=== PATIENT | female | born 1955 | race Caucasian/White ===

== ENCOUNTER 2022-04-25 16:54 | Inpatient (IN) ==
[2022-04-25 17:29] LABS: Basophils # (auto) 0.03 K/uL (0-0.2); Basophils % (auto) 0.6 %; Eosinophils # (auto) 0.24 K/uL (0-0.50); Eosinophils % (auto) 4.7 %; Hematocrit (blood only) 36.8 % (34.1-44.9); Hemoglobin 11.7 g/dl (12.0-16.0); Immature Granulocytes # (auto) 0.01 K/uL (0.00-0.02); Immature Granulocytes % (auto) 0.2 %; Lymphocytes # (auto) 1.03 K/uL (1.2-3.4); Lymphocytes % (auto) 20.3 %; Mean Corpuscular Hemoglobin 31.8 pg (25.0-34.0); Mean Corpuscular Hgb Conc 31.8 g/dL (32.0-36.0); Mean Platelet Volume 9.6 fL (9.4-12.3); Monocytes # (auto) 0.49 K/uL (0.24-0.82); Monocytes % (auto) 9.7 %; Neutrophils # (auto) 3.27 K/uL (1.4-6.5); Neutrophils % (auto) 64.5 %; Platelet Count 186 K/uL (130-400); RDW Coefficient of Variation 13.1 % (11.5-14.5); RDW Standard Deviation 48.4 fL (36.4-46.3); Red Blood Count 3.68 M/uL (3.93-5.22); White Blood Count 5.07 K/ul (4.8-10.8)
[2022-04-25 17:42] LABS: Partial Thromboplastin Ratio 0.9; Prothrombin Time 10.4 Seconds (9.0-12.0)
[2022-04-25 17:58] LABS: Albumin Globulin Ratio 1.3 (0.9-2); Albumin Level 3.9 gm/dl (3.4-5.0); BUN Creatinine Ratio 18.5 (10-20); Bilirubin,Total 0.4 mg/dl (0.2-1.0); Calcium 8.9 mg/dl (8.5-10.1); Creatinine Clr Calc Pharmacy 82.8 ml/min; Est GFR (African American) 105.7 ml/min; Est GFR (Non-African American) 91.2 ml/min; Globulin 3.1 gm/dl (2.5-4.0); Potassium 4.1 mmol/L (3.5-5.1)
[2022-04-25 18:00] LABS: Troponin I High Sensitivity 7.2 pg/ml (0-14)
--- NOTE | 2022-04-25 18:02 | Ultrasound Report ---
LEFT LOWER EXTREMITY VENOUS DOPPLER CLINICAL HISTORY: Left lower extremity swelling. COMPARISON STUDY: No previous studies for comparison. TECHNIQUE: Sonography of the deep venous system of the left lower extremity was performed. Compressi on and augmentation were evaluated. FINDINGS: The left common femoral, superficial femoral and popliteal veins were compressible. Augmen tation was normal. Flow was shown within the deep calf vessels. IMPRESSION: No evidence of deep venous thrombus within the left lower extremity. ACT 112: Negative or not required by law. Electronically signed by: Jose Yu M.D. 04/25/2022 6:01 PM
[2022-04-25] MEDS ORDERED: FUROSEMIDE 40 MG/4 ML VIAL IV ONE (18:33)
--- NOTE | 2022-04-25 18:34 | XRay Report ---
XR chest 1V portable CLINICAL HISTORY: Atypical chest pain. COMPARISON STUDY: No previous studies for comparison. FINDINGS: Lung volumes are normal. There is no pneumothorax or pleural effusion. Cardiac size is with in normal limits. Mediastinal contours are unremarkable. Subtle interstitial prominence is noted. IMPRESSION: Subtle interstitial prominence. This is probably within normal limits although a mild in fectious process would be difficult to exclude. ACT 112: Negative or not required by law. Electronically signed by: Jose Yu M.D. 04/25/2022 6:33 PM
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
[2022-04-25] MEDS ORDERED: NITROGLYCERIN SL 0.4 MG/TAB TAB SL PRN (21:10)
[2022-04-25] MEDS ORDERED: hydrALAZINE HCL 20 MG/ML VIAL IV PRN (21:10)
[2022-04-25] MEDS ORDERED: POLYETHYLENE (MIRALAX) 17 GM PACK PO PRN (21:10)
[2022-04-25] MEDS ORDERED: POLYETHYLENE (MIRALAX) 17 GM PACK PO STA (21:10)
[2022-04-25] MEDS ORDERED: GLUCOSE 40% GEL 15 GM TUBE PO PRN (21:30)
[2022-04-25] MEDS ORDERED: GLUCOSE 10 TAB/TUBE PO PRN (21:30)
[2022-04-25] MEDS ORDERED: GLUCAGON FOR INJ 1 MG VIAL IM PRN (21:30)
[2022-04-25] MEDS ORDERED: DEXTROSE 50% 50 ML SYRINGE IV PRN (21:30)
[2022-04-25] MEDS ORDERED: CARBOHYDRATES FOR HYPOGLYCEMIA PO PRN (21:30)
--- NOTE | 2022-04-25 22:02 | History and Physical Report ---
DATE OF ADMISSION: 04/25/2022. CHIEF COMPLAINT: Lower extremity edema, hip pain and some ambulatory dysfunction. HISTORY OF PRESENT ILLNESS: This is a 67-year-old female with past medical history significant for obesity, diabetes, history of peptic ulcer disease, endometriosis, history of tobacco abuse in the past, presents with lower extremity edema, going on for a few weeks, and also having hip pain and ambulatory dysfunction. The patient states that last time she saw a doctor was 6 years ago. Since last 6 years, because of the lack of insurance, she was not taking any medications. She has insurance now and she wants to follow with family doctor. She sometimes gets migraine headaches. Her vision is ok. No earache, no runny nose, no sore throat. No cough. Appetite is okay. No chest pain. She states she is short of breath all the time . She cannot lie flat, lying flat makes her short of breath. No nausea, no vomiting. Has some abdominal discomfort. She is always constipated. She says she has some blood in the stools and thinks from the hemorrhoids. She says she has incontinence of the urine. Currently, resting comfortably and hemodynamically stable. ALLERGIES: TO IBUPROFEN. PAST MEDICAL HISTORY: As mentioned above. PAST SURGICAL HISTORY: Hysterectomy and oophorectomy, bladder repair. MEDICATIONS: MiraLax p.r.n. FAMILY HISTORY: Mother had dementia and lung cancer. Father is alcoholic. SOCIAL HISTORY: She says she has had quit smoking 5 years ago. She smoked half pack a day for many years. She has been heavy, but not drinking for the last 20 years. Currently living with her daughter. REVIEW OF SYSTEMS: As per HPI. Rest of review of systems is negative. PHYSICAL EXAMINATION: GENERAL: The patient is obese, not in acute distress. VITAL SIGNS: Temperature 36.7, pulse 72, respiratory rate 19, blood pressure 189/70, oxygen 95% on room air. HEENT: Pupils equal, round and reactive to light. Oral mucosa moist. NECK: No JVD. No neck masses. CARDIOVASCULAR: S1 and S2 heard. Regular rate and rhythm. No murmur, no gallop. RESPIRATORY SYSTEM: Normal AP diameter. No accessory muscle use. No wheezing, no crackles. ABDOMEN: Soft, bowel sounds present. Mild discomfort. No guarding. No rigidity. CENTRAL NERVOUS SYSTEM: Cranial nerves II-XII grossly intact, nonfocal. EXTREMITIES: Bilateral lower extremity pedal edema present, no erythema seen. LABORATORY DATA: WBC is 5, hemoglobin 11.7, hematocrit 36.8, platelets 186. PT of 10.4, INR 1, APTT 26. Sodium 141, potassium 4.1, chloride 105, bicarb 29, BUN 12, creatinine 0.6, serum glucose 123, calcium 8.9, total bilirubin 0.4, AST 19, ALT 15, alkaline phosphatase 102. Troponin I high sensitivity 7.2. BNP 324. SARS-CoV-2 rapid test negative. IMAGING DATA: Venous Doppler, no evidence of DVT. Chest x-ray, subtle interstitial prominence, probably within normal limits, although mild infectious process could be difficult to exclude. EKG: Sinus rhythm with PACs at a rate of 81, no acute ST changes seen. ASSESSMENT AND PLAN: This is a 67-year-old female who presents with increased lower extremity edema, shortness of breath and ambulatory dysfunction. 1. Shortness of breath, increased lower extremity edema, possible congestive heart failure. ER gave her a dose of IV Lasix 40. We will follow the response. Follow daily weights, I's and O's. We will follow echocardiogram. Monitor in the tele floor. Consult cardiology. Further diuretics as per Cardiology. 2. Hip pain, ambulatory dysfunction, back pain. As per daughter, she is to follow up with the pain clinic . We will get an x-rays of the hip and lumbar back. PT, OT when stable. 3. History of diabetes. Since last 6 years not following with any doctors. We will check HbA1c levels. Place her on insulin sliding scale. Follow the blood sugars. 4. Hypertension, could be situational, not been to doctor for a long time. We will follow the blood pressure in the hospital. Follow echocardiogram for any LVH. Currently placed on IV hydralazine p.r.n. 5. Obesity: Needs counseling. We will also follow lipid profile. 6. Anemia. hb 11.7. Will follow stool for hemeoccult. 7. Deep venous thrombosis prophylaxis: Lovenox. DISPOSITION: Closely monitor in the tele floor. Level 1 full code. PT, OT prior to discharge. Social service to help with discharge planning. Job ID: [id number] [facility]
[2022-04-25] MEDS: ENOXAPARIN INJ 40 MG/0.4 ML SYR SQ SCH (22:33)
[2022-04-25] MEDS: INSULIN ASPART PER UNIT SC SCH (22:34)
[2022-04-26] MEDS: traMADol HCL 50 MG TABLET PO PRN ×3 (04:38→19:47)
[2022-04-26 05:44] LABS: Basophils # (auto) 0.03 K/uL (0-0.2); Basophils % (auto) 0.6 %; Eosinophils # (auto) 0.25 K/uL (0-0.50); Eosinophils % (auto) 4.7 %; Hematocrit (blood only) 35.9 % (34.1-44.9); Hemoglobin 11.6 g/dl (12.0-16.0); Immature Granulocytes # (auto) 0.02 K/uL (0.00-0.02); Immature Granulocytes % (auto) 0.4 %; Lymphocytes # (auto) 1.09 K/uL (1.2-3.4); Lymphocytes % (auto) 20.3 %; Mean Corpuscular Hemoglobin 31.6 pg (25.0-34.0); Mean Corpuscular Hgb Conc 32.3 g/dL (32.0-36.0); Mean Corpuscular Volume 97.8 fL (80.0-100.0); Mean Platelet Volume 9.6 fL (9.4-12.3); Monocytes # (auto) 0.61 K/uL (0.24-0.82); Monocytes % (auto) 11.4 %; Neutrophils # (auto) 3.36 K/uL (1.4-6.5); Neutrophils % (auto) 62.6 %; Platelet Count 185 K/uL (130-400); RDW Coefficient of Variation 12.8 % (11.5-14.5); Red Blood Count 3.67 M/uL (3.93-5.22); White Blood Count 5.36 K/ul (4.8-10.8)
[2022-04-26 06:09] LABS: BUN Creatinine Ratio 19.1 (10-20); Calcium 8.8 mg/dl (8.5-10.1); Chol HDL Ratio 3.4 (0-5); Creatinine Clr Calc Pharmacy 85.2 ml/min; Est GFR (African American) 104.2 ml/min; Est GFR (Non-African American) 89.9 ml/min; Magnesium 1.5 mg/dl (1.7-2.4); Potassium 4.1 mmol/L (3.5-5.1)
[2022-04-26 06:52] LABS: Estimated Average Glucose 105 mg/dl; Hemoglobin A1C 5.3 % (4.5-5.6)
[2022-04-26] MEDS ORDERED: PNEUMOCOCCAL POLYSACCHARIDES 25 MCG/0.5 ML VIAL/SYR IM ONE (09:00)
[2022-04-26] MEDS ORDERED: INFLUENZA VACCINE HIGH DOSE PF 65+ 0.7 ML SYR IM ONE (09:00)
[2022-04-26] MEDS ORDERED: MAGNESIUM SULFATE / D5W 1 GM/100 ML BAG IV ONE (09:13)
[2022-04-26] MEDS: INSULIN ASPART PER UNIT SC SCH ×4 (09:30→21:10)
--- NOTE | 2022-04-26 09:32 | XRay Report ---
XR lumbar spine 2-3V HISTORY: 67 years-old Female BACK PAIN acute low back pain COMPARISON: CT abdomen and pelvis 03/12/2022 TECHNIQUE: 3 views of the lumbar spine FINDINGS: Moderate fecal retention. Surgical clips of the pelvis. Prior ventral abdominal wall hernia repair. 5 lumbar type vertebral segments are present. Severe L4-L5 vertebral disc space narrowing with spondy litic spurring and vacuum disc phenomenon redemonstrated. Moderate multilevel spondylitic spurring. N o spondylolysis or spondylolisthesis. Straightening of the normal lumbar lordosis. No acute fracture or subluxation. IMPRESSION: 1. No acute fracture or subluxation. 2. Severe intervertebral disc space narrowing at L4-L5 redemonstrated. ACT 112: Negative or not required by law. The above report was generated using voice recognition software. It may contain grammatical, syntax o r spelling errors. Electronically signed by: Lonnie Leija M.D. 04/26/2022 9:31 AM
--- NOTE | 2022-04-26 09:35 | XRay Report ---
XR hip KYRA 2v w pelvis CLINICAL HISTORY: b/l hip pain COMPARISON STUDY: Abdomen and pelvis CT 03/12/2022. FINDINGS: Midline abdominal suture material and surgical clips within the left lower quadrant are not ed. No fracture or dislocation within the pelvis or hips. The sacrum is intact. 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 Degenerative changes within the lumbar spine are partially visualized. IMPRESSION: No fracture or dislocation within the pelvis or hips. ACT 112: Negative or not required by law. Electronically signed by: Kendrick Rene M.D. 04/26/2022 9:33 AM
[2022-04-26] MEDS: ENOXAPARIN INJ 40 MG/0.4 ML SYR SQ SCH ×2 (09:54→20:03)
[2022-04-26] MEDS: MAGNESIUM OXIDE 400 MG TAB PO SCH ×2 (09:55→20:04)
--- NOTE | 2022-04-26 14:24 | Electrocardiogram Report ---
Test Reason : Blood Pressure : / mmHG Vent. Rate : 081 BPM Atrial Rate : 081 BPM P-R Int : 150 ms QRS Dur : 062 ms QT Int : 364 ms P-R-T Axes : 051 000 029 degrees QTc Int : 422 ms Poor data quality, interpretation may be adversely affected Sinus rhythm with Premature atrial complexes Otherwise normal ECG When compared with ECG of 12-MAR-2022 13:43, Premature atrial complexes are now Present Confirmed by Solomon Corrales ([id number]) on 04/26/2022 2:24:30 PM Referred By: REFERRED SELF Confirmed By:Solomon Corrales
--- NOTE | 2022-04-26 14:41 | Electrocardiogram Report ---
Test Reason : Blood Pressure : / mmHG Vent. Rate : 066 BPM Atrial Rate : 066 BPM P-R Int : 154 ms QRS Dur : 066 ms QT Int : 432 ms P-R-T Axes : 075 -19 054 degrees QTc Int : 452 ms Sinus rhythm with Premature atrial complexes Otherwise normal ECG When compared with ECG of 25-APR-2022 17:02, (unconfirmed) No significant change was found Confirmed by Solomon Corrales ([id number]) on 04/26/2022 2:41:08 PM Referred By: REFERRED SELF Confirmed By:Solomon Corrales
[2022-04-26] MEDS ORDERED: FUROSEMIDE 40 MG/4 ML VIAL IV ONE (14:52)
[2022-04-26] MEDS ORDERED: LORazepam 0.5 MG in SYRINGE 0.25 ML IV PRN (15:05)
--- NOTE | 2022-04-26 17:20 | Hospitalist Progress Note ---
Date of Service April 26, 2022 Assessment & Plan (1) Acute diastolic CHF (congestive heart failure): (2) Chronic back pain: (3) Bipolar disorder: Plan 67 year old female who presented to the ED 04/25 with worsening leg swelling, back pain, weakness and ambulatory dysfunction Acute diastolic CHF - Echo with normal EF, grade 1 diastolic dysfunction. Had elevated BNP, leg swelling, orthopnea, PND prior to arrival - Responded well to iv lasix. Will give 1 more dose of iv lasix today and likely switch to po tomorrow - monitor daily weight,I and Os, labs Acute on chronic low back pain - states had MRI 6 years back at [place]. Xray lumbar spine shows no fracture but severe intervertebral disc space narrowing at L4-L5. Has LE weakness on exam and reports worsening ambulatory function - Will get MRI L spine for evaluation - Pain management- continue home neurontin 800 hs, methocarbamol 500 hs, tylenol, PT eval - She doesn't have a PCP so uses her daughter's medication. She would like to establish PCP care. Bipolar disorder- on seroquel 200 hs Urinary retention- was on flomax. requesting to be started Hypomagnesemia- repleted, recheck in am DVT ppx- sc lovenox Dispo- Pending MRI, PT/OT eval. Updated daughter Sandy over the phone Admission and Anticipated Discharge Date Admission Date: April 25, 2022 Subjective Feels better from admission. Swelling and dyspnea improved. Complains of ongoing leg weakness and pain in the back which has been going on for many years but worsening. She would like to be set up with a PCP. Reviewed home meds with her daughter Sandy. Physical Exam Physical Exam: General: Lying comfortably in bed, not in distress, on room air HEENT: EOMI, JONAH, MMM Chest: Clear breath sounds bilaterally, no wheezes or crackles CVS: Regular rate and rhythm, normal heart sounds, no murmur Abdomen: Soft, non tender, not distended, normal bowel sounds Neuro: Awake, alert, oriented, conversing well, non focal Extremities: Trace edema LE Results & Data Results & Data ([facility]) Vital Signs (Past 12 Hours) Vital Signs Temp Pulse Pulse Resp BP Pulse Ox O2 Del Method 04/26/22 16:20 68 04/26/22 15:25 36.6 C 56 L 14 153/72 H 92 Room Air 04/26/22 11:21 36.7 C 66 15 152/80 H 91 Room Air 04/26/22 10:49 Room Air 04/26/22 08:10 36.7 C 64 18 184/81 H 91 Room Air 04/26/22 07:11 64 Laboratory Results Short CBC 04/25/22 04/26/22 Range/Units 17:16 05:17 WBC 5.07 5.36 (4.8-10.8) K/ul Hgb 11.7 L 11.6 L (12.0-16.0) g/dl Hct 36.8 35.9 (34.1-44.9) % Plt Count 186 185 (130-400) K/uL BMP 04/25/22 04/26/22 17:16 05:17 Sodium 141 141 Potassium 4.1 4.1 Chloride 105 100 Carbon Dioxide 29 34 H BUN 12 13 Creatinine 0.65 0.68 Glucose 123 H 107 H Calcium 8.9 8.8 Liver Function 04/25/22 Range/Units 17:16 Total Bilirubin 0.4 (0.2-1.0) mg/dl AST 19 (13-39) U/L ALT 15 (7-52) U/L Alkaline Phosphatase 102 (34-104) U/L Albumin 3.9 (3.4-5.0) gm/dl Diagnostic Findings Hip/Pelvis X-Ray 04/26/22 11:00 XR hip KYRA 2v w pelvis CLINICAL HISTORY: b/l hip pain COMPARISON STUDY: Abdomen and pelvis CT 03/12/2022. FINDINGS: Midline abdominal suture material and surgical clips within the left lower quadrant are noted. No fracture or dislocation within the pelvis or hips. The sacrum is intact. 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 Degenerative changes within the lumbar spine are partially visualized. IMPRESSION: No fracture or dislocation within the pelvis or hips. ACT 112: Negative or not required by law. Electronically signed by: Kendrick Rene M.D. 04/26/2022 9:33 AM Lumbar Spine X-Ray 04/26/22 11:00 XR lumbar spine 2-3V HISTORY: 67 years-old Female BACK PAIN acute low back pain COMPARISON: CT abdomen and pelvis 03/12/2022 TECHNIQUE: 3 views of the lumbar spine FINDINGS: Moderate fecal retention. Surgical clips of the pelvis. Prior ventral abdominal wall hernia repair. 5 lumbar type vertebral segments are present. Severe L4-L5 vertebral disc space narrowing with spondylitic spurring and vacuum disc phenomenon redemonstrated. Moderate multilevel spondylitic spurring. No spondylolysis or spondylolisthesis. Straightening of the normal lumbar lordosis. No acute fracture or subluxation. IMPRESSION: 1. No acute fracture or subluxation. 2. Severe intervertebral disc space narrowing at L4-L5 redemonstrated. ACT 112: Negative or not required by law. The above report was generated using voice recognition software. It may contain grammatical, syntax or spelling errors. Electronically signed by: Lonnie Leija M.D. 04/26/2022 9:31 AM Medications Administered Current Inpatient Medications Dextrose (Dextrose 50% 50 Ml Syringe) 25 - 50 ml IV UD PRN; Protocol PRN Reason: Hypoglycemia Protocol Stop: 05/25/22 21:29 Enoxaparin Sodium (Enoxaparin Inj 40 Mg/0.4 Ml Syr) 40 mg SQ Q12H [facility] Stop: 05/25/22 20:59 Last Admin: 04/26/22 09:54 Dose: 40 mg Glucagon (Glucagon For Inj 1 Mg Vial) 1 mg IM UD PRN; Protocol PRN Reason: Hypoglycemia Protocol Stop: 05/25/22 21:29 Glucose (Glucose 40% Gel 15 Gm Tube) 15 - 30 gm PO UD PRN; Protocol PRN Reason: Hypoglycemia Protocol Stop: 05/25/22 21:29 Glucose (Glucose 10 Tab/Tube) 4 - 8 tab PO UD PRN; Protocol PRN Reason: Hypoglycemia Protocol Stop: 05/25/22 21:29 Hydralazine HCl (Hydralazine Hcl 20 Mg/Ml Vial) 7.5 mg IV Q6H PRN PRN Reason: Hypertension Stop: 05/25/22 21:09 Lorazepam 0.5 mg/ Syringe 0.5 mls @ 2 mls/min IV ONCE PRN PRN Reason: Anxiety Stop: 05/26/22 15:04 Insulin Aspart (Insulin Aspart Per Unit) 0 units SC ACHS NANCY Stop: 05/25/22 21:09 Last Admin: 04/26/22 16:29 Dose: Not Given Magnesium Oxide (Magnesium Oxide 400 Mg Tab) 400 mg PO BID [facility] Stop: 05/26/22 09:14 Last Admin: 04/26/22 09:55 Dose: 400 mg Miscellaneous (Carbohydrates For Hypoglycemia ) 15 - 30 gm PO UD PRN PRN Reason: Hypoglycemia Treatment Stop: 05/25/22 21:29 Nitroglycerin (Nitroglycerin Sl 0.4 Mg/Tab Tab) 0.4 mg SL UD PRN PRN Reason: Chest Pain Stop: 05/25/22 21:09 Polyethylene Glycol (Polyethylene (Miralax) 17 Gm Pack) 17 gm PO DAILY PRN PRN Reason: Constipation Stop: 05/25/22 21:09 Tamsulosin HCl (Tamsulosin Hcl 0.4 Mg Cap) 0.4 mg PO QAM NANCY Stop: 05/27/22 08:59 Tramadol HCl (Tramadol Hcl 50 Mg Tablet) 50 mg PO Q6H PRN PRN Reason: Pain Stop: 05/25/22 21:09 Last Admin: 04/26/22 09:59 Dose: 50 mg
[2022-04-26] MEDS ORDERED: GADOBUTROL 65ML VIAL IV ONE (18:38)
[2022-04-26] MEDS: lisinopril 10 MG TAB PO SCH (19:02)
--- NOTE | 2022-04-26 19:02 | Magnetic Resonance Report ---
MR lumbar spine wo/w con CLINICAL HISTORY: Low back pain with bilateral hip pain for years. Increasing leg weakness. TECHNIQUE: Multiplanar multisequence images of the Lumbar Spine were performed with and without IV c ontrast. Contrast Volume: 10.5 ml of Gadavist COMPARISON: None. FINDINGS: There is no evidence for vertebral body fracture. The heights of the vertebral bodies are maintained. The vertebral bodies are in anatomic alignment. Discogenic changes are present involving the T1 body endplates at L4 and L5. Homogeneous marrow signal is seen throughout the remainder of the lumbar spine without evidence for marrow edema or marrow replacement. There is no abnormal enhanceme nt following contrast administration. T11-T12: There is moderate disc space narrowing with a small left paracentral disc protrusion/herniat ion present measuring approximately 5 mm. This encroaches upon the thecal sac anterolaterally to the left without compression upon or deformity of the spinal cord or conus. T12-L1: The disc space height is maintained. There are no focal disc protrusions or extrusions ident ified. The thecal sac and epidural fat are maintained. The neural foramen are patent bilaterally. Th ere is no evidence for nerve root encroachment. The facet joints are within normal limits. L1-2: The disc space height is maintained. There are no focal disc protrusions or extrusions identif ied. The thecal sac and epidural fat are maintained. The neural foramen are patent bilaterally. Ther e is no evidence for nerve root encroachment. The facet joints are within normal limits. L2-3: There is mild disc space narrowing with diffuse bulging of the annulus present. There are no f ocal disc protrusions or extrusions identified. There is minimal flattening of thecal sac anteriorly and mild encroachment upon the origins of the neural foramen bilaterally. There is no evidence for n erve root encroachment. Mild hypertrophic facet joint disease is present bilaterally. L3-4: The disc space height is maintained. There are no focal disc protrusions or extrusions identif ied. There is mild diffuse bulging annulus with flattening of thecal sac anteriorly and mild encroac hment upon the origins of the neural foramen bilaterally. There is no evidence for nerve root encroac hment. Mild hypertrophic facet joint disease is seen bilaterally. L4-5: There is moderate to marked disc space narrowing with discogenic changes seen involving vertebr al body endplates. There are no focal disc protrusions or extrusions identified. There is diffuse b ulging of the annulus with flattening of thecal sac anteriorly and encroachment upon the origins of t he neural foramen bilaterally. Mild to moderate hypertrophic facet joint disease with thickening of l igamentum flavum is also present bilaterally. The combination of these findings produce mild central canal stenosis and moderate bilateral foraminal stenosis. L5-S1: The disc space height is maintained. There are no focal disc protrusions or extrusions identi fied. The thecal sac and epidural fat are maintained. The neural foramen are patent bilaterally. The re is no evidence for nerve root encroachment. Mild hypertrophic facet joint disease is seen bilatera lly. IMPRESSION: 1. Small left paracentral disc protrusion/herniation at T11-12. 2. Degenerative disc and degenerative facet joint disease with bulging annuli is seen at L2-3, L3-4 a nd L4-5 as delineated at each disc space level above. No other focal disc protrusion/herniation is se en. ACT 112: Negative or not required by law. Electronically signed by: Alfredito Hoffman M.D. 04/26/2022 7:00 PM
[2022-04-26] MEDS: ACETAMINOPHEN 500 MG TAB PO SCH (20:03)
[2022-04-26] MEDS: GABAPENTIN 800 MG TAB PO SCH (20:04)
[2022-04-26] MEDS: METHOCARBAMOL 500 MG TABLET PO SCH (20:04)
[2022-04-26] MEDS: QUEtiapine FUMARATE 200 MG TABCR PO SCH (20:05)
[2022-04-27 07:33] LABS: Hematocrit (blood only) 36.7 % (34.1-44.9); Mean Corpuscular Hemoglobin 32.2 pg (25.0-34.0); Mean Corpuscular Hgb Conc 32.7 g/dL (32.0-36.0); Mean Corpuscular Volume 98.4 fL (80.0-100.0); Mean Platelet Volume 9.2 fL (9.4-12.3); Platelet Count 172 K/uL (130-400); RDW Coefficient of Variation 12.9 % (11.5-14.5); RDW Standard Deviation 46.4 fL (36.4-46.3); Red Blood Count 3.73 M/uL (3.93-5.22); White Blood Count 3.75 K/ul (4.8-10.8)
[2022-04-27 08:01] LABS: BUN Creatinine Ratio 20.2 (10-20); Calcium 8.5 mg/dl (8.5-10.1); Creatinine Clr Calc Pharmacy 69.2 ml/min; Est GFR (African American) 82.8 ml/min; Est GFR (Non-African American) 71.4 ml/min; Potassium 3.5 mmol/L (3.5-5.1)
[2022-04-27] MEDS: INSULIN ASPART PER UNIT SC SCH ×4 (08:03→20:48)
[2022-04-27] MEDS: lisinopril 10 MG TAB PO SCH (09:02)
[2022-04-27] MEDS: TAMSULOSIN HCL 0.4 MG CAP PO SCH (09:02)
[2022-04-27] MEDS: MAGNESIUM OXIDE 400 MG TAB PO SCH ×2 (09:02→20:24)
[2022-04-27] MEDS: ENOXAPARIN INJ 40 MG/0.4 ML SYR SQ SCH ×2 (09:02→20:23)
--- NOTE | 2022-04-27 12:50 | Orthopedic Consultation ---
Date of Consultation April 27, 2022 Assessment & Plan (1) Chronic back pain: MRI lumbar spine available for review does demonstrate evidence of degenerative change most impressive at L4-L5 with subarticular and foraminal stenosis. Is not severe in nature. In light of her presentation of progressive nonspecific leg weakness I cannot account this to the MRI of her lumbar spine. She may require a neurology consultation. But did not see anything at this time that requiring surgical intervention. History of Present Illness Reason for Consultation: Back pain and leg weakness Attending Physician: Wilmar Chi MD History of Present Illness This is a very pleasant 59-year-old female who presents with worsening back pain and leg weakness. She does have multiple medical issues. She states she is noted decline in function for many years. She states she did not longer ascend stairs. She cannot ambulate for any sort of distance. Again this has been progressive over the years. Allergies Allergy/AdvReac Type Severity Reaction Status Date / Time ibuprofen AdvReac Nausea Unverified 04/25/22 19:03 Home Medications Medication Instructions Recorded Confirmed Type polyethylene glycol 3350 17 17 g PO DAILY PRN constipation 03/12/22 04/25/22 Rx gram/dose oral powder (Miralax) #850 grams Patient History Medical History Constipation PUD (peptic ulcer disease) Surgical History H/O: hysterectomy Social History Smoking Status: Former smoker Hx Alcohol Use: No Hx Substance Use: No Preferred Language: Georgian Communication Ability: Effective Visual Effects Editor Required: No Beliefs That Will Affect Care: None Current Living Situation: Family Other Information That Helps Us Care for You: No Feels Safe at Home: Yes Safety Concerns: Afraid for Child/Children Assistive Devices: Cane Physical Exam Physical Exam: On exam she is alert and oriented and cooperative. She exhibits reasonable strength to plantar flexion dorsiflexion bilaterally. She is limitations with hip flexors bilaterally. Sensory is symmetric and intact. Results & Data ([facility]) Vital Signs (Past 12 Hours) Vital Signs Temp Pulse Pulse Resp BP Pulse Ox O2 Del Method 04/27/22 12:15 36.7 C 67 16 126/66 91 Room Air 07/26/22 09:56 Room Air 04/27/22 07:13 36.8 C 71 16 109/55 L 91 Room Air 04/27/22 07:02 65 04/27/22 03:56 95/59 L 04/27/22 03:21 36.5 C 67 16 90/60 L 91 Room Air 04/27/22 02:13 66
[2022-04-27] MEDS: traMADol HCL 50 MG TABLET PO PRN ×2 (14:55→22:25)
--- NOTE | 2022-04-27 16:43 | Hospitalist Progress Note ---
Date of Service April 27, 2022 Assessment & Plan (1) Acute diastolic CHF (congestive heart failure): (2) Chronic back pain: (3) Bipolar disorder: Plan 67 year old female who presented to the ED 04/25 with worsening leg swelling, back pain, weakness and ambulatory dysfunction Acute diastolic CHF - Echo with normal EF, grade 1 diastolic dysfunction. Had elevated BNP, leg swelling, orthopnea, PND prior to arrival - Responded well to iv lasix x2. Change to oral lasix from today. Monitor response - monitor daily weight,I and Os, labs Acute on chronic low back pain - states had MRI 6 years back at [place]. Xray lumbar spine shows no fracture but severe intervertebral disc space narrowing at L4-L5. Has LE weakness on exam and reports worsening ambulatory function - MRI L spine reviewed and seen by Dr Chanel. recommended neuro eval- consulted. - PT eval pending - Continue home neurontin 800 hs, methocarbamol 500 hs, tylenol for pain control HTN- BP labile. Started on lisinopril 10 mg daily- monitor response and adjust accordingly. Bipolar disorder- on seroquel 200 hs Urinary retention- was on flomax. requesting to be started and resumed. Hypomagnesemia- resolved DVT ppx- sc lovenox Dispo- Pending neuro and PT eval She doesn't have a PCP so uses her daughter's medication. She would like to establish PCP care. Our nurse coordinator notified to establish PCP care. Admission and Anticipated Discharge Date Admission Date: April 25, 2022 Subjective Improving. Her leg and abdominal swelling has significantly improved. Her SOB is improved. Still has weakness in legs. No fever, chills, N/V. Physical Exam Physical Exam: General: Obese female, sitting in chair, not in distress, on room air HEENT: EOMI, JONAH, MMM Chest: Clear breath sounds bilaterally, no wheezes or crackles CVS: Regular rate and rhythm, normal heart sounds, no murmur Abdomen: Soft, non tender, not distended, normal bowel sounds Neuro: Awake, alert, oriented, conversing well, non focal. Generalized weakness of bilateral LE 4/5 Extremities: No cyanosis, clubbing or edema Results & Data Results & Data ([facility]) Vital Signs (Past 12 Hours) Vital Signs Temp Pulse Pulse Resp BP Pulse Ox O2 Del Method 04/27/22 15:44 64 04/27/22 15:40 36.6 C 67 18 162/87 H 94 Room Air 04/27/22 12:15 36.7 C 67 16 126/66 91 Room Air 04/27/22 09:56 Room Air 04/27/22 07:13 36.8 C 71 16 109/55 L 91 Room Air 04/27/22 07:02 65 Laboratory Results Short CBC 04/27/22 Range/Units 07:09 WBC 3.75 L (4.8-10.8) K/ul Hgb 12.0 (12.0-16.0) g/dl Hct 36.7 (34.1-44.9) % Plt Count 172 (130-400) K/uL BMP 04/27/22 07:09 Sodium 139 Potassium 3.5 Chloride 96 L Carbon Dioxide 38 H BUN 17 Creatinine 0.84 Glucose 99 Calcium 8.5 Medications Administered Current Inpatient Medications Acetaminophen (Acetaminophen 500 Mg Tab) 1,000 mg PO HS NANCY Stop: 05/26/22 20:59 Last Admin: 04/26/22 20:03 Dose: 1,000 mg Dextrose (Dextrose 50% 50 Ml Syringe) 25 - 50 ml IV UD PRN; Protocol PRN Reason: Hypoglycemia Protocol Stop: 05/25/22 21:29 Enoxaparin Sodium (Enoxaparin Inj 40 Mg/0.4 Ml Syr) 40 mg SQ Q12H [facility] Stop: 05/25/22 20:59 Last Admin: 04/27/22 09:02 Dose: 40 mg Furosemide (Furosemide 40 Mg Tab) 40 mg PO DAILY NANCY Stop: 05/27/22 15:59 Gabapentin (Gabapentin 800 Mg Tab) 800 mg PO HS NANCY Stop: 05/26/22 20:59 Last Admin: 04/26/22 20:04 Dose: 800 mg Glucagon (Glucagon For Inj 1 Mg Vial) 1 mg IM UD PRN; Protocol PRN Reason: Hypoglycemia Protocol Stop: 05/25/22 21:29 Glucose (Glucose 40% Gel 15 Gm Tube) 15 - 30 gm PO UD PRN; Protocol PRN Reason: Hypoglycemia Protocol Stop: 05/25/22 21:29 Glucose (Glucose 10 Tab/Tube) 4 - 8 tab PO UD PRN; Protocol PRN Reason: Hypoglycemia Protocol Stop: 05/25/22 21:29 Hydralazine HCl (Hydralazine Hcl 20 Mg/Ml Vial) 7.5 mg IV Q6H PRN PRN Reason: Hypertension Stop: 05/25/22 21:09 Lorazepam 0.5 mg/ Syringe 0.5 mls @ 2 mls/min IV ONCE PRN PRN Reason: Anxiety Stop: 05/26/22 15:04 Last Admin: 04/26/22 17:24 Dose: 2 mls/min Insulin Aspart (Insulin Aspart Per Unit) 0 units SC ACHS NANCY Stop: 05/25/22 21:09 Last Admin: 04/27/22 11:34 Dose: Not Given Lisinopril (Lisinopril 10 Mg Tab) 10 mg PO DAILY NANCY Stop: 05/26/22 17:29 Last Admin: 04/27/22 09:02 Dose: 10 mg Magnesium Oxide (Magnesium Oxide 400 Mg Tab) 400 mg PO BID NANCY Stop: 05/26/22 09:14 Last Admin: 04/27/22 09:02 Dose: 400 mg Methocarbamol (Methocarbamol 500 Mg Tablet) 500 mg PO HS NANCY Stop: 05/26/22 20:59 Last Admin: 04/26/22 20:04 Dose: 500 mg Miscellaneous (Carbohydrates For Hypoglycemia ) 15 - 30 gm PO UD PRN PRN Reason: Hypoglycemia Treatment Stop: 05/25/22 21:29 Nitroglycerin (Nitroglycerin Sl 0.4 Mg/Tab Tab) 0.4 mg SL UD PRN PRN Reason: Chest Pain Stop: 05/25/22 21:09 Polyethylene Glycol (Polyethylene (Miralax) 17 Gm Pack) 17 gm PO DAILY PRN PRN Reason: Constipation Stop: 05/25/22 21:09 Potassium Chloride (Potassium Chloride Crtab 20 Meq Tabcr) 20 meq PO DAILY NANCY Stop: 05/27/22 15:59 Quetiapine Fumarate (Quetiapine Fumarate 200 Mg Tabcr) 200 mg PO HS NANCY Stop: 05/26/22 20:59 Last Admin: 04/26/22 20:05 Dose: 200 mg Tamsulosin HCl (Tamsulosin Hcl 0.4 Mg Cap) 0.4 mg PO QAM NANCY Stop: 05/27/22 08:59 Last Admin: 04/27/22 09:02 Dose: 0.4 mg Tramadol HCl (Tramadol Hcl 50 Mg Tablet) 50 mg PO Q6H PRN PRN Reason: Pain Stop: 05/25/22 21:09 Last Admin: 04/27/22 14:55 Dose: 50 mg
[2022-04-27] MEDS: FUROSEMIDE 40 MG TAB PO SCH (17:55)
[2022-04-27] MEDS: POTASSIUM CHLORIDE CRTAB 20 MEQ TABCR PO SCH (17:55)
[2022-04-27] MEDS: GABAPENTIN 800 MG TAB PO SCH (20:22)
[2022-04-27] MEDS: ACETAMINOPHEN 500 MG TAB PO SCH (20:23)
[2022-04-27] MEDS: QUEtiapine FUMARATE 200 MG TABCR PO SCH (20:24)
[2022-04-27] MEDS: METHOCARBAMOL 500 MG TABLET PO SCH (20:24)
[2022-04-28] MEDS: INSULIN ASPART PER UNIT SC SCH ×4 (07:48→20:58)
[2022-04-28 08:38] LABS: Creatinine Clr Calc Pharmacy 95.3 ml/min; Est GFR (Non-African American) 93.1 ml/min
[2022-04-28] MEDS: ENOXAPARIN INJ 40 MG/0.4 ML SYR SQ SCH ×2 (09:44→20:56)
[2022-04-28] MEDS: MAGNESIUM OXIDE 400 MG TAB PO SCH ×2 (09:45→20:57)
[2022-04-28] MEDS: TAMSULOSIN HCL 0.4 MG CAP PO SCH (09:45)
[2022-04-28] MEDS: POTASSIUM CHLORIDE CRTAB 20 MEQ TABCR PO SCH (09:45)
[2022-04-28] MEDS: lisinopril 10 MG TAB PO SCH (09:55)
[2022-04-28] MEDS: FUROSEMIDE 40 MG TAB PO SCH (09:55)
--- NOTE | 2022-04-28 13:44 | Neurology Consultation ---
Date of Consultation April 28, 2022 Assessment & Plan (1) Chronic back pain: 1. MRI L spine - no intervention offered from orthopedic stand point 2. PT/OT for rehab needs 3. EMG bilateral LE as outpatient 4. pain mgt for possible trigger point injections 5. would start gabapentin 100 mg hs x 5 days then increase to twice daily x 5 days then three times daily- increase as needed and tolerated 6. need family medicine MD for out patient follow up 7. order sed rate, CK, b12, folate, thiamine, RPR. (2) Leg swellin. LLE doppler - negative for clot Supervising Physician Co-Signing Physician Notes I have seen and discussed above patient with Dr Lacy Riley, neurology. Patient seen and examined history reviewed. I have reviewed her lab work as well as MRI of the L-spine. Patient reports a many year history of bilateral lower extremity weakness and pain she did not come into our facility for that reason she came in because of left lower extremity swelling. She has lived in this area for several months having gotten her care I believe closer to [place] than our facility. She is taking some medications at home but does not know their names. They may include Seroquel. There may be a muscle relaxer The patient reports that she has had difficulty getting out of bed and off of the sofa. She relocated to [place] as her child in the [place] area had a two-story home that was difficult for her to go to negotiate. She reports chronic back pain which radiates to the bilateral buttocks. He has neck pain but no Lhermitte's phenomenon. She reports weakness in all 4 ex tremities numbness in the hands no numbness in the lower extremities. She denies incontinence of bowel or bladder except if she has to cantu to the bathroom. She ambulates slowly and is sometimes unable to make it to the bathroom She was formally thought to be diabetic. Her hemoglobin A1c has been normal. She has no known history of cancer but indicates she had some mass found possibly by endoscopy or colonoscopy over a year ago and she was referred to see a cancer specialist but never made that appointment Her weight has been stable. On exam she is awake and alert speech and language are normal and affect is appropriate there is normal extraocular motility and facial symmetry there is no nasality of speech tongue is midline. Gross inspection the musculature reveals no obvious atrophy or fasciculations. Her feet are high arched. There is minimal lower thoracic upper lumbar spinal tenderness no deformity is noted. Upper extremity strength seems somewhat limited by effort but is at least 4 out of 5 without drift and with normal rapid alternating movements. Lower extremities effort is inconsistent. On manual motor testing I would suspect a 3 out of 5 in both proximally and at the 3 out of 5 at the quads 3+ out of 5 in the hamstrings and a 4 in the feet tone is normal reflexes are symmetric mildly brisk at the knees absent ankle jerks no clonus and toes are downgoing. There is a mid calf to upper calf level to temperature. There may be decreased light touch in the entire left leg. Vibration sense is present in the toes. There is decreased light touch in her right anterior lower abdominal wall which she attributes to prior abdominal surgery otherwise there is no posterior trunk level. [id number] is normal [id number] is performed well and is not dystaxic. Is performed better than 1 would expect from her manual motor testing of strength. Patient dontae from a bed without our assistance that she used a walker her gait appeared unremarkable and certainly suggested a level of strength greater than manual motor testing. This patient has had chronic gait disturbance. Her MRI of the lumbar spine does not show a reason to explain her current neurologic symptoms. Interpretation is difficult due to an inconsistent exam. I suspect she has a neuropathy. Could have a myopathic process as well. Plan labs for treatable etiologies of neuropathy. Also check a CK and sed rate and nerve conduction EMG as an outpatient. Given her paraparesis and difficulty interpreting her exam recommend MRI of the cervical and thoracic spine to rule out a cord lesion we will follow with you Patient will need inpatient rehabilitation. History of Present Illness Reason for Consultation: worsening LE weakness, recommended by ortho Requesting Physician: Lisa Wright MD Attending Physician: Lisa Wright MD History of Present Illness Sintia is a 67 year old female with PMH obesity, DM, PUD, endometriosis, tobacco abuse in the past, presents to [facility] 04/25/22 with lower extremity edema, going on for a few weeks, and also having hip pain and ambulatory dysfunction.The last time she saw a doctor was 6 years ago. Since last 6 years, because of the lack of insurance, she was not taking any medications. She has insurance now and she wants to follow with family doctor. She sometimes gets migraine headaches. Her vision is ok. denies earache, runny nose, sore throat. cough.She is short of breath all the time and cannot lie flat, lying flat increases her shortness of breath. She has some blood in the stools and thinks from the hemorrhoids and has incontinence of the urine. She is upset because she can't have any more tea. she is from [place] and loves her tea. She says she is weak because when she tried to move she has so much pain. Orthopedic saw her and no intervention was offered at this time.She quit smoking about 6 years ago. denies CP, current SOB, abdominal pain. Allergies Allergy/AdvReac Type Severity Reaction Status Date / Time ibuprofen AdvReac Nausea Unverified 04/25/22 19:03 Home Medications Medication Instructions Recorded Confirmed Type polyethylene glycol 3350 17 17 g PO DAILY PRN constipation 03/12/22 04/25/22 Rx gram/dose oral powder (Miralax) #850 grams Patient History Medical History Constipation PUD (peptic ulcer disease) Surgical History H/O: hysterectomy Social History Smoking Status: Former smoker Hx Alcohol Use: No Hx Substance Use: No Preferred Language: Icelandic Communication Ability: Effective Independent Marketing Consultant Required: No Beliefs That Will Affect Care: None Current Living Situation: Family Other Information That Helps Us Care for You: No Feels Safe at Home: Yes Safety Concerns: Afraid for Child/Children Assistive Devices: Cane Review of Systems Review of Systems: All systems reviewed & are unremarkable except as noted in HPI & below Physical Exam Physical Exam: Physical Exam: Constitutional: appearance over nourished, healthy Ears, Nose, Mouth and Throat: mucous membranes moist, no injection and skin normal, eyes normal Cardiovascular: normal S-1 and S-2 and regular rate and rhythm Respiratory: course breath sounds with wheezing Musculoskeletal: LLE non pitting peripheral edema and good distal pulses, tender with touch of varicose veins. Skin: no stigmata of neurocutaneous disease noted and normal and intact Eyes: extraocular muscles intact (EOMI) and pupils equal, round and reactive to light (PERRL) NEUROLOGIC EXAMINATION: Mental status: Alert and interactive Oriented to person Speech fluent with no evidence of aphasia speech with a heavy mauritanian accent Cranial Nerves smile eye brow raise normal Reflexes: Deep tendon reflexes were symmetrical decreased, down going toes Sensory: intact to cool and light touch and vibration, GT proprioception intact on left not on right Coordination: finger to nose Gait/Stance: Posture lying in bed Motor: Negative for pronator drift of out stretched arms with eyes closed. 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 LE hip flex 4+/5 bilaterally, plantar flex ext 5/5 Results & Data ([facility]) Vital Signs (Past 12 Hours) Vital Signs Temp Pulse Pulse Resp BP BP Pulse Ox 04/28/22 11:30 36.7 C 69 14 129/55 L 97 04/28/22 07:51 04/28/22 08:30 95 04/28/22 07:25 36.6 C 64 16 96/60 L 86 L 04/28/22 07:41 62 04/28/22 03:56 36.8 C 75 16 98/63 L 90 O2 Del Method O2 Flow Rate 04/28/22 11:30 Room Air 04/28/22 07:51 Nasal Cannula 2 04/28/22 08:30 Nasal Cannula 2 04/28/22 07:25 Room Air 04/28/22 07:41 04/28/22 03:56 Room Air Laboratory Results Abnormal lab results 04/27/22 04/27/22 04/28/22 Range/Units 16:17 20:46 11:15 POC Glucose 111 H 102 H 101 H (70-99) mg/dl Diagnostic Findings CXR-Subtle interstitial prominence. This is probably within normal limits although a mild infectious process would be difficult to exclude. LE doppler=No evidence of deep venous thrombus within the left lower extremity. hip xray-No fracture or dislocation within the pelvis or hips. lumbar xray-No acute fracture or subluxation. Severe intervertebral disc space narrowing at L4-L5 redemonstrated. MRI L spine-Small left paracentral disc protrusion/herniation at T11-12. Degenerative disc and degenerative facet joint disease with bulging annuli is se en at L2-3, L3-4 and L4-5 as delineated at each disc space level above. No other focal disc protrusion/herniation is seen. TTE- 60-65% EF no ASD- diastolic CHF elevated BNP
[2022-04-28] MEDS: traMADol HCL 50 MG TABLET PO PRN (14:26)
--- NOTE | 2022-04-28 16:02 | Hospitalist Progress Note ---
Date of Service April 28, 2022 Assessment & Plan (1) Acute diastolic CHF (congestive heart failure): Plan: 67 year old female who presented to the ED 04/25 with worsening leg swelling, back pain, weakness and ambulatory dysfunction Acute diastolic CHF - Echo with normal EF, grade 1 diastolic dysfunction. Had elevated BNP, leg swelling, orthopnea, PND prior to arrival - Responded well to iv lasix x2. Change to oral lasix from today. Monitor response -Has been feeling much better and is on 2 L oxygen to maintain saturation -He was not on any oxygen at home -We will monitor intake output (2) Chronic back pain: Plan: Acute on chronic low back pain - states had MRI 6 years back at [place]. Xray lumbar spine shows no fracture but severe intervertebral disc space narrowing at L4-L5. Has LE weakness on exam and reports worsening ambulatory function - MRI L spine reviewed and seen by Dr Chanel. recommended neuro eval- consulted. - PT/OT eval pending - Continue home neurontin 800 hs, methocarbamol 500 hs, tylenol for pain control -Neurology was consulted for bilateral leg weakness -Appreciate input and recommendation -We will continue with PT and OT and current pain medications (3) Bipolar disorder: Plan: No acute delirium Bipolar disorder- on seroquel 200 hs Plan HTN- BP labile. Started on lisinopril 10 mg daily- monitor response and adjust accordingly. Urinary retention- was on flomax. requesting to be started and resumed. DVT ppx- sc lovenox CODE STATUS Full Admission and Anticipated Discharge Date Admission Date: April 25, 2022 Subjective 04/28/2022 The patient was seen and examined in telemetry unit She has been complaining of shortness of breath and not feeling well Has been having back pain without any radiation of pain Review of Systems Review of Systems: All systems reviewed and are unremarkable except as noted below Physical Exam Physical Exam: Lying in bed without any significant distress Constitutional: well developed, well nourished, + ill appearing and + morbidly obese Eyes: PERRL, conjunctivae normal, anicteric sclerae ENMT: external ear and nose normal, oropharynx normal Neck: trachea midline, no thyromegaly Respiratory: + respiratory distress (Mild distress at rest) Auscultation: + diminished lung sounds and + crackles (Occasional crackles at the bases); no wheezes Cardiovascular: Rate/Rhythm: regular rate and regular rhythm; not tachycardic Heart Sounds: normal S1 and normal S2; no murmur Extremities: + edema (1-2+ edema bilaterally) Gastrointestinal (Abdomen): Inspection/Auscultation: normal bowel sounds; abdomen not distended Percussion/Palpation: abdomen soft; abdomen nontender Musculoskeletal: Has chronic back pain without radiation. No acute arthritis involving any joint Neurologic: Alert, awake and oriented x3 Lymphatic: no cervical or axillary lymphadenopathy Results & Data Results & Data ([facility]) Vital Signs (Past 12 Hours) Vital Signs Temp Pulse Pulse Resp BP BP Pulse Ox 04/28/22 15:23 36.5 C 64 18 105/57 L 97 04/28/22 14:53 75 04/28/22 11:30 36.7 C 69 14 129/55 L 97 04/28/22 07:51 04/28/22 08:30 95 04/28/22 07:25 36.6 C 64 16 96/60 L 86 L 04/28/22 07:41 62 04/28/22 03:56 36.8 C 75 16 98/63 L 90 O2 Del Method O2 Flow Rate 04/28/22 15:23 Nasal Cannula 2 04/28/22 14:53 04/28/22 11:30 Room Air 04/28/22 07:51 Nasal Cannula 2 04/28/22 08:30 Nasal Cannula 2 04/28/22 07:25 Room Air 04/28/22 07:41 04/28/22 03:56 Room Air Laboratory Results [facility] 04/28/22 07:29 Creatinine 0.61 Diagnostic Findings [facility] 04/28/22 07:29 Creatinine 0.61 Medications Administered Current Inpatient Medications Acetaminophen (Acetaminophen 500 Mg Tab) 1,000 mg PO HS NANCY Stop: 05/26/22 20:59 Last Admin: 04/27/22 20:23 Dose: 1,000 mg Dextrose (Dextrose 50% 50 Ml Syringe) 25 - 50 ml IV UD PRN; Protocol PRN Reason: Hypoglycemia Protocol Stop: 05/25/22 21:29 Enoxaparin Sodium (Enoxaparin Inj 40 Mg/0.4 Ml Syr) 40 mg SQ Q12H NANCY Stop: 05/25/22 20:59 Last Admin: 04/28/22 09:44 Dose: 40 mg Furosemide (Furosemide 40 Mg Tab) 40 mg PO DAILY NANCY Stop: 05/27/22 15:59 Last Admin: 04/28/22 09:55 Dose: 40 mg Gabapentin (Gabapentin 800 Mg Tab) 800 mg PO HS NANCY Stop: 05/26/22 20:59 Last Admin: 04/27/22 20:22 Dose: 800 mg Glucagon (Glucagon For Inj 1 Mg Vial) 1 mg IM UD PRN; Protocol PRN Reason: Hypoglycemia Protocol Stop: 05/25/22 21:29 Glucose (Glucose 40% Gel 15 Gm Tube) 15 - 30 gm PO UD PRN; Protocol PRN Reason: Hypoglycemia Protocol Stop: 05/25/22 21:29 Glucose (Glucose 10 Tab/Tube) 4 - 8 tab PO UD PRN; Protocol PRN Reason: Hypoglycemia Protocol Stop: 05/25/22 21:29 Hydralazine HCl (Hydralazine Hcl 20 Mg/Ml Vial) 7.5 mg IV Q6H PRN PRN Reason: Hypertension Stop: 05/25/22 21:09 Lorazepam 0.5 mg/ Syringe 0.5 mls @ 2 mls/min IV ONCE PRN PRN Reason: Anxiety Stop: 05/26/22 15:04 Last Admin: 04/26/22 17:24 Dose: 2 mls/min Insulin Aspart (Insulin Aspart Per Unit) 0 units SC ACHS NANCY Stop: 05/25/22 21:09 Last Admin: 04/28/22 11:35 Dose: Not Given Lisinopril (Lisinopril 10 Mg Tab) 10 mg PO DAILY NANCY Stop: 05/26/22 17:29 Last Admin: 04/28/22 09:55 Dose: Not Given Magnesium Oxide (Magnesium Oxide 400 Mg Tab) 400 mg PO BID NANCY Stop: 05/26/22 09:14 Last Admin: 04/28/22 09:45 Dose: 400 mg Methocarbamol (Methocarbamol 500 Mg Tablet) 500 mg PO HS NANCY Stop: 05/26/22 20:59 Last Admin: 04/27/22 20:24 Dose: 500 mg Miscellaneous (Carbohydrates For Hypoglycemia ) 15 - 30 gm PO UD PRN PRN Reason: Hypoglycemia Treatment Stop: 05/25/22 21:29 Nitroglycerin (Nitroglycerin Sl 0.4 Mg/Tab Tab) 0.4 mg SL UD PRN PRN Reason: Chest Pain Stop: 05/25/22 21:09 Polyethylene Glycol (Polyethylene (Miralax) 17 Gm Pack) 17 gm PO DAILY PRN PRN Reason: Constipation Stop: 05/25/22 21:09 Last Admin: 04/27/22 22:25 Dose: 17 gm Potassium Chloride (Potassium Chloride Crtab 20 Meq Tabcr) 20 meq PO DAILY NANCY Stop: 05/27/22 15:59 Last Admin: 04/28/22 09:45 Dose: 20 meq Quetiapine Fumarate (Quetiapine Fumarate 200 Mg Tabcr) 200 mg PO HS NANCY Stop: 05/26/22 20:59 Last Admin: 04/27/22 20:24 Dose: 200 mg Tamsulosin HCl (Tamsulosin Hcl 0.4 Mg Cap) 0.4 mg PO QAM NANCY Stop: 05/27/22 08:59 Last Admin: 04/28/22 09:45 Dose: 0.4 mg Tramadol HCl (Tramadol Hcl 50 Mg Tablet) 50 mg PO Q6H PRN PRN Reason: Pain Stop: 05/25/22 21:09 Last Admin: 04/28/22 14:26 Dose: 50 mg
[2022-04-28] MEDS ORDERED: LORazepam 0.5 MG in SYRINGE 0.25 ML IV STA (17:18)
--- NOTE | 2022-04-28 19:57 | Magnetic Resonance Report ---
MR thoracic spine wo con HISTORY: 67 years-old Female paraparesis not explained by mri l spine acute mid to lower back pain w ith left-sided radicular symptoms COMPARISON: MRI lumbar spine study 04/26/2022 TECHNIQUE: Multiple planar multisequence MRI of the thoracic spine was obtained without the use of IV contrast. FINDINGS: Motion degraded exam. The imaged extraspinal thoracic structures appear unremarkable. MRI of the cerv ical spine will be dictated separately. Moderate to severe L4-L5 intervertebral disc space narrowing with posterior disc osteophyte complex formation. No acute fracture, subluxation or suspicious bone l esion. No endplate erosions. No epidural fluid collections. Signal within the thoracic spinal cord is within normal limits. There is mostly mild multilevel intervertebral disc space narrowing with assoc iated spondylitic spurring of the thoracic spine. Mild to moderate disc space narrowing at T7-T8. The re is a small posterior annular disc bulge at T11-T12. Additional small posterior annular disc bulge is noted at T2-T3. No significant associated central canal or neural foraminal narrowing. IMPRESSION: 1. Motion degraded exam. 2. Mild to moderate degenerative changes of the thoracic spine without acute fracture, subluxation or bone marrow edema. 3. No high-grade central canal or neural foraminal narrowing. 4. Normal signal of the thoracic spinal cord. ACT 112: Negative or not required by law. The above report was generated using voice recognition software. It may contain grammatical, syntax o r spelling errors. Dictated: 04/28/2022 7:27 PM Transcribed: 04/28/2022 7:52 PM [facility]ell [id number] [email or web address] Electronically signed by: Lonnie Leija M.D. 04/28/2022 7:55 PM
--- NOTE | 2022-04-28 20:20 | Magnetic Resonance Report ---
MR cervical spine wo con HISTORY: 67 years-old Female paraparesis not explained by mri l spine chronic neck pain with left-si ded radicular symptoms COMPARISON: MRI thoracic spine of same day TECHNIQUE: Multiplanar multisequence MRI of the cervical spine was obtained without the use of IV con trast. FINDINGS: Motion degraded exam. This notably limits evaluation of the central canal and neural foramina. No acu te fracture, subluxation, significant bone marrow edema, endplate erosions or suspicious bone lesion. Unremarkable soft tissues. Normal signal of the brainstem, cervical and upper thoracic spinal cord. Partially empty sella. C2-C3: Moderate facet arthrosis. Central canal and right neural foramen are patent. Mild left foramin al narrowing. C3-C4: Mild intervertebral disc space narrowing with 3 mm likely degenerative anterolisthesis. Uncove rtebral hypertrophy with posterior disc osteophyte complex and moderate facet arthrosis. AP dimension of the thecal sac measures 4 mm. There is slight deformity involving both the ventral and dorsal spi nal cord. Severe left with moderate to severe right neural foraminal narrowing. C4-C5: Mild intervertebral disc space narrowing with uncovertebral hypertrophy and small posterior di sc osteophyte complex with moderate facet arthrosis. AP dimension of the thecal sac measures 8 mm. Th ere is mild central canal stenosis. Moderate bilateral foraminal stenosis. C5-C6: Moderate intervertebral disc space narrowing and spondylitic spurring. Uncovertebral hypertrop hy with small posterior disc osteophyte complex and moderate facet arthrosis. AP dimension of the the romulo sac measures 8 mm. Mild central canal stenosis. Severe left with moderate to severe right neural foraminal narrowing. C6-C7: Moderate intervertebral disc space narrowing and spondylitic spurring. Uncovertebral hypertrop hy with posterior disc osteophyte complex and moderate facet arthrosis. AP dimension of the thecal sa c measures 8 mm. Mild central canal stenosis. Mild to moderate left with mild right neural foraminal narrowing. C7-T1: Moderate facet arthrosis. The central canal and neural foramen are patent. IMPRESSION: 1. Motion degraded exam. 2. Multilevel discogenic degeneration and facet arthrosis. 3. Grade 1 anterolisthesis at C3-C4 is likely secondary to chronic facet arthrosis. There is moderate central canal stenosis at this interspace. 4. Multilevel neural foraminal narrowing. 5. Normal signal of the cervical spinal cord. ACT 112: Negative or not required by law. The above report was generated using voice recognition software. It may contain grammatical, syntax o r spelling errors. Dictated: 04/28/2022 7:33 PM Transcribed: 04/28/2022 7:55 PM Jewell [id number] [email or web address] Electronically signed by: Lonnie Leija M.D. 04/28/2022 8:17 PM
[2022-04-28] MEDS: QUEtiapine FUMARATE 200 MG TABCR PO SCH (20:55)
[2022-04-28] MEDS: GABAPENTIN 800 MG TAB PO SCH (20:55)
[2022-04-28] MEDS: ACETAMINOPHEN 500 MG TAB PO SCH (20:56)
[2022-04-28] MEDS: METHOCARBAMOL 500 MG TABLET PO SCH (20:56)
[2022-04-29 06:55] LABS: Basophils # (auto) 0.03 K/uL (0-0.2); Eosinophils # (auto) 0.18 K/uL (0-0.50); Eosinophils % (auto) 6.2 %; Hematocrit (blood only) 36.4 % (34.1-44.9); Hemoglobin 11.6 g/dl (12.0-16.0); Lymphocytes # (auto) 0.79 K/uL (1.2-3.4); Lymphocytes % (auto) 27.1 %; Mean Corpuscular Hemoglobin 31.7 pg (25.0-34.0); Mean Corpuscular Hgb Conc 31.9 g/dL (32.0-36.0); Mean Corpuscular Volume 99.5 fL (80.0-100.0); Mean Platelet Volume 9.4 fL (9.4-12.3); Monocytes # (auto) 0.46 K/uL (0.24-0.82); Monocytes % (auto) 15.8 %; Neutrophils # (auto) 1.45 K/uL (1.4-6.5); Neutrophils % (auto) 49.9 %; Platelet Count 158 K/uL (130-400); RDW Coefficient of Variation 12.7 % (11.5-14.5); RDW Standard Deviation 46.7 fL (36.4-46.3); Red Blood Count 3.66 M/uL (3.93-5.22); White Blood Count 2.91 K/ul (4.8-10.8)
[2022-04-29 07:20] LABS: BUN Creatinine Ratio 29.3 (10-20); Calcium 8.5 mg/dl (8.5-10.1); Est GFR (African American) 109.8 ml/min; Est GFR (Non-African American) 94.7 ml/min; Magnesium 2.2 mg/dl (1.7-2.4); Potassium 3.8 mmol/L (3.5-5.1)
[2022-04-29 07:41] LABS: Folate (Folic Acid) > 22.30 ng/ml (>5.38)
[2022-04-29 07:42] LABS: Vitamin B12 227 pg/ml (180-914)
[2022-04-29] MEDS: INSULIN ASPART PER UNIT SC SCH ×4 (08:57→21:26)
[2022-04-29] MEDS: TAMSULOSIN HCL 0.4 MG CAP PO SCH (08:58)
[2022-04-29] MEDS: MAGNESIUM OXIDE 400 MG TAB PO SCH ×2 (08:58→21:43)
[2022-04-29] MEDS: POTASSIUM CHLORIDE CRTAB 20 MEQ TABCR PO SCH (08:58)
[2022-04-29] MEDS: lisinopril 10 MG TAB PO SCH (08:58)
[2022-04-29] MEDS: ENOXAPARIN INJ 40 MG/0.4 ML SYR SQ SCH ×2 (08:58→21:40)
[2022-04-29] MEDS: FUROSEMIDE 40 MG TAB PO SCH (08:58)
[2022-04-29] MEDS: traMADol HCL 50 MG TABLET PO PRN ×2 (09:03→21:49)
--- NOTE | 2022-04-29 13:19 | Neurology Progress Note ---
Date of Service April 29, 2022 Assessment & Plan (1) Chronic back pain: Plan: 1. MRI L spine - no intervention offered from orthopedic stand point 2. PT/OT for rehab needs 3. EMG bilateral LE as outpatient 4. pain mgt for possible trigger point injections 5. would start gabapentin 100 mg hs x 5 days then increase to twice daily x 5 days then three times daily- increase as needed and tolerated 6. need family medicine MD for out patient follow up 7. sed rate-35 CK, b12 227, folate- >22.2 thiamine, RPR. - other labs pending 8. MRI C /T spine - reviewed with patient no significant stenosis or cord compression, multiple level neural foraminal narrowing- further evaluation as outpatient. follow up EEG and office visit with neurology has been requested ok to discharge from Neurology stand point to PT recommendations (2) Leg swelling: Plan: 1. LLE doppler - negative for clot Admission and Anticipated Discharge Date Admission Date: April 25, 2022 Supervising Physician Co-Signing Physician Notes I have seen and discussed above patient with Dr Lacy Riley, neurology patient seen and examined. MRI of the cervical thoracic spine reviewed there is some mid cervical stenosis no obvious abnormal signal in the cord although the images diagnostic if could be improved. Clinically the patient has no overt signs of myelopathy. My on exam her strength is about the same today as she is very irritable and wants to go home. Her impression mild lower extremity weakness suspect neuropathy recommend nerve conduction EMG as an outpatient. #2 patient has chronic back pain consider referral to pain management #3 the patient should see us in the office after she has had a nerve conduction EMG so we can see her and reevaluate as to whether or not she needs an MRI of the cervical spine to be repeated. Again she does not overtly look myelopathic. Lacy Riley MD Jamie Patricio is a 67 year old female with PMH obesity, DM, PUD, endometriosis, tobacco abuse in the past, presents to [facility] 04/25/22 with lower extremity edema, going on for a few weeks, and also having hip pain and ambulatory dysfunction.The last time she saw a doctor was 6 years ago. Since last 6 years, because of the lack of insurance, she was not taking any medications. She has insurance now and she wants to follow with family doctor. She sometimes gets migraine headaches. Her vision is ok. denies earache, runny nose, sore throat. cough.She is short of breath all the time and cannot lie flat, lying flat increases her shortness of breath. She has some blood in the stools and thinks from the hemorrhoids and has incontinence of the urine.She is weak because when she tried to move she has so much pain. Orthopedic saw her and no intervention was offered at this time.She quit smoking about 6 years ago. She is unhappy today because she wants to go home. she has been up to the bathroom with the walker and minimal assistance. She says everything is the same. denies CP, current SOB, abdominal pain. Review of Systems Review of Systems: All systems reviewed & are unremarkable except as noted in HPI & below Physical Exam Physical Exam: Physical Exam: Constitutional: appearance over nourished, healthy Ears, Nose, Mouth and Throat: mucous membranes moist, no injection and skin normal, eyes normal Cardiovascular: normal S-1 and S-2 and regular rate and rhythm Respiratory: course breath sounds with wheezing Musculoskeletal: LLE non pitting peripheral edema and good distal pulses, tender with touch of varicose veins. Skin: no stigmata of neurocutaneous disease noted and normal and intact Eyes: extraocular muscles intact (EOMI) NEUROLOGIC EXAMINATION: Mental status: Alert and interactive Oriented to person she does not want to cooperate with exam Speech fluent with no evidence of aphasia speech with a heavy v[place] accent Cranial Nerves smile eye brow raise normal Sensory: intact to cool and light touch is less on left than right Gait/Stance: Posture lying in bed Strength: hand comprehensive advisor biceps triceps 5/5 bilaterally LE hip flex 4+/5 bilaterally, plantar flex ext 5/5 Results & Data ([facility]) Vital Signs (Past 12 Hours) Vital Signs Temp Pulse Resp BP Pulse Ox O2 Del Method O2 Flow Rate 04/29/22 13:14 Nasal Cannula 2 04/29/22 11:26 36.9 C 64 18 107/68 99 Room Air 3 04/29/22 07:46 36.5 C 66 16 94/53 L 95 Nasal Cannula 3 04/29/22 03:29 36.8 C 67 19 124/77 92 Room Air Laboratory Results Abnormal lab results 04/28/22 04/29/22 04/29/22 Range/Units 20:35 06:39 06:39 WBC 2.91 L (4.8-10.8) K/ul RBC 3.66 L (3.93-5.22) M/uL Hgb 11.6 L (12.0-16.0) g/dl MCHC 31.9 L (32.0-36.0) g/dL RDW Std Deviation 46.7 H (36.4-46.3) fL Lymph # (Auto) 0.79 L (1.2-3.4) K/uL ESR (0-30) mm/hr Carbon Dioxide 35 H (21-32) mmol/L Creatinine 0.58 L (0.6-1.2) mg/dl BUN/Creatinine Ratio 29.3 H (10-20) POC Glucose 111 H (70-99) mg/dl 04/29/22 04/29/22 Range/Units 06:39 11:10 WBC (4.8-10.8) K/ul RBC (3.93-5.22) M/uL Hgb (12.0-16.0) g/dl MCHC (32.0-36.0) g/dL RDW Std Deviation (36.4-46.3) fL Lymph # (Auto) (1.2-3.4) K/uL ESR 35 H (0-30) mm/hr Carbon Dioxide (21-32) mmol/L Creatinine (0.6-1.2) mg/dl BUN/Creatinine Ratio (10-20) POC Glucose 103 H (70-99) mg/dl Diagnostic Findings MRI c spine-Motion degraded exam. Multilevel discogenic degeneration and facet arthrosis. Grade 1 anterolisthesis at C3-C4 is likely secondary to chronic facet arthrosis. There is moderate central canal stenosis at this interspace.Multilevel neural foraminal narrowing. Normal signal of the cervical spinal cord. MRI T spine-Motion degraded exam. Mild to moderate degenerative changes of the thoracic spine without acute fracture, subluxation or bone marrow edema. No high-grade central canal or neural foraminal narrowing. Normal signal of the thoracic spinal cord.
--- NOTE | 2022-04-29 14:09 | Hospitalist Progress Note ---
Date of Service April 29, 2022 Assessment & Plan (1) Acute diastolic CHF (congestive heart failure): Plan: 67 year old female who presented to the ED 04/25 with worsening leg swelling, back pain, weakness and ambulatory dysfunction Acute diastolic CHF - Echo with normal EF, grade 1 diastolic dysfunction. Had elevated BNP, leg swelling, orthopnea, PND prior to arrival - Responded well to iv lasix x2. Change to oral lasix from today. Monitor response -Has been feeling much better and is on 2 L oxygen to maintain saturation -He was not on any oxygen at home -We will monitor intake output -Still complains of some shortness of breath and requiring 2 L of oxygen to maintain saturation -Cumulative fluid losses 1600 mL -Has had PT evaluation and recommended home -Likely discharge tomorrow (2) Chronic back pain: Plan: Acute on chronic low back pain - states had MRI 6 years back at [place]. Xray lumbar spine shows no fracture but severe intervertebral disc space narrowing at L4-L5. Has LE weakness on exam and reports worsening ambulatory function - MRI L spine reviewed and seen by Dr Chanel. recommended neuro eval- consulted. - PT/OT eval pending - Continue home neurontin 800 hs, methocarbamol 500 hs, tylenol for pain control (3) Bipolar disorder: Plan: No acute delirium Bipolar disorder- on seroquel 200 hs (4) Bilateral leg weakness: Plan: -Neurology was consulted for bilateral leg weakness -Appreciate input and recommendation -We will continue with PT and OT and current pain medications -Has had MRI of the cervical, thoracic and lumbar spine without any significant cord compression and/or nerve compression -We will have outpatient EMG Plan HTN- BP labile. Started on lisinopril 10 mg daily- monitor response and adjust accordingly. Urinary retention- was on flomax. requesting to be started and resumed. DVT ppx- sc lovenox CODE STATUS Full Admission and Anticipated Discharge Date Admission Date: April 25, 2022 Subjective 04/28/2022 The patient was seen and examined in telemetry unit She has been complaining of shortness of breath and not feeling well Has been having back pain without any radiation of pain 04/29/2022 The patient was seen and examined in telemetry unit She has history of significant depression but does not want to see any psychiatrist Still complains to have shortness of breath and bilateral leg weakness Review of Systems Review of Systems: All systems reviewed and are unremarkable except as noted below Physical Exam Physical Exam: Lying in bed without any significant distress Constitutional: well developed, well nourished, + ill appearing and + morbidly obese Eyes: PERRL, conjunctivae normal, anicteric sclerae ENMT: external ear and nose normal, oropharynx normal Neck: trachea midline, no thyromegaly Respiratory: + respiratory distress (Mild distress at rest) Auscultation: + diminished lung sounds and + crackles (Occasional crackles at the bases); no wheezes Cardiovascular: Rate/Rhythm: regular rate and regular rhythm; not tachycardic Heart Sounds: normal S1 and normal S2; no murmur Extremities: + edema (1-2+ edema bilaterally) Gastrointestinal (Abdomen): Inspection/Auscultation: normal bowel sounds; abdomen not distended Percussion/Palpation: abdomen soft; abdomen nontender Musculoskeletal: No acute arthritis in any joint Neurologic: Alert, awake and oriented x3. Bilateral leg weakness with intact sensation Lymphatic: no cervical or axillary lymphadenopathy Results & Data Results & Data ([facility]) Vital Signs (Past 12 Hours) Vital Signs Temp Pulse Resp BP Pulse Ox O2 Del Method O2 Flow Rate 04/29/22 13:14 Nasal Cannula 2 04/29/22 11:26 36.9 C 64 18 107/68 99 Room Air 3 04/29/22 07:46 36.5 C 66 16 94/53 L 95 Nasal Cannula 3 04/29/22 03:29 36.8 C 67 19 124/77 92 Room Air Laboratory Results Short CBC 04/29/22 Range/Units 06:39 WBC 2.91 L (4.8-10.8) K/ul Hgb 11.6 L (12.0-16.0) g/dl Hct 36.4 (34.1-44.9) % Plt Count 158 (130-400) K/uL BMP 04/29/22 06:39 Sodium 140 Potassium 3.8 Chloride 100 Carbon Dioxide 35 H BUN 17 Creatinine 0.58 L Glucose 98 Calcium 8.5 Medications Administered Current Inpatient Medications Acetaminophen (Acetaminophen 500 Mg Tab) 1,000 mg PO HS NANCY Stop: 05/26/22 20:59 Last Admin: 04/28/22 20:56 Dose: 1,000 mg Dextrose (Dextrose 50% 50 Ml Syringe) 25 - 50 ml IV UD PRN; Protocol PRN Reason: Hypoglycemia Protocol Stop: 05/25/22 21:29 Enoxaparin Sodium (Enoxaparin Inj 40 Mg/0.4 Ml Syr) 40 mg SQ Q12H NANCY Stop: 05/25/22 20:59 Last Admin: 04/29/22 08:58 Dose: 40 mg Furosemide (Furosemide 40 Mg Tab) 40 mg PO DAILY NANCY Stop: 05/27/22 15:59 Last Admin: 04/29/22 08:58 Dose: 40 mg Gabapentin (Gabapentin 800 Mg Tab) 800 mg PO HS NANCY Stop: 05/26/22 20:59 Last Admin: 04/28/22 20:55 Dose: 800 mg Glucagon (Glucagon For Inj 1 Mg Vial) 1 mg IM UD PRN; Protocol PRN Reason: Hypoglycemia Protocol Stop: 05/25/22 21:29 Glucose (Glucose 40% Gel 15 Gm Tube) 15 - 30 gm PO UD PRN; Protocol PRN Reason: Hypoglycemia Protocol Stop: 05/25/22 21:29 Glucose (Glucose 10 Tab/Tube) 4 - 8 tab PO UD PRN; Protocol PRN Reason: Hypoglycemia Protocol Stop: 05/25/22 21:29 Hydralazine HCl (Hydralazine Hcl 20 Mg/Ml Vial) 7.5 mg IV Q6H PRN PRN Reason: Hypertension Stop: 05/25/22 21:09 Insulin Aspart (Insulin Aspart Per Unit) 0 units SC ACHS NANCY Stop: 05/25/22 21:09 Last Admin: 04/29/22 12:27 Dose: Not Given Lisinopril (Lisinopril 10 Mg Tab) 10 mg PO DAILY NANCY Stop: 05/26/22 17:29 Last Admin: 04/29/22 08:58 Dose: Not Given Magnesium Oxide (Magnesium Oxide 400 Mg Tab) 400 mg PO BID NANCY Stop: 05/26/22 09:14 Last Admin: 04/29/22 08:58 Dose: 400 mg Methocarbamol (Methocarbamol 500 Mg Tablet) 500 mg PO HS NANCY Stop: 05/26/22 20:59 Last Admin: 04/28/22 20:56 Dose: 500 mg Miscellaneous (Carbohydrates For Hypoglycemia ) 15 - 30 gm PO UD PRN PRN Reason: Hypoglycemia Treatment Stop: 05/25/22 21:29 Nitroglycerin (Nitroglycerin Sl 0.4 Mg/Tab Tab) 0.4 mg SL UD PRN PRN Reason: Chest Pain Stop: 05/25/22 21:09 Polyethylene Glycol (Polyethylene (Miralax) 17 Gm Pack) 17 gm PO DAILY PRN PRN Reason: Constipation Stop: 05/25/22 21:09 Last Admin: 04/27/22 22:25 Dose: 17 gm Potassium Chloride (Potassium Chloride Crtab 20 Meq Tabcr) 20 meq PO DAILY NANCY Stop: 05/27/22 15:59 Last Admin: 04/29/22 08:58 Dose: 20 meq Quetiapine Fumarate (Quetiapine Fumarate 200 Mg Tabcr) 200 mg PO HS NANCY Stop: 05/26/22 20:59 Last Admin: 04/28/22 20:55 Dose: 200 mg Tamsulosin HCl (Tamsulosin Hcl 0.4 Mg Cap) 0.4 mg PO QAM NANCY Stop: 05/27/22 08:59 Last Admin: 04/29/22 08:58 Dose: 0.4 mg Tramadol HCl (Tramadol Hcl 50 Mg Tablet) 50 mg PO Q6H PRN PRN Reason: Pain Stop: 05/25/22 21:09 Last Admin: 04/29/22 09:03 Dose: 50 mg
[2022-04-29] MEDS: ACETAMINOPHEN 500 MG TAB PO SCH (21:40)
[2022-04-29] MEDS: GABAPENTIN 800 MG TAB PO SCH (21:42)
[2022-04-29] MEDS: METHOCARBAMOL 500 MG TABLET PO SCH (21:43)
[2022-04-29] MEDS: QUEtiapine FUMARATE 200 MG TABCR PO SCH (21:44)
[2022-04-30] MEDS: TAMSULOSIN HCL 0.4 MG CAP PO SCH (08:53)
[2022-04-30] MEDS: MAGNESIUM OXIDE 400 MG TAB PO SCH (08:53)
[2022-04-30] MEDS: lisinopril 10 MG TAB PO SCH (08:53)
[2022-04-30] MEDS: FUROSEMIDE 40 MG TAB PO SCH (08:53)
[2022-04-30] MEDS: ENOXAPARIN INJ 40 MG/0.4 ML SYR SQ SCH (08:53)
[2022-04-30] MEDS: POTASSIUM CHLORIDE CRTAB 20 MEQ TABCR PO SCH (08:54)
[2022-04-30] MEDS: INSULIN ASPART PER UNIT SC SCH ×2 (08:55→12:07)
--- NOTE | 2022-04-30 12:51 | Hospitalist Progress Note ---
Date of Service April 30, 2022 Assessment & Plan (1) Acute diastolic CHF (congestive heart failure): Plan: 67 year old female who presented to the ED 04/25 with worsening leg swelling, back pain, weakness and ambulatory dysfunction Acute diastolic CHF - Echo with normal EF, grade 1 diastolic dysfunction. Had elevated BNP, leg swelling, orthopnea, PND prior to arrival - Responded well to iv lasix x2. Change to oral lasix from today. Monitor response -Has been feeling much better and is on 2 L oxygen to maintain saturation -He was not on any oxygen at home -We will monitor intake output -Still complains of some shortness of breath and requiring 2 L of oxygen to maintain saturation -Cumulative fluid losses 1600 mL -Has had PT evaluation on 04/27/2022 and recommended home -She has been refusing any more physical therapy and mentioned that she does not have any problem with walking -She remains stable without any significant symptoms at rest -She will have to a step O2 saturation test before discharge home this afternoon -This was discussed with her daughter Sandy (2) Chronic back pain: Plan: Acute on chronic low back pain - states had MRI 6 years back at [place]. Xray lumbar spine shows no fracture but severe intervertebral disc space narrowing at L4-L5. Has LE weakness on exam and reports worsening ambulatory function - MRI L spine reviewed and seen by Dr Chanel. recommended neuro eval- consulted. - PT/OT eval pending - Continue home neurontin 800 hs, methocarbamol 500 hs, tylenol for pain control -Still has some pain but otherwise not in distress (3) Bipolar disorder: Plan: No acute delirium Bipolar disorder- on seroquel 200 hs She was advised to keep appointment with the PCP (4) Bilateral leg weakness: Plan: -Neurology was consulted for bilateral leg weakness -Appreciate input and recommendation -We will continue with PT and OT and current pain medications -Has had MRI of the cervical, thoracic and lumbar spine without any significant cord compression and/or nerve compression -We will have outpatient EMG -She does not have any worsening of the weakness Plan HTN- BP labile. Started on lisinopril 10 mg daily- monitor response and adjust accordingly. Urinary retention- was on flomax. requesting to be started and resumed. DVT ppx- sc lovenox CODE STATUS Full Discussed with her daughter Sandy and she will be discharged home this aftern oon Admission and Anticipated Discharge Date Admission Date: April 25, 2022 Subjective 04/28/2022 The patient was seen and examined in telemetry unit She has been complaining of shortness of breath and not feeling well Has been having back pain without any radiation of pain 04/29/2022 The patient was seen and examined in telemetry unit She has history of significant depression but does not want to see any psychiatrist Still complains to have shortness of breath and bilateral leg weakness 04/30/2022 The patient was seen and examined in telemetry unit She has been stable and denies any significant symptoms She does not want to participate in any more physical therapy She tells that she has been ambulant and she can take care of herself Denies any shortness of breath, palpitation, any abdominal pain, nausea or vomiting Denies any significant weakness involving the legs Review of Systems Review of Systems: All systems reviewed and are unremarkable except as noted below Physical Exam Physical Exam: Lying in bed without any significant distress Constitutional: well developed, well nourished, + ill appearing and + morbidly obese Eyes: PERRL, conjunctivae normal, anicteric sclerae ENMT: external ear and nose normal, oropharynx normal Neck: trachea midline, no thyromegaly Respiratory: + respiratory distress (Mild distress at rest) Auscultation: + diminished lung sounds and + crackles (Occasional crackles at the bases); no wheezes Cardiovascular: Rate/Rhythm: regular rate and regular rhythm; not tachycardic Heart Sounds: normal S1 and normal S2; no murmur Extremities: + edema (1-2+ edema bilaterally) Gastrointestinal (Abdomen): Inspection/Auscultation: normal bowel sounds; abdomen not distended Percussion/Palpation: abdomen soft; abdomen nontender Musculoskeletal: No acute arthritis in any joint Neurologic: CN's II-XI intact bilaterally and moves all extremities Minimal weakness involving the lower extremities Lymphatic: no cervical or axillary lymphadenopathy Results & Data Results & Data ([facility]) Vital Signs (Past 12 Hours) Vital Signs Temp Pulse Resp BP Pulse Ox O2 Del Method O2 Flow Rate 04/30/22 11:05 36.6 C 63 20 121/62 96 Nasal Cannula 2 04/30/22 07:22 36.5 C 63 16 112/69 96 Nasal Cannula 04/30/22 03:52 36.5 C 64 12 98/66 L 97 Room Air Medications Administered Current Inpatient Medications Acetaminophen (Acetaminophen 500 Mg Tab) 1,000 mg PO HS NANCY Stop: 05/26/22 20:59 Last Admin: 04/29/22 21:40 Dose: 1,000 mg Dextrose (Dextrose 50% 50 Ml Syringe) 25 - 50 ml IV UD PRN; Protocol PRN Reason: Hypoglycemia Protocol Stop: 05/25/22 21:29 Enoxaparin Sodium (Enoxaparin Inj 40 Mg/0.4 Ml Syr) 40 mg SQ Q12H NANCY Stop: 05/25/22 20:59 Last Admin: 04/30/22 08:53 Dose: 40 mg Furosemide (Furosemide 40 Mg Tab) 40 mg PO DAILY NANCY Stop: 05/27/22 15:59 Last Admin: 04/30/22 08:53 Dose: 40 mg Gabapentin (Gabapentin 800 Mg Tab) 800 mg PO HS [facility] Stop: 05/26/22 20:59 Last Admin: 04/29/22 21:42 Dose: 800 mg Glucagon (Glucagon For Inj 1 Mg Vial) 1 mg IM UD PRN; Protocol PRN Reason: Hypoglycemia Protocol Stop: 05/25/22 21:29 Glucose (Glucose 40% Gel 15 Gm Tube) 15 - 30 gm PO UD PRN; Protocol PRN Reason: Hypoglycemia Protocol Stop: 05/25/22 21:29 Glucose (Glucose 10 Tab/Tube) 4 - 8 tab PO UD PRN; Protocol PRN Reason: Hypoglycemia Protocol Stop: 05/25/22 21:29 Hydralazine HCl (Hydralazine Hcl 20 Mg/Ml Vial) 7.5 mg IV Q6H PRN PRN Reason: Hypertension Stop: 05/25/22 21:09 Insulin Aspart (Insulin Aspart Per Unit) 0 units SC [facility] NANCY Stop: 05/25/22 21:09 Last Admin: 04/30/22 12:07 Dose: Not Given Lisinopril (Lisinopril 10 Mg Tab) 10 mg PO DAILY NANCY Stop: 05/26/22 17:29 Last Admin: 04/30/22 08:53 Dose: 10 mg Magnesium Oxide (Magnesium Oxide 400 Mg Tab) 400 mg PO BID NANCY Stop: 05/26/22 09:14 Last Admin: 04/30/22 08:53 Dose: 400 mg Methocarbamol (Methocarbamol 500 Mg Tablet) 500 mg PO HS [facility] Stop: 05/26/22 20:59 Last Admin: 04/29/22 21:43 Dose: 500 mg Miscellaneous (Carbohydrates For Hypoglycemia ) 15 - 30 gm PO UD PRN PRN Reason: Hypoglycemia Treatment Stop: 05/25/22 21:29 Nitroglycerin (Nitroglycerin Sl 0.4 Mg/Tab Tab) 0.4 mg SL UD PRN PRN Reason: Chest Pain Stop: 05/25/22 21:09 Polyethylene Glycol (Polyethylene (Miralax) 17 Gm Pack) 17 gm PO DAILY PRN PRN Reason: Constipation Stop: 05/25/22 21:09 Last Admin: 04/27/22 22:25 Dose: 17 gm Potassium Chloride (Potassium Chloride Crtab 20 Meq Tabcr) 20 meq PO DAILY NANCY Stop: 05/27/22 15:59 Last Admin: 04/30/22 08:54 Dose: 20 meq Quetiapine Fumarate (Quetiapine Fumarate 200 Mg Tabcr) 200 mg PO HS NANCY Stop: 05/26/22 20:59 Last Admin: 04/29/22 21:44 Dose: 200 mg Tamsulosin HCl (Tamsulosin Hcl 0.4 Mg Cap) 0.4 mg PO QAM NANCY Stop: 05/27/22 08:59 Last Admin: 04/30/22 08:53 Dose: 0.4 mg Tramadol HCl (Tramadol Hcl 50 Mg Tablet) 50 mg PO Q6H PRN PRN Reason: Pain Stop: 05/25/22 21:09 Last Admin: 04/29/22 21:49 Dose: 50 mg
--- NOTE | 2022-04-30 18:27 | Discharge Summary ---
Date of Service April 30, 2022 Admission HPI Per Admitting Provider DICTATED BY:Kirk Ortega MD DATE OF ADMISSION: 04/25/2022. CHIEF COMPLAINT: Lower extremity edema, hip pain and some ambulatory dysfunction. HISTORY OF PRESENT ILLNESS: This is a 67-year-old female with past medical history significant for obesity, diabetes, history of peptic ulcer disease, endometriosis, history of tobacco abuse in the past, presents with lower extremity edema, going on for a few weeks, and also having hip pain and ambulatory dysfunction. The patient states that last time she saw a doctor was 6 years ago. Since last 6 years, because of the lack of insurance, she was not taking any medications. She has insurance now and she wants to follow with family doctor. She sometimes gets migraine headaches. Her vision is ok. No earache, no runny nose, no sore throat. No cough. Appetite is okay. No chest pain. She states she is short of breath all the time . She cannot lie flat, lying flat makes her short of breath. No nausea, no vomiting. Has some ab dominal discomfort. She is always constipated. She says she has some blood in the stools and thinks from the hemorrhoids. She says she has incontinence of the urine. Currently, resting comfortably and hemodynamically stable. Admission Exam Per Admitting Provider GENERAL: The patient is obese, not in acute distress. VITAL SIGNS: Temperature 36.7, pulse 72, respiratory rate 19, blood pressure 189/70, oxygen 95% on room air. HEENT: Pupils equal, round and reactive to light. Oral mucosa moist. NECK: No JVD. No neck masses. CARDIOVASCULAR: S1 and S2 heard. Regular rate and rhythm. No murmur, no gallop. RESPIRATORY SYSTEM: Normal AP diameter. No accessory muscle use. No wheezing, no crackles. ABDOMEN: Soft, bowel sounds present. Mild discomfort. No guarding. No rigidity. CENTRAL NERVOUS SYSTEM: Cranial nerves II-XII grossly intact, nonfocal. EXTREMITIES: Bilateral lower extremity pedal edema present, no erythema seen. Principal Diagnosis Acute diastolic CHF, chronic back pain, bipolar disorder, mild bilateral leg weakness Discharge Exam Lying in bed without any significant distress Constitutional well developed, well nourished, + ill appearing and + morbidly obese Eyes PERRL, conjunctivae normal, anicteric sclerae ENMT external ear and nose normal, oropharynx normal Neck trachea midline, no thyromegaly Respiratory + respiratory distress (Mild distress at rest) Auscultation: + diminished lung sounds and + crackles (Occasional crackles at the bases); no wheezes Cardiovascular Rate/Rhythm: regular rate and regular rhythm; not tachycardic Heart Sounds: normal S1 and normal S2; no murmur Extremities: + edema (1-2+ edema bilaterally) Gastrointestinal (Abdomen) Inspection/Auscultation: normal bowel sounds; abdomen not distended Percussion/Palpation: abdomen soft; abdomen nontender Neurologic CN's II-XI intact bilaterally and moves all extremities Lymphatic no cervical or axillary lymphadenopathy Discharge Data Allergies Allergy/AdvReac Type Severity Reaction Status Date / Time ibuprofen AdvReac Nausea Unverified 04/25/22 19:03 Consultations 04/25/22 19:09 ED Decision to Admit Stat 04/27/22 07:34 Consult Orthopedic Surgery Routine 04/27/22 15:03 Consult Neurology Routine Ordered Studies 04/25/22 17:04 US venous doppler LE LT Stat 04/26/22 15:02 MRI Lumbar Spine [MR lumbar spine wo/w con] Routine 04/28/22 16:39 MRI Cervical [MR cervical spine wo con] Routine MRI Thoracic [MR thoracic spine wo con] Routine Hospital Course (1) Acute diastolic CHF (congestive heart failure): 67 year old female who presented to the ED 04/25 with worsening leg swelling, back pain, weakness and ambulatory dysfunction Acute diastolic CHF - Echo with normal EF, grade 1 diastolic dysfunction. Had elevated BNP, leg swelling, orthopnea, PND prior to arrival - Responded well to iv lasix x2. Change to oral lasix from today. Monitor response -Has been feeling much better and is on 2 L oxygen to maintain saturation -He was not on any oxygen at home -We will monitor intake output -Still complains of some shortness of breath and requiring 2 L of oxygen to maintain saturation -Cumulative fluid losses 1600 mL -Has had PT evaluation on 04/27/2022 and recommended home -She has been refusing any more physical therapy and mentioned that she does not have any problem with walking -She remains stable without any significant symptoms at rest -She will have to a step O2 saturation test before discharge home this afternoon -This was discussed with her daughter Sandy (2) Chronic back pain: Acute on chronic low back pain - states had MRI 6 years back at [place]. Xray lumbar spine shows no fracture but severe intervertebral disc space narrowing at L4-L5. Has LE weakness on exam and reports worsening ambulatory function - MRI L spine reviewed and seen by Dr Chanel. recommended neuro eval- consulted. - PT/OT eval pending - Continue home neurontin 800 hs, methocarbamol 500 hs, tylenol for pain control -Still has some pain but otherwise not in distress (3) Bipolar disorder: No acute delirium Bipolar disorder- on seroquel 200 hs She was advised to keep appointment with the PCP (4) Bilateral leg weakness: -Neurology was consulted for bilateral leg weakness -Appreciate input and recommendation -We will continue with PT and OT and current pain medications -Has had MRI of the cervical, thoracic and lumbar spine without any significant cord compression and/or nerve compression -We will have outpatient EMG -She does not have any worsening of the weakness Plan HTN- BP labile. Started on lisinopril 10 mg daily- monitor response and adjust accordingly. Urinary retention- was on flomax. requesting to be started and resumed. DVT ppx- sc lovenox CODE STATUS Full Discussed with her daughter Sandy and she will be discharged home this afternoon Total Time Total Time Spent Total Time Spent (In Minutes): 40 minutes Discharge Plan Discharge Items Patient Disposition: Home - Self-Care Reason For Visit: EDEMA Discharge Diagnosis: Acute diastolic CHF, chronic back pain, bipolar disorder, mild bilateral leg weakness Condition on Discharge: Fair Activity: Resume your previous activity Non-emergency contact: Primary Care Provider Call non-emergency contact if: you have any medication questions and your symptoms worsen Follow-up/Referrals: Alana Orr CRNP [Outside Practitioners] - (Date & Time 05/04/2022 11:00 AM Provider RICHARDSON [place] Department Family Practice [facility] [address], [place] [address] ) Diet: Heart Healthy and Low Sodium (2gm) Fluids: 1500ml (6 cups) Addtl Attending Provider Instructions: Please take precautions to avoid fall Take your medications as advised Please give appointment with your healthcare provider [facility] neurology will get an appointment for you for EMG Pending Studies at Discharge: No Stand-Alone Forms: [employer], Smoking Cessation Medications and DC Order Prescriptions: New furosemide 40 mg Tablet 40 mg PO DAILY 30 Days Qty: 30 0RF methocarbamol 500 mg Tablet 500 mg PO HS 30 Days Qty: 30 0RF tramadol 50 mg Tablet 50 mg PO Q6H PRN (Reason: pain) 5 Days Qty: 20 0RF potassium chloride 20 mEq Tablet,Er Particles/Crystals 20 meq PO DAILY 30 Days Qty: 30 0RF magnesium oxide 400 mg (241.3 mg magnesium) Tablet 400 mg PO BID 30 Days Qty: 60 0RF tamsulosin 0.4 mg Capsule 0.4 mg PO QAM 30 Days Qty: 30 0RF gabapentin 800 mg Tablet 800 mg PO HS 30 Days Qty: 30 0RF lisinopril 10 mg Tablet 10 mg PO DAILY 30 Days Qty: 30 0RF quetiapine [Seroquel XR] 200 mg Tablet Extended Release 24 Hr 200 mg PO HS 30 Days Qty: 30 0RF Continued polyethylene glycol 3350 [Miralax] 17 gram/dose powder 17 g PO DAILY PRN (Reason: constipation) Qty: 850 0RF Discharge Orders: Discharge Order (Routine); Ordered 04/30/22 Ordered By: Lisa Medellin/Other Patient Handouts: What Is Heart Failure, Coping with Heart Failure Admission Data Admit Date/Time: 04/25/22 19:47 Attending Provider: Lisa Wright Admit Provider: Kirk Ortega Primary Care Provider: PCP,NO Other Providers: Kirk Ortega ; Anatoliy Chanel Benjamin B. ; Wilmar Chi Other Interventions: Discharge Summary Assessment (RN) Last Done: 04/30/22 15:18
[2022-05-06 16:58] LABS: CK Total 56 U/L (29-143); CK-MB 0 % (<5); CK-MM 100 % (95-100); Vitamin B6 2.1 ng/mL (2.1-21.7)
== END 2022-04-30 16:05 | disposition home or self-care (01) | DRG 291 ==
LOC: ED 16:54 → SUATTDRO 19:47 → EDINP 19:47 → 2S 22:49
DX: I11.0 Hypertensive heart disease with heart failure; Z87.891 Personal history of nicotine dependence; I50.31 Acute diastolic (congestive) heart failure; M54.59 Other low back pain; K59.00 Constipation, unspecified; Z88.6 Allergy status to analgesic agent; F31.9 Bipolar disorder, unspecified; M25.552 Pain in left hip; D64.9 Anemia, unspecified; M25.551 Pain in right hip; Z68.41 Body mass index [BMI] 40.0-44.9, adult; G89.29 Other chronic pain; R29.898 Other symptoms and signs involving the musculoskeletal system; R26.2 Difficulty in walking, not elsewhere classified; E66.9 Obesity, unspecified; E11.9 Type 2 diabetes mellitus without complications; R33.9 Retention of urine, unspecified; E83.42 Hypomagnesemia; Z79.899 Other long term (current) drug therapy

== ENCOUNTER 2025-03-07 11:48 | Observation (INO) ==
--- NOTE | 2025-03-07 12:08 | Emergency Department Note ---
Impression & Plan Myelodysplastic syndrome, Pancytopenia, Symptomatic anemia ED Provider Note NAME: JENNIFER CARPENTER AGE: 70 SEX: F : 1955 ARRIVES VIA: Ambulance INFORMANT: Patient, Granddaughter ED PROVIDER(S): Milton Salmon MD CHIEF COMPLAINT: Swelling, falls, weakness MEDICAL DECISION MAKING: Patient presents with the above. IV was established and blood work was obtained along with a type and screen. EKG obtained along with a screening chest x-ray. Hip and pelvis x-ray ordered given the patient's falls x 2 days on the buttocks. Patient does have chronic pain. No head strike or LOC. Patient also did have a left upper extremity ultrasound completed due to concerns for swelling. No history of CHF. No significant swelling in the lower extremities. Blood work shows a white count of 2.9 with hemoglobin of 7.1 platelet count of 50. Patient was ordered the 1 unit PRBCs. Kidney function unremarkable. Bilirubin 1.8. Troponin slightly elevated 8.2 but is downtrending from last month. I did speak with the blood bank in order that the patient will get irradiated product after I spoke with Dr. Leija who recommended the radiated product. I did speak to the on-call hospitalist service and the patient was admitted to the medicine service. Critical Care: I have personally spent 37 minutes of critical care time in direct management of this patient. This includes bedside care, interpretation of diagnostic studies, and testing, discussion with consultants, patient, and family members, and other require inpatient management activities. This 37 minutes is in excess of all separately billable procedures. Discussion w/ other healthcare providers: Dr. Powell inpatient medicine service Dr. Leija oncology Prior /Outside records reviewed: I reviewed part of discharge summary from April 2022. Patient with a history of obesity diabetes PUD endometriosis and tobacco abuse. Did review part of a discharge summary from January 31 February 06 admission to [facility] for pancytopenia. The patient was having pending bone marrow biopsy. I did review the [employer] [facility] oncology chromosome analysis which showed that the karyotype of the patient's bone marrow biopsy shows likely consistency with either myelodysplastic syndrome or AML. Differential diagnosis: Infection, fracture, sprain, strain, anemia dehydration, metabolic abnormality, hypo/hyperglycemia, electrolyte imbalance, anemia, UTI, pneumonia, thyroid dysfunction among others were considered. Diagnostics, as interpreted by me: ECG: Normal sinus rhythm, rate of 78, normal intervals, left axis deviation, low voltage EKG T wave version V2.EKG looks grossly unchanged from comparison completed January 31, 2025 Cardiac monitoring: An order was placed for continuous cardiac monitoring. The monitor shows a rate of 75 with sinus rhythm. Patient was placed on pulse oximetry Medical decision rules: None Imaging studies: I informally interpreted the patient's chest x-ray does not show obvious pneumonia or pneumothorax with formal report to follow. HPI: Patient presents due to concern for weakness as well as outpatient referral. The patient reportedly has fallen once each of the last 2 days. Patient is following robotics. No reported head strike or LOC. Chronic hip pain. Patient reports that she has low blood counts but is yet to establish with a assembler rubber footwear. They are concerned that she may have a blood cancer per the granddaughter. Patient does follow with [facility]. She did have a transfusion in the past during her prior admission. Granddaughter does not think that she looks more pale than normal and actually looks better. Patient has noticed some increased welling in the left upper extremity. No chest pains or shortness of breath. The patient does have associated weakness and fatigue with associated leg weakness where her "legs give out" which called each of the falls last 2 days. PAST MEDICAL HISTORY: See Below PAST SURGICAL HISTORY: See Below SOCIAL HISTORY: See Below HOME MEDICATIONS: See Below ALLERGIES: See Below VITALS: See Below PHYSICAL EXAMINATION: GENERAL: NAD, non-toxic. Somewhat pale in appearance. EYE EXAM: Normal conjunctiva. PERRL, no anisocoria and EOM's grossly intact w/o pain. OROPHARYNX: Moist mucus membranes, grossly normal dentition. NECK: Trachea midline, no stridor. LUNGS: Clear to auscultation. Normal chest wall mechanics. HEART: NSR, no MRG. ABDOMEN: Abdomen soft, non-tender, no masses, no rebound or guarding. BACK: No CVA TTP. SKIN: No rashes and no bruising. UPPER EXTREMITIES: Slight left greater than right upper extremity edema without obvious pitting edema. Neurovascular intact and compartments are soft. LOWER EXTREMITIES: Grossly normal, no edema. NEURO EXAM: Awake and alert, follows commands, no obvious facial asymmetry, normal speech, moves all 4 extremities. Past Med/Surg History Problem List (Updated 03/07/25 @ 19:28 by Milton Salmon MD) Symptomatic anemia (Acute) Pancytopenia (Acute) Myelodysplastic syndrome (Acute) Chronic back pain Bipolar disorder Bilateral leg weakness Acute diastolic CHF (congestive heart failure) Acute dyspnea (Acute) Leg swelling (Acute) Elevated brain natriuretic peptide (BNP) level (Acute) Constipation Medical History CHF (congestive heart failure) Ambulatory dysfunction PUD (peptic ulcer disease) Surgical History H/O: hysterectomy Family History Other Family history non-contributory Social History Smoking Status: Never smoker Hx Alcohol Use: No Hx Substance Use: No Preferred Language: Vietnamese Communication Ability: Effective Youtuber Required: No Beliefs That Will Affect Care: None Current Living Situation: Family Other Information That Helps Us Care for You: No Feels Safe at Home: Yes Safety Concerns: Feels Safe At This Time Assistive Devices: Cane and Wheelchair Allergies Allergies Allergy/AdvReac Type Severity Reaction Status Date / Time ibuprofen AdvReac Nausea Unverified 04/25/22 19:03 Home Meds Home Medications Medication Instructions Recorded Confirmed atorvastatin 10 mg tablet 10 mg PO HS 01/31/25 03/07/25 furosemide 40 mg tablet 40 mg PO QAM 01/31/25 03/07/25 gabapentin 800 mg tablet 800 mg PO TID 01/31/25 03/07/25 hydroxyzine HCl 25 mg tablet 25 mg PO QID PRN Anxiety 01/31/25 03/07/25 meclizine 12.5 mg tablet 12.5 mg PO TID PRN Dizziness 01/31/25 03/07/25 metoprolol succinate 25 mg 25 mg PO HS 01/31/25 03/07/25 tablet,extended release 24 hr quetiapine 200 mg tablet 200 mg PO HS 01/31/25 03/07/25 albuterol sulfate 90 mcg/actuation 1 puff inhalation DIRECTED PRN 03/07/25 03/07/25 aerosol inhaler (Ventolin HFA) sob allopurinol 300 mg tablet 300 mg PO BID 03/07/25 03/07/25 Results & Data (ED) Vital Signs Vital Signs - 24 hr 03/07/25 12:05 03/07/25 12:15 03/07/25 12:25 Temperature 37.3 C 37.3 C Temperature Source Oral Oral Pulse Rate 76 81 Pulse Rate [Apical] 74 Pulse Rhythm Regular Pulse Rhythm [Apical] Regular Pulse Strength Normal Pulse Strength [Apical] Normal Respiratory Rate 18 19 Respiratory Effort / Characteristics Non-Labored Spontaneous Non-Labored Spontaneous Respiratory Depth Normal Normal Respiratory Pattern Regular Regular Blood Pressure 123/64 Blood Pressure [Right Arm] 123/64 Blood Pressure Mean 83 Blood Pressure Mean [Right Arm] 83 Blood Pressure Position Sitting Blood Pressure Position [Right Arm] Lying Pulse Oximetry 95 95 Oxygen Delivery Method Room Air Room Air Sepsis Recent Fever Within 48 Hours No Sepsis New/Unexplained Change in Mental Status No Sepsis Action Taken by Nursing No Action Required 03/07/25 12:25 03/07/25 14:00 Temperature Temperature Source Pulse Rate 73 Pulse Rate [Apical] 75 Pulse Rhythm Regular Pulse Rhythm [Apical] Regular Pulse Strength Pulse Strength [Apical] Normal Respiratory Rate 19 19 Respiratory Effort / Characteristics Non-Labored Spontaneous Respiratory Depth Normal Respiratory Pattern Regular Blood Pressure Blood Pressure [Right Arm] Blood Pressure Mean Blood Pressure Mean [Right Arm] Blood Pressure Position Blood Pressure Position [Right Arm] Lying Pulse Oximetry 95 95 Oxygen Delivery Method Room Air Room Air Sepsis Recent Fever Within 48 Hours Sepsis New/Unexplained Change in Mental Status Sepsis Action Taken by [facility] Medications Current Medication List: was personally reviewed by me Laboratory Data Attestation: I reviewed the patient's lab results. 03/07/25 12:00 03/07/25 12:00 Lab Results 03/07/25 03/07/25 Range/Units 12:00 12:30 WBC 2.99 L (4.8-10.8) K/ul RBC 2.47 L (4.20-5.40) M/uL Hgb 7.1 L (12.0-16.0) g/dl Hct 22.9 L (37.0-47.0) % MCV 92.7 (80.0-100.0) fL MCH 28.7 (25.0-34.0) pg MCHC 31.0 L (32.0-36.0) g/dL RDW Std Deviation 78.3 H (36.4-46.3) fL RDW Coeff of Aissatou 24.2 H (11.5-14.5) % Plt Count 50 L (130-400) K/uL Absolute Nucleated RBC 0.02 (0.00-0.12) K/uL Nucleated RBC % (auto) 0.7 % Neutrophils % (Manual) 46 % Lymphocytes % (Manual) 21 % Monocytes % (Manual) 15 % Eosinophils % (Manual) 1 % Basophils % (Manual) 2 % Metamyelocytes % (Man) 5 % Myelocytes % (Man) 9 % Blast Cells % (Manual) 1 % Neutrophils # (Manual) 1.38 L (1.40-6.50) K/uL Total Absolute Neuts 1.38 L (1.4-6.5) K/uL Lymphocytes # (Manual) 0.63 L (1.2-3.4) K/uL Total Abs Lymphocytes 0.63 L (1.2-3.4) K/uL Monocytes # (Manual) 0.45 (0.11-0.59) K/uL Eosinophils # (Manual) 0.03 (0-0.50) K/uL Basophils # (Manual) 0.06 (0-0.2) K/uL Metamyelocytes # (Man) 0.15 H (0-0) K/uL Myelocytes # (Manual) 0.27 H (0-0) K/uL Blast Cells # (Man) 0.03 H (0-0) K/uL Polychromasia 1+ Basophilic Stippling 1+ Anisocytosis Present Tear Drop Cells 1+ Ovalocytes 1+ PT 11.2 (9.0-12.0) Seconds INR 1.0 (0.9-1.1) Sodium 136 (136-145) mmol/L Potassium 4.4 (3.5-5.1) mmol/L Chloride 99 (98-107) mmol/L Carbon Dioxide 29 (21-32) mmol/L Anion Gap 8 (3-11) BUN 15 (6-23) mg/dl Creatinine 0.53 L (0.6-1.2) mg/dl Est Cr Clr Drug Dosing 86.3 ml/min eGFR 98.81 BUN/Creatinine Ratio 28.3 H (10-20) Glucose 109 H (70-99(Fasting)) mg/dl Calcium 9.4 (8.6-10.3) mg/dl Magnesium 1.8 (1.7-2.4) mg/dl Total Bilirubin 1.8 H (0.2-1.0) mg/dl AST 20 (13-39) U/L ALT 10 (7-52) U/L Alkaline Phosphatase 79 (34-104) U/L Troponin I High Sens 18.2 H (0-14) pg/ml Total Protein 6.4 (6.0-8.3) gm/dl Albumin 3.8 (3.4-5.0) gm/dl Globulin 2.6 (2.5-4.0) gm/dl Albumin/Globulin Ratio 1.5 (0.9-2) TSH 2.563 (0.300-4.500) uIu/ml Blood Type O Negative Antibody Screen POSITIVE A Crossmatch See Detail Administered Medications Polyethylene Glycol (Polyethylene (Miralax) 17 Gm Pack) 17 gm PO DAILY NANCY Stop: 04/06/25 14:44 Last Admin: 03/07/25 15:08 Dose: 17 gm Documented By: STACEY Senna/Docusate Sodium (Docusate Sodium/Senna 50/8.6mg Tab) 1 tab PO QAM NANCY Stop: 04/06/25 14:44 Last Admin: 03/07/25 15:08 Dose: 1 tab Documented By: STACEY Discontinued Medications Acetaminophen (Ofirmev) 1,000 mg in 100 mls @ 400 mls/hr IV NOW STA Stop: 03/07/25 12:36 Last Infusion: 03/07/25 13:16 Dose: Infused Documented By: Admin: 03/07/25 12:40 Dose: 400 mls/hr Documented By: STACEY Imaging Data Radiologist's Impression: Chest X-Ray 03/07/25 12:22 XR chest 1V portable CLINICAL HISTORY: weakness COMPARISON STUDY: 06/24/2022 FINDINGS: There is mild cardiomegaly without pulmonary vascular congestion. No effusion, consolidation, or pneumothorax. IMPRESSION: No acute findings. ACT 112: Negative or not required by law. Electronically signed by: Oseas Julien M.D. 03/07/2025 12:59 PM Extremity Venous Study 03/07/25 12:36 ULTRASOUND LEFT UPPER EXTREMITY VENOUS CLINICAL HISTORY: Swelling. COMPARISON STUDY: None. TECHNIQUE: Real-time, grayscale, and color Doppler sonography of the deep veins of the left upper extremity is performed. Compression and augmentation were utilized. FINDINGS: No evidence of DVT seen at the left upper extremity. IMPRESSION: No DVT seen. ACT 112: Act 112:Negative or not required by law. Electronically signed by: Oseas Julien M.D. 03/07/2025 1:42 PM Hip/Pelvis X-Ray 03/07/25 12:36 XR hips KYRA 1v w pelvis CLINICAL HISTORY: fall COMPARISON: 04/26/2022 and 06/24/2022 FINDINGS: Stable left pelvic surgical clips. No fracture or dislocation.. There is stable mild mixed sclerosis and lucency at the superior aspect of the femoral heads, right greater than left consistent with AVN. No significant degenerative change seen at the hips otherwise. SI joints are unremarkable. IMPRESSION: No acute fracture. Otherwise as described. ACT 112: Negative or not required by law. Electronically signed by: Oseas Julien M.D. 03/07/2025 2:22 PM Discharge Plan Visit Data Chief Complaint: Illness Stated Complaint: DR ZENG ED Provider: Milton Salomn Discharge Problem: Myelodysplastic syndrome, Pancytopenia, Symptomatic anemia Patient Disposition: Admitted As Inpatient Condition: Good Discharge Instructions Interventions: ED Discharge Assessment Last Done: 03/07/25 16:10
[2025-03-07] MEDS: ACETAMINOPHEN 1,000 MG/100 ML VIAL IV STA (12:40)
[2025-03-07 12:56] LABS: Hematocrit (blood only) 22.9 % (37.0-47.0); Hemoglobin 7.1 g/dl (12.0-16.0); Mean Corpuscular Hemoglobin 28.7 pg (25.0-34.0); Mean Corpuscular Volume 92.7 fL (80.0-100.0); Nucleated RBC # (auto) 0.02 K/uL (0.00-0.12); Nucleated RBC % (auto) 0.7 %; Platelet Count 50 K/uL (130-400); RDW Coefficient of Variation 24.2 % (11.5-14.5); RDW Standard Deviation 78.3 fL (36.4-46.3); Red Blood Count 2.47 M/uL (4.20-5.40); White Blood Count 2.99 K/ul (4.8-10.8)
--- NOTE | 2025-03-07 13:00 | XRay Report ---
XR chest 1V portable CLINICAL HISTORY: weakness COMPARISON STUDY: 06/24/2022 FINDINGS: There is mild cardiomegaly without pulmonary vascular congestion. No effusion, consolidatio n, or pneumothorax. IMPRESSION: No acute findings. ACT 112: Negative or not required by law. Electronically signed by: Oseas Julien M.D. 03/07/2025 12:59 PM
[2025-03-07 13:12] LABS: Albumin Globulin Ratio 1.5 (0.9-2); BUN Creatinine Ratio 28.3 (10-20); Bilirubin,Total 1.8 mg/dl (0.2-1.0); Calcium 9.4 mg/dl (8.6-10.3); Creatinine Clr Calc Pharmacy 86.3 ml/min; Globulin 2.6 gm/dl (2.5-4.0); Magnesium 1.8 mg/dl (1.7-2.4); Potassium 4.4 mmol/L (3.5-5.1); Total Protein 6.4 gm/dl (6.0-8.3)
[2025-03-07 13:18] LABS: Troponin I High Sensitivity 18.2 pg/ml (0-14)
[2025-03-07 13:22] LABS: Prothrombin Time 11.2 Seconds (9.0-12.0)
[2025-03-07 13:27] LABS: Thyroid Stimulating Hormone 2.563 uIu/ml (0.300-4.500)
--- NOTE | 2025-03-07 13:44 | Ultrasound Report ---
ULTRASOUND LEFT UPPER EXTREMITY VENOUS CLINICAL HISTORY: Swelling. COMPARISON STUDY: None. TECHNIQUE: Real-time, grayscale, and color Doppler sonography of the deep veins of the left upper ext remity is performed. Compression and augmentation were utilized. FINDINGS: No evidence of DVT seen at the left upper extremity. IMPRESSION: No DVT seen. ACT 112: Act 112:Negative or not required by law. Electronically signed by: Oseas Julien M.D. 03/07/2025 1:42 PM
[2025-03-07] MEDS ORDERED: SODIUM CHLORIDE 0.9% 100 ML IV PRN (13:51)
--- NOTE | 2025-03-07 14:06 | History & Physical Report ---
Date of Service March 07, 2025 Assessment & Plan (1) Myelodysplastic syndrome: (2) CHF (congestive heart failure): (3) Acute diastolic CHF (congestive heart failure): Plan Sintia is a 70-year-old female with a past medical history of CHF, bipolar disorder and pancytopenia who presents to the hospital at request of her PCP for weakness. She was seen in our ER on 01/31 also for weakness, was found to be pancytopenic at that time. She was transferred to [facility], whe re she reports she underwent a bone marrow biopsy and was "diagnosed with blood cancer". Initial workup showing pancytopenia with a hemoglobin of 7.1. 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 likely secondary to hematology process No injury seen on imaging, no head strike. TSH within normal limits Does report blood in urine and cloudy appearanceUA pending on admission PT/OT #constipation Patient reports last bowel movement 1 week ago, not taking any stool softeners at home Daily MiraLAX and senna #CAD | CHF Continue metoprolol, statin and furosemide No signs of volume overload on exam #mental health Continue Seroquel. As needed Vistaril Dispo: Admit to med/surge DVT prophylaxis: SCDs, chemical held with pancytopenia CODE STATUS: Full code, patient would like more time to think about this Granddaughter updated at bedside 03/07 History of Present Illness Chief Complaint: weakness Primary Care Provider: NO PCP Sintia is a 70-year-old female with a past medical history of CHF, bipolar disorder and pancytopenia who presents to the hospital at request of her PCP for weakness. She was seen in our ER on 01/31 also for weakness, was found to be pancytopenic at that time. She was transferred to [facility], where she reports she underwent a bone marrow biopsy and was "diagnosed with blood cancer". Granddaughter is at bedside and helps provide additional his tory, states they have not seen an outpatient oncologist yet. Granddaughter reports that she has been wheelchair-bound for the past few months and needs assistance with transferring, yesterday she tried to transfer on her own and from bed to chair and fell. No head strike or loss of consciousness. Reports unintentional weight loss of 150 pounds over the last year plus, does drink boost supplements twice a day. Reports pain in her neck hips and knees that has been going on for years. ER course: Tylenol 1 g IV x 1 1 unit PRBC ordered Allergies Allergy/AdvReac Type Severity Reaction Status Date / Time ibuprofen AdvReac Nausea Unverified 04/25/22 19:03 Home Medications Medication Instructions Recorded Confirmed Type atorvastatin 10 mg tablet 10 mg PO HS 01/31/25 03/07/25 History furosemide 40 mg tablet 40 mg PO QAM 01/31/25 03/07/25 History gabapentin 800 mg tablet 800 mg PO TID 01/31/25 03/07/25 History hydroxyzine HCl 25 mg tablet 25 mg PO QID PRN Anxiety 01/31/25 03/07/25 History meclizine 12.5 mg tablet 12.5 mg PO TID PRN Dizziness 01/31/25 03/07/25 History metoprolol succinate 25 mg 25 mg PO HS 01/31/25 03/07/25 History tablet,extended release 24 hr quetiapine 200 mg tablet 200 mg PO HS 01/31/25 03/07/25 History albuterol sulfate 90 mcg/actuation 1 puff inhalation DIRECTED PRN 03/07/25 03/07/25 History aerosol inhaler (Ventolin HFA) sob allopurinol 300 mg tablet 300 mg PO BID 03/07/25 03/07/25 History Past Med/Surg History Problem List (Updated 03/07/25 @ 15:50 by Joyce Rodríguez PA-C) Myelodysplastic syndrome Chronic back pain Bipolar disorder Bilateral leg weakness Acute diastolic CHF (congestive heart failure) Acute dyspnea (Acute) Leg swelling (Acute) Elevated brain natriuretic peptide (BNP) level (Acute) Constipation Medical History Ambulatory dysfunction Bilateral leg weakness Bipolar disorder CHF (congestive heart failure) Chronic back pain Constipation PUD (peptic ulcer disease) Surgical History H/O: hysterectomy Family History Other Family history non-contributory Social History Smoking Status: Never smoker Hx Alcohol Use: No Hx Substance Use: No Preferred Language: Bengali Communication Ability: Effective Umbrella Supervisor Required: No Beliefs That Will Affect Care: None Current Living Situation: Family Other Information That Helps Us Care for You: No Feels Safe at Home: Yes Safety Concerns: Feels Safe At This Time Assistive Devices: Cane and Wheelchair Review of Systems Review of Systems: All systems reviewed & are unremarkable except as noted in Subjective Physical Exam Physical Exam: General: NAD, VS as above HEENT: trachea midline, poor dentition Resp: normal respiratory effort, lungs clear to auscultation CV: RRR, no murmur, Abd: normal bowel sounds, non tender, no hepatosplenomegaly Extremities: Moves all extremities, no lower extremity edema Neuro: A&O x3, Skin: intact, pale feeling Results & Data Results & Data Vital Signs (Past 12 Hours) Vital Signs Temp Pulse Pulse Resp BP BP Pulse Ox 03/07/25 12:25 73 19 95 03/07/25 12:25 99.1 F 74 19 123/64 95 03/07/25 12:15 99.1 F 81 18 123/64 95 03/07/25 12:05 76 O2 Del Method 03/07/25 12:25 Room Air 03/07/25 12:25 Room Air 03/07/25 12:15 Room Air 03/07/25 12:05 Laboratory Results CBC, chemistry, coagulation studies reviewed Troponin reviewed TSH reviewed Diagnostic Findings chest x-ray reviewed Upper extremity venous Doppler reviewed Hip and pelvis x-ray reviewed Supervising Physician Co-Signing Physician Notes Patient seen and examined, chart reviewed, case discussed with Joyce Rodríguez PA-C and I agree with the assessment and plan as above except as otherwise noted Labs and images reviewed PG Care Time/CCT Total # of Minutes Spent Total Time Spent with Patient: Total time spent is greater than 50% in coordination of care (as documented) at patient's floor/unit and/or counseling patient: Coding Level of Care Code 67403 INT INP/OBS CARE MIN Diagnoses Myelodysplastic syndrome D46.9 CHF (congestive heart failure) I50.9 Acute diastolic CHF (congestive heart failure) I50.31
[2025-03-07 14:16] LABS: ALC (manual) 0.63 K/uL (1.2-3.4); ANC (manual) 1.38 K/uL (1.4-6.5); Anisocytosis Present; Basophilic Stippling 1+; Basophils # (manual) 0.06 K/uL (0-0.2); Basophils % (manual) 2 %; Blast # (manual) 0.03 K/uL (0-0); Blast Cells % (manual) 1 %; Eosinophils # (manual) 0.03 K/uL (0-0.50); Eosinophils % (manual) 1 %; Lymphocytes # (manual) 0.63 K/uL (1.2-3.4); Lymphocytes % (manual) 21 %; Metamyelocytes # (manual) 0.15 K/uL (0-0); Metamyelocytes % (manual) 5 %; Monocytes # (manual) 0.45 K/uL (0.11-0.59); Monocytes % (manual) 15 %; Myelocytes # (manual) 0.27 K/uL (0-0); Myelocytes % (manual) 9 %; Neutrophils # (manual) 1.38 K/uL (1.40-6.50); Neutrophils % (manual) 46 %; Ovalocytes 1+; Polychromasia 1+; Tear Drop Cells 1+
--- NOTE | 2025-03-07 14:24 | XRay Report ---
XR hips KYRA 1v w pelvis CLINICAL HISTORY: fall COMPARISON: 04/26/2022 and 06/24/2022 FINDINGS: Stable left pelvic surgical clips. No fracture or dislocation.. There is stable mild mixed sclerosis and lucency at the superior aspect of the femoral heads, right greater than left consisten t with AVN. No significant degenerative change seen at the hips otherwise. SI joints are unremarkable . IMPRESSION: No acute fracture. Otherwise as described. ACT 112: Negative or not required by law. Electronically signed by: Oseas Julien M.D. 03/07/2025 2:22 PM
[2025-03-07] MEDS: POLYETHYLENE (MIRALAX) 17 GM PACK PO SCH (15:08)
[2025-03-07] MEDS: DOCUSATE SODIUM/SENNA 50/8.6MG TAB PO SCH (15:08)
[2025-03-07] MEDS ORDERED: MELATONIN 3 MG TAB PO PRN (16:47)
[2025-03-07] MEDS ORDERED: POLYETHYLENE (MIRALAX) 17 GM PACK PO PRN (16:47)
[2025-03-07] MEDS ORDERED: hydrOXYzine HCl 25 MG TAB PO PRN (16:47)
--- NOTE | 2025-03-07 18:18 | Oncology Consultation ---
Date of Consultation March 07, 2025 Assessment & Plan (1) Myelodysplastic syndrome: Plan -Recommend transfusing with 1 unit irradiated PRBC for symptomatic anemia. -Outpatient follow-up with Dr. Rain of hematology at [facility] upon discharge. Thank you for this consult. Feel free to call if you have any further questions. History of Present Illness Reason for Consultation: MDS Attending Physician: Epifanio Powell MD History of Present Illness 70-year-old female who presented with fatigue. Per review of records, she was recently seen in the ED on 01/31/2025 for similar complaints with labs revealing pancytopenia for which she was transferred to [facility] where she underwent bone marrow biopsy. Notes indicate that she has been followed by Dr. Rain of hematology at [facility].Labs obtained when she arrived at ER revealed WBC of 2.9, hemoglobin 7.1, hematocrit 29.9, MCV 92.7 with platelet count of 50,000. Allergies Allergy/AdvReac Type Severity Reaction Status Date / Time ibuprofen AdvReac Nausea Unverified 04/25/22 19:03 Home Medications Medication Instructions Recorded Confirmed Type atorvastatin 10 mg tablet 10 mg PO HS 01/31/25 03/07/25 History furosemide 40 mg tablet 40 mg PO QAM 01/31/25 03/07/25 History gabapentin 800 mg tablet 800 mg PO TID 01/31/25 03/07/25 History hydroxyzine HCl 25 mg tablet 25 mg PO QID PRN Anxiety 01/31/25 03/07/25 History meclizine 12.5 mg tablet 12.5 mg PO TID PRN Dizziness 01/31/25 03/07/25 History metoprolol succinate 25 mg 25 mg PO HS 01/31/25 03/07/25 History tablet,extended release 24 hr quetiapine 200 mg tablet 200 mg PO HS 01/31/25 03/07/25 History albuterol sulfate 90 mcg/actuation 1 puff inhalation DIRECTED PRN 03/07/25 03/07/25 History aerosol inhaler (Ventolin HFA) sob allopurinol 300 mg tablet 300 mg PO BID 03/07/25 03/07/25 History Patient History Medical History Ambulatory dysfunction Bilateral leg weakness Bipolar disorder CHF (congestive heart failure) Chronic back pain Constipation PUD (peptic ulcer disease) Surgical History H/O: hysterectomy Family History Other Family history non-contributory Social History Smoking Status: Never smoker Hx Alcohol Use: No Hx Substance Use: No Preferred Language: Slovenian Communication Ability: Effective Physiatrist Required: No Beliefs That Will Affect Care: None Current Living Situation: Family Other Information That Helps Us Care for You: No Feels Safe at Home: Yes Safety Concerns: Feels Safe At This Time Assistive Devices: Cane and Wheelchair Results & Data Vital Signs (Past 12 Hours) Vital Signs Temp Pulse Pulse Pulse Resp BP BP 03/07/25 16:48 36.6 C 78 18 121/55 L 03/07/25 16:00 71 21 115/93 03/07/25 14:00 75 19 03/07/25 12:25 73 19 03/07/25 12:25 37.3 C 74 19 123/64 03/07/25 12:15 37.3 C 81 18 123/64 03/07/25 12:05 76 Pulse Ox O2 Del Method 03/07/25 16:48 94 Room Air 03/07/25 16:00 95 Room Air 03/07/25 14:00 95 Room Air 03/07/25 12:25 95 Room Air 03/07/25 12:25 95 Room Air 03/07/25 12:15 95 Room Air 03/07/25 12:05
[2025-03-07] MEDS: ACETAMINOPHEN 325 MG TAB PO PRN (19:38)
[2025-03-07] MEDS: QUEtiapine FUMARATE 200 MG TAB PO SCH (20:47)
[2025-03-07] MEDS: allopurinoL 300 MG TAB PO SCH (20:47)
[2025-03-07] MEDS: GABAPENTIN 800 MG TAB PO SCH (20:47)
[2025-03-07] MEDS: ACYCLOVIR 400 MG TAB PO SCH (20:47)
[2025-03-07] MEDS: METOPROLOL SUCC 25MG EXT REL TAB PO SCH (20:47)
[2025-03-07] MEDS: ATORVASTATIN 10 MG TAB PO SCH (20:47)
[2025-03-07] MEDS: oxyCODONE HCL IR 5 MG TAB (IMMEDIATE RELEASE) PO STA (22:52)
[2025-03-08 07:15] VITALS: RESP 16
[2025-03-08 07:40] LABS: Hematocrit (blood only) 26.3 % (37.0-47.0); Hemoglobin 8.3 g/dl (12.0-16.0); Mean Corpuscular Hemoglobin 27.8 pg (25.0-34.0); Mean Corpuscular Hgb Conc 31.6 g/dL (32.0-36.0); Nucleated RBC # (auto) 0.02 K/uL (0.00-0.12); Nucleated RBC % (auto) 0.5 %; Platelet Count 47 K/uL (130-400); RDW Coefficient of Variation 22.5 % (11.5-14.5); RDW Standard Deviation 68.1 fL (36.4-46.3); Red Blood Count 2.99 M/uL (4.20-5.40); White Blood Count 3.69 K/ul (4.8-10.8)
[2025-03-08 07:55] LABS: BUN Creatinine Ratio 35.1 (10-20); Calcium 8.6 mg/dl (8.6-10.3); Creatinine Clr Calc Pharmacy 123.6 ml/min; Potassium 4.1 mmol/L (3.5-5.1)
[2025-03-08] MEDS: FLUCONAZOLE 100 MG TAB PO SCH (08:10)
[2025-03-08] MEDS: FUROSEMIDE 40 MG TAB PO SCH (08:13)
[2025-03-08] MEDS: POLYETHYLENE (MIRALAX) 17 GM PACK PO SCH (08:14)
[2025-03-08 08:20] LABS: ALC (manual) 0.55 K/uL (1.2-3.4); ANC (manual) 2.21 K/uL (1.4-6.5); Basophilic Stippling 1+; Basophils # (manual) 0.04 K/uL (0-0.2); Basophils % (manual) 1 %; Blast # (manual) 0.04 K/uL (0-0); Blast Cells % (manual) 1 %; Eosinophils # (manual) 0.04 K/uL (0-0.50); Eosinophils % (manual) 1 %; Lymphocytes # (manual) 0.55 K/uL (1.2-3.4); Lymphocytes % (manual) 15 %; Metamyelocytes # (manual) 0.04 K/uL (0-0); Metamyelocytes % (manual) 1 %; Monocytes # (manual) 0.44 K/uL (0.11-0.59); Monocytes % (manual) 12 %; Myelocytes # (manual) 0.33 K/uL (0-0); Myelocytes % (manual) 9 %; Neutrophils # (manual) 2.21 K/uL (1.40-6.50); Neutrophils % (manual) 60 %; Ovalocytes 1+; Polychromasia 1+
[2025-03-08] MEDS: ONDANSETRON INJ 2 MG/ML 2 ML VIAL IV PRN (08:21)
[2025-03-08 13:29] LABS: Amorphous Sediment Urine Present (None Prsent); Appearance Urine Turbid (Clear); Bacteria Urine Automated 4+ (None Seen); Bilirubin Urine Negative (Negative); Blood Urine Negative (Negative); Cast Urine Automated 0-2 /lpf (0-2); Color Urine Red; Glucose Urine UA Negative (Negative); Ketones Urine Trace (Negative); Leukocyte Esterase Urine 1+ (Negative); Nitrite Urine Negative (Negative); Protein Urine Trace (Negative); RBC Urine Automated 0-2 /hpf (0-2); Specific Gravity Urine 1.019 (1.000-1.030); Triple Phosphate Crystal Urine Present (None Prsent); Urobilinogen Urine Negative (Negative); WBC Urine Automated 0-5 /hpf (0-5); pH Urine 8.5 (4.5-7.5)
[2025-03-08] MEDS: NITROFURANTOIN MONOHYDRATE 100 MG CAP PO STA (14:39)
--- NOTE | 2025-03-08 14:41 | Discharge Summary ---
Discharge Summary Date of Service March 08, 2025 Principal Dx & Hospital Course #1 = Principal Diagnosis (1) Myelodysplastic syndrome: (2) CHF (congestive heart failure): (3) Acute diastolic CHF (congestive heart failure): Plan #Pancytopenia | MDS Sintia is a 70-year-old female with a past medical history of CHF, bipolar disorder and pancytopenia who presents to the hospital at request of her PCP for weakness. She was seen in our ER on 01/31 also for weakness, was found to be pancytopenic at that time. She was transferred to [facility], where she reports she underwent a bone marrow biopsy and was "diagnosed with blood cancer". Initial workup showing pancytopenia with a hemoglobin of 7.1. 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 Peripheral smear consistent with MDS. Has not seen outpatient oncology yet - heme/onc was consulted and I spoke with Dr. Leija. Continue Fluconazole 400mg QAM, Allopurinol 300mg BID, and Acyclovir 400mg BID (confirmed with granddaughter was not taking fluconazole or acyclovir - these were refilled). Patient will also need Levaquin 500mg daily if ANC < 500. Received 1 unit PRBCs with improvement in blood counts. Outpatient follow up with onoclogy - per Dr. Leija needs labs Tuesday and and her office will contact the patient #Falls/weakness | UTI Largely wheelchair-bound with assistance to transfer but attempted to transfer twice on her own and fell. likely secondary to hematology process and UTI. No injury seen on imaging, no head strike. TSH within normal limits. Reporting her chronic pain for which she takes tylenol for. UA concerning for UTI - will start macrobid based on prior culture data and foll ow up on cultures PT/OT were consulted but patient states she would not go to rehab, i spoke to Granddaughteredgardo, who is the primary caregiver. [facility] would not want her to go to rehab, they have HH coming, and she is comfortable taking care of her at home. #constipation - Patient reports last bowel movement 1 week ago, not taking any stool softeners at home. Encouraged miralax BID and senna daily until bowel function returns to normal. #CAD| CHF -Trop mild elevation at 18, not repeated as asymptomatic, likely myocardial demand ischemia from severe anemia Continue metoprolol, statin and furosemide #mental health - Continue Seroquel. As needed Vistaril Dispo: discharge home with HH Granddaughter updated at bedside 03/07 adn via phone 03/08 Notes For Next Care Provider needs oncology follow up urine culture pending Medication Changes From Visit rx for fluconazole and acyclovir sent course of macrobid Admission HPI Per Admitting Provider Sintia is a 70-year-old female with a past medical history of CHF, bipolar disorder and pancytopenia who presents to the hospital at request of her PCP for weakness. She was seen in our ER on 01/31 also for weakness, was found to be pancytopenic at that time. She was transferred to [facility], where she reports she underwent a bone marrow biopsy and was "diagnosed with blood cancer". Granddaughter is at bedside and helps provide additional history, states they have not seen an outpatient oncologist yet. Granddaughter reports that she has been wheelchair-bound for the past few months and needs assistance with transferring, yesterday she tried to transfer on her own and from bed to chair and fell. No head strike or loss of consciousness. Reports unintentional weight loss of 150 pounds over the last year plus, does drink boost supplements twice a day. Reports pain in her neck hips and knees that has been going on for years. ER course: Tylenol 1 g IV x 1 1 unit PRBC ordered Discharge Exam General: NAD, VS as above Resp: normal respiratory effort, lungs clear to auscultation CV: RRR, no murmur, Abd: normal bowel sounds, non tender, no hepatosplenomegaly Extremities: Moves all extremities, no edema Neuro: A&O x3, Discharge Plan Discharge Items Patient Disposition: Home - Home Health Services Reason For Visit: PANCYTOPENIA Discharge Diagnosis: MDS Condition on Discharge: Fair Activity: As commented below Activity Comment: work with therapy to get stronger Weightbearing: Full weightbearing Non-emergency contact: Primary Care Provider Call non-emergency contact if: you have any medication questions, your symptoms worsen and your temperature is above 101 Follow-up/Referrals: Kimber Leija MD [Physician] - (oncology - follow up next week the office will call you with a hospital follow up visit) Bharat Patel DO [Primary Care Provider] - 03/12/25 12:45 pm (PCP - follow up within one week ) Diet: Heart Healthy Diet Texture: Easy to Chew Addtl Attending Provider Instructions: Ms. Bhatt, You were hospitalized after having weakness and falls at home. You were found to have low blood counts again from your MDS. You had improvement of your blood cou nts after a unit of blood. I discussed your case with the oncologist, Dr. Leija. She would like you to continue on acyclovir, allopurinol and fluconazole. The new medications have been sent to your pharmacy. Her office should contact you with appointments. She would like you get labs done on Tuesday and . If you do not hear from her office by Tuesday, the number is listed above. Your urine test was also concerning for a urinary tract infection. An antibiotic called macrobid was sent to the pharmacy. First dose of that is tonight, please take the whole course of medication. In regards to your falls and weakness you should continue to work with home health therapy. You were offered an evaluation by physical therapy for possible rehab placement but you declined this. Please do not try to transfer without help. Recommend Tylenol for your chronic back pain. If worsening can try Voltaren gel or lidocaine patches, both of which can be purchased over the counter. Please continue to take miralax twice a day and Sennakot until your bowels become more regular. I have sent in prescriptions of this, however they are over the counter medications and not always covered by insurance. If that is the case, please purchase them over the counter. After they are moving, you can take miralax everyday. Activity: You can do normal everyday activities as your body allows. Take rest breaks if you feel tired. Do not overexert. Stop activity if you have pain, shortness of breath or feel dizzy. Follow-up appointments: Make an appointment with your primary care physician within one week of discharge. A copy of this summary will be sent to them. Every time you see your primary care physician, or any other doctor, bring your medication list, and a list of questions. CONTACT YOUR PRIMARY CARE PROVIDER if you experience any of the following: Shortness of breath or difficulty breathing Fevers or chills Feeling tired with normal activity or experiencing dizziness or fainting Difficulty following your treatment plan, or difficulty taking medications CALL 911 OR GO TO THE EMERGENCY DEPARTMENT if you experience any of the following: Severe abdominal pain or nausea/vomiting Severe chest pain, or chest pain that radiates (moves) to your jaw or arm Sudden, severe shortness of breath or difficulty breathing Thank you for allowing us to participate in your care. Pending Studies at Discharge: Yes Studies:: urine culture Stand-Alone Forms: My [facility], Smoking Cessation Medications and DC Order Prescriptions: New fluconazole [Diflucan] 100 mg Tablet 400 mg PO QAM 30 Days Qty: 120 0RF acetaminophen 325 mg Tablet 650 mg PO Q4H PRN (Reason: fever) Qty: 10 0RF polyethylene glycol 3350 [Miralax] 17 gram Powder In Packet 17 g PO BID 10 Days Qty: 30 0RF sennosides-docusate sodium [Senokot-S] 8.6-50 mg Tablet 1 tab PO QAM Qty: 30 0RF acyclovir 400 mg Tablet 400 mg PO BID 30 Days Qty: 60 0RF Continued allopurinol 300 mg tablet 300 mg PO BID Rx Instructions: filled 03/01 30 day supply albuterol sulfate [Ventolin HFA] 90 mcg/actuation HFA aerosol inhaler 1 puff INHALATION DIRECTED PRN (Reason: sob) Rx Instructions: last filed 03/06 50 day supply furosemide 40 mg tablet 40 mg PO QAM atorvastatin 10 mg tablet 10 mg PO HS quetiapine 200 mg tablet 200 mg PO HS meclizine 12.5 mg tablet 12.5 mg PO TID PRN (Reason: Dizziness) gabapentin 800 mg tablet 800 mg PO TID hydroxyzine HCl 25 mg tablet 25 mg PO QID PRN (Reason: Anxiety) metoprolol succinate 25 mg tablet extended release 24 hr 25 mg PO HS Discharge Orders: Discharge Order (Routine); Ordered 03/08/25 Ordered By: Joyce Rodríguez Admission Data Admit Date/Time: 03/07/25 14:40 Attending Provider: Karime Ugarte Admit Provider: Epifanio Powell Primary Care Provider: Bharta Patel Other Providers: Epifanio Powell; Kimber Leija; [facility]; [facility] Other Interventions: Discharge Summary Assessment (RN) Last Done: 03/08/25 17:51 Hospital Stay Data Consultations 03/07/25 14:13 ED Decision to Admit Stat 03/07/25 16:47 Consult Oncology Routine Diagnostic Imagining Performed Chest X-Ray 03/07/25 12:22 XR chest 1V portable CLINICAL HISTORY: weakness COMPARISON STUDY: 06/24/2022 FINDINGS: There is mild cardiomegaly without pulmonary vascular congestion. No effusion, consolidation, or pneumothorax. IMPRESSION: No acute findings. ACT 112: Negative or not required by law. Electronically signed by: Oseas Julien M.D. 03/07/2025 12:59 PM Extremity Venous Study 03/07/25 12:36 ULTRASOUND LEFT UPPER EXTREMITY VENOUS CLINICAL HISTORY: Swelling. COMPARISON STUDY: None. TECHNIQUE: Real-time, grayscale, and color Doppler sonography of the deep veins of the left upper extremity is performed. Compression and augmentation were utilized. FINDINGS: No evidence of DVT seen at the left upper extremity. IMPRESSION: No DVT seen. ACT 112: Act 112:Negative or not required by law. Electronically signed by: Oseas Julien M.D. 03/07/2025 1:42 PM Hip/Pelvis X-Ray 03/07/25 12:36 XR hips KYRA 1v w pelvis CLINICAL HISTORY: fall COMPARISON: 04/26/2022 and 06/24/2022 FINDINGS: Stable left pelvic surgical clips. No fracture or dislocation.. There is stable mild mixed sclerosis and lucency at the superior aspect of the femoral heads, right greater than left consistent with AVN. No significant degenerative change seen at the hips otherwise. SI joints are unremarkable. IMPRESSION: No acute fracture. Otherwise as described. ACT 112: Negative or not required by law. Electronically signed by: Oseas Julien M.D. 03/07/2025 2:22 PM Pending Results Patient Have Any Pending Studies at Discharge: Yes Discharge Instructions Given to Patient (Per Discharging Provider) Ms. Bhatt, You were hospitalized after having weakness and falls at home. You were found to have low blood counts again from your MDS. You had improvement of your blood counts after a unit of blood. I discussed your case with the oncologist, Dr. Leija. She would like you to continue on acyclovir, allopurinol and fluconazole. The new medications have been sent to your pharmacy. Her office should contact you with appointments. She would like you get labs done on Tuesday and . If you do not hear from her office by Tuesday, the number is listed above. Your urine test was also concerning for a urinary tract infection. An antibiotic called mary kate was sent to the pharmacy. First dose of that is tonight, please take the whole course of medication. In regards to your falls and weakness you should continue to work with home health therapy. You were offered an evaluation by physical therapy for possible rehab placement but you declined this. Please do not try to transfer without help. Recommend Tylenol for your chronic back pain. If worsening can try Voltaren gel or lidocaine patches, both of which can be purchased over the counter. Please continue to take miralax twice a day and Sennakot until your bowels become more regular. I have sent in prescriptions of this, however they are over the counter medications and not always covered by insurance. If that is the case, please purchase them over the counter. After they are moving, you can take miralax everyday. Activity: You can do normal everyday activities as your body allows. Take rest breaks if you feel tired. Do not overexert. Stop activity if you have pain, shortness of breath or feel dizzy. Follow-up appointments: Make an appointment with your primary care physician within one week of discharge. A copy of this summary will be sent to them. Every time you see your primary care physician, or any other doctor, bring your medication list, and a list of questions. CONTACT YOUR PRIMARY CARE PROVIDER if you experience any of the following: Shortness of breath or difficulty breathing Fevers or chills Feeling tired with normal activity or experiencing dizziness or fainting Difficulty following your treatment plan, or difficulty taking medications CALL 911 OR GO TO THE EMERGENCY DEPARTMENT if you experience any of the following: Severe abdominal pain or nausea/vomiting Severe chest pain, or chest pain that radiates (moves) to your jaw or arm Sudden, severe shortness of breath or difficulty breathing Thank you for allowing us to participate in your care. Supervising Physician Co-Signing Physician Notes CELIO Supervision Note: I did not personally see or examine the patient today, but I verified all shields points of CELIO Rodríguez's assessment and plan with the following exceptions/additions: None Total Time Total Time Spent Total Time Spent (In Minutes): Time spent day of discharge 45 minutes including direct patient care, medication reconciliation, documentation, review of labs and images, and coordination of care. Coding Level of Care Code 30278 INP/OBS DISCH >30 MIN Diagnoses Myelodysplastic syndrome D46.9 CHF (congestive heart failure) I50.9 Acute diastolic CHF (congestive heart failure) I50.31
[2025-03-08 15:14] VITALS: BP 104/57; PULSE 76; TEMP 98.1; O2SAT 94
[2025-03-08] MEDS ORDERED: NITROFURANTOIN MONOHYDRATE 100 MG CAP PO SCH (21:00)
--- NOTE | 2025-03-09 06:09 | Electrocardiogram Report ---
Test Reason : Blood Pressure : */* mmHG Vent. Rate : 78 BPM Atrial Rate : 78 BPM P-R Int : 154 ms QRS Dur : 64 ms QT Int : 384 ms P-R-T Axes : 50 -14 34 degrees QTcB Int : 437 ms Normal sinus rhythm with sinus arrhythmia Low voltage QRS Nonspecific T wave abnormality Abnormal ECG When compared with ECG of 31-Jan-2025 15:12, Premature atrial complexes are no longer Present Confirmed by Gigi Smith ([id number]) on 03/09/2025 6:08:52 AM Referred By: REFERRED SELF Confirmed By: Gigi Smith
== END 2025-03-08 18:46 | disposition home health service (06) | DRG 812 ==
LOC: ED 11:48 → 3W 14:40 → INTOOBSV 14:40 → SUATTDRO 14:40 → 3W 16:10

== ENCOUNTER 2025-04-03 15:57 | Inpatient (IN) ==
[2025-04-03 16:54] LABS: Alanine Aminotransferase 9.0 U/L (7-52); Albumin Globulin Ratio 1.3 (0.9-2); Alkaline Phosphatase 114.0 U/L (34-104); Anion Gap 7.0 (3-11); Bilirubin,Total 1.2 mg/dl (0.2-1.0); Blood Urea Nitrogen 46.0 mg/dl (6-23); Calcium 8.7 mg/dl (8.6-10.3); Carbon Dioxide 29.0 mmol/L (21-32); Chloride 96.0 mmol/L (98-107); Creatinine Clr Calc Pharmacy 33.7 ml/min; Globulin 2.6 gm/dl (2.5-4.0); Glucose 122.0 mg/dl (70-99(Fasting)); Iron 226.0 mcg/dl (35-150); Magnesium 2.4 mg/dl (1.7-2.4); Potassium 4.6 mmol/L (3.5-5.1); Sodium 132.0 mmol/L (136-145); Total Protein 6.0 gm/dl (6.0-8.3); Transferrin 177.0 mg/dl (200-360)
[2025-04-03 17:09] LABS: Hematocrit (blood only) 18.3 % (37.0-47.0); Hemoglobin 5.5 g/dl (12.0-16.0); Mean Corpuscular Hemoglobin 25.7 pg (25.0-34.0); Mean Corpuscular Volume 85.5 fL (80.0-100.0); Platelet Count 35 K/uL (130-400); RDW Standard Deviation 72.5 fL (36.4-46.3); Red Blood Count 2.14 M/uL (4.20-5.40); Thyroid Stimulating Hormone 2.875 uIu/ml (0.300-4.500); White Blood Count 4.71 K/ul (4.8-10.8)
[2025-04-03 17:10] LABS: ALC (manual) 0.89 K/uL (1.2-3.4); ANC (manual) 3.11 K/uL (1.4-6.5); Anisocytosis Present; Basophilic Stippling 1+; Ovalocytes 1+; Reticulocytes # 0.070 10^6/uL (0.020-0.100)
[2025-04-03] MEDS ORDERED: SODIUM CHLORIDE 0.9% 100 ML IV PRN (17:10)
[2025-04-03 17:12] LABS: Ferritin 617.9 ng/ml (8-388)
[2025-04-03 17:18] LABS: INR 1.0 (0.9-1.1); Prothrombin Time 11.2 Seconds (9.0-12.0)
--- NOTE | 2025-04-03 17:25 | Emergency Department Note ---
Impression & Plan Symptomatic anemia, Pancytopenia, Lymphoproliferative disorder, RANDELL (acute kidney injury) ED Provider Note NAME: JENNIFER CARPENTER AGE: 70 SEX: F : 1955 ARRIVES VIA: Ambulance INFORMANT: Patient ED PROVIDER(S): Bryan Resendez MD CHIEF COMPLAINT: anemia, referred PLAN: Disposition: Admit MEDICAL DECISION MAKING: The patient is a pleasant 70-year-old woman with a past medical history of low- grade B-cell lymphoma proliferative disorder per [facility] bone marrow biopsy which demonstrated MDS with ringed sideroblasts who presents to the emergency department via EMS and accompanied by her granddaughter and contract attorney for evaluation of anemia where outpatient blood work demonstrated hemoglobin of 5. Patient has had generalized weakness in the setting of her hematologic disorder. She was admitted to this facility from 03/07-03/08 for weakness and pancytopenia and CHF. She denies any fevers, cough, congestion, chest pain or shortness of breath. She reports feeling generalized weakness. She reports generalized body pain. She denies blood in her urine or bloody or black stool. On evaluation the patient is acute on chronic ill-appearing but no acute distress, afebrile with stable vital signs. She exhibits moderate pallor. EKG without overt acute ischemia. CXR negative for acute cardiopulmonary process per my personal preliminary review/interpretation. WBC 4.7K without neutropenia. There is no left shift. H/H 5.5/18.3 similar to values earlier this afternoon and decreased from last month. Platelets at 35K, similar to recent range of values. Chemistry without metabolic acidosis. Creatinine 1.3, increased from recent admission and suggestive of component of RANDELL. LFTs unremarkable. Iron is above normal limits. TSH within normal limits. Patient and granddaughter did consent for blood transfusion. 3 units of PRBCs were ordered to cross with 2 units ordered to transfuse now. Due to need for irradiated products we were informed by blood bank that there may be some delay. Patient is hemodynamically stable in the interim. Patient and her granddaughter do agree with plan for admission for further management. Case was discussed with Dr. Stephens, [facility] hospitalist, who will evaluate the patient for admission. Further management per admitting team. Triage Nursing notes reviewed and agree them. Prior/external medical records reviewed Vital Signs: reviewed Differential diagnosis: Infection, dehydration, metabolic abnormality, hypo/hyperglycemia, electrolyte disturbance, anemia, hypoxia, cardiac sources, intracerebral event, toxicologic, neurologic, as well as other pathologies. ER treatment provided: See below. Diagnostics interpreted by me: ECG: Normal sinus rhythm, 71 bpm, no ectopy, no overt ST elevation or depression, QTc 554, QRS 70. Cardiac Monitoring: An order for continuous cardiac monitoring was placed and demonstrated Normal sinus rhythm, 71 bpm, no ectopy. Laboratory studies: See below Imaging studies: See below Consultation(s): Dr. Stephens, [facility] hospitalist HPI: Per MDM. ROS: See above HPI for pertinent positives & negatives. A total of 10 systems reviewed and were otherwise negative. VITALS:See Below PHYSICAL EXAMINATION: GENERAL: Awake, alert, acute on chronically ill-appearing, in no distress HENT: Normocephalic, atraumatic. Oropharynx with dry mucous membranes and otherwise unremarkable. EYES: Normal conjunctiva. Sclera non-icteric. NECK: Supple. No nuchal rigidity. FROM. No JVD. RESPIRATORY: Clear to auscultation. CARDIAC: Regular rate, normal rhythm. Extremities warm and well perfused. Pulses equal. ABDOMEN: Soft, non-distended. No tenderness to palpation. No rebound or guarding. No masses. MUSCULOSKELETAL: Chest examination reveals no tenderness. The back is symmetrical on inspection without obvious abnormality. There is no CVA tenderness to palpation. No joint edema. LOWER EXTREMITIES: Calves are equal size bilaterally and non-tender. No edema. No discoloration. NEURO: Normal sensorium. No sensory or motor deficits noted. SKIN: Moderate pallor, no rash or jaundice noted. ED COURSE: Critical Care: I have personally spent greater than 35 minutes of critical care time in the direct management of this patient. This includes bedside care, interpretation of diagnostic studies, and testing, discussion with consultants, patient, and family members, and other required patient management activities. This 35 minutes is in excess of all separately billable procedures. Bryan Resendez MD Past Med/Surg History Problem List (Updated 04/04/25 @ 04:44 by Bryan Resendez MD) RANDELL (acute kidney injury) (Acute) Lymphoproliferative disorder (Acute) Pancytopenia (Acute) Symptomatic anemia (Acute) Chronic back pain Bipolar disorder Bilateral leg weakness Acute dyspnea (Acute) Leg swelling (Acute) Elevated brain natriuretic peptide (BNP) level (Acute) Constipation Medical History Pancytopenia Myelodysplastic syndrome CHF (congestive heart failure) Ambulatory dysfunction PUD (peptic ulcer disease) Surgical History H/O: hysterectomy Family History Other Family history non-contributory Social History Smoking Status: Never smoker Hx Alcohol Use: No Hx Substance Use: No Preferred Language: [place] African Communication Ability: Effective Manager Media Relations Required: No Beliefs That Will Affect Care: None Current Living Situation: Family Feels Safe at Home: Yes Assistive Devices: Wheelchair Allergies Allergies Allergy/AdvReac Type Severity Reaction Status Date / Time ibuprofen AdvReac Nausea Unverified 04/25/22 19:03 Home Meds Home Medications Medication Instructions Recorded Confirmed atorvastatin 10 mg tablet 10 mg PO HS 01/31/25 04/03/25 furosemide 40 mg tablet 40 mg PO QAM 01/31/25 04/03/25 gabapentin 800 mg tablet 800 mg PO TID 01/31/25 04/03/25 hydroxyzine HCl 25 mg tablet 25 mg PO QID PRN Anxiety 01/31/25 04/03/25 meclizine 12.5 mg tablet 12.5 mg PO TID PRN Dizziness 01/31/25 04/03/25 metoprolol succinate 25 mg 25 mg PO HS 01/31/25 04/03/25 tablet,extended release 24 hr quetiapine 200 mg tablet 200 mg PO HS 01/31/25 04/03/25 albuterol sulfate 90 mcg/actuation 1 puff inhalation DIRECTED PRN 03/07/25 04/03/25 aerosol inhaler (Ventolin HFA) sob allopurinol 300 mg tablet 300 mg PO BID 03/07/25 04/03/25 tramadol 50 mg tablet 50 mg PO Q8 PRN Pain 04/03/25 04/03/25 Previous Rx's Medication Instructions Recorded acetaminophen 325 mg tablet 650 mg (2 x 325 mg) PO Q4H PRN 03/08/25 fever #10 tabs acyclovir 400 mg tablet 400 mg PO BID 30 days #60 tabs 03/08/25 fluconazole 100 mg tablet 400 mg (4 x 100 mg) PO QAM 30 days 03/08/25 (Diflucan) #120 tabs sennosides 8.6 mg-docusate sodium 1 tab PO QAM #30 tabs 03/08/25 50 mg tablet (Senokot-S) Results & Data (ED) Vital Signs Vital Signs - 24 hr 04/03/25 16:06 04/03/25 16:14 04/03/25 16:14 Temperature 36.8 C Temperature Source Oral Pulse Rate 71 70 69 Pulse Rhythm Regular Respiratory Rate 20 18 Respiratory Effort / Characteristics Non-Labored Respiratory Depth Normal Blood Pressure 111/66 Blood Pressure Mean 81 Pulse Oximetry 95 95 Oxygen Delivery Method Room Air Room Air Sepsis Recent Fever Within 48 Hours No Sepsis New/Unexplained Change in Mental Status N/A Sepsis Action Taken by Nursing No Action Required 04/03/25 16:44 04/03/25 17:00 04/03/25 17:31 Temperature Temperature Source Pulse Rate 71 67 71 Pulse Rhythm Respiratory Rate 24 14 18 Respiratory Effort / Characteristics Respiratory Depth Blood Pressure 107/72 117/43 L 95/58 L Blood Pressure Mean 77 67 66 Pulse Oximetry 94 93 93 Oxygen Delivery Method Sepsis Recent Fever Within 48 Hours Sepsis New/Unexplained Change in Mental Status Sepsis Action Taken by Nursing Laboratory Data Attestation: I reviewed the patient's lab results. 04/03/25 16:24 04/03/25 16:24 Lab Results 04/03/25 Range/Units 16:24 WBC 4.71 L (4.8-10.8) K/ul RBC 2.14 L (4.20-5.40) M/uL Hgb 5.5 L* (12.0-16.0) g/dl Hct 18.3 L* (37.0-47.0) % MCV 85.5 (80.0-100.0) fL MCH 25.7 (25.0-34.0) pg MCHC 30.1 L (32.0-36.0) g/dL RDW Std Deviation 72.5 H (36.4-46.3) fL RDW Coeff of Aissatou 24.2 H (11.5-14.5) % Plt Count 35 L (130-400) K/uL Reticulocyte % (Auto) 3.40 H (0.50-2.00) % Reticulocyte # 0.070 (0.020-0.100) 10^6/uL Absolute Nucleated RBC 0.07 (0.00-0.12) K/uL Nucleated RBC % (auto) 1.5 % Neutrophils % (Manual) 66 % Lymphocytes % (Manual) 19 % Monocytes % (Manual) 12 % Eosinophils % (Manual) 1 % Basophils % (Manual) 2 % Neutrophils # (Manual) 3.11 (1.40-6.50) K/uL Total Absolute Neuts 3.11 (1.4-6.5) K/uL Lymphocytes # (Manual) 0.89 L (1.2-3.4) K/uL Total Abs Lymphocytes 0.89 L (1.2-3.4) K/uL Monocytes # (Manual) 0.57 (0.11-0.59) K/uL Eosinophils # (Manual) 0.05 (0-0.50) K/uL Basophils # (Manual) 0.09 (0-0.2) K/uL Basophilic Stippling 1+ Anisocytosis Present Ovalocytes 1+ PT 11.2 (9.0-12.0) Seconds INR 1.0 (0.9-1.1) Sodium 132 L (136-145) mmol/L Potassium 4.6 (3.5-5.1) mmol/L Chloride 96 L (98-107) mmol/L Carbon Dioxide 29 (21-32) mmol/L Anion Gap 7 (3-11) BUN 46 H (6-23) mg/dl Creatinine 1.33 H (0.6-1.2) mg/dl Est Cr Clr Drug Dosing 33.7 ml/min eGFR 42.78 BUN/Creatinine Ratio 34.6 H (10-20) Glucose 122 H (70-99(Fasting)) mg/dl Calcium 8.7 (8.6-10.3) mg/dl Magnesium 2.4 (1.7-2.4) mg/dl Iron 226 H (35-150) mcg/dl Transferrin 177 L (200-360) mg/dl Ferritin 617.9 H (8-388) ng/ml Total Bilirubin 1.2 H (0.2-1.0) mg/dl AST 16 (13-39) U/L ALT 9 (7-52) U/L Alkaline Phosphatase 114 H (34-104) U/L Total Protein 6.0 (6.0-8.3) gm/dl Albumin 3.4 (3.4-5.0) gm/dl Globulin 2.6 (2.5-4.0) gm/dl Albumin/Globulin Ratio 1.3 (0.9-2) TSH 2.875 (0.300-4.500) uIu/ml Blood Type O Negative Antibody Screen POSITIVE A Antibody Identification Anti-D Crossmatch See Detail Administered Medications Acyclovir (Acyclovir 400 Mg Tab) 400 mg PO BID NANCY Stop: 05/03/25 21:11 Last Admin: 04/03/25 22:09 Dose: 400 mg Documented By: KEVIN Allopurinol (Allopurinol 300 Mg Tab) 300 mg PO BID NANCY Stop: 05/03/25 21:11 Last Admin: 04/03/25 22:07 Dose: 300 mg Documented By: KEVIN Atorvastatin Calcium (Atorvastatin 10 Mg Tab) 10 mg PO [facility] Stop: 05/03/25 21:11 Last Admin: 04/03/25 22:07 Dose: 10 mg Documented By: KEVIN Gabapentin (Gabapentin 800 Mg Tab) 800 mg PO TID NANCY Stop: 05/03/25 21:11 Last Admin: 04/03/25 22:07 Dose: 800 mg Documented By: KEVIN Metoprolol Succinate (Metoprolol Succ 25mg Ext Rel Tab) 25 mg PO [facility] Stop: 05/03/25 21:11 Last Admin: 04/03/25 21:33 Dose: Not Given Documented By: KEVIN Quetiapine Fumarate (Quetiapine Fumarate 200 Mg Tab) 200 mg PO [facility] Stop: 05/03/25 21:11 Last Admin: 04/03/25 22:07 Dose: 200 mg Documented By: KEVIN Tramadol HCl (Tramadol Hcl 50 Mg Tablet) 50 mg PO Q8 PRN PRN Reason: Pain Stop: 05/03/25 21:11 Last Admin: 04/03/25 22:07 Dose: 50 mg Documented By: KEVIN Discontinued Medications Furosemide (Furosemide Inj 20 Mg/2 Ml Vial) 20 mg IV ONE ONE Stop: 04/04/25 01:46 Last Admin: 04/04/25 01:55 Dose: 20 mg Documented By: KEVIN Acetaminophen (Ofirmev) 1,000 mg in 100 mls @ 400 mls/hr IV NOW STA Stop: 04/03/25 17:37 Last Infusion: 04/03/25 18:35 Dose: Infused Documented By: Admin: 04/03/25 17:36 Dose: 400 mls/hr Documented By: ANT Morphine Sulfate (Morphine Sulfate 2 Mg/Ml Carp) 2 mg IV NOW STA Stop: 04/03/25 17:24 Last Admin: 04/03/25 17:35 Dose: 2 mg Documented By: ANT Imaging Data Radiologist's Impression: Chest X-Ray 04/03/25 16:08 EXAM: XR chest 1V portable CLINICAL HISTORY: weakness TECHNIQUE: An X-ray image of the chest is obtained in PA projection. COMPARISON: with the prior CR study dated 04/25/2022. FINDINGS: Pulmonary Parenchyma: Lungs are clear bilaterally. No evidence of consolidation, collapse, or focal opacities. No pulmonary nodules are identified. No evidence of pleural effusion or pleural thickening. Heart and Mediastinum: Heart size and shape are normal. Mild hilar vascular congestion noted. No mediastinal widening or masses. No hilar or mediastinal lymphadenopathy. Bony Thorax: Bony thorax appears intact without fractures or deformities. Soft Tissues: Soft tissues overlying the chest wall are unremarkable. IMPRESSION: 1. Unremarkable chest X-ray. 2. No acute cardiopulmonary abnormalities are identified. 3. No interval change since the prior study. Electronically signed by Gavin Summers 04-03-2025 5:46 PM Discharge Plan Visit Data Chief Complaint: Abnormal Labs/Diagnostic Testing ED Provider: Bryan Resendez Discharge Problem: Symptomatic anemia, Pancytopenia, Lymphoproliferative disorder, RANDELL (acute kidney injury) Patient Disposition: Admitted As Inpatient Condition: Serious Discharge Instructions Interventions: ED Discharge Assessment Last Done: 04/03/25 20:42
[2025-04-03] MEDS: MoRPHine SULFATE 2 MG/ML CARP IV STA (17:35)
[2025-04-03] MEDS: ACETAMINOPHEN 1,000 MG/100 ML VIAL IV STA (17:36)
--- NOTE | 2025-04-03 17:44 | History & Physical Report ---
Date of Service April 03, 2025 Assessment & Plan (1) CHF (congestive heart failure): Plan 70-year-old female with recent diagnosis of myelodysplastic syndrome followed by [facility] oncology. Patient not yet started chemotherapy yet. Patient was sent in due to anemia. She is confirmed to be anemic in emergency department she is systemic symptoms of weakness fatigue and shortness of breath. #Pancytopenia secondary to myelodysplastic syndrome. Patient's iron levels were high and transferrin was low consistent with iron overload. Reportedly the patient states she typically does not take iron. Patient be supported with blood products having irradiated blood cells ordered initially 2 units from the emergency room physician with recheck. Patient continues on acyclovir allopurinol Diflucan #Mild hyponatremia. Will recheck her sodium in the morning we will place her on a mild fluid restriction if her sodium remains low we may check osmolalities and urine sodium. #RANDELL on CKD 2, the patient typically has felt relatively normal kidney function and has had elevation of her creatinine on presentation #Chronic constipation patient is maintained on senna with as needed MiraLAX #Insomnia, the patient takes large doses of Seroquel at bedtime #Heart failure preserved ejection fraction not in exacerbation. Patiently maintained on metoprolol and daily lasix Due to pancytopenia chemoprophylaxis will not be undertaken for DVT prevention History of Present Illness Primary Care Provider: NO PCP Sintia is a 70-year-old female with a past medical history of CHF, bipolar disorder and pancytopenia who presents to the hospital at request of her PCP for weakness. She was seen in our ER on 01/31 also for weakness, was found to be pancytopenic at that time. She was transferred to [facility], where she reports she underwent a bone marrow biopsy and was "diagnosed with blood cancer". Myelodysplastic syndrome. Bone marrow biopsy at [facility] showed myelodysplastic syndrome with ring sideroblasts about 5% blast percentage suggestive of low-grade B-cell lymphoproliferative disorder She was discharged from our facility March 08 after inpatient consultation with Dr. Leija and was recommended to continue Fluconazole 400mg QAM, Allopurinol 300mg BID, and Acyclovir 400mg BID She Re presents to our facility as a referral from outpatient provider showing blood work with hemoglobin 5.5hematocrit 18.3 and white blood cell count of 4.71 Patient is largely wheelchair-bound with help to transfer has a history of heart failure preserved ejection fraction and chronic constipation. Allergies Allergy/AdvReac Type Severity Reaction Status Date / Time ibuprofen AdvReac Nausea Unverified 04/25/22 19:03 Home Medications Medication Instructions Recorded Confirmed Type atorvastatin 10 mg tablet 10 mg PO HS 01/31/25 04/03/25 History furosemide 40 mg tablet 40 mg PO QAM 01/31/25 04/03/25 History gabapentin 800 mg tablet 800 mg PO TID 01/31/25 04/03/25 History hydroxyzine HCl 25 mg tablet 25 mg PO QID PRN Anxiety 01/31/25 04/03/25 History meclizine 12.5 mg tablet 12.5 mg PO TID PRN Dizziness 01/31/25 04/03/25 History metoprolol succinate 25 mg 25 mg PO HS 01/31/25 04/03/25 History tablet,extended release 24 hr quetiapine 200 mg tablet 200 mg PO HS 01/31/25 04/03/25 History albuterol sulfate 90 mcg/actuation 1 puff inhalation DIRECTED PRN 03/07/25 04/03/25 History aerosol inhaler (Ventolin HFA) sob allopurinol 300 mg tablet 300 mg PO BID 03/07/25 04/03/25 History acetaminophen 325 mg tablet 650 mg (2 x 325 mg) PO Q4H PRN 03/08/25 04/03/25 Rx fever #10 tabs acyclovir 400 mg tablet 400 mg PO BID 30 days #60 tabs 03/08/25 04/03/25 Rx fluconazole 100 mg tablet 400 mg (4 x 100 mg) PO QAM 30 days 03/08/25 04/03/25 Rx (Diflucan) #120 tabs sennosides 8.6 mg-docusate sodium 1 tab PO QAM #30 tabs 03/08/25 04/03/25 Rx 50 mg tablet (Senokot-S) tramadol 50 mg tablet 50 mg PO Q8 PRN Pain 04/03/25 04/03/25 History Past Med/Surg History Problem List (Updated 03/12/25 @ 00:07 by Background Henry) Chronic back pain Bipolar disorder Bilateral leg weakness Acute dyspnea (Acute) Leg swelling (Acute) Elevated brain natriuretic peptide (BNP) level (Acute) Constipation Medical History CHF (congestive heart failure) Ambulatory dysfunction PUD (peptic ulcer disease) Surgical History H/O: hysterectomy Family History Other Family history non-contributory Social History Smoking Status: Never smoker Hx Alcohol Use: No Hx Substance Use: No Preferred Language: Chinese Communication Ability: Effective Shipping Receiving Clerk Required: No Beliefs That Will Affect Care: None Current Living Situation: Family Feels Safe at Home: Yes Assistive Devices: Wheelchair Review of Systems Review of Systems: moderate distress and fatigue no headache, no visual changes no speech or swallowing issues no chest pain, pressure or palpitations dyspnea on exertion but no cough or wheezes no abdominal pain, nausea or vomiting, chronic constipation, no melena no dysuria, hematuria or frequency no focal joint pain or swelling no back pain, CVA tenderness or radicular pain bruising, but no bleeding or rashes no focal signs of weakness or numbness or altered sensation no complaints of anxiety or depression.. Physical Exam Physical Exam: The pt appears pale and weak, covered in bruises Vital signs as documented. Head exam is normocephalic atraumatic Neck is without JVD, thyromegaly, or carotid bruits. Lungs are clear to auscultation, no focal loss of breath sounds Cardiac exam, Rhythm is regular.. No murmurs, rubs or gallops. Abdominal exam reveals normal bowel sounds, dull and slightly distended Extremities are nonedematous and both pedal pulses are present Neurologic exam is alert and oriented, no focal loss of strength or sensation Skin is with bruises Psychologically is without concerns for anxiety or depression.. Results & Data Results & Data Vital Signs (Past 12 Hours) Vital Signs Temp Pulse Resp BP Pulse Ox O2 Del Method 04/03/25 16:44 71 24 107/72 94 04/03/25 16:14 69 18 95 Room Air 04/03/25 16:14 98.2 F 70 20 111/66 95 Room Air 04/03/25 16:06 71 Laboratory Results Reviewed CBC chemistry reviewed iron with levels high consistent with iron overload reviewed coagulation studies reviewed chest x-ray Discussed case personally with Dr. Resendez ER physician PG Care Time/CCT Total # of Minutes Spent Total Time Spent with Patient: Total time spent is greater than 50% in coordination of care (as documented) at patient's floor/unit and/or counseling patient: Coding Level of Care Code 61930 INT INP/OBS CARE 3/75MIN Diagnoses CHF (congestive heart failure) I50.9
--- NOTE | 2025-04-03 17:46 | XRay Report ---
EXAM: XR chest 1V portable CLINICAL HISTORY: weakness TECHNIQUE: An X-ray image of the chest is obtained in PA projection. COMPARISON: with the prior CR study dated 04/25/2022. FINDINGS: Pulmonary Parenchyma: Lungs are clear bilaterally. No evidence of consolidation, collapse, or focal opacities. No pulmonary nodules are identified. No evidence of pleural effusion or pleural thickening. Heart and Mediastinum: Heart size and shape are normal. Mild hilar vascular congestion noted. No mediastinal widening or masses. No hilar or mediastinal lymphadenopathy. Bony Thorax: Bony thorax appears intact without fractures or deformities. Soft Tissues: Soft tissues overlying the chest wall are unremarkable. IMPRESSION: 1. Unremarkable chest X-ray. 2. No acute cardiopulmonary abnormalities are identified. 3. No interval change since the prior study. Electronically signed by Gavin Summers 04-03-2025 5:46 PM
[2025-04-03] MEDS ORDERED: ACETAMINOPHEN 325 MG TAB PO PRN (21:12)
[2025-04-03] MEDS ORDERED: POLYETHYLENE (MIRALAX) 17 GM PACK PO PRN (21:12)
[2025-04-03] MEDS ORDERED: ALBUTEROL HFA 8 GM INHALER INH PRN (21:12)
[2025-04-03] MEDS ORDERED: FUROSEMIDE INJ 20 MG/2 ML VIAL IV ONE (21:12)
[2025-04-03] MEDS ORDERED: MECLIZINE 12.5 MG TAB PO PRN (21:12)
[2025-04-03] MEDS: METOPROLOL SUCC 25MG EXT REL TAB PO SCH (21:33)
[2025-04-03] MEDS: ATORVASTATIN 10 MG TAB PO SCH (22:07)
[2025-04-03] MEDS: GABAPENTIN 800 MG TAB PO SCH (22:07)
[2025-04-03] MEDS: ACYCLOVIR 400 MG TAB PO SCH (22:09)
[2025-04-04] MEDS: FUROSEMIDE INJ 20 MG/2 ML VIAL IV ONE (01:55)
[2025-04-04 09:19] LABS: Hematocrit (blood only) 27.0 % (37.0-47.0); Hemoglobin 8.9 g/dl (12.0-16.0); Mean Corpuscular Hemoglobin 28.0 pg (25.0-34.0); Mean Corpuscular Volume 84.9 fL (80.0-100.0); Platelet Count 34 K/uL (130-400); RDW Standard Deviation 58.4 fL (36.4-46.3); Red Blood Count 3.18 M/uL (4.20-5.40); White Blood Count 4.75 K/ul (4.8-10.8)
[2025-04-04 09:26] LABS: Anion Gap 6.0 (3-11); Blood Urea Nitrogen 43.0 mg/dl (6-23); Calcium 8.6 mg/dl (8.6-10.3); Carbon Dioxide 31.0 mmol/L (21-32); Chloride 96.0 mmol/L (98-107); Creatinine Clr Calc Pharmacy 45.2 ml/min; Glucose 140.0 mg/dl (70-99(Fasting)); Potassium 4.5 mmol/L (3.5-5.1); Sodium 133.0 mmol/L (136-145)
[2025-04-04 09:28] LABS: ALC (manual) 0.62 K/uL (1.2-3.4); ANC (manual) 3.23 K/uL (1.4-6.5); Anisocytosis Present; Basophilic Stippling 1+; Blast # (manual) 0.05 K/uL (0-0); Ovalocytes 1+; Poikilocytosis Present; Polychromasia 2+; Tear Drop Cells 1+
[2025-04-04] MEDS: DOCUSATE SODIUM/SENNA 50/8.6MG TAB PO SCH (09:28)
[2025-04-04] MEDS: FUROSEMIDE 40 MG TAB PO SCH (09:30)
[2025-04-04] MEDS: FLUCONAZOLE 100 MG TAB PO SCH (09:30)
[2025-04-04 09:49] LABS: Folate (Folic Acid),Ser orPlas 8.19 ng/ml (>5.38)
[2025-04-04 09:50] LABS: Vitamin B12 813.0 pg/ml (180-914)
--- NOTE | 2025-04-04 11:57 | Hospitalist Progress Note ---
Date of Service April 04, 2025 Assessment & Plan (1) Myelodysplastic syndrome: (2) Pancytopenia: (3) CHF (congestive heart failure): (4) Bipolar disorder: (5) Bilateral leg weakness: (6) Constipation: (7) Chronic back pain: (8) Symptomatic anemia: (9) COPD (chronic obstructive pulmonary disease): Plan 70-year-old female with recent diagnosis of myelodysplastic syndrome followed by [facility] oncology. No definitive Rx started to date since the dx was so recent. Patient was referred for admission due to symptomatic anemia with Hb <6. Patient reports having received 1 unit of PRBCs over the last few weeks prior to this admission. #Pancytopenia secondary to myelodysplastic syndrome - -s/p 2 units PRBCs overnight with improved H/H -recent TSH, B12, and folate all wnl -remains on acyclovir & fluconazole prophylaxis -cont allopurinol -cbc with diff in am tomorrow #c/o dyspnea at rest, suspected decompensated CHF - -suspect volume overload in the setting of transfusions -JVD on exam today, o2 requirement, etc -s/p lasix IV early this am, followed by PO lasix as well -repeat labs in am -likely to need IV lasix again tomorrow -last echo was several years ago; will update her echo #Mild hyponatremia - -likely 2nd to volume overload -diurese -BMP am #RANDELL - -peak Cr 1.3 -improved to <1 with diuresis -BMP am #Chronic constipation - -obtain KUB x-ray to ensure no ileus or obstruction -if negative for such then PO and/or DC meds for the severe constipation #h/o bipolar disorder - -cont HS seroquel #b/l LE weakness - -[facility]patient [facility] notes from 09/2023 referenced worsening weakness and ambulatory function even then -was having to use assistive devices and considerable family help in 2022 -last 6 months essentially non-ambulatory -will check lumbar spine CT to ensure no critical lumbar stenosis contributing to her weakness; she does endorse chronic back pain -again recent B12 level was wnl -could consider MRI brain to be complete #COPD - -start umeclidinium/vilanterol 1 puff daily -O2 as needed #DVT proph - -due to severe thrombocytopenia chemical means contraindicated -SCDs only for now will need PT/OT to assess her ability to perform transfers at home Admission and Anticipated Discharge Date Admission Date: April 03, 2025 Subjective patient lying in bed comfortably at times it was difficult to understand her due to a heavy Arabic accent however, she reports about 6+ months of progressive weakness to the point she can no longer walk essentially using a wheelchair only at home has the help of her daughter & grand-daughter to perform transfers she has had dyspnea on exertion and dyspnea at rest of late including today c/o weakness, fatigue, and being tired she also has had severe constipation - no BM in about a week she does report a known history of COPD but is noncompliant with inhalers due to financial difficulties tele overnight wnl Review of Systems Review of Systems: gen - no fevers cv - no chest pain pulm - mild cough at times; dyspnea/wheezing GI - no vomiting neuro - no paresthesias of legs Physical Exam Physical Exam: gen - looks extremely weak, looks chronically unwell, no distress neck - mild JVD mouth - poor dentition heart - RRR, s1 s2, no murmur lungs - b/l end-exp wheezes, b/l basilar rales, no respiratory distress abd - mildly distended, BS+, NT, no HSM ext - pulses b/l feet 2+, no edema neuro - strength b/l hip flexion near 5/5; b/l ankle dorsiflexion/plantarflexion 5/5 Results & Data Results & Data Vital Signs (Past 12 Hours) Vital Signs Temp Pulse Pulse Resp BP BP Pulse Ox 04/04/25 11:21 36.6 C 67 20 107/70 100 04/04/25 09:41 66 04/04/25 08:01 36.2 C L 72 18 105/67 100 04/04/25 07:30 04/04/25 06:04 36.4 C L 68 18 108/67 100 04/04/25 05:14 36.6 C 65 18 101/67 100 04/04/25 04:14 36.4 C L 66 18 101/69 100 04/04/25 03:14 36.2 C L 65 16 108/67 99 04/04/25 02:44 36.3 C L 66 16 98/63 L 100 04/04/25 02:29 36.2 C L 65 18 104/66 99 04/04/25 02:13 36.5 C 65 16 106/68 98 04/04/25 01:52 36.5 C 65 16 103/58 L 98 04/04/25 00:56 36.4 C L 63 16 93/53 L 100 O2 Del Method O2 Flow Rate 04/04/25 11:21 Nasal Cannula 2 04/04/25 09:41 04/04/25 08:01 Nasal Cannula 2 04/04/25 07:30 Nasal Cannula 2 04/04/25 06:04 2 04/04/25 05:14 2 04/04/25 04:14 2 04/04/25 03:14 2 04/04/25 02:44 2 04/04/25 02:29 2 04/04/25 02:13 2 04/04/25 01:52 2 04/04/25 00:56 2 Laboratory Results Laboratory Results - last 48 hr 04/03/25 04/04/25 04/04/25 16:24 08:54 12:45 WBC 4.71 L 4.75 L RBC 2.14 L 3.18 L Hgb 5.5 L* 8.9 L D Hct 18.3 L* 27.0 L MCV 85.5 84.9 MCH 25.7 28.0 MCHC 30.1 L 33.0 RDW Std Deviation 72.5 H 58.4 H RDW Coeff of Aissatou 24.2 H 19.3 H Plt Count 35 L 34 L Reticulocyte % (Auto) 3.40 H Reticulocyte # 0.070 Absolute Nucleated RBC 0.07 0.07 Nucleated RBC % (auto) 1.5 1.5 Neutrophils % (Manual) 66 68 Lymphocytes % (Manual) 19 13 Monocytes % (Manual) 12 9 Eosinophils % (Manual) 1 Basophils % (Manual) 2 3 Metamyelocytes % (Man) 3 Myelocytes % (Man) 3 Blast Cells % (Manual) 1 Neutrophils # (Manual) 3.11 3.23 Total Absolute Neuts 3.11 3.23 Lymphocytes # (Manual) 0.89 L 0.62 L Total Abs Lymphocytes 0.89 L 0.62 L Monocytes # (Manual) 0.57 0.43 Eosinophils # (Manual) 0.05 Basophils # (Manual) 0.09 0.14 Metamyelocytes # (Man) 0.14 H Myelocytes # (Manual) 0.14 H Blast Cells # (Man) 0.05 H Polychromasia 2+ Poikilocytosis Present Basophilic Stippling 1+ 1+ Anisocytosis Present Present Tear Drop Cells 1+ Ovalocytes 1+ 1+ PT 11.2 INR 1.0 Sodium 132 L 133 L Potassium 4.6 4.5 Chloride 96 L 96 L Carbon Dioxide 29 31 Anion Gap 7 6 BUN 46 H 43 H Creatinine 1.33 H 0.98 D Est Cr Clr Drug Dosing 33.7 45.2 eGFR 42.78 61.71 BUN/Creatinine Ratio 34.6 H 43.9 H Glucose 122 H 140 H Calcium 8.7 8.6 Magnesium 2.4 Iron 226 H Transferrin 177 L Ferritin 617.9 H Total Bilirubin 1.2 H AST 16 ALT 9 Alkaline Phosphatase 114 H Total Protein 6.0 Albumin 3.4 Globulin 2.6 Albumin/Globulin Ratio 1.3 Vitamin B12 813 Folate 8.19 TSH 2.875 Urine Color Yellow Urine Appearance Clear Urine pH 5.5 Ur Specific [place] 1.019 Urine Protein Negative Urine Glucose (UA) Negative Urine Ketones Negative Urine Blood Negative Urine Nitrite Negative Urine Bilirubin Negative Urine Urobilinogen Negative Ur Leukocyte Esterase 2+ H Urine WBC (Auto) 6-10 H Urine RBC (Auto) 0-2 U Hyaline Cast (Auto) 3-5 H U Epithel Cells (Auto) 0-2 Urine Bacteria (Auto) 4+ H Urine Comment Blood Type O Negative Antibody Screen POSITIVE A Antibody Identification Anti-D Antibody ID Comment Crossmatch See Detail PG Care Time/CCT Total # of Minutes Spent Total Time Spent with Patient: Total time spent is greater than 50% in coordination of care (as documented) at patient's floor/unit and/or counseling patient: Coding Level of Care Code 36218 SUB INP/OBS CARE 3/50MIN Diagnoses Myelodysplastic syndrome D46.9 Pancytopenia D61.818 CHF (congestive heart failure) I50.9 Bipolar disorder F31.9 Bilateral leg weakness R29.898 Constipation K59.00 Chronic back pain M54.9; G89.29 Symptomatic anemia D64.9 COPD (chronic obstructive pulmonary disease) J44.9
--- NOTE | 2025-04-04 12:32 | XRay Report ---
XR chest 1V portable CLINICAL HISTORY: dyspnea, ?CHF COMPARISON STUDY: 04/03/2025 FINDINGS: There is stable mild cardiomegaly without pulmonary vascular congestion. Stable mildly hype rexpanded lungs. No consolidation or pleural effusion. No pneumothorax. IMPRESSION: No acute findings. ACT 112: Negative or not required by law. Electronically signed by: Oseas Julien M.D. 04/04/2025 12:31 PM
--- NOTE | 2025-04-04 12:35 | XRay Report ---
KUB HISTORY: bloating, no BM in 7+ days; ileus? COMPARISON STUDY: 06/24/2022 FINDINGS: There is a large amount of retained stool. No bowel obstruction seen. No gross free air. IMPRESSION: Large amount of retained stool. ACT 112: Negative or not required by law. The above report was generated using voice recognition software. It may contain grammatical, syntax o r spelling errors. Electronically signed by: Oseas Julien M.D. 04/04/2025 12:34 PM
[2025-04-04 13:07] LABS: Appearance Urine Clear (Clear); Bacteria Urine Automated 4+ (None Seen); Epithelial Cell Urine Auto 0-2 /hpf (0-2); Glucose Urine UA Negative (Negative); RBC Urine Automated 0-2 /hpf (0-2)
--- NOTE | 2025-04-04 13:28 | CT Scan Report ---
CT SCAN OF THE LUMBAR SPINE WITHOUT IV CONTRAST CLINICAL HISTORY: Fall. Lower extremity weakness. COMPARISON STUDY: CT of lumbar spine dated 06/16/2022. MRI of lumbar spine dated 04/26/2022 TECHNIQUE: CT scan of the lumbar spine is performed from the lower thoracic spine to the sacrum. Astrid ges are reviewed in the axial, sagittal, and coronal planes. IV contrast was not administered for thi s examination. A dose lowering technique was utilized adhering to the principles of ALARA. CT DOSE: 897.24 mGy.cm FINDINGS: The skeletal structures are osteopenic. There is no evidence of fracture or malalignment. V ertebral body height and alignment are maintained. The transverse and spinous processes appear intact . There is no spondylolysis. Anterior and lateral marginal osteophytes are seen throughout. No lytic or blastic lesion is seen. There is severe disc space narrowing at L4-L5 with associated endplate scl erosis. Only minimal disc space narrowing is seen at the remaining lumbar levels. Small posterior dis c osteophyte complexes are noted at L4-L5 and L5-S1. There is no CT evidence of high-grade central ca nal stenosis. Lateral disc bulge is seen bilaterally at L4-L5. This contributes to bilateral subartic ular stenosis and at least mild to moderate bilateral neural foraminal narrowing. The visualized sacr um and bony pelvis appear intact. Mild sclerotic change is noted in the sacroiliac joints. There is f atty atrophy of the paraspinous musculature. The abdominal aorta is normal in caliber noting moderate atherosclerotic calcification. No retroperitoneal lymphadenopathy is seen. IMPRESSION: 1. No acute bony abnormality is seen involving the lumbar spine. 2. Osteopenia and mild spondylotic change as above. ACT 112: Negative or not required by law. Electronically signed by: Bharat Perez M.D. 04/04/2025 1:26 PM
--- NOTE | 2025-04-04 14:11 | Electrocardiogram Report ---
Test Reason : Blood Pressure : */* mmHG Vent. Rate : 71 BPM Atrial Rate : 71 BPM P-R Int : 168 ms QRS Dur : 70 ms QT Int : 510 ms P-R-T Axes : 39 18 68 degrees QTcB Int : 554 ms Normal sinus rhythm Low voltage QRS Prolonged QT Abnormal ECG When compared with ECG of 07-Mar-2025 11:58, QT has lengthened Confirmed by Beau Aviles ([id number]) on 04/04/2025 2:10:51 PM Referred By: REFERRED SELF Confirmed By: Beau Aviles
[2025-04-04] MEDS: UMECLIDINIUM/VILANTEROL 62.5/25MCG 7 PUFFS/INHALER INH SCH (15:02)
[2025-04-04] MEDS: POLYETHYLENE (MIRALAX) 17 GM PACK PO SCH (20:03)
[2025-04-05 06:44] LABS: Hematocrit (blood only) 25.8 % (37.0-47.0); Hemoglobin 8.8 g/dl (12.0-16.0); Mean Corpuscular Hemoglobin 29.5 pg (25.0-34.0); Mean Corpuscular Volume 86.6 fL (80.0-100.0); Platelet Count 29 K/uL (130-400); RDW Standard Deviation 58.4 fL (36.4-46.3); Red Blood Count 2.98 M/uL (4.20-5.40); White Blood Count 5.16 K/ul (4.8-10.8)
[2025-04-05 06:52] LABS: Anion Gap 7.0 (3-11); Blood Urea Nitrogen 39.0 mg/dl (6-23); Calcium 8.5 mg/dl (8.6-10.3); Carbon Dioxide 31.0 mmol/L (21-32); Chloride 95.0 mmol/L (98-107); Creatinine Clr Calc Pharmacy 59.2 ml/min; Glucose 110.0 mg/dl (70-99(Fasting)); Potassium 4.5 mmol/L (3.5-5.1); Sodium 133.0 mmol/L (136-145)
[2025-04-05] MEDS: ONDANSETRON INJ 2 MG/ML 2 ML VIAL IV PRN (08:52)
[2025-04-05] MEDS: FUROSEMIDE INJ 20 MG/2 ML VIAL IV ONE (08:52)
[2025-04-05] MEDS: ACETAMINOPHEN 325 MG TAB PO PRN (13:17)
--- NOTE | 2025-04-05 16:48 | CT Scan Report ---
Technique: Axial computed tomography images were obtained of the brain from the vertex to the skull base without intravenous contrast. Findings: There is no sign of intracranial hemorrhage. There is normal sher-white matter differentiation with no sign of acute or old infarction. No midline shift or other form of herniation is identified. There is no hydrocephalus. No obvious mass lesion is seen on this noncontrast examination. The visualized portions of the orbits and paranasal sinuses appear unremarkable. The mastoid air cells appear clear Impression: Unremarkable noncontrast CT of the brain Electronically signed by Jose Young 04-05-2025 4:48 PM
--- NOTE | 2025-04-05 16:55 | CT Scan Report ---
Clinical history: Neck pain. Recent falls Technique: Axial computed tomography images were obtained of the cervical spine without intravenous contrast. Sagittal and coronal reconstructions were obtained Comparison is made to the prior CT dated 06/24/2022 Findings: No fracture is identified. There is unchanged 4 mm of anterolisthesis of C3 on C4. No focal osseous lesion is evident. 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 The neural foramen are patent At C3-4, there is mild spinal stenosis due to a disc bulge and a central disc protrusion. There is mild bilateral neural foramen narrowing At C4-5, there is spinal stenosis due to a disc bulge and a left paracentral disc protrusion. There is mild bilateral neural foramen narrowing At C5-6, there is mild spinal stenosis due to a disc bulge and a small central disc protrusion. There is left neural foramen narrowing that may affect the left C6 nerve root At C6-7, there is spinal stenosis due to a disc bulge and left paracentral disc herniation. There is mild left neural foramen narrowing At C7-T1, there is a disc bulge without spinal stenosis. The neural foramen are patent The lung apices appear clear. The visualized soft tissues of the neck appear unremarkable. No foreign body is seen Impression: 1. No definite cervical spine fracture 2. Unchanged anterolisthesis at C3-4, which may be degenerative 3. Spinal stenosis from C3-4 through C6-7 4. Left C5-6 neural foramen narrowing that may affect the left C6 nerve root. Less severe neural foramen narrowing is seen at other levels ACT 112: Positive. There are findings on this exam that require communication between the performing entity and the patient following Patient Test Result Information Act ([place] ACT 112) guidelines. Electronically signed by Jose Young 04-05-2025 4:55 PM
--- NOTE | 2025-04-05 17:12 | Hospitalist Progress Note ---
Date of Service April 05, 2025 Assessment & Plan (1) Myelodysplastic syndrome: (2) Pancytopenia: (3) CHF (congestive heart failure): (4) Bipolar disorder: (5) Bilateral leg weakness: (6) Constipation: (7) Chronic back pain: (8) Symptomatic anemia: (9) COPD (chronic obstructive pulmonary disease): (10) Encephalopathy: Plan 70-year-old female with recent diagnosis of myelodysplastic syndrome followed by [facility] oncology. No definitive Rx started to date since the dx was so recent. Patient was referred for admission due to symptomatic anemia with Hb <6. Patient reports having received 1 unit of PRBCs over the last few weeks prior to this admission. #Pancytopenia secondary to myelodysplastic syndrome - -s/p 2 units PRBCs with improved H/H -recent TSH, B12, and folate all wnl -remains on acyclovir & fluconazole prophylaxis -cont allopurinol -cbc with diff in am tomorrow once again; platelets trending down - bears close watching #suspected decompensated CHF - -improved volume status -echo pending -hold off on lasix today - BPs low-normal, and O2 now weaned off with much better lung exam #Mild hyponatremia - -likely 2nd to volume overload -improving/trending up -BMP am #RANDELL - -peak Cr 1.3 -improved to <1 with diuresis -BMP am #Chronic constipation - -improved -cont miralax -cont senna/colace #h/o bipolar disorder - -cont HS seroquel #b/l LE weakness - -outpatient [facility] med notes from 09/2023 referenced worsening weakness and ambulatory function even then -was having to use assistive devices and considerable family help in 2022 -last 6 months essentially non-ambulatory -checked lumbar spine CT - no critical lumbar stenosis seen -again recent B12 level was wnl -could consider MRI brain to be complete -patient stated she fell recently at home? thus obtained CT head and CT c-spine -- no critical stenosis of the neck; no fractures; no ICH or skull fractures #COPD - -cont umeclidinium/vilanterol 1 puff daily -O2 as needed #DVT proph - -due to severe thrombocytopenia chemical means contraindicated -SCDs only for now PT/OT evals appreciated rehab advised pt not wanting such I updated the pt's daughter & grand-daughter at bedside late in the day reviewed all test results discussed MDS gave patient handout on MDS explained her severe weakness/fatigue is due to MDS cannot rule out infectious process but urine cx thus far negative reasonable to check COVID/flu - apparently was at a family function recently?? questions answered told pt's daughter about PT advising rehab; will try to coordinate a session where family can watch PT eval to determine if they feel comfortable with S[facility] going home at d/c Admission and Anticipated Discharge Date Admission Date: April 03, 2025 Subjective patient continues to c/o fatigue/weakness eating is fair moved bowels overnight - "It was a mess!" no dyspnea today did sit in chair for a period of time today she continues to ask "what do I have?" (diagnosis of MDS - she cannot remember the MDS diagnosis) wants to talk with oncology about things we discussed her PT eval - they advised rehab - she is not very interested in such c/o low back pain - tramadol not helpful Review of Systems Review of Systems: gen - fatigue/weak; no fevers or chills cv - no chest pain pulm - no cough GI - no N/V Physical Exam Physical Exam: gen - sleeping, did wake up to her name being called neck - no JVD today mouth - poor dentition heart - RRR, s1 s2, no murmur lungs - b/l end-exp wheezes resolved, b/l basilar rales much improved; no respiratory distress abd - soft; distension resolved; BS+, NT, no HSM ext - pulses b/l feet 2+, no edema psych - mild confusion Results & Data Results & Data Vital Signs (Past 12 Hours) Vital Signs Temp Pulse Pulse Resp BP Pulse Ox O2 Del Method 04/05/25 15:04 36.6 C 69 18 97/64 L 92 Room Air 04/05/25 11:12 36.5 C 69 18 101/61 91 Room Air 04/05/25 07:55 Room Air 04/05/25 07:39 37.2 C 76 16 92/62 L 91 Room Air 04/05/25 05:50 73 Laboratory Results Laboratory Results - last 48 hr 04/04/25 04/04/25 04/05/25 08:54 12:45 05:45 WBC 5.16 RBC 2.98 L Hgb 8.8 L Hct 25.8 L MCV 86.6 MCH 29.5 MCHC 34.1 RDW Std Deviation 58.4 H RDW Coeff of Aissatou 19.1 H Plt Count 29 L* Absolute Nucleated RBC 0.03 Nucleated RBC % (auto) 0.6 Neutrophils % (Manual) 68 Lymphocytes % (Manual) 13 Monocytes % (Manual) 9 Basophils % (Manual) 3 Metamyelocytes % (Man) 3 Myelocytes % (Man) 3 Blast Cells % (Manual) 1 Neutrophils # (Manual) 3.23 Total Absolute Neuts 3.23 Lymphocytes # (Manual) 0.62 L Total Abs Lymphocytes 0.62 L Monocytes # (Manual) 0.43 Basophils # (Manual) 0.14 Metamyelocytes # (Man) 0.14 H Myelocytes # (Manual) 0.14 H Blast Cells # (Man) 0.05 H Polychromasia 2+ Poikilocytosis Present Basophilic Stippling 1+ Anisocytosis Present Tear Drop Cells 1+ Ovalocytes 1+ VBG pH VBG pCO2 VBG pO2 VBG HCO3 VBG O2 Saturation VBG Base Excess Sodium 133 L 133 L Potassium 4.5 4.5 Chloride 96 L 95 L Carbon Dioxide 31 31 Anion Gap 6 7 BUN 43 H 39 H Creatinine 0.98 D 0.75 Est Cr Clr Drug Dosing 45.2 59.2 eGFR 61.71 85.06 BUN/Creatinine Ratio 43.9 H 52.0 H Glucose 140 H 110 H Calcium 8.6 8.5 L Ammonia Vitamin B12 813 Folate 8.19 Urine Color Yellow Urine Appearance Clear Urine pH 5.5 Ur Specific [place] 1.019 Urine Protein Negative Urine Glucose (UA) Negative Urine Ketones Negative Urine Blood Negative Urine Nitrite Negative Urine Bilirubin Negative Urine Urobilinogen Negative Ur Leukocyte Esterase 2+ H Urine WBC (Auto) 6-10 H Urine RBC (Auto) 0-2 U Hyaline Cast (Auto) 3-5 H U Epithel Cells (Auto) 0-2 Urine Bacteria (Auto) 4+ H Urine Comment 04/05/25 18:18 WBC RBC Hgb Hct MCV MCH MCHC RDW Std Deviation RDW Coeff of Aissatou Plt Count Absolute Nucleated RBC Nucleated RBC % (auto) Neutrophils % (Manual) Lymphocytes % (Manual) Monocytes % (Manual) Basophils % (Manual) Metamyelocytes % (Man) Myelocytes % (Man) Blast Cells % (Manual) Neutrophils # (Manual) Total Absolute Neuts Lymphocytes # (Manual) Total Abs Lymphocytes Monocytes # (Manual) Basophils # (Manual) Metamyelocytes # (Man) Myelocytes # (Manual) Blast Cells # (Man) Polychromasia Poikilocytosis Basophilic Stippling Anisocytosis Tear Drop Cells Ovalocytes VBG pH 7.39 VBG pCO2 58 H VBG pO2 22 VBG HCO3 35 VBG O2 Saturation < 60.0 VBG Base Excess 8.1 Sodium Potassium Chloride Carbon Dioxide Anion Gap BUN Creatinine Est Cr Clr Drug Dosing eGFR BUN/Creatinine Ratio Glucose Calcium Ammonia 18.0 Vitamin B12 Folate Urine Color Urine Appearance Urine pH Ur Specific [place] Urine Protein Urine Glucose (UA) Urine Ketones Urine Blood Urine Nitrite Urine Bilirubin Urine Urobilinogen Ur Leukocyte Esterase Urine WBC (Auto) Urine RBC (Auto) U Hyaline Cast (Auto) U Epithel Cells (Auto) Urine Bacteria (Auto) Urine Comment Diagnostic Findings Cervical Spine CT 04/05/25 16:12 Clinical history: Neck pain. Recent falls Technique: Axial computed tomography images were obtained of the cervical spine without intravenous contrast. Sagittal and coronal reconstructions were obtained Comparison is made to the prior CT dated 06/24/2022 Findings: No fracture is identified. There is unchanged 4 mm of anterolisthesis of C3 on C4. No focal osseous lesion is evident. 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 The neural foramen are patent At C3-4, there is mild spinal stenosis due to a disc bulge and a central disc protrusion. There is mild bilateral neural foramen narrowing At C4-5, there is spinal stenosis due to a disc bulge and a left paracentral disc protrusion. There is mild bilateral neural foramen narrowing At C5-6, there is mild spinal stenosis due to a disc bulge and a small central disc protrusion. There is left neural foramen narrowing that may affect the left C6 nerve root At C6-7, there is spinal stenosis due to a disc bulge and left paracentral disc herniation. There is mild left neural foramen narrowing At C7-T1, there is a disc bulge without spinal stenosis. The neural foramen are patent The lung apices appear clear. The visualized soft tissues of the neck appear unremarkable. No foreign body is seen Impression: 1. No definite cervical spine fracture 2. Unchanged anterolisthesis at C3-4, which may be degenerative 3. Spinal stenosis from C3-4 through C6-7 4. Left C5-6 neural foramen narrowing that may affect the left C6 nerve root. Less severe neural foramen narrowing is seen at other levels ACT 112: Positive. There are findings on this exam that require communication between the performing entity and the patient following Patient Test Result Information Act ([place] ACT 112) guidelines. Electronically signed by Jose Young 04-05-2025 4:[address] 04/05/25 16:12 Technique: Axial computed tomography images were obtained of the brain from the vertex to the skull base without intravenous contrast. Findings: There is no sign of intracranial hemorrhage. There is normal sher-white matter differentiation with no sign of acute or old infarction. No midline shift or other form of herniation is identified. There is no hydrocephalus. No obvious mass lesion is seen on this noncontrast examination. The visualized portions of the orbits and paranasal sinuses appear unremarkable. The mastoid air cells appear clear Impression: Unremarkable noncontrast CT of the brain Electronically signed by Jose Young 04-05-2025 4:48 PM PG Care Time/CCT Total # of Minutes Spent Total Time Spent with Patient: Total time spent is greater than 50% in coordination of care (as documented) at patient's floor/unit and/or counseling patient: Coding Level of Care Code 57592 SUB INP/OBS CARE 350MIN Diagnoses Myelodysplastic syndrome D46.9 Pancytopenia D61.818 CHF (congestive heart failure) I50.9 Bipolar disorder F31.9 Bilateral leg weakness R29.898 Constipation K59.00 Chronic back pain M54.9; G89.29 Symptomatic anemia D64.9 COPD (chronic obstructive pulmonary disease) J44.9 Encephalopathy G93.40
[2025-04-05 18:33] LABS: Base Excess VBG 8.1 mEq/L; HCO3 VBG 35 mmol/L; Oxygen Saturation VBG < 60.0 %; PCO2 VBG 58 mmHg (38-50); PO2 VBG 22 mmHg; pH VBG 7.39 (7.36-7.41)
[2025-04-06 08:15] LABS: Anion Gap 5.0 (3-11); Blood Urea Nitrogen 34.0 mg/dl (6-23); Calcium 8.4 mg/dl (8.6-10.3); Carbon Dioxide 33.0 mmol/L (21-32); Chloride 97.0 mmol/L (98-107); Creatinine Clr Calc Pharmacy 59.3 ml/min; Glucose 102.0 mg/dl (70-99(Fasting)); Potassium 4.5 mmol/L (3.5-5.1); Sodium 135.0 mmol/L (136-145)
[2025-04-06 08:22] LABS: Hematocrit (blood only) 25.3 % (37.0-47.0); Hemoglobin 8.1 g/dl (12.0-16.0); Mean Corpuscular Hemoglobin 28.2 pg (25.0-34.0); Mean Corpuscular Volume 88.2 fL (80.0-100.0); Platelet Count 21 K/uL (130-400); RDW Standard Deviation 61.7 fL (36.4-46.3); Red Blood Count 2.87 M/uL (4.20-5.40); White Blood Count 3.90 K/ul (4.8-10.8)
[2025-04-06] MEDS ORDERED: SODIUM CHLORIDE 0.9% 100 ML IV PRN (08:53)
[2025-04-06 11:04] LABS: Influenza A virus by PCR Negative (Neg); Influenza B virus by PCR Negative (Neg); SARS CoV2 RNA(COVID-19) Ceph NEGATIVE (Negative)
--- NOTE | 2025-04-06 13:32 | XCELERA ---
[id number]
--- NOTE | 2025-04-06 13:34 | Hospitalist Progress Note ---
Date of Service April 06, 2025 Assessment & Plan (1) Myelodysplastic syndrome: (2) Pancytopenia: (3) CHF (congestive heart failure): (4) Bipolar disorder: (5) Bilateral leg weakness: (6) Constipation: (7) Chronic back pain: (8) Symptomatic anemia: (9) COPD (chronic obstructive pulmonary disease): (10) Encephalopathy: Plan 70-year-old female with recent diagnosis of myelodysplastic syndrome followed by [facility] oncology. No definitive Rx started to date since the dx was so recent. Patient was referred for admission due to symptomatic anemia with Hb <6. Patient reports having received 1 unit of PRBCs over the last few weeks prior to this admission. #Pancytopenia secondary to myelodysplastic syndrome - -s/p 2 units PRBCs this admit with improved H/H -recent TSH, B12, and folate all wnl -remains on acyclovir & fluconazole prophylaxis -cont allopurinol -platelets today - I corresponded with on-call oncology - they advise platelet infusion -transfuse 1 unit of irradiated platelets -cbc in am #suspected decompensated diastolic CHF - -improved volume status; probably on dry side now given her low BPs -echo with preserved LV/RV function -due to low BPs today will give 500cc of isotonic fluid back to her -stop meto succ given the low BPs and normal echo #Mild hyponatremia - -resolved -BMP am #RANDELL - -peak Cr 1.3 -improved to <1 with diuresis -BMP am #Chronic constipation - -improved -cont miralax -cont senna/colace #h/o bipolar disorder - -cont HS seroquel; on large dose of 200mg/day; contributing to fatigue/weakness? #b/l LE weakness - -outpatient [facility] med notes from 09/2023 referenced worsening weakness and ambulatory function even then -was having to use assistive devices and considerable family help in 2022 -last 6 months essentially non-ambulatory; deconditioning, at minimum, playing a role -checked lumbar spine CT - no critical lumbar stenosis seen -recent B12 level was wnl -could consider MRI brain to be complete but defer for now -patient stated she fell recently at home? thus obtained CT head and CT c-spine -- no critical stenosis of the neck; no fractures; no ICH or skull fractures #COPD - -cont umeclidinium/vilanterol 1 puff daily -O2 as needed -VBG with chronic compensated CO2 retention #DVT proph - -due to severe thrombocytopenia chemical means contraindicated -SCDs only for now #chronic low back pain - -stop tramadol - not effective -change to norco 5's - there is interaction with diflucan - thus change dosing interval to q8h prn -CT lumbar spine recently without fractures; considerable DJD present PT/OT evals appreciated SNF rehab advised pt not wanting such at minimum will need mechanical lift for the house if she returns home; hospital bed would be helpful; etc. will d/w pt's daughter Admission and Anticipated Discharge Date Admission Date: April 05, 2025 Subjective patient w/o any new complaints does c/o back pain - this is chronic; I did remind her I changed tramadol to norco prn in the context of talking about her pain meds she said - "I used to be an alcoholic"; but has not drank in 30 years mild dyspnea - but intermittent no cough main complaint is weakness Review of Systems Review of Systems: gen - no fevers or chills cv - no chest pain GI - no N/V/pain; large BM on 04/05 Physical Exam Physical Exam: gen - resting in bed, NAD, looks same as yesterday neck - no JVD mouth - poor dentition, MM modestly dry heart - RRR, s1 s2, no murmur lungs - CTA b/l, no rales or wheeze today abd - soft; ND; BS+, NT, no HSM ext - pulses b/l feet 2+, no edema psych - poor recall of information Results & Data Results & Data Vital Signs (Past 12 Hours) Vital Signs Temp Pulse Pulse Resp BP BP BP 04/06/25 11:54 71 16 96/51 L 04/06/25 11:24 71 16 97/65 L 04/06/25 11:09 64 16 91/61 L 04/06/25 10:42 36.2 C L 66 18 101/66 04/06/25 08:04 36.7 C 63 18 88/52 L 04/06/25 07:14 67 04/06/25 05:31 74 103/69 04/06/25 03:40 94/53 L Pulse Ox O2 Del Method O2 Flow Rate 04/06/25 11:54 89 L 04/06/25 11:24 91 04/06/25 11:09 89 L 04/06/25 10:42 92 0 04/06/25 08:04 92 Room Air 04/06/25 07:14 04/06/25 05:31 04/06/25 03:40 Room Air Laboratory Results Laboratory Results - last 24 hr 04/03/25 04/06/25 04/06/25 16:24 07:33 10:07 WBC 3.90 L RBC 2.87 L Hgb 8.1 L Hct 25.3 L MCV 88.2 MCH 28.2 MCHC 32.0 RDW Std Deviation 61.7 H RDW Coeff of Aissatou 19.5 H Plt Count 21 L* Absolute Nucleated RBC 0.03 Nucleated RBC % (auto) 0.8 Sodium 135 L Potassium 4.5 Chloride 97 L Carbon Dioxide 33 H Anion Gap 5 BUN 34 H Creatinine 0.75 Est Cr Clr Drug Dosing 59.3 eGFR 85.06 BUN/Creatinine Ratio 45.3 H Glucose 102 H Calcium 8.4 L SARS-CoV-2 (PCR) NEGATIVE Influenza Type A (PCR) Negative Influenza Type B (PCR) Negative RSV (RT-PCR) Negative Blood Type O Negative Antibody Screen POSITIVE A Antibody Identification Anti-D Antibody ID Comment Crossmatch See Detail Microbiology 04/04/25 19:51 Urine,Clean Catch Urine Culture - Final More than three types of organisms present, all high counts mixed probable skin karma - No further identifications or sensitivities to follow. PG Care Time/CCT Total # of Minutes Spent Total Time Spent with Patient: Total time spent is greater than 50% in coordination of care (as documented) at patient's floor/unit and/or counseling patient: Coding Level of Care Code 42838 SUB INP/OBS CARE 2/35MIN Diagnoses Myelodysplastic syndrome D46.9 Pancytopenia D61.818 CHF (congestive heart failure) I50.9 Bipolar disorder F31.9 Bilateral leg weakness R29.898 Constipation K59.00 Chronic back pain M54.9; G89.29 Symptomatic anemia D64.9 COPD (chronic obstructive pulmonary disease) J44.9 Encephalopathy G93.40
[2025-04-06] MEDS: TRIAMCINOLONE ACET 0.1% CR 15 GM TUBE EXT SCH (15:27)
[2025-04-06] MEDS: HYDROCODONE/ACETAMOPHEN 5/325MG TAB PO PRN (15:32)
[2025-04-06] MEDS: SODIUM CHLORIDE 0.9% 500 ML IV ONE (20:23)
[2025-04-07 06:08] LABS: Hematocrit (blood only) 24.3 % (37.0-47.0); Hemoglobin 7.9 g/dl (12.0-16.0); Mean Corpuscular Hemoglobin 28.9 pg (25.0-34.0); Mean Corpuscular Volume 89.0 fL (80.0-100.0); Platelet Count 20 K/uL (130-400); RDW Standard Deviation 62.4 fL (36.4-46.3); Red Blood Count 2.73 M/uL (4.20-5.40); White Blood Count 3.06 K/ul (4.8-10.8)
[2025-04-07 06:19] LABS: Anion Gap 4.0 (3-11); Blood Urea Nitrogen 33.0 mg/dl (6-23); Calcium 8.4 mg/dl (8.6-10.3); Carbon Dioxide 33.0 mmol/L (21-32); Chloride 98.0 mmol/L (98-107); Creatinine Clr Calc Pharmacy 59.8 ml/min; Glucose 105.0 mg/dl (70-99(Fasting)); Potassium 4.5 mmol/L (3.5-5.1); Sodium 135.0 mmol/L (136-145)
--- NOTE | 2025-04-07 20:16 | Hospitalist Progress Note ---
Date of Service April 07, 2025 Assessment & Plan (1) Myelodysplastic syndrome: (2) Pancytopenia: (3) CHF (congestive heart failure): (4) Bipolar disorder: (5) Bilateral leg weakness: (6) Constipation: (7) Chronic back pain: (8) Symptomatic anemia: (9) COPD (chronic obstructive pulmonary disease): (10) Encephalopathy: Plan 70-year-old female with recent diagnosis of myelodysplastic syndrome followed by [facility] [place]. No definitive Rx started to date since the dx was so recent. Patient was referred for admission due to symptomatic anemia with Hb <6. Patient reports having received 1 unit of PRBCs over the last few weeks prior to this admission. #Pancytopenia secondary to myelodysplastic syndrome - -s/p 2 units PRBCs this admit with improved H/H -s/p 1 unit platelets without any improvement in overall platelet count -recent TSH, B12, and folate all wnl -remains on acyclovir & fluconazole prophylaxis -cont allopurinol -platelets today 20 - I corresponded with on-call oncology - will not transfuse today -cbc in am #suspected decompensated diastolic CHF - -improved volume status -echo with preserved LV/RV function -stop meto succ given the low BPs and normal echo #Mild hyponatremia - -resolved #RANDELL - -resolved -peak Cr 1.3 -improved to <1 #Chronic constipation - -improved -cont miralax -cont senna/colace #h/o bipolar disorder - -cont HS seroquel; on large dose of 200mg/day; contributing to fatigue/weakness? #b/l LE weakness - -outpatient [facility] med notes from 09/2023 referenced worsening weakness and ambulatory function even then -was having to use assistive devices and considerable family help in 2022 -last 6 months essentially non-ambulatory; deconditioning, at minimum, playing a role -checked lumbar spine CT - no critical lumbar stenosis seen -recent B12 level was wnl -could consider MRI brain to be complete but defer for now -patient stated she fell recently at home? thus obtained CT head and CT c-spine -- no critical stenosis of the neck; no fractures; no ICH or skull fractures #COPD - -cont umeclidinium/vilanterol 1 puff daily -O2 as needed -VBG with chronic compensated CO2 retention #DVT proph - -due to severe thrombocytopenia chemical means contraindicated -SCDs only for now #chronic low back pain - -stopped tramadol - not effective -changed to norco 5's - there is interaction with diflucan - thus change dosing interval to q8h prn -CT lumbar spine recently without fractures; considerable DJD present #prolonged QTc - -on multiple QTc prolonging agents -most recent EKG - I computed the QTc personally and QTc is about 510msec (T waves are very hard to see thus computer QTc is much higher) -on tele; monitor carefully PT/OT reina appreciated SNF rehab advised pt not wanting such family not wanting such if she returns home will need mechanical lift for the house, hospital bed would be helpful; etc. d/w pt's granddaughter today will reach out to social work in the am tomorrow Admission and Anticipated Discharge Date Admission Date: April 05, 2025 Subjective no events overnight tele wnl overnight c/o headache c/o fatigue c/o itching especially on arms grand-daughter at bedside we discussed getting hospital bed for home and mechanical lift since she cannot weight-bear no dyspnea today eating fair at best Review of Systems Review of Systems: cv - no chest pain pulm - minimal cough Gi - no abd pain; last stool - 04/05 Physical Exam Physical Exam: gen - resting in bed, NAD, looks same as yesterday; sleepy initially, woke up and answered questions neck - no JVD mouth - poor dentition heart - RRR, s1 s2, no murmur lungs - CTA b/l abd - soft; ND; BS+, NT, no HSM ext - pulses b/l feet 2+, no edema skin - excoriation wilkerson and papular erythematous rash on arms b/l - slightly improved today Results & Data Results & Data Vital Signs (Past 12 Hours) Vital Signs Temp Pulse Pulse Resp BP Pulse Ox O2 Del Method 04/07/25 20:07 36.5 C 77 18 96/57 L 91 Room Air 04/07/25 15:35 36.6 C 66 20 95/56 L 96 Room Air 04/07/25 13:00 71 04/07/25 12:27 36.4 C L 66 16 99/55 L 93 Room Air 04/07/25 09:40 Room Air Laboratory Results Laboratory Results - last 48 hr 04/03/25 04/06/25 04/06/25 16:24 07:33 10:07 WBC 3.90 L RBC 2.87 L Hgb 8.1 L Hct 25.3 L MCV 88.2 MCH 28.2 MCHC 32.0 RDW Std Deviation 61.7 H RDW Coeff of Aissatou 19.5 H Plt Count 21 L* Immature Gran % (Auto) Neut % (Auto) Lymph % (Auto) [place] % (Auto) Eos % (Auto) Baso % (Auto) Neut # (Auto) Lymph # (Auto) [place] # (Auto) Eos # (Auto) Baso # (Auto) Immature Gran # (Auto) Absolute Nucleated RBC 0.03 Nucleated RBC % (auto) 0.8 Platelet Estimate Polychromasia Tear Drop Cells Ovalocytes Sodium 135 L Potassium 4.5 Chloride 97 L Carbon Dioxide 33 H Anion Gap 5 BUN 34 H Creatinine 0.75 Est Cr Clr Drug Dosing 59.3 eGFR 85.06 BUN/Creatinine Ratio 45.3 H Glucose 102 H Calcium 8.4 L SARS-CoV-2 (PCR) NEGATIVE Influenza Type A (PCR) Negative Influenza Type B (PCR) Negative RSV (RT-PCR) Negative Blood Type O Negative Antibody Screen POSITIVE A Antibody Identification Anti-D Antibody ID Comment Crossmatch See Detail 04/07/25 05:44 WBC 3.06 L RBC 2.73 L Hgb 7.9 L Hct 24.3 L MCV 89.0 MCH 28.9 MCHC 32.5 RDW Std Deviation 62.4 H RDW Coeff of Aissatou 19.5 H Plt Count 20 L* Immature Gran % (Auto) Neut % (Auto) Lymph % (Auto) [place] % (Auto) Eos % (Auto) Baso % (Auto) Neut # (Auto) Lymph # (Auto) [place] # (Auto) Eos # (Auto) Baso # (Auto) Immature Gran # (Auto) Absolute Nucleated RBC Nucleated RBC % (auto) Platelet Estimate Signific. Decreased L Polychromasia Tear Drop Cells Ovalocytes Sodium 135 L Potassium 4.5 Chloride 98 Carbon Dioxide 33 H Anion Gap 4 BUN 33 H Creatinine 0.75 Est Cr Clr Drug Dosing 59.8 eGFR 85.06 BUN/Creatinine Ratio 44.0 H Glucose 105 H Calcium 8.4 L SARS-CoV-2 (PCR) Influenza Type A (PCR) Influenza Type B (PCR) RSV (RT-PCR) Blood Type Antibody Screen Antibody Identification Antibody ID Comment Crossmatch Care Time/CCT Total # of Minutes Spent Total Time Spent with Patient: Total time spent is greater than 50% in coordination of care (as documented) at patient's floor/unit and/or counseling patient: Coding Level of Care Code 61601 SUB INP/OBS CARE 2/35MIN Diagnoses Myelodysplastic syndrome D46.9 Pancytopenia D61.818 CHF (congestive heart failure) I50.9 Bipolar disorder F31.9 Bilateral leg weakness R29.898 Constipation K59.00 Chronic back pain M54.9; G89.29 Symptomatic anemia D64.9 COPD (chronic obstructive pulmonary disease) J44.9 Encephalopathy G93.40
[2025-04-08 06:59] LABS: Hematocrit (blood only) 25.5 % (37.0-47.0); Hemoglobin 8.0 g/dl (12.0-16.0); Mean Corpuscular Hemoglobin 28.6 pg (25.0-34.0); Mean Corpuscular Volume 91.1 fL (80.0-100.0); Platelet Count 24 K/uL (130-400); RDW Standard Deviation 64.9 fL (36.4-46.3); Red Blood Count 2.80 M/uL (4.20-5.40); White Blood Count 3.72 K/ul (4.8-10.8)
[2025-04-08 07:45] LABS: Immature Granulocytes # (auto) 0.21 K/uL (0.01-0.20); Immature Granulocytes % (auto) 5.6 %; Ovalocytes 1+; Polychromasia 1+; Tear Drop Cells 1+
--- NOTE | 2025-04-08 14:16 | Hospitalist Progress Note ---
Date of Service April 08, 2025 Assessment & Plan (1) Myelodysplastic syndrome: (2) Pancytopenia: (3) CHF (congestive heart failure): (4) Bipolar disorder: (5) Bilateral leg weakness: (6) Constipation: (7) Chronic back pain: (8) Symptomatic anemia: (9) COPD (chronic obstructive pulmonary disease): (10) Encephalopathy: Plan 70-year-old female with recent diagnosis of myelodysplastic syndrome [place] [facility] [place]. No definitive Rx started to date since the dx was so recent. Patient was referred for admission due to symptomatic anemia with Hb <6. Patient reports having received 1 unit of PRBCs over the last few weeks prior to this admission. #Pancytopenia secondary to myelodysplastic syndrome - -s/p 2 units PRBCs this admit with improved H/H -s/p 1 unit platelets without any improvement in overall platelet count -recent TSH, B12, and folate all wnl -remains on acyclovir & fluconazole prophylaxis -cont allopurinol -platelets today 24 - I corresponded with oncology - will not transfuse, cont to monitor -cbc in am #suspected decompensated diastolic CHF - -improved volume status s/p diuresis late last week -echo with preserved LV/RV function -stopped meto succ given her persistent low BPs and normal echo -appears compensated on exam today -cxr without pulm edema #Mild hyponatremia - -resolved -BMP am tomorrow for stability #RANDELL - -resolved -peak Cr 1.3 -improved to <1 -BMP in am #Chronic constipation - -last BM on 04/05 -cont miralax -cont senna/colace #h/o bipolar disorder - -cont HS seroquel; on large dose of 200mg/day but this is chronic #b/l LE weakness - -[facility] referenced worsening weakness and ambulatory dysfunction even then -was having to use assistive devices and considerable family help in 2022 -last 6 months essentially non-ambulatory; deconditioning, at minimum, playing a role -checked lumbar spine CT - no critical lumbar stenosis seen -recent B12 level was wnl -could consider MRI brain to be complete but defer for now -patient stated she fell recently at home? thus obtained CT head and CT c-spine -- no critical stenosis of the neck; no fractures; no ICH or skull fractures -patient would need intensive rehab to regain some of her walking ability; uncertain if she could tolerate such, and patient desires to return home with her family; she will have home PT/OT #COPD with exacerbation - -cxr today without pneumonia or pulm edema -add duonebs qid -add mucinex BID -add flutter valve & incentive werner -add prednisone 40mg daily -cont umeclidinium/vilanterol 1 puff daily -O2 as needed -recent VBG with chronic compensated CO2 retention #DVT proph - -due to severe thrombocytopenia chemical means contraindicated -SCDs only #chronic low back pain - -stopped tramadol - not effective -changed to norco 5's - there is interaction with diflucan - thus change dosing interval to q8h prn -CT lumbar spine recently without fractures; considerable DJD present #prolonged QTc - -on multiple QTc prolonging agents -most recent EKG - I computed the QTc personally and QTc is about 510msec (T waves are very hard to see thus computer reading on EKG shows a much higher QTc) -on tele; monitor carefully -will recheck EKG in am tomorrow for stability PT/OT reina appreciated SNF rehab advised but pt not wanting such and family not wanting such discussed with social work today need for mech lift, shower chair, hospital bed, etc at home updated pt's grand-daughter & daughter today Admission and Anticipated Discharge Date Admission Date: April 05, 2025 Subjective patient laying in bed comfortably during the visit grand-daughter at bedside daughter on speaker phone patient reports increased cough x 24 hours mild dyspnea and wheezing even at rest no sputum requiring some NC O2 lengthy discussion today about dispo plan discussed that social work will assist with getting hospital bed, mech lift, shower chair, etc. patient & family state she has appt with Dr Leija on 04/[address] if perhaps Dr Leija can meet with them while she is hospitalized tele overnight wnl Review of Systems Review of Systems: gen - no fevers or chills; ongoing fatigue cv - no chest pain, no orthopnea pulm - cough/congestion GI - no abd pain or vomiting Physical Exam Physical Exam: gen - resting in bed, NAD, coughing, most awake/alert she has been over the last 5 days neck - no JVD mouth - poor dentition, MMM heart - RRR, s1 s2, no murmur lungs - b/l wheezes, no rales, no increased work of breathing abd - soft; ND; BS+, NT, no HSM ext - pulses b/l feet 2+, no edema skin - excoriation wilkerson and papular erythematous rash on arms b/l - again improved today Results & Data Results & Data Vital Signs (Past 12 Hours) Vital Signs Temp Pulse Pulse Resp BP Pulse Ox O2 Del Method 04/08/25 08:14 36.4 C L 70 16 103/68 98 Nasal Cannula 04/08/25 08:00 Room Air 04/08/25 07:31 74 04/08/25 04:32 36.4 C L 76 18 90 Room Air O2 Flow Rate 04/08/25 08:14 2 04/08/25 08:00 04/08/25 07:31 04/08/25 04:32 Laboratory Results Laboratory Results - last 24 hr 04/08/25 06:12 WBC 3.72 L RBC 2.80 L Hgb 8.0 L Hct 25.5 L MCV 91.1 MCH 28.6 MCHC 31.4 L RDW Std Deviation 64.9 H RDW Coeff of Aissatou 19.8 H Plt Count 24 L* Immature Gran % (Auto) 5.6 Neut % (Auto) 50.0 Lymph % (Auto) 19.9 [place] % (Auto) 21.0 Eos % (Auto) 2.7 Baso % (Auto) 0.8 Neut # (Auto) 1.86 Lymph # (Auto) 0.74 L [place] # (Auto) 0.78 H Eos # (Auto) 0.10 Baso # (Auto) 0.03 Immature Gran # (Auto) 0.21 H Polychromasia 1+ Tear Drop Cells 1+ Ovalocytes 1+ Diagnostic Findings Chest X-Ray 04/08/25 14:13 XR chest 1V portable CLINICAL HISTORY: b/l wheezing, dyspnea COMPARISON STUDY: Chest radiograph April 04, 2025 FINDINGS: Lung volumes are normal. Lungs are clear. There is no pneumothorax or pleural effusion. Cardiac size is stable. Mediastinal contours are normal. There is no evidence for pulmonary edema. IMPRESSION: No acute cardiopulmonary findings. No change in appearance of the chest. ACT 112: Negative or not required by law. Electronically signed by: Jose Yu M.D. 04/08/2025 3:06 PM PG Care Time/CCT Total # of Minutes Spent Total Time Spent with Patient: Total time spent is greater than 50% in coordination of care (as documented) at patient's floor/unit and/or counseling patient: Coding Level of Care Code 19747 SUB INP/OBS CARE 3/50MIN Diagnoses Myelodysplastic syndrome D46.9 Pancytopenia D61.818 CHF (congestive heart failure) I50.9 Bipolar disorder F31.9 Bilateral leg weakness R29.898 Constipation K59.00 Chronic back pain M54.9; G89.29 Symptomatic anemia D64.9 COPD (chronic obstructive pulmonary disease) J44.9 Encephalopathy G93.40
--- NOTE | 2025-04-08 15:07 | XRay Report ---
XR chest 1V portable CLINICAL HISTORY: b/l wheezing, dyspnea COMPARISON STUDY: Chest radiograph April 04, 2025 FINDINGS: Lung volumes are normal. Lungs are clear. There is no pneumothorax or pleural effusion. Car diac size is stable. Mediastinal contours are normal. There is no evidence for pulmonary edema. IMPRESSION: No acute cardiopulmonary findings. No change in appearance of the chest. ACT 112: Negative or not required by law. Electronically signed by: Jose Yu M.D. 04/08/2025 3:06 PM
[2025-04-08] MEDS: guaiFENesin 600 MG TABCR PO SCH (15:14)
[2025-04-08] MEDS: ALBUT/IPRATROP 3MG/0.5MG NEB 3 ML VIAL NEB SCH (15:23)
[2025-04-08] MEDS: predniSONE 20 MG TAB PO STA (18:04)
[2025-04-09 07:14] LABS: Hematocrit (blood only) 23.3 % (37.0-47.0); Hemoglobin 7.3 g/dl (12.0-16.0); Mean Corpuscular Hemoglobin 28.3 pg (25.0-34.0); Mean Corpuscular Volume 90.3 fL (80.0-100.0); Platelet Count 29 K/uL (130-400); RDW Standard Deviation 63.4 fL (36.4-46.3); Red Blood Count 2.58 M/uL (4.20-5.40); White Blood Count 4.56 K/ul (4.8-10.8)
[2025-04-09 07:27] LABS: Acanthocytes 1+; Anion Gap 3.0 (3-11); Blood Urea Nitrogen 32.0 mg/dl (6-23); Calcium 8.6 mg/dl (8.6-10.3); Carbon Dioxide 32.0 mmol/L (21-32); Chloride 97.0 mmol/L (98-107); Creatinine Clr Calc Pharmacy 61.1 ml/min; Glucose 172.0 mg/dl (70-99(Fasting)); Immature Granulocytes # (auto) 0.21 K/uL (0.01-0.20); Immature Granulocytes % (auto) 4.6 %; Magnesium 2.1 mg/dl (1.7-2.4); Ovalocytes 1+; Polychromasia 1+; Potassium 6.4 mmol/L (3.5-5.1); Schistocytes 1+; Sodium 132.0 mmol/L (136-145); Tear Drop Cells 1+
[2025-04-09 09:08] LABS: Potassium 6.1 mmol/L (3.5-5.1)
[2025-04-09] MEDS ORDERED: NovoLIN-R INSULIN PER UNIT CHARGE IV STA (09:14)
[2025-04-09 09:48] LABS: Uric Acid 2.5 mg/dl (2.6-7.2)
[2025-04-09] MEDS: DEXTROSE 50% 50 ML SYRINGE IV ONE (10:17)
[2025-04-09] MEDS: INSULIN REGULAR 10 UNITS in SYRINGE 9.9 ML IV ONE (10:17)
[2025-04-09] MEDS: SODIUM ZIRCONIUM CYCLOSILICATE 10 GM PACKET PO SCH (10:19)
[2025-04-09] MEDS: CALCIUM GLUCONATE 1,000 MG/60 ML BAG IV STA (10:26)
[2025-04-09] MEDS: predniSONE 20 MG TAB PO SCH (10:27)
[2025-04-09] MEDS ORDERED: SODIUM CHLORIDE 0.9% 100 ML IV PRN (14:40)
--- NOTE | 2025-04-09 18:03 | Electrocardiogram Report ---
Test Reason : Blood Pressure : */* mmHG Vent. Rate : 76 BPM Atrial Rate : 76 BPM P-R Int : 180 ms QRS Dur : 72 ms QT Int : 332 ms P-R-T Axes : 59 27 51 degrees QTcB Int : 373 ms Normal sinus rhythm with sinus arrhythmia Low voltage QRS Borderline ECG When compared with ECG of 03-Apr-2025 16:09, Nonspecific T wave abnormality, improved in Inferior leads Nonspecific T wave abnormality no longer evident in Lateral leads QT has shortened Confirmed by Igor Rizvi ([id number] on 04/09/2025 6:03:26 PM Referred By: REFERRED SELF Confirmed By: Igor Rizvi
--- NOTE | 2025-04-09 21:19 | Hospitalist Progress Note ---
Date of Service April 09, 2025 Assessment & Plan (1) Myelodysplastic syndrome: (2) Pancytopenia: (3) Hyperkalemia: (4) CHF (congestive heart failure): (5) Bipolar disorder: (6) Bilateral leg weakness: (7) Constipation: (8) Chronic back pain: (9) Symptomatic anemia: (10) COPD (chronic obstructive pulmonary disease): (11) Encephalopathy: Plan 70-year-old female with recent diagnosis of myelodysplastic syndrome [place] [facility] [place]. No definitive Rx started to date since the dx was so recent. Patient was referred for admission due to symptomatic anemia with Hb <6. Patient reports having received 1 unit of PRBCs over the last few weeks prior to this admission. #Pancytopenia secondary to myelodysplastic syndrome - -s/p 2 units PRBCs this admit with improved H/H -s/p 1 unit platelets without any improvement in overall platelet count but fortunately her platelets have remained in the 20's -Hb 7.3 today --- will Tx 1 unit of irradiated blood -recent TSH, B12, and folate all wnl -remains on acyclovir & fluconazole prophylaxis -cont allopurinol -hyperkalemia - see below -due to presence of schistocytes on differential today and in light of high K obtained peripheral smear - no blasts, no hemolytic process (no MAHA) -uric acid wnl -thus far no evidence of transformation to AML #suspected decompensated diastolic CHF - -improved volume status s/p diuresis late last week -echo with preserved LV/RV function -stopped meto succ given her persistent low BPs and normal echo -appears compensated on exam once again today -cxr without pulm edema #Mild hyponatremia - -had resolved -mildly low Na today likely pseudohyponatremia as glucose was elevated -BMP am tomorrow for stability #RANDELL - -resolved -peak Cr 1.3 -improved to 0.7 -BMP in am #Chronic constipation - -last BM on 04/05 -cont miralax - may need BID dosing -cont senna/colace - may need BID dosing #h/o bipolar disorder - -cont HS seroquel; on large dose of 200mg/day but this is chronic #b/l LE weakness - -outpatient [facility] med notes from 09/2023 referenced worsening weakness and ambulat ory dysfunction even then -was having to use assistive devices and considerable family help in 2022 -last 6 months essentially non-ambulatory; deconditioning, at minimum, playing a role -checked lumbar spine CT - no critical lumbar stenosis seen -recent B12 level was wnl -could consider MRI brain to be complete but defer for now -patient stated she fell recently at home? thus obtained CT head and CT c-spine -- no critical stenosis of the neck; no fractures; no ICH or skull fractures -patient would need intensive rehab to regain some of her walking ability; uncertain if she could tolerate such, and patient desires to return home with her family; she will have home PT/OT #COPD with exacerbation - -cxr 04/08 without pneumonia or pulm edema -cont duonebs qid -cont mucinex BID -cont flutter valve & incentive werner -cont prednisone 40mg daily today, then wean to 30mg tomorrow -cont umeclidinium/vilanterol 1 puff daily -O2 as needed -recent VBG with chronic compensated CO2 retention #DVT proph - -due to severe thrombocytopenia chemical means contraindicated -SCDs only #chronic low back pain - -stopped tramadol - not effective -changed to norco 5's - there is interaction with diflucan - thus changed dosing interval to q8h prn -CT lumbar spine recently without fractures; considerable DJD present #prolonged QTc - -on multiple QTc prolonging agents -most recent EKG - I computed the QTc personally and QTc is about 510msec (T waves are very hard to see thus computer reading on EKG shows a much higher QTc) -on tele; monitor carefully -EKG today - QTc wnl #hyperkalemia - -repeat K still high this am at 6.1 (initial was 6.4) -gave calcium IV, D50/insulin, and lokelma acutely -repeat K in the afternoon - 5.6 -cont lokelma TID -BMP in am to ensure K coming down -hemolysis leading to high K? -other cause ? -not on K supplementation -not on WINTER or ARB -change diet to low K diet -BMP am -peripheral smear without features of MAHA -follow this very carefully PT/OT evals appreciated SNF rehab advised but pt not wanting such and family not wanting such either [facility] bed, etc [facility] updated pt's grand-daughter & daughter 04/08 thus far no interest in hospice to date Dr Leija from oncology to see patient in consult tomorrow, 04/10 home next 48 hours?? Admission and Anticipated Discharge Date Admission Date: April 05, 2025 Subjective tele overnight wnl received call this am from staff that pt's K level was high at 6.4 repeat was 6.1 EKG with normal QRS and no peaked T's [id number] calcium IV, insulin/D50, and lokelma were given repeat K later in the day - 5.6 despite the above pt was actually very awake/alert today she was asking questions no lethargy like on other days eating is some better breathing is better we discussed that she needs another unit of blood counseled her that she may need blood products on a weekly basis as outpatient she recognizes that this is going to be challenging given her bed-bound status Review of Systems Review of Systems: pulm - cough/congestion/wheezing/dyspnea all better today cv - no chest pain GI - no abd pain Physical Exam Physical Exam: gen - best she has actually looked over the last 6 days, NAD neck - no JVD mouth - poor dentition, MMM heart - RRR, s1 s2, no murmur lungs - CTA b/l today; no wheezes, no rales, no increased work of breathing abd - soft; ND; BS+, NT, no HSM ext - pulses b/l feet 2+, no edema skin - excoriation wilkerson and papular erythematous rash on arms b/l - continues to improve Results & Data Results & Data Vital Signs (Past 12 Hours) Vital Signs Temp Pulse Pulse Resp BP BP Pulse Ox 04/09/25 21:00 36.6 C 87 16 114/52 L 95 04/09/25 20:59 36.6 C 87 16 114/52 L 95 04/09/25 20:45 36.7 C 89 16 119/62 96 04/09/25 20:29 36.7 C 85 16 117/70 95 04/09/25 19:45 76 18 97 04/09/25 19:27 36.6 C 84 18 123/54 L 96 04/09/25 16:28 81 04/09/25 15:53 36.6 C 90 24 122/70 96 04/09/25 15:18 86 18 88 L 07/08/25 11:33 04/09/25 11:30 36.4 C L 98 H 20 121/55 L 91 04/09/25 10:47 94 H 18 96 O2 Del Method O2 Flow Rate 04/09/25 21:00 04/09/25 20:59 04/09/25 20:45 04/09/25 20:29 04/09/25 19:45 Nasal Cannula 2 04/09/25 19:27 Nasal Cannula 04/09/25 16:28 04/09/25 15:53 Nasal Cannula 04/09/25 15:18 Room Air 04/09/25 11:33 Room Air 04/09/25 11:30 Room Air 04/09/25 10:47 Nasal Cannula 2 Laboratory Results Laboratory Results - last 24 hr 04/09/25 04/09/25 04/09/25 06:37 08:00 14:48 WBC 4.56 L RBC 2.58 L Hgb 7.3 L Hct 23.3 L MCV 90.3 MCH 28.3 MCHC 31.3 L RDW Std Deviation 63.4 H RDW Coeff of Aissatou 19.7 H Plt Count 29 L* Immature Gran % (Auto) 4.6 Neut % (Auto) 78.2 Lymph % (Auto) 7.7 Chester % (Auto) 8.8 Eos % (Auto) 0.0 Baso % (Auto) 0.7 Neut # (Auto) 3.57 Lymph # (Auto) 0.35 L Chester # (Auto) 0.40 Eos # (Auto) 0.00 Baso # (Auto) 0.03 Immature Gran # (Auto) 0.21 H Polychromasia 1+ Tear Drop Cells 1+ Ovalocytes 1+ Acanthocytes (Spur) 1+ Schistocytes 1+ Peripher Smr Path Cons Sodium 132 L Potassium 6.4 H* 6.1 H* 5.6 H Chloride 97 L Carbon Dioxide 32 Anion Gap 3 BUN 32 H Creatinine 0.73 Est Cr Clr Drug Dosing 61.1 eGFR 87.87 BUN/Creatinine Ratio 43.8 H Glucose 172 H Uric Acid 2.5 L Calcium 8.6 Phosphorus 4.7 Magnesium 2.1 Blood Type O Negative Antibody Screen POSITIVE A Antibody Identification Anti-D Antibody ID Comment Pending Crossmatch See Detail PG Care Time/CCT Total # of Minutes Spent Total Time Spent with Patient: Total time spent is greater than 50% in coordination of care (as documented) at patient's floor/unit and/or counseling patient: Coding Level of Care Code 95310 SUB INP/OBS CARE 350MIN Diagnoses Myelodysplastic syndrome D46.9 Pancytopenia D61.818 Hyperkalemia E87.5 CHF (congestive heart failure) I50.9 Bipolar disorder F31.9 Bilateral leg weakness R29.898 Constipation K59.00 Chronic back pain M54.9; G89.29 Symptomatic anemia D64.9 COPD (chronic obstructive pulmonary disease) J44.9 Encephalopathy G93.40
[2025-04-10 07:23] LABS: Hematocrit (blood only) 27.8 % (37.0-47.0); Hemoglobin 9.0 g/dl (12.0-16.0); Mean Corpuscular Hemoglobin 28.0 pg (25.0-34.0); Mean Corpuscular Volume 86.6 fL (80.0-100.0); Platelet Count 37 K/uL (130-400); RDW Standard Deviation 54.4 fL (36.4-46.3); Red Blood Count 3.21 M/uL (4.20-5.40); White Blood Count 5.99 K/ul (4.8-10.8)
[2025-04-10 07:35] LABS: Anion Gap 4.0 (3-11); Blood Urea Nitrogen 33.0 mg/dl (6-23); Calcium 8.7 mg/dl (8.6-10.3); Carbon Dioxide 34.0 mmol/L (21-32); Chloride 96.0 mmol/L (98-107); Creatinine Clr Calc Pharmacy 72.4 ml/min; Glucose 118.0 mg/dl (70-99(Fasting)); Potassium 5.7 mmol/L (3.5-5.1); Sodium 134.0 mmol/L (136-145)
[2025-04-10] MEDS ORDERED: SODIUM CHLORIDE 0.9% 100 ML IV PRN (07:51)
[2025-04-10 08:44] LABS: Hematocrit (blood only) 28.7 % (37.0-47.0); Hemoglobin 9.5 g/dl (12.0-16.0)
[2025-04-10] MEDS: PANTOprazole 40 MG in DEXTROSE 5% MINI-B 100 ML IV SCH (09:09)
[2025-04-10 09:13] LABS: INR 1.0 (0.9-1.1); Partial Thromboplastin Time 25 Seconds (21-31); Prothrombin Time 10.6 Seconds (9.0-12.0)
[2025-04-10] MEDS ORDERED: ALBUT/IPRATROP 3MG/0.5MG NEB 3 ML VIAL NEB PRN (09:39)
--- NOTE | 2025-04-10 11:55 | Gastrointestinal Consultation ---
Date of Consultation April 10, 2025 Assessment & Plan (1) Dark emesis: -Continue to monitor H/H -Continue to monitor for further episodes of GI bleeding -Continue IV Protonix gtt -Treat supportively for now until CHF and COPD exacerbations improved and can consider EGD at that time (or sooner if clinical situation deteriorates) Supervising Physician Co-Signing Physician Notes I saw and examined this patient with our nurse practitioner and agree with her assessment and plan. Unclear whether or not she truly had an episode of hematemesis based on history. No further episodes of bleeding. Congestive heart failure and other comorbidities will observe for now for any other symptoms. Check stool for occult blood this admission and monitor her hemoglobin and hematocrit. History of Present Illness Reason for Consultation: Hematemesis Attending Physician: Shelby Alarcon MD History of Present Illness Patient is a 70 yo female with recent diagnosis of Myelodysplastic syndrome. She is currently admitted and being treated for an acute CHF exacerbation as welll as an exacerbation of her COPD. She is saturating at 97% on room air, but notes her breathing feels much worse than usual. She notes that she feels tight and her wheezing is worse than her baseline. GI has been consulted for an episode of dark emesis that occurred once during this admission. She denies abdominal pain, but notes a history of gastric ulcers. I do not have records of previous GI work-ups in the past, but she notes she last had an ulcer 4 years ago. It does not appear she takes a PPI at home. She notes some NSAID use for joint pain. Her hemoglobin when admitted was 5.1, keeping in mind of new MDS diagnosis. Her current H/H is 9.5/28.7. She denies melena or hematochezia. She denies any other acute GI symptoms at this time. She is currently on an IV Protonix gtt. Allergies Allergy/AdvReac Type Severity Reaction Status Date / Time ibuprofen AdvReac Nausea Unverified 04/25/22 19:03 Home Medications Medication Instructions Recorded Confirmed Type atorvastatin 10 mg tablet 10 mg PO HS 01/31/25 04/03/25 History furosemide 40 mg tablet 40 mg PO QAM 01/31/25 04/03/25 History gabapentin 800 mg tablet 800 mg PO TID 01/31/25 04/03/25 History hydroxyzine HCl 25 mg tablet 25 mg PO QID PRN Anxiety 01/31/25 04/03/25 History meclizine 12.5 mg tablet 12.5 mg PO TID PRN Dizziness 01/31/25 04/03/25 History metoprolol succinate 25 mg 25 mg PO HS 01/31/25 04/03/25 History tablet,extended release 24 hr quetiapine 200 mg tablet 200 mg PO HS 01/31/25 04/03/25 History albuterol sulfate 90 mcg/actuation 1 puff inhalation DIRECTED PRN 03/07/25 04/03/25 History aerosol inhaler (Ventolin HFA) sob allopurinol 300 mg tablet 300 mg PO BID 03/07/25 04/03/25 History acetaminophen 325 mg tablet 650 mg (2 x 325 mg) PO Q4H PRN 03/08/25 04/03/25 Rx fever #10 tabs acyclovir 400 mg tablet 400 mg PO BID 30 days #60 tabs 03/08/25 04/03/25 Rx fluconazole 100 mg tablet 400 mg (4 x 100 mg) PO QAM 30 days 03/08/25 04/03/25 Rx (Diflucan) #120 tabs sennosides 8.6 mg-docusate sodium 1 tab PO QAM #30 tabs 03/08/25 04/03/25 Rx 50 mg tablet (Senokot-S) tramadol 50 mg tablet 50 mg PO Q8 PRN Pain 04/03/25 04/03/25 History Patient History Medical History Pancytopenia Myelodysplastic syndrome CHF (congestive heart failure) Ambulatory dysfunction PUD (peptic ulcer disease) Surgical History H/O: hysterectomy Family History Other Family history non-contributory Social History Smoking Status: Never smoker Hx Alcohol Use: No Hx Substance Use: No Preferred Language: Luxembourgish Communication Ability: Effective Spine Supervisor Required: No Beliefs That Will Affect Care: None Current Living Situation: Family Other Information That Helps Us Care for You: No Feels Safe at Home: Yes Safety Concerns: Feels Safe At This Time Assistive Devices: Cane, Walker and Wheelchair Review of Systems Constitutional: no fever and no chills Respiratory: + dyspnea and + dyspnea on exertion Cardiovascular: no chest pain Gastrointestinal: + nausea, + coffee ground emesis and + b lood in stools; no abdominal pain Physical Exam Constitutional: WD/WN, vitals as above Respiratory: normal respiratory effort Psychiatric: Orientation: alert and oriented x 3 Results & Data Vital Signs (Past 12 Hours) Vital Signs Temp Pulse Pulse Resp BP BP BP 04/10/25 11:37 36.5 C 82 113/73 04/10/25 10:37 36.5 C 77 16 115/73 04/10/25 09:37 36.4 C L 83 16 113/75 04/10/25 09:07 36.4 C L 83 16 121/77 04/10/25 08:52 36.7 C 85 12 121/75 04/10/25 08:36 36.9 C 80 19 131/57 L 04/10/25 08:06 36.3 C L 82 20 114/59 L 04/10/25 05:37 79 04/10/25 03:40 36.5 C 77 16 124/62 Pulse Ox O2 Del Method O2 Flow Rate 04/10/25 11:37 97 2 04/10/25 10:37 98 04/10/25 09:37 98 04/10/25 09:07 98 04/10/25 08:52 97 2 04/10/25 08:36 94 2 04/10/25 08:06 92 Room Air 04/10/25 05:37 04/10/25 03:40 96 Nasal Cannula 2 PG Care Time/CCT Total # of Minutes Spent Total Time Spent with Patient: Total time spent is greater than 50% in coordination of care (as documented) at patient's floor/unit and/or counseling patient: Coding Level of Care Code 90755 INT INP/OBS CARE 3/75MIN Diagnoses Dark emesis K92.0
[2025-04-10 13:23] LABS: Hematocrit (blood only) 27.7 % (37.0-47.0); Hemoglobin 9.3 g/dl (12.0-16.0)
[2025-04-10 16:22] LABS: Hematocrit (blood only) 26.7 % (37.0-47.0); Hemoglobin 8.6 g/dl (12.0-16.0)
[2025-04-10] MEDS: FUROSEMIDE 40 MG/4 ML VIAL IV ONE (16:25)
--- NOTE | 2025-04-10 16:25 | Hospitalist Progress Note ---
Date of Service April 10, 2025 Assessment & Plan (1) Myelodysplastic syndrome: (2) Pancytopenia: (3) Hyperkalemia: (4) CHF (congestive heart failure): (5) Bipolar disorder: (6) Bilateral leg weakness: (7) Constipation: (8) Chronic back pain: (9) Symptomatic anemia: (10) COPD (chronic obstructive pulmonary disease): (11) Encephalopathy: Plan 70-year-old female with recent diagnosis of myelodysplastic syndrome followed by [facility] oncology. No definitive Rx started to date since the dx was so recent. Patient was referred for admission due to symptomatic anemia with Hb <6. Patient reports having received 1 unit of PRBCs over the last few weeks prior to this admission. #Pancytopenia secondary to myelodysplastic syndrome - -s/p 3 units PRBCs this admit with improved H/H -s/p 2 unit platelets -recent TSH, B12, and folate all wnl -remains on acyclovir & fluconazole prophylaxis -cont allopurinol -hyperkalemia - peripheral smear - no blasts, no hemolytic process (no MAHA) -uric acid wnl -thus far no evidence of transformation to AML -consulted Dr. Leija #Dark emesis, possible upper GI bleeding -made NPO in AM, however, Hg stable so allow diet now -IV PPI drip -IV antiemetics -transfused unit of platelets -checked coags which are normal -consulted GI - appreciate -monitor sx and Hg at this time -consider EGD #Acute on chronic HFpEF -echo with preserved LV/RV function -stopped meto succ given her persistent low BPs and normal echo -diuresed earlier in admission -appears volume overloaded today - lasix 40 mg IV, resume 40 mg po daily in AM -monitor weight, I/O, AM BMP #COPD with exacerbation - -cxr 04/08 without pneumonia or pulm edema -recent VBG with chronic compensated CO2 retention -cont duonebs - changed to PRN, discussed with RT -cont mucinex BID -cont flutter valve & incentive werner -cont prednisone 30 mg -cont umeclidinium/vilanterol 1 puff daily -O2 as needed #hyperkalemia - calcium IV, D50/insulin, and lokelma yesterday. New this admission and I wonder about hemolysis with blood draw -still 5.7 -resume/continue lasix, not on ARB/WINTER and metoprolol was discontinued -peripheral smear without features of MAHA -consider adrenal insufficiency - AM cortisol only 4 but has been on prednisone which has not resolved it -AM BMP #Mild hyponatremia - -134 today #RANDELL - resolved -peak Cr 1.3 -stable at 0.7 -BMP in am #Chronic constipation - -last BM on 04/05 -cont miralax - may need BID dosing -cont senna/colace - may need BID dosing #h/o bipolar disorder - -cont HS seroquel; on large dose of 200mg/day but this is chronic #b/l LE weakness - -outpatient [facility] med notes from 09/2023 referenced worsening weakness and ambulatory dysfunction even then -was having to use assistive devices and considerable family help in 2022 -last 6 months essentially non-ambulatory; deconditioning, at minimum, playing a role -checked lumbar spine CT - no critical lumbar stenosis seen -recent B12 level was wnl -could consider MRI brain to be complete but defer for now -CT head and CT c-spine -- no critical stenosis of the neck; no fractures; no ICH or skull fractures -patient would need intensive rehab to regain some of her walking ability; uncertain if she could tolerate such, and patient desires to return home with her family; she will have home PT/OT #chronic low back pain - -stopped tramadol - not effective -changed to norco 5's - there is interaction with diflucan - thus changed dosing interval to q8h prn -CT lumbar spine recently without fractures; considerable DJD present #prolonged QTc - resolved -on multiple QTc prolonging agents -most recent EKG - 373 SNF recommended by PT/OT but Sintia and family plan to take her home Admission and Anticipated Discharge Date Admission Date: April 05, 2025 Subjective feels poorly this am vomited after breakfast - undigested food and dark brown liquid emesis. No red blood Hx peptic ulcer several years ago has been on prednisone and has low platelet breathing worse today, feels more congested Physical Exam 2 Physical Exam: Last 24h vitals reviewed GEN: no acute distress, lying in bed HEENT: pupils equal, sclerae anicteric, moist MM RESP: mildly increased WOB, some scattered expiratory squeaks and some basilar crackles bilaterally CV: reg no mrg ABD: soft/nt/nd +BT : no bryson SKIN: warm and dry, no generalized rashes NEURO: AOx person, place, and situation. Face symmetric, speech normal, moves 4 ext spontaneously and equally Results & Data Results & Data Vital Signs (Past 12 Hours) Vital Signs Temp Pulse Pulse Resp BP BP Pulse Ox 04/10/25 15:30 36.7 C 73 20 120/81 95 04/10/25 14:08 78 04/10/25 12:28 36.6 C 88 16 112/72 98 04/10/25 11:37 36.5 C 82 113/73 97 04/10/25 10:37 36.5 C 77 16 115/73 98 04/10/25 09:37 36.4 C L 83 16 113/75 98 04/10/25 09:07 36.4 C L 83 16 121/77 98 04/10/25 08:52 36.7 C 85 12 121/75 97 04/10/25 08:36 36.9 C 80 19 131/57 L 94 04/10/25 08:06 36.3 C L 82 20 114/59 L 92 04/10/25 05:37 79 O2 Del Method O2 Flow Rate 04/10/25 15:30 Nasal Cannula 2 04/10/25 14:08 04/10/25 12:28 2 04/10/25 11:37 2 04/10/25 10:37 04/10/25 09:37 04/10/25 09:07 04/10/25 08:52 2 04/10/25 08:36 2 04/10/25 08:06 Room Air 04/10/25 05:37 Laboratory Results 04/10/25 06:57 Serial Hg has been stable today 9-->9.5-->9.3 Remains hyperkalemic AM cortisol was 4 (has been on prednisone however) Coags normal Platelets 37 which is a little improved PG Care Time/CCT Total # of Minutes Spent Total Time Spent with Patient: Total time spent is greater than 50% in coordination of care (as documented) at patient's floor/unit and/or counseling patient: Coding Level of Care Code 62337 SUB INP/OBS CARE 3/50MIN Diagnoses Myelodysplastic syndrome D46.9 Pancytopenia D61.818 Hyperkalemia E87.5 CHF (congestive heart failure) I50.9 Bipolar disorder F31.9 Bilateral leg weakness R29.898 Constipation K59.00 Chronic back pain M54.9; G89.29 Symptomatic anemia D64.9 COPD (chronic obstructive pulmonary disease) J44.9 Encephalopathy G93.40
[2025-04-10 20:21] LABS: Hematocrit (blood only) 28.5 % (37.0-47.0); Hemoglobin 9.4 g/dl (12.0-16.0)
[2025-04-11 09:49] LABS: Hematocrit (blood only) 27.0 % (37.0-47.0); Hemoglobin 9.2 g/dl (12.0-16.0); Mean Corpuscular Hemoglobin 30.0 pg (25.0-34.0); Mean Corpuscular Volume 87.9 fL (80.0-100.0); Platelet Count 40 K/uL (130-400); RDW Standard Deviation 52.5 fL (36.4-46.3); Red Blood Count 3.07 M/uL (4.20-5.40); White Blood Count 4.00 K/ul (4.8-10.8)
[2025-04-11 09:57] LABS: Anion Gap 5.0 (3-11); Blood Urea Nitrogen 31.0 mg/dl (6-23); Calcium 8.8 mg/dl (8.6-10.3); Carbon Dioxide 36.0 mmol/L (21-32); Chloride 94.0 mmol/L (98-107); Creatinine Clr Calc Pharmacy 73.7 ml/min; Glucose 97.0 mg/dl (70-99(Fasting)); Potassium 4.7 mmol/L (3.5-5.1); Sodium 135.0 mmol/L (136-145)
--- NOTE | 2025-04-11 11:00 | Hospitalist Progress Note ---
Date of Service April 11, 2025 Assessment & Plan (1) Myelodysplastic syndrome: (2) Pancytopenia: (3) Hyperkalemia: (4) CHF (congestive heart failure): (5) Symptomatic anemia: Plan 70-year-old female with recent diagnosis of myelodysplastic syndrome [place] [facility] [place] No definitive Rx started to date since the dx was so recent. Patient was referred for admission due to symptomatic anemia with Hb <6. Patient reports having received 1 unit of PRBCs over the last few weeks prior to this admission. #Pancytopenia secondary to myelodysplastic syndrome - -s/p 3 units PRBCs this admit with improved H/H -s/p 2 unit platelets -recent TSH, B12, and folate all wnl -remains on acyclovir & fluconazole prophylaxis -cont allopurinol -uric acid wnl -counts stable today W4, Hg9.2, Plt40. AM CBC -consulted Dr. Leija - reviewed recs in note, appreciate consult. Treatment indicated for her MDS at this time, however, her performance status is very poor #Dark emesis, possible upper GI bleeding -transfused unit of platelets -checked coags which are normal -consulted GI - appreciate -Hg has been stable overnight and VSS -changed to protonix 40 mg po bid #Acute on chronic HFpEF -echo with preserved LV/RV function -stopped meto succ given her persistent low BPs and normal echo -diuresed earlier in admission and 04/10 -resumed lasix 40 mg po daily in AM -monitor weight, I/O, AM BMP #COPD with exacerbation - -cxr 04/08 without pneumonia or pulm edema -recent VBG with chronic compensated CO2 retention -cont duonebs PRN -cont umeclidinium/vilanterol 1 puff daily -exacerbation seems to have resolved and recent dyspnea was related to pulmonary edema -stopped steroids #hyperkalemia - treated with calcium, D50/insulin, and lokelma x 6 doses. New this admission and I wonder about hemolysis with blood draw -resume/continue lasix, not on ARB/WINTER and metoprolol was discontinued last dose 04/05, I do not see heparin on her med list, does not have metabolic acidosis to suggest type 4 RTA -peripheral smear without features of MAHA -consider adrenal insufficiency - AM cortisol only 4 but has been on prednisone which has not resolved it -improved to 4.7 after IV lasix yesterday -continune lasix 40 mg po daily, AM BMP #Mild hyponatremia - -135 today #RANDELL - resolved -peak Cr 1.3 -stable at 0.6 #Chronic constipation - -last BM on 04/05 -cont miralax - increase to bid -cont senna/colace - increase to bid #h/o bipolar disorder - -cont HS seroquel; on large dose of 200mg/day but this is chronic #b/l LE weakness - -outpatient [facility] med notes from 09/2023 referenced worsening weakness and ambulatory dysfunction even then -was having to use assistive devices and considerable family help in 2022 -last 6 months essentially non-ambulatory; deconditioning, at minimum, playing a role -checked lumbar spine CT - no critical lumbar stenosis seen -recent B12 level was wnl -CT head and CT c-spine -- no critical stenosis of the neck; no fractures; no ICH or skull fractures -patient would need intensive rehab to regain some of her walking ability; uncertain if she could tolerate such, and patient desires to return home with her family; she will have home PT/OT #chronic low back pain - -stopped tramadol - not effective -changed to norco 5's - there is interaction with diflucan - thus changed dosing interval to q8h prn -CT lumbar spine recently without fractures; considerable DJD present #prolonged QTc - resolved -on multiple QTc prolonging agents -most recent EKG - 373 [facility]F recommended by PT/OT but Sintia and family plan to take her home. currently working on obtaining equipment. discussed with acute care nursing assistant, medically ready for discharge in AM if labs remain stable Admission and Anticipated Discharge Date Admission Date: April 05, 2025 Subjective no more vomiting, no abdominal pain shortness of breath improved compared to yesterday Physical Exam 2 Physical Exam: Last 24h vitals reviewed GEN: in bed HEENT: pupils equal, sclerae anicteric, moist MM RESP: comfortable WOB, no wheezing, bibasilar crackles CV: reg no mrg, no JVD ABD: soft/nt/nd +BT : no bryson SKIN: warm and dry, no generalized rashes NEURO: AOx person, place, and situation. Face symmetric, speech normal, moves 4 ext spontaneously and equally Results & Data Results & Data Vital Signs (Past 12 Hours) Vital Signs Temp Pulse Pulse Resp BP BP Pulse Ox 04/11/25 10:56 36.5 C 84 18 133/55 L 98 04/11/25 07:10 36.5 C 67 16 115/72 96 04/11/25 05:59 67 04/11/25 03:45 36.6 C 70 16 122/80 95 04/10/25 23:15 36.9 C 79 16 117/74 96 O2 Del Method O2 Flow Rate 04/11/25 10:56 Nasal Cannula 2 04/11/25 07:10 Nasal Cannula 2 04/11/25 05:59 04/11/25 03:45 Nasal Cannula 2 04/10/25 23:15 Nasal Cannula 2 Laboratory Results 04/11/25 08:28 04/11/25 08:28 PG Care Time/CCT Total # of Minutes Spent Total Time Spent with Patient: Total time spent is greater than 50% in coordination of care (as documented) at patient's floor/unit and/or counseling patient: Coding Level of Care Code 63911 SUB INP/OBS CARE 235MIN Diagnoses Myelodysplastic syndrome D46.9 Pancytopenia D61.818 Hyperkalemia E87.5 CHF (congestive heart failure) I50.9 Symptomatic anemia D64.9
--- NOTE | 2025-04-11 12:55 | Oncology Consultation ---
Date of Consultation April 11, 2025 Assessment & Plan (1) Pancytopenia: (2) Myelodysplastic syndrome: Plan Pancytopenia secondary to MDS. Ideally, patient should start treatment as soon as possible with hypomethylating agent such as decitabine/azacitidine. However,, she appears to have very poor performance status for which she may not be a good candidate for treatment. Patient indicated that she would like to receive treatment if clinical condition improves. She would like me to discuss with her family who were not present at the time of today's visit. I will reach out to her family members to discuss this in more detail. In the meantime, would recommend transfusing for hemoglobin less than 7.5 or hematocrit less than 15,000. History of Present Illness Reason for Consultation: Pancytopenia secondary to MDS Attending Physician: Shelby Alarcon MD History of Present Illness 70-year-old female recently diagnosed with myelodysplastic syndrome with ring sideroblasts and increased blasts on 02/04/2025. She is yet to start treatment for MDS. Admitted to [facility] due to pancytopenia and generalized weakness. Allergies Allergy/AdvReac Type Severity Reaction Status Date / Time ibuprofen AdvReac Nausea Unverified 04/25/22 19:03 Home Medications Medication Instructions Recorded Confirmed Type atorvastatin 10 mg tablet 10 mg PO HS 01/31/25 04/03/25 History furosemide 40 mg tablet 40 mg PO QAM 01/31/25 04/03/25 History gabapentin 800 mg tablet 800 mg PO TID 01/31/25 04/03/25 History hydroxyzine HCl 25 mg tablet 25 mg PO QID PRN Anxiety 01/31/25 04/03/25 History meclizine 12.5 mg tablet 12.5 mg PO TID PRN Dizziness 01/31/25 04/03/25 History metoprolol succinate 25 mg 25 mg PO HS 01/31/25 04/03/25 History tablet,extended release 24 hr quetiapine 200 mg tablet 200 mg PO HS 01/31/25 04/03/25 History albuterol sulfate 90 mcg/actuation 1 puff inhalation DIRECTED PRN 03/07/25 04/03/25 History aerosol inhaler (Ventolin HFA) sob allopurinol 300 mg tablet 300 mg PO BID 03/07/25 04/03/25 History acetaminophen 325 mg tablet 650 mg (2 x 325 mg) PO Q4H PRN 03/08/25 04/03/25 Rx fever #10 tabs acyclovir 400 mg tablet 400 mg PO BID 30 days #60 tabs 03/08/25 04/03/25 Rx fluconazole 100 mg tablet 400 mg (4 x 100 mg) PO QAM 30 days 03/08/25 04/03/25 Rx (Diflucan) #120 tabs sennosides 8.6 mg-docusate sodium 1 tab PO QAM #30 tabs 03/08/25 04/03/25 Rx 50 mg tablet (Senokot-S) tramadol 50 mg tablet 50 mg PO Q8 PRN Pain 04/03/25 04/03/25 History Patient History Medical History Pancytopenia Myelodysplastic syndrome CHF (congestive heart failure) Ambulatory dysfunction PUD (peptic ulcer disease) Surgical History H/O: hysterectomy Family History Other Family history non-contributory Social History Smoking Status: Never smoker Hx Alcohol Use: No Hx Substance Use: No Preferred Language: Thai Communication Ability: Effective Vineyard Tender Required: No Beliefs That Will Affect Care: None Current Living Situation: Family Other Information That Helps Us Care for You: No Feels Safe at Home: Yes Safety Concerns: Feels Safe At This Time Assistive Devices: Cane, Walker and Wheelchair Results & Data Vital Signs (Past 12 Hours) Vital Signs Temp Pulse Pulse Resp BP BP Pulse Ox 04/11/25 10:56 36.5 C 84 18 133/55 L 98 04/11/25 07:10 36.5 C 67 16 115/72 96 04/11/25 05:59 67 04/11/25 03:45 36.6 C 70 16 122/80 95 O2 Del Method O2 Flow Rate 04/11/25 10:56 Nasal Cannula 2 04/11/25 07:10 Nasal Cannula 2 04/11/25 05:59 04/11/25 03:45 Nasal Cannula 2
--- NOTE | 2025-04-11 13:06 | Gastroenterology Progress Note ---
Date of Service April 11, 2025 Assessment & Plan (1) Dark emesis: Plan: -Continue PPI. Given this event with her history of PUD, would continue PPI on discharge. -Continue to monitor CBC -Monitor for overt GI bleeding -Hematology following for MDS Admission and Anticipated Discharge Date Admission Date: April 05, 2025 Supervising Physician Co-Signing Physician Notes I saw and examined this patient with our nurse practitioner and agree with her assessment and plan. More comfortable today no signs of any GI bleeding no hematemesis no melena no bright red blood per rectum. Doubt significant GI pathology based on hospital course. Call if any further issues develop. Subjective Patient is a 70 yo female GI is following for possible hematemesis. She notes no further episodes of vomiting. H/H 9.2/27.0. Hematology following for MDS. No melena or abdominal pain. No worsening heartburn or reflux. She continues on a PPI. Review of Systems Gastrointestinal: no abdominal pain, no coffee ground emesis, no hematemesis, no blood in stools and no melena Physical Exam Gastrointestinal (Abdomen): normal bowel sounds, soft, nontender, no hepatosplenomegaly Results & Data Results & Data Vital Signs (Past 12 Hours) Vital Signs Temp Pulse Pulse Resp BP BP Pulse Ox 04/11/25 10:56 36.5 C 84 18 133/55 L 98 04/11/25 07:10 36.5 C 67 16 115/72 96 04/11/25 05:59 67 04/11/25 03:45 36.6 C 70 16 122/80 95 O2 Del Method O2 Flow Rate 04/11/25 10:56 Nasal Cannula 2 04/11/25 07:10 Nasal Cannula 2 04/11/25 05:59 04/11/25 03:45 Nasal Cannula 2 Laboratory Results Laboratory Results - last 48 hr 04/09/25 04/10/25 04/10/25 14:48 06:57 08:16 WBC 5.99 RBC 3.21 L Hgb 9.0 L 9.5 L Hct 27.8 L 28.7 L MCV 86.6 MCH 28.0 MCHC 32.4 RDW Std Deviation 54.4 H RDW Coeff of Aissatou 17.8 H Plt Count 37 L PT 10.6 INR 1.0 APTT 25 PTT Ratio 0.9 Sodium 134 L Potassium 5.7 H Chloride 96 L Carbon Dioxide 34 H Anion Gap 4 BUN 33 H Creatinine 0.63 Est Cr Clr Drug Dosing 72.4 eGFR 94.78 BUN/Creatinine Ratio 52.4 H Glucose 118 H Calcium 8.7 Random Cortisol 4.82 Blood Type O Negative Antibody Screen POSITIVE A Antibody Identification Anti-D Antibody ID Comment Crossmatch See Detail 04/10/25 04/10/25 04/10/25 12:48 16:05 19:57 WBC RBC Hgb 9.3 L 8.6 L 9.4 L Hct 27.7 L 26.7 L 28.5 L MCV MCH MCHC RDW Std Deviation RDW Coeff of Aissatou Plt Count PT INR APTT PTT Ratio Sodium Potassium Chloride Carbon Dioxide Anion Gap BUN Creatinine Est Cr Clr Drug Dosing eGFR BUN/Creatinine Ratio Glucose Calcium Random Cortisol Blood Type Antibody Screen Antibody Identification Antibody ID Comment Crossmatch 04/11/25 08:28 WBC 4.00 L RBC 3.07 L Hgb 9.2 L Hct 27.0 L MCV 87.9 MCH 30.0 MCHC 34.1 RDW Std Deviation 52.5 H RDW Coeff of Aissatou 17.2 H Plt Count 40 L PT INR APTT PTT Ratio Sodium 135 L Potassium 4.7 Chloride 94 L Carbon Dioxide 36 H Anion Gap 5 BUN 31 H Creatinine 0.61 Est Cr Clr Drug Dosing 73.7 eGFR 95.52 BUN/Creatinine Ratio 50.8 H Glucose 97 Calcium 8.8 Random Cortisol Blood Type Antibody Screen Antibody Identification Antibody ID Comment Crossmatch PG Care Time/CCT Total # of Minutes Spent Total Time Spent with Patient: Total time spent is greater than 50% in coordination of care (as documented) at patient's floor/unit and/or counseling patient: Coding Level of Care Code 66158 SUB INP/OBS CARE 3/50MIN Diagnoses Dark emesis K92.0
[2025-04-11] MEDS: PANTOPRAZOLE BOLUS/DRIP IV STA (19:06)
[2025-04-11] MEDS: DOCUSATE SODIUM/SENNA 50/8.6MG TAB PO SCH (21:55)
[2025-04-12 07:02] LABS: Anion Gap 3.0 (3-11); Blood Urea Nitrogen 26.0 mg/dl (6-23); Calcium 8.5 mg/dl (8.6-10.3); Carbon Dioxide 39.0 mmol/L (21-32); Chloride 96.0 mmol/L (98-107); Creatinine Clr Calc Pharmacy 79.2 ml/min; Glucose 94.0 mg/dl (70-99(Fasting)); Potassium 3.5 mmol/L (3.5-5.1); Sodium 138.0 mmol/L (136-145)
[2025-04-12 07:12] LABS: Hematocrit (blood only) 24.5 % (37.0-47.0); Hemoglobin 7.9 g/dl (12.0-16.0); Mean Corpuscular Hemoglobin 28.1 pg (25.0-34.0); Mean Corpuscular Volume 87.2 fL (80.0-100.0); Platelet Count 31 K/uL (130-400); RDW Standard Deviation 53.5 fL (36.4-46.3); Red Blood Count 2.81 M/uL (4.20-5.40); White Blood Count 2.96 K/ul (4.8-10.8)
[2025-04-12] MEDS: MAGNESIUM CITRATE 296 ML/BTL PO ONE (13:12)
[2025-04-12 14:23] LABS: Hematocrit (blood only) 30.5 % (37.0-47.0); Hemoglobin 10.3 g/dl (12.0-16.0)
--- NOTE | 2025-04-12 16:39 | Hospitalist Progress Note ---
Date of Service April 12, 2025 Assessment & Plan (1) Myelodysplastic syndrome: (2) Pancytopenia: (3) Hyperkalemia: (4) CHF (congestive heart failure): (5) Symptomatic anemia: Plan 70-year-old female with recent diagnosis of myelodysplastic syndrome [place] [facility] [place] No definitive Rx started to date since the dx was so recent. Patient was referred for admission due to symptomatic anemia with Hb <6. Patient reports having received 1 unit of PRBCs over the last few weeks prior to this admission. #Pancytopenia secondary to myelodysplastic syndrome - -s/p 3 units PRBCs this admit with improved H/H. Transfuse for Hg<7.5 -s/p 2 unit platelet. Transfuse for Plt <15K -recent TSH, B12, and folate all wnl -remains on acyclovir & fluconazole prophylaxis -cont allopurinol -uric acid wnl -consulted Dr. Leija - reviewed recs in note, appreciate consult. ideally treatment indicated for her MDS at this time, however, her performance status is very poor Hg dropped on AM labs, no evidence of significant bleeding. Repeat Hg at 2pm was 10.3, higher than 48h ago. Some component of volume shifts and lab error #Dark emesis, possible upper GI bleeding -transfused unit of platelets -consulted GI - appreciate -Hg stable 48h, see above -protonix 40 mg po bid, stay on PPI #Acute on chronic HFpEF -echo with preserved LV/RV function -stopped meto succ given her persistent low BPs and normal echo -diuresed earlier in admission and 04/10. wt 71.8-->67.8 -cont lasix 40 mg po daily in AM -monitor weight, I/O, AM BMP -probably needs extra lasix with transfusions #COPD with exacerbation -treated with bronchodilators and course of steroids stopped 04/11 -cont duonebs PRN -cont umeclidinium/vilanterol 1 puff daily -exacerbation seems to have resolved and recent dyspnea was related to pulmonary edema #hyperkalemia - treated with calcium, D50/insulin, and lokelma x 6 doses. New this admission and may have been hemolysis with blood draws or transfusion related hyperkalemia -resolved, K now trending down with lasix #Mild hyponatremia - -135 today #RANDELL - resolved -peak Cr 1.3 -stable at 0.6 #Chronic constipation - -last BM on 04/05 -cont miralax -cont senna/colace -bottle of mag citrate today #h/o bipolar disorder - -cont HS seroquel; on large dose of 200mg/day but this is chronic #b/l LE weakness - -outpatient [facility] med notes from 09/2023 referenced worsening weakness and ambulatory dysfunction even then -was having to use assistive devices and considerable family help in 2022 -last 6 months essentially non-ambulatory; deconditioning, at minimum, playing a role -checked lumbar spine CT - no critical lumbar stenosis seen -recent B12 level was wnl -CT head and CT c-spine -- no critical stenosis of the neck; no fractures; no ICH or skull fractures -patient would need intensive rehab to regain some of her walking ability; uncertain if she could tolerate such, and patient desires to return home with her family; she will have home PT/OT #chronic low back pain - -stopped tramadol - not effective -changed to norco 5's - there is interaction with diflucan - thus changed dosing interval to q8h prn -CT lumbar spine recently without fractures; considerable DJD present #prolonged QTc - resolved -on multiple QTc prolonging agents -most recent EKG - 373 Met with Charito, her daughter in room and sister on speakerphone. Reviewed clinical course, recommendations from oncologist, plan of care for discharge. Constipation bothering her. After extensive discussion, plan for home in AM with , follow up with Dr. Leija at cancer center Admission and Anticipated Discharge Date Admission Date: April 05, 2025 Subjective Pretty irritable today, daughter is in the room and her sister is on the speakerphone Says she feels terrible because no one tells her what is going on Not short of breath and eating ok No BM yet Has hx BRBPR on stool from her hemorrhoids, not this week Physical Exam 2 Physical Exam: Last 24h vitals reviewed GEN: sitting in chair HEENT: pupils equal, sclerae anicteric, moist MM RESP: comfortable WOB, no wheezing or crackles CV: reg no mrg, no JVD ABD: soft/nt/nd +BT : no bryson SKIN: warm and dry, no generalized rashes NEURO: AOx person, place, and situation. Face symmetric, speech normal, moves 4 ext spontaneously and equally Results & Data Results & Data Vital Signs (Past 12 Hours) Vital Signs Temp Pulse Pulse Resp BP BP Pulse Ox 04/12/25 16:00 98 H 04/12/25 15:25 36.3 C L 84 18 95/67 L 100 04/12/25 11:24 79 18 97/65 L 98 04/12/25 08:30 04/12/25 07:35 36.4 C L 68 18 123/71 99 04/12/25 07:30 67 O2 Del Method O2 Flow Rate 04/12/25 16:00 04/12/25 15:25 Nasal Cannula 2 04/12/25 11:24 Nasal Cannula 2 04/12/25 08:30 Nasal Cannula 2 04/12/25 07:35 Nasal Cannula 2 04/12/25 07:30 Laboratory Results 04/12/25 14:04 04/12/25 06:26 PG Care Time/CCT Total # of Minutes Spent Total Time Spent with Patient: I personally spent: 55 minutes today on clinical care activities including: reviewing chart notes and vital signs reviewing labs discussion with pet caretaker examining and counseling the patient counseling the patient's family writing orders documentation Coding Level of Care Code 31831 SUB INP/OBS CARE 3/50MIN Diagnoses Myelodysplastic syndrome D46.9 Pancytopenia D61.818 Hyperkalemia E87.5 CHF (congestive heart failure) I50.9 Symptomatic anemia D64.9
[2025-04-13] MEDS: SOD PHOSPHATE/SOD BIPHOSPHATE ENEMA 132 ML BTL PR ONE (17:02)
--- NOTE | 2025-04-13 17:48 | Hospitalist Progress Note ---
Date of Service April 13, 2025 Assessment & Plan (1) Myelodysplastic syndrome: (2) Pancytopenia: (3) Hyperkalemia: (4) CHF (congestive heart failure): (5) Symptomatic anemia: Plan 70-year-old female with recent diagnosis of myelodysplastic syndrome followed by [facility] [place]ology. No definitive Rx started to date since the dx was so recent. Patient was referred for admission due to symptomatic anemia with Hb <6. Patient reports having received 1 unit of PRBCs over the last few weeks prior to this admission. The reason she is still here at this point is severe obstipation #severe chronic constipation -last BM on 04/05, 04/04 KUB very large amount of retained stool -cont miralax and senna both bid -mag citrate and fleet enema not effective -dulcolax supp -ordered golytely -discussed several times with MAGO Monteiro #Pancytopenia secondary to myelodysplastic syndrome - -s/p 3 units PRBCs this admit with improved H/H. Transfuse for Hg<7.5 -s/p 2 unit platelet. Transfuse for Plt <15K -recent TSH, B12, and folate all wnl -remains on acyclovir & fluconazole prophylaxis -cont allopurinol -uric acid wnl -consulted Dr. Leija - reviewed recs in note, appreciate consult. ideally treatment indicated for her MDS at this time, however, her performance status is very poor -CBC AM #Dark emesis, possible upper GI bleeding -transfused unit of platelets -consulted GI - appreciate -Hg stable 48h, see above -protonix 40 mg po bid, stay on PPI #Acute on chronic HFpEF -echo with preserved LV/RV function -stopped meto succ given her persistent low BPs and normal echo -diuresed earlier in admission and 04/10. wt 71.8-->67.8 -cont lasix 40 mg po daily in AM -monitor weight, I/O, AM BMP -probably needs extra lasix with transfusions #COPD with exacerbation -treated with bronchodilators and course of steroids stopped 04/11 -cont duonebs PRN -cont umeclidinium/vilanterol 1 puff daily -exacerbation seems to have resolved and recent dyspnea was related to pulmonary edema #hyperkalemia - treated with calcium, D50/insulin, and lokelma x 6 doses. New this admission and may have been hemolysis with blood draws or transfusion related hyperkalemia -resolved, K now trending down with lasix -AM BMP #Mild hyponatremia - -135 #RANDELL - resolved -peak Cr 1.3 -stable at 0.6 #h/o bipolar disorder - -cont HS seroquel; on large dose of 200mg/day but this is chronic #b/l LE weakness - -outpatient [facility] med notes from 09/2023 referenced worsening weakness and ambulatory dysfunction even then -was having to use assistive devices and considerable family help in 2022 -last 6 months essentially non-ambulatory; deconditioning, at minimum, playing a role -checked lumbar spine CT - no critical lumbar stenosis seen -recent B12 level was wnl -CT head and CT c-spine -- no critical stenosis of the neck; no fractures; no ICH or skull fractures -patient would need intensive rehab to regain some of her walking ability; uncertain if she could tolerate such, and patient desires to return home with her family; she will have home PT/OT #chronic low back pain - -stopped tramadol - not effective -changed to norco 5's - there is interaction with diflucan - thus changed dosing interval to q8h prn -CT lumbar spine recently without fractures; considerable DJD present #prolonged QTc - resolved -on multiple QTc prolonging agents -most recent EKG - 373 home with HH soon, follow up with Dr. Leija at cancer center Admission and Anticipated Discharge Date Admission Date: April 05, 2025 Subjective still no BM despite entire bottle of mag citrate yesterday, bid miralax and senna, fleet enema today with no significant results having abdominal cramping Physical Exam Physical Exam: Last 24h vitals reviewed GEN: lying in bed HEENT: pupils equal, sclerae anicteric, moist MM RESP: comfortable WOB, no wheezing or crackles CV: reg no mrg, no JVD ABD: active bowel sounds, maybe mildly distended, nontender : bryson SKIN: warm and dry, no generalized rashes NEURO: AOx person, place, and situation. Face symmetric, speech normal, moves 4 ext spontaneously and equally Results & Data Results & Data Vital Signs (Past 12 Hours) Vital Signs Temp Pulse Pulse Resp BP Pulse Ox O2 Del Method 04/13/25 16:21 36.4 C L 74 16 101/69 97 Nasal Cannula 04/13/25 14:20 72 04/13/25 11:29 36.4 C L 76 16 100/60 95 Nasal Cannula 04/13/25 08:00 Room Air 04/13/25 07:52 82 04/13/25 07:33 36.5 C 86 16 94/52 L 96 Nasal Cannula O2 Flow Rate 04/13/25 16:21 1 04/13/25 14:20 04/13/25 11:29 1 04/13/25 08:00 04/13/25 07:52 04/13/25 07:33 1 PG Care Time/CCT Total # of Minutes Spent Total Time Spent with Patient: Total time spent is greater than 50% in coordination of care (as documented) at patient's floor/unit and/or counseling patient: Coding Level of Care Code 80412 SUB INP/OBS CARE 235MIN Diagnoses Myelodysplastic syndrome D46.9 Pancytopenia D61.818 Hyperkalemia E87.5 CHF (congestive heart failure) I50.9 Symptomatic anemia D64.9
[2025-04-13] MEDS: LAVAGE SOLUTION 4000ML PO SCH (20:20)
--- NOTE | 2025-04-14 14:43 | Hospitalist Progress Note ---
Date of Service April 14, 2025 Assessment & Plan (1) Myelodysplastic syndrome: (2) Pancytopenia: (3) Hyperkalemia: (4) CHF (congestive heart failure): (5) Symptomatic anemia: Plan 70-year-old female with recent diagnosis of myelodysplastic syndrome followed by [facility] oncology. No definitive Rx started to date since the dx was so recent. Patient was referred for admission due to symptomatic anemia with Hb <6. Patient reports having received 1 unit of PRBCs over the last few weeks prior to this admission. The reason she is still here at this point is severe obstipation - now resolving but having tons of stool. Voiding trial in progress. Plan home in AM AM CBC BMP and mag #severe chronic constipation -finally resolving after multiple laxatives and finally partial golytely prep -maintenance regimen once stools slow down #Pancytopenia secondary to myelodysplastic syndrome - -s/p 3 units PRBCs this admit with improved H/H. Transfuse for Hg<7.5 -s/p 2 unit platelet. Transfuse for Plt <15K -recent TSH, B12, and folate all wnl -remains on acyclovir & fluconazole prophylaxis -cont allopurinol -uric acid wnl -consulted Dr. Leija - reviewed recs in note, appreciate consult. ideally treatment indicated for her MDS at this time, however, her performance status is very poor -CBC AM #Dark emesis, possible upper GI bleeding -transfused unit of platelets -consulted GI - appreciate -Hg stable 48h, see above -protonix 40 mg po bid, stay on PPI #Acute on chronic HFpEF -echo with preserved LV/RV function -stopped meto succ given her persistent low BPs and normal echo -diuresed earlier in admission and 04/10. wt 71.8-->67.8 -cont lasix 40 mg po daily in AM -monitor weight, I/O, AM BMP -euvolemic -probably needs extra lasix with transfusions #COPD with exacerbation -treated with bronchodilators and course of steroids stopped 04/11 -cont duonebs PRN -cont umeclidinium/vilanterol 1 puff daily -exacerbation resolved and recent dyspnea was related to pulmonary edema #hyperkalemia - treated with calcium, D50/insulin, and lokelma x 6 doses. New this admission and may have been hemolysis with blood draws or transfusion related hyperkalemia -resolved, K now trending down with lasix -AM BMP #Mild hyponatremia - -135 #RANDELL - resolved -peak Cr 1.3 -stable at 0.6 #h/o bipolar disorder - -cont HS seroquel; on large dose of 200mg/day but this is chronic #b/l LE weakness - -outpatient [facility] med notes from 09/2023 referenced worsening weakness and ambulatory dysfunction even then -was having to use assistive devices and considerable family help in 2022 -last 6 months essentially non-ambulatory; deconditioning, at minimum, playing a role -checked lumbar spine CT - no critical lumbar stenosis seen -recent B12 level was wnl -CT head and CT c-spine -- no critical stenosis of the neck; no fractures; no ICH or skull fractures -patient would need intensive rehab to regain some of her walking ability; uncertain if she could tolerate such, and patient desires to return home with her family; she will have home PT/OT #chronic low back pain - -stopped tramadol - not effective -changed to norco 5's - there is interaction with diflucan - thus changed dosing interval to q8h prn -CT lumbar spine recently without fractures; considerable DJD present #prolonged QTc - resolved -on multiple QTc prolonging agents -most recent EKG - 373 home with HH in AM, follow up with Dr. Leija at cancer center Admission and Anticipated Discharge Date Admission Date: April 05, 2025 Subjective Now having lots of stool. MAs report its soft to loose but not watery Bryson out and no void so far, had retention before. Bladder scan pending Abdominal cramping/discomfort improved Physical Exam Physical Exam: Last 24h vitals reviewed GEN: lying in bed awake HEENT: pupils equal, sclerae anicteric, moist MM RESP: comfortable WOB, no wheezing or crackles CV: reg no mrg, no JVD ABD: active bowel sounds, nontender and nondistended : bryson is out SKIN: warm and dry, no generalized rashes NEURO: AOx person, place, and situation. Face symmetric, speech normal, moves 4 ext spontaneously and equally Results & Data Results & Data Vital Signs (Past 12 Hours) Vital Signs Temp Pulse Pulse Resp BP BP Pulse Ox 04/14/25 14:29 89 04/14/25 11:34 36.4 C L 85 16 99/63 L 96 07/13/25 08:00 04/14/25 07:56 87 04/14/25 07:37 36.3 C L 92 H 16 118/59 L 96 O2 Del Method O2 Flow Rate 04/14/25 14:29 04/14/25 11:34 Nasal Cannula 1 04/14/25 08:00 Room Air 04/14/25 07:56 04/14/25 07:37 Nasal Cannula 1 PG Care Time/CCT Total # of Minutes Spent Total Time Spent with Patient: Total time spent is greater than 50% in coordination of care (as documented) at patient's floor/unit and/or counseling patient: Coding Level of Care Code 63499 SUB INP/OBS CARE 235MIN Diagnoses Myelodysplastic syndrome D46.9 Pancytopenia D61.818 Hyperkalemia E87.5 CHF (congestive heart failure) I50.9 Symptomatic anemia D64.9
[2025-04-15 08:17] LABS: Hematocrit (blood only) 22.5 % (37.0-47.0); Hemoglobin 7.1 g/dl (12.0-16.0); Mean Corpuscular Hemoglobin 28.0 pg (25.0-34.0); Mean Corpuscular Volume 88.6 fL (80.0-100.0); Platelet Count 28 K/uL (130-400); RDW Standard Deviation 55.0 fL (36.4-46.3); Red Blood Count 2.54 M/uL (4.20-5.40); White Blood Count 2.12 K/ul (4.8-10.8)
[2025-04-15 08:23] LABS: Anion Gap 3.0 (3-11); Blood Urea Nitrogen 12.0 mg/dl (6-23); Calcium 8.3 mg/dl (8.6-10.3); Carbon Dioxide 40.0 mmol/L (21-32); Chloride 95.0 mmol/L (98-107); Creatinine Clr Calc Pharmacy 91.7 ml/min; Glucose 100.0 mg/dl (70-99(Fasting)); Magnesium 2.0 mg/dl (1.7-2.4); Potassium 3.6 mmol/L (3.5-5.1); Sodium 138.0 mmol/L (136-145)
[2025-04-15] MEDS ORDERED: SODIUM CHLORIDE 0.9% 100 ML IV PRN (08:25)
[2025-04-15 09:09] LABS: Acanthocytes 1+; Immature Granulocytes # (auto) 0.10 K/uL (0.01-0.20); Immature Granulocytes % (auto) 4.7 %; Ovalocytes 1+; Polychromasia 1+; Tear Drop Cells 1+
[2025-04-15] MEDS: GABAPENTIN 600 MG TAB PO SCH (09:29)
--- NOTE | 2025-04-15 15:00 | Hospitalist Progress Note ---
Date of Service April 15, 2025 Assessment & Plan (1) Myelodysplastic syndrome: (2) Pancytopenia: (3) Hyperkalemia: (4) CHF (congestive heart failure): (5) Symptomatic anemia: Plan 70-year-old female with recent diagnosis of myelodysplastic syndrome with blasts on recent BMBx followed by [facility] oncology. No definitive Rx started to date since the dx was so recent. Patient was referred for admission due to symptomatic anemia with Hb <6. Patient reports having received 1 unit of PRBCs over the last few weeks prior to this admission. Severe obstipation now resolved. Labs today with Hg 7.1 which is below her trigger of 7.5. Ordered unit of RBCs but not available locally because of an antibody and irradiated blood. Transfusion will be tonight Should go home in AM with family #severe chronic constipation -finally resolving after multiple laxatives and finally partial golytely prep -maintenance regimen - start on discharge. Daily to bid miralax and senna #Pancytopenia secondary to myelodysplastic syndrome - -s/p 3 units PRBCs this admit with improved H/H. Transfuse for Hg<7.5 - t ransfusing tonight for Hg 7.1 -s/p 2 unit platelet. Transfuse for Plt <15K. Adequate today at 28. -recent TSH, B12, and folate all wnl -remains on acyclovir & fluconazole prophylaxis -cont allopurinol -uric acid wnl -consulted Dr. Leija - reviewed recs in note, appreciate consult. ideally treatment indicated for her MDS at this time, however, her performance status is very poor -H/H in AM #Dark emesis, possible upper GI bleeding -transfused unit of platelets -consulted GI - appreciate -no evidence of significant ongoing bleeding -protonix 40 mg po bid, stay on PPI at discharge because of hx PUD and high risk for GIB, thrombocytopenia #Acute on chronic HFpEF -echo with preserved LV/RV function -stopped meto succ given her persistent low BPs and normal echo -diuresed earlier in admission and 04/10. wt 71.8-->67.8 -cont lasix 40 mg po daily in AM -monitor weight, I/O, reviewed BMP today which is unchanged -euvolemic -probably needs extra lasix with transfusions - looks dry today so no extra lasix ordered for transfusion tonight #COPD with exacerbation -treated with bronchodilators and course of steroids stopped 04/11 -cont duonebs PRN -cont umeclidinium/vilanterol 1 puff daily -exacerbation resolved and recent dyspnea was related to pulmonary edema #hyperkalemia - treated with calcium, D50/insulin, and lokelma x 6 doses. New this admission and may have been hemolysis with blood draws or transfusion related hyperkalemia -resolved, K now trending down with lasix -stable at 3.6 #Mild hyponatremia - -135 #RANDELL - resolved -peak Cr 1.3 -stable at 0.6 #h/o bipolar disorder - -cont HS seroquel; on large dose of 200mg/day but this is chronic #b/l LE weakness - -outpatient [facility] med notes from 09/2023 referenced worsening weakness and ambulatory dysfunction even then -was having to use assistive devices and considerable family help in 2022 -last 6 months essentially non-ambulatory; deconditioning, at minimum, playing a role -checked lumbar spine CT - no critical lumbar stenosis seen -recent B12 level was wnl -CT head and CT c-spine -- no critical stenosis of the neck; no fractures; no ICH or skull fractures -patient would need intensive rehab to regain some of her walking ability; uncertain if she could tolerate such, and patient desires to return home with her family; she will have home PT/OT #chronic low back pain - -stopped tramadol - not effective -changed to norco 5's - there is interaction with diflucan - thus changed dosing interval to q8h prn -CT lumbar spine recently without fractures; considerable DJD present #prolonged QTc - resolved -on multiple QTc prolonging agents -most recent EKG - 373 home with in AM - PT/OT and weekly CBC, follow up with Dr. Leija at cancer center Admission and Anticipated Discharge Date Admission Date: April 05, 2025 Subjective Excessive stool from obstipation and laxatives has slowed down. Abdominal pain/cramping has improved. Eating a little Physical Exam 2 Physical Exam: Last 24h vitals reviewed GEN: lying in bed awake no change to exam 04/15 HEENT: pupils equal, sclerae anicteric, moist MM RESP: comfortable WOB, no wheezing or crackles CV: reg no mrg, no JVD ABD: active bowel sounds, nontender and nondistended : bryson is out SKIN: warm and dry, no generalized rashes NEURO: AOx person, place, and situation. Face symmetric, speech normal, moves 4 ext spontaneously and equally Results & Data Results & Data Vital Signs (Past 12 Hours) Vital Signs Temp Pulse Pulse Resp BP Pulse Ox O2 Del Method 04/15/25 11:28 36.4 C L 76 18 95/64 L 98 Nasal Cannula 04/15/25 11:09 Nasal Cannula 04/15/25 07:49 65 18 89/58 L 97 Nasal Cannula 04/15/25 05:42 72 O2 Flow Rate 04/15/25 11:28 2 04/15/25 11:09 2 04/15/25 07:49 2 04/15/25 05:42 Laboratory Results 04/15/25 07:39 04/15/25 07:39 PG Care Time/CCT Total # of Minutes Spent Total Time Spent with Patient: Total time spent is greater than 50% in coordination of care (as documented) at patient's floor/unit and/or counseling patient: Coding Level of Care Code 40674 SUB INP/OBS CARE 2/35MIN Diagnoses Myelodysplastic syndrome D46.9 Pancytopenia D61.818 Hyperkalemia E87.5 CHF (congestive heart failure) I50.9 Symptomatic anemia D64.9
[2025-04-15] MEDS: SODIUM CHLORIDE 0.9% 250 ML IV ONE (16:10)
[2025-04-16 07:57] LABS: Hematocrit (blood only) 27.1 % (37.0-47.0); Hemoglobin 9.0 g/dl (12.0-16.0); Mean Corpuscular Hemoglobin 29.4 pg (25.0-34.0); Mean Corpuscular Volume 88.6 fL (80.0-100.0); Platelet Count 32 K/uL (130-400); RDW Standard Deviation 52.1 fL (36.4-46.3); Red Blood Count 3.06 M/uL (4.20-5.40); White Blood Count 3.16 K/ul (4.8-10.8)
[2025-04-16 08:13] LABS: Anion Gap 3.0 (3-11); Blood Urea Nitrogen 12.0 mg/dl (6-23); Calcium 8.5 mg/dl (8.6-10.3); Carbon Dioxide 39.0 mmol/L (21-32); Chloride 95.0 mmol/L (98-107); Creatinine Clr Calc Pharmacy 102.2 ml/min; Glucose 97.0 mg/dl (70-99(Fasting)); Potassium 3.9 mmol/L (3.5-5.1); Sodium 137.0 mmol/L (136-145)
[2025-04-16 11:41] VITALS: RESP 18; O2SAT 98
[2025-04-16 15:50] VITALS: BP 107/67; PULSE 75; TEMP 98.1
== END 2025-04-16 16:40 | disposition home health service (06) | DRG 811 ==
LOC: SUATTDRO → ED 15:57 → 2N 15:57 → SUATTDRO 17:56 → 2N 20:42 → SUATTDRO 04-05 18:01 → 2N 04-05 22:33

== ENCOUNTER 2025-05-06 19:12 | Inpatient (IN) ==
[2025-05-06 20:12] LABS: Chloride 95.0 mmol/L (98-107); Potassium 4.4 mmol/L (3.5-5.1); Sodium 137.0 mmol/L (136-145)
[2025-05-06] MEDS: FAMOTIDINE 20MG IV PUSH 20 MG/5 ML SYR IV STA (20:14)
[2025-05-06] MEDS: ONDANSETRON INJ 2 MG/ML 2 ML VIAL IV STA ×2 (20:15→23:48)
[2025-05-06] MEDS: SODIUM CHLORIDE 0.9% 500 ML IV SCH (20:15)
[2025-05-06 20:32] LABS: INR 1.1 (0.9-1.1); Prothrombin Time 11.5 Seconds (9.0-12.0)
[2025-05-06 20:41] LABS: Anion Gap 14.0 (3-11); Bilirubin,Total 1.5 mg/dl (0.2-1.0); Calcium 9.0 mg/dl (8.6-10.3); Carbon Dioxide 28.0 mmol/L (21-32); Magnesium 1.5 mg/dl (1.7-2.4)
[2025-05-06 20:44] LABS: Hematocrit (blood only) 22.3 % (37.0-47.0); Hemoglobin 7.3 g/dl (12.0-16.0); Mean Corpuscular Hemoglobin 28.7 pg (25.0-34.0); Mean Corpuscular Volume 87.8 fL (80.0-100.0); Platelet Count 99 K/uL (130-400); RDW Standard Deviation 52.2 fL (36.4-46.3); Red Blood Count 2.54 M/uL (4.20-5.40); White Blood Count 6.89 K/ul (4.8-10.8)
[2025-05-06 20:45] LABS: ALC (manual) 0.41 K/uL (1.2-3.4); ANC (manual) 4.00 K/uL (1.4-6.5); Blast # (manual) 0.34 K/uL (0-0); Polychromasia 1+; Tear Drop Cells 1+
[2025-05-06 20:47] LABS: Alanine Aminotransferase 8.0 U/L (7-52); Albumin Globulin Ratio 1.4 (0.9-2); Alkaline Phosphatase 110.0 U/L (34-104); Blood Urea Nitrogen 15.0 mg/dl (6-23); Creatinine Clr Calc Pharmacy 79.8 ml/min; Globulin 2.7 gm/dl (2.5-4.0); Glucose 160.0 mg/dl (70-99(Fasting)); Lipase 17.0 U/L (11-82); Total Protein 6.4 gm/dl (6.0-8.3)
--- NOTE | 2025-05-06 20:56 | XRay Report ---
EXAM: XR chest 1V portable CLINICAL HISTORY: dizzy TECHNIQUE: An X-ray image of the chest is obtained in AP projection. COMPARISON: 05/01/2025 FINDINGS: Pulmonary Parenchyma: Lungs are clear bilaterally. No evidence of consolidation, collapse, or focal opacities. No pulmonary nodules are identified. No evidence of pleural effusion or pleural thickening. Heart and Mediastinum: Heart size and shape are normal. No mediastinal widening or masses. No hilar or mediastinal lymphadenopathy. Atherosclerotic aorta. Bony Thorax: Bony thorax appears intact without fractures or deformities. Soft Tissues: Soft tissues overlying the chest wall are unremarkable. IMPRESSION: 1. No acute cardiopulmonary abnormalities are identified. 2. No significant change from prior xray. Electronically signed by Gavin Summers 05-06-2025 8:56 PM
[2025-05-06] MEDS: OPTIRAY 320 100ml IV ONE (21:26)
[2025-05-06] MEDS ORDERED: SODIUM CHLORIDE 0.9% 100 ML IV PRN (23:14)
--- NOTE | 2025-05-06 23:22 | CT Scan Report ---
Exam(s): CT ABDOMEN + PELVIS With Contrast IV Amt: 90 ml optiray 320 EXAM: CT Abdomen and Pelvis With Intravenous Contrast CLINICAL HISTORY: Reason for exam: abd pain, n/v. TECHNIQUE: Axial computed tomography images of the abdomen and pelvis with intravenous contrast. CTDI is 15.66 mGy and DLP is 685.6 mGy-cm. Automated exposure control was utilized for the study. A dose lowering technique was utilized adhering to the principles of ALARA. CONTRAST: Patient received 90 ml optiray 320 of IV contrast COMPARISON: No relevant prior studies available. FINDINGS: ABDOMEN: Liver: Unremarkable. Gallbladder and bile ducts: Cholelithiasis without evidence of acute cholecystitis. Pancreas: Unremarkable. Spleen: Unremarkable. Adrenals: Fat stranding around the adrenal glands which can be seen in the setting of adrenal insufficiency. Kidneys and ureters: Unremarkable. No obstructing stones. No hydronephrosis. Stomach and bowel: Moderate colorectal stool burden. No obstruction or inflammatory changes. PELVIS: Appendix: No findings to suggest acute appendicitis. Bladder: Unremarkable. Reproductive: Hysterectomy. ABDOMEN and PELVIS: Intraperitoneal space: Unremarkable. No free air. No significant fluid collection. Bones/joints: No acute fracture. Soft tissues: Unremarkable. Vasculature: Unremarkable. Lymph nodes: Unremarkable. IMPRESSION: 1. No acute abnormality identified. 2. Fat stranding around the adrenal glands which can be seen in the setting of adrenal insufficiency. 3. Cholelithiasis without evidence of acute cholecystitis. Electronically signed by: Elan Carrillo MD 05/06/25 23:21 PM
--- NOTE | 2025-05-06 23:42 | Emergency Department Note ---
Impression & Plan Dizziness, Anemia, Nausea & vomiting ED Provider Note ED Provider Note NAME: JENNIFER CARPENTER AGE:70 SEX: Female : 1955 ARRIVES VIA: EMS INFORMANT: Patient ED PROVIDER(s): Karyn Dotson DO CHIEF COMPLAINT: Nausea and vomiting, increased weakness, pale HPI: This is a 70 yo female who presents to the ER with concern for recurrent nausea and vomiting and increased dizziness and weakness. Family at bedside notes she has "blood cancer" and also appears more pale. They state the nausea and vomiting has been intermittent for several weeks and that she felt better after she was seen here a week ago and then symptoms began again today. Patient states she did have a bowel movement yesterday, no blood noted. She has been taking medication for constipation recently. Patient states no change in her urine. No fevers, but patient states she has had chills. She denies chest pain or shortness of breath. She states she has had left lower abdominal pain that radiates into her back additionally. Patient states she vomited 4-5 times today, no blood noted in emesis. No dietary changes. She is not currently taking any chemotherapy medication. PAST MEDICAL HISTORY:See Below PAST SURGICAL HISTORY:See Below FAMILY HISTORY:See Below SOCIAL HISTORY:See Below HOME MEDICATIONS:See Below ALLERGIES:See Below VITALS:See Below PHYSICAL EXAMINATION: GENERAL: alert, unwell appearing, well nourished, no distress, non-toxic EYE EXAM: normal conjunctiva, PERRL and EOM's grossly intact OROPHARYNX: no exudate, no erythema, lips, buccal mucosa, and tongue normal and mucous membranes are nova, poor dentition NECK: supple, no nuchal rigidity, no adenopathy, non-tender LUNGS: Clear to auscultation. Normal chest wall mechanics, no w/r/r HEART: no murmurs, S1 normal and S2 normal ABDOMEN: abdomen soft, mild LLQ tenderness, normo-active bowel sounds, no masses, no rebound or guarding. SKIN: no rashes, petechiae, orbruising; pale UPPER EXTREMITIES: upper extremities are grossly normal. FROM, nml pulses b/l. LOWER EXTREMITIES: No pitting edema. FROM, nml pulses b/l. NEURO EXAM: Normal sensorium, cranial nerves II-XII grossly intact, normal speech, no facial droop,nogross weakness of arms, no gross weakness of legs. Gross sensation intact. No ataxia. Vital Signs: reviewed and remarkable Differential Diagnosis: benign positional vertigo, dehydration, hypovolemia, anemia, tumor, hypoglycemia, electrolyte abnormalities, medication adr,, constipation, sbo, ACS, as well as others were entertained. MEDICAL DECISION MAKING: This is a 70-year-old female who presents emergency department with dizziness, weakness, nausea and vomiting. Patient was afebrile and vital signs stable. Labs drawn and sent, IV established, EKG and CXR performed at bedside and interpreted by me and patient was monitored on telemetry. Patient started on gentle IV fluid rehydration and given IV Zofran initially for the nausea. She was then sent for CT of the abdomen pelvis. Patient with persistent nausea was given a second dose of Zofran as well as a dose of IV Protonix. CT did not reveal any acute pathology to explain the nausea or vomiting. Family concerned for anemia given history and recent diagnosis of MDS. Patient noted to have a hemoglobin of 7.3. Per prior recommendations from heme-onc to keep patient's hemoglobin above 7.5, will transfuse 1 unit of packed red cells. Patient's platelets are improved compared to prior. Blood consent signed at bedside by patient's family. Case discussed with the hospitalist team for additional evaluation and management. Consultation(s): 0022: Discussed with Dr. Servin, [place] hospitalist team, for additional evaluation and mgmt. ER Treatment Provided: See below Diagnostics Interpreted By Me: -ECG: Normal sinus at 95, normal axis, normal intervals, no acute ST/T wave changes -Cardiac Monitoring: An order was placed for continuous cardiac monitoring. The monitor shows a rate of 98 with normal sinus rhythm. -Laboratory studies: As stated above and show below. -Imaging studies: ct a/p - no perf, no sbo Triage Nursing Note Reviewed Prior/Outside Records Reviewed - prior consult by Dr. Leija recommends keeping hbg >7.5; DC summary from April 2025 reviewed Past Med/Surg History Problem List Nausea & vomiting (Acute) Anemia (Acute) Dizziness (Acute) Generalized weakness (Acute) Acute dehydration (Acute) MDS (myelodysplastic syndrome) (Acute) Pancytopenia (Acute) COPD (chronic obstructive pulmonary disease) (Acute) Nausea (Acute) COPD (chronic obstructive pulmonary disease) Lymphoproliferative disorder (Acute) Pancytopenia (Acute) Chronic back pain Bipolar disorder Bilateral leg weakness Acute dyspnea (Acute) Leg swelling (Acute) Elevated brain natriuretic peptide (BNP) level (Acute) Constipation Medical History Pancytopenia Myelodysplastic syndrome CHF (congestive heart failure) Ambulatory dysfunction PUD (peptic ulcer disease) Surgical History H/O: hysterectomy Family History Other Family history non-contributory Social History Smoking Status: Never smoker Tobacco Type: Cigarettes Hx Alcohol Use: No Hx Substance Use: No Preferred Language: Norwegian Communication Ability: Effective Content Analyst Required: No Beliefs That Will Affect Care: None Current Living Situation: Family Feels Safe at Home: Yes Safety Concerns: Feels Safe At This Time Assistive Devices: Oxygen - Continuous and Wheelchair Allergies Allergies Allergy/AdvReac Type Severity Reaction Status Date / Time lithium Allergy Confusion Unverified 05/06/25 23:51 ibuprofen AdvReac Nausea Unverified 04/25/22 19:03 Home Meds Home Medications Medication Instructions Recorded Confirmed atorvastatin 10 mg tablet 10 mg PO HS 01/31/25 05/06/25 furosemide 40 mg tablet 40 mg PO QAM 01/31/25 05/06/25 gabapentin 800 mg tablet 800 mg PO TID 01/31/25 05/06/25 hydroxyzine HCl 25 mg tablet 25 mg PO QID PRN Anxiety 01/31/25 05/06/25 quetiapine 200 mg tablet 200 mg PO HS 01/31/25 05/06/25 albuterol sulfate 90 mcg/actuation 1 puff inhalation DIRECTED PRN 03/07/25 05/06/25 aerosol inhaler (Ventolin HFA) sob diphenhydramine 25 2 tab PO HS 05/06/25 05/06/25 mg-acetaminophen 500 mg tablet (Tylenol PM Extra Strength) Previous Rx's Medication Instructions Recorded acetaminophen 325 mg tablet 650 mg (2 x 325 mg) PO Q4H PRN 03/08/25 fever #10 tabs hydrocodone 5 mg-acetaminophen 325 1 tab PO Q8H PRN pain #20 tabs 04/13/25 mg tablet hydroxyzine HCl 25 mg tablet 25 mg PO HS sleep, anxiety #30 tabs 04/13/25 pantoprazole 40 mg tablet,delayed 40 mg PO DAILY #30 tabs 04/13/25 release polyethylene glycol 3350 17 gram 17 g PO BID #0 ea 04/13/25 oral powder packet (Miralax) sennosides 8.6 mg tablet (senna) 8.6 mg PO BID constipation #60 tabs 04/13/25 Results & Data (ED) Vital Signs Vital Signs - 24 hr 05/06/25 19:30 05/06/25 19:30 05/06/25 19:30 Temperature 36.8 C Temperature Source Oral Pulse Rate 94 H Pulse Rate [Apical] 96 H Respiratory Rate 16 16 Respiratory Effort / Characteristics Non-Labored Spontaneous Non-Labored Spontaneous Blood Pressure 134/57 L Blood Pressure [Right Arm] 134/57 L Blood Pressure Mean 82 Blood Pressure Mean [Right Arm] 82 Blood Pressure Position Lying Pulse Oximetry 100 100 100 Oxygen Delivery Method Nasal Cannula Nasal Cannula Nasal Cannula Oxygen Flow Rate 2 2 2 Sepsis Recent Fever Within 48 Hours No Sepsis New/Unexplained Change in Mental Status No Sepsis Action Taken by Nursing No Action Required 05/06/25 19:30 05/06/25 19:39 05/06/25 20:06 Temperature Temperature Source Pulse Rate 96 H 108 H 96 H Pulse Rate [Apical] Respiratory Rate 16 16 Respiratory Effort / Characteristics Blood Pressure Blood Pressure [Right Arm] Blood Pressure Mean Blood Pressure Mean [Right Arm] Blood Pressure Position Pulse Oximetry 100 100 Oxygen Delivery Method Nasal Cannula Nasal Cannula Oxygen Flow Rate 2 2 Sepsis Recent Fever Within 48 Hours Sepsis New/Unexplained Change in Mental Status Sepsis Action Taken by Nursing 05/06/25 21:02 05/06/25 23:00 05/06/25 23:34 Temperature Temperature Source Pulse Rate 86 Pulse Rate [Apical] 87 104 H Respiratory Rate 16 16 Respiratory Effort / Characteristics Non-Labored Spontaneous Blood Pressure Blood Pressure [Right Arm] 134/57 L 134/57 L Blood Pressure Mean Blood Pressure Mean [Right Arm] 82 82 Blood Pressure Position Pulse Oximetry 99 Oxygen Delivery Method Room Air Room Air Oxygen Flow Rate Sepsis Recent Fever Within 48 Hours Sepsis New/Unexplained Change in Mental Status Sepsis Action Taken by Nursing Laboratory Data 05/06/25 19:39 05/06/25 19:39 Lab Results 05/06/25 05/06/25 05/06/25 Range/Units 19:39 19:40 19:41 WBC 6.89 (4.8-10.8) K/ul RBC 2.54 L (4.20-5.40) M/uL Hgb 7.3 L (12.0-16.0) g/dl POC Hgb 8.2 L (12.0-16.0) g/dl Hct 22.3 L (37.0-47.0) % POC Hct 24 L (37-47) % MCV 87.8 (80.0-100.0) fL MCH 28.7 (25.0-34.0) pg MCHC 32.7 (32.0-36.0) g/dL RDW Std Deviation 52.2 H (36.4-46.3) fL RDW Coeff of Aissatou 16.8 H (11.5-14.5) % Plt Count 99 L (130-400) K/uL Neutrophils % (Manual) 58 % Lymphocytes % (Manual) 6 % Monocytes % (Manual) 20 % Basophils % (Manual) 4 % Metamyelocytes % (Man) 2 % Myelocytes % (Man) 5 % Blast Cells % (Manual) 5 % Neutrophils # (Manual) 4.00 (1.40-6.50) K/uL Total Absolute Neuts 4.00 (1.4-6.5) K/uL Lymphocytes # (Manual) 0.41 L (1.2-3.4) K/uL Total Abs Lymphocytes 0.41 L (1.2-3.4) K/uL Monocytes # (Manual) 1.38 H (0.11-0.59) K/uL Basophils # (Manual) 0.28 H (0-0.2) K/uL Metamyelocytes # (Man) 0.14 H (0-0) K/uL Myelocytes # (Manual) 0.34 H (0-0) K/uL Blast Cells # (Man) 0.34 H (0-0) K/uL Polychromasia 1+ Tear Drop Cells 1+ PT 11.5 (9.0-12.0) Seconds INR 1.1 (0.9-1.1) POC Sodium 134 L (135-144) mmol/L Sodium 137 (136-145) mmol/L POC Potassium 4.3 (3.3-5.0) mmol/L Potassium 4.4 (3.5-5.1) mmol/L POC Chloride 93 L (101-112) mmol/L Chloride 95 L (98-107) mmol/L Carbon Dioxide 28 (21-32) mmol/L POC Total CO2 26 (24-31) mmol/L Anion Gap 14 H (3-11) POC Anion Gap 21.0 (16-25) mmol/L POC BUN 14 (7-18) mg/dl BUN 15 (6-23) mg/dl Creatinine 0.55 L (0.6-1.2) mg/dl POC Creatinine 0.6 (0.6-1.3) mg/dl Est Cr Clr Drug Dosing 79.8 ml/min eGFR 97.94 BUN/Creatinine Ratio 27.3 H (10-20) Glucose 160 H (70-99(Fasting)) mg/dl POC Glucose (other) 156 H (70-99) mg/dl Calcium 9.0 (8.6-10.3) mg/dl POC Ioniz Calcium Fercho 1.11 L (1.12-1.32) mmol/l Magnesium 1.5 L (1.7-2.4) mg/dl Total Bilirubin 1.5 H (0.2-1.0) mg/dl AST 13 (13-39) U/L ALT 8 (7-52) U/L Alkaline Phosphatase 110 H (34-104) U/L Troponin I High Sens 5.6 (0-14) pg/ml Total Protein 6.4 (6.0-8.3) gm/dl Albumin 3.7 (3.4-5.0) gm/dl Globulin 2.7 (2.5-4.0) gm/dl Albumin/Globulin Ratio 1.4 (0.9-2) Lipase 17 (11-82) U/L Crossmatch See Detail Administered Medications Sodium Chloride (Nss) 1,000 mls @ 80 mls/hr IV .[id number] NANCY Stop: 05/07/25 15:01 Last Admin: 05/07/25 03:09 Dose: 80 mls/hr Documented By: KJP Discontinued Medications Sodium Chloride (Nss) 500 mls @ 80 mls/hr IV .[id number] NANCY Stop: 05/07/25 01:59 Last Infusion: 05/07/25 02:32 Dose: Infused Documented By: Admin: 05/06/25 20:15 Dose: 80 mls/hr Documented By: ERIC Famotidine (Pepcid 20mg Iv Push) 20 mg in 5 mls @ 2.5 mls/min IV NOW STA Stop: 05/06/25 19:45 Last Admin: 05/06/25 20:14 Dose: 2.5 mls/min Documented By: ERIC Pantoprazole Sodium (Protonix) 40 mg in 10 mls @ 5 mls/min IV NOW ONE Stop: 05/06/25 23:37 Last Admin: 05/06/25 23:49 Dose: 5 mls/min Documented By: ZAHRA Magnesium Sulfate/Dextrose (Magnesium Sulfate / D5w) 1 gm in 100 mls @ 100 mls/hr IV NOW STA Stop: 05/07/25 00:37 Last Infusion: 05/07/25 01:06 Dose: Infused Documented By: Admin: 05/06/25 23:49 Dose: 100 mls/hr Documented By: ZAHRA Ioversol (Optiray 320 100ml) 90 ml IV ONCE ONE Stop: 05/06/25 21:27 Last Admin: 05/06/25 21:26 Dose: 90 ml Documented By: ALIYAH Ondansetron HCl (Ondansetron Inj 2 Mg/Ml 2 Ml Vial) 4 mg IV NOW STA Stop: 05/06/25 19:45 Last Admin: 05/06/25 20:15 Dose: 4 mg Documented By: ERIC Ondansetron HCl (Ondansetron Inj 2 Mg/Ml 2 Ml Vial) 4 mg IV NOW STA Stop: 05/06/25 23:37 Last Admin: 05/06/25 23:48 Dose: 4 mg Documented By: ZAHRA Imaging Data Radiologist's Impression: Chest X-Ray 05/06/25 19:32 EXAM: XR chest 1V portable CLINICAL HISTORY: dizzy TECHNIQUE: An X-ray image of the chest is obtained in AP projection. COMPARISON: 05/01/2025 FINDINGS: Pulmonary Parenchyma: Lungs are clear bilaterally. No evidence of consolidation, collapse, or focal opacities. No pulmonary nodules are identified. No evidence of pleural effusion or pleural thickening. Heart and Mediastinum: Heart size and shape are normal. No mediastinal widening or masses. No hilar or mediastinal lymphadenopathy. Atherosclerotic aorta. Bony Thorax: Bony thorax appears intact without fractures or deformities. Soft Tissues: Soft tissues overlying the chest wall are unremarkable. IMPRESSION: 1. No acute cardiopulmonary abnormalities are identified. 2. No significant change from prior xray. Electronically signed by aGvin Summers 05-06-2025 8:56 PM Abdomen/Pelvis CT 05/06/25 19:44 Exam(s): CT ABDOMEN + PELVIS With Contrast IV Amt: 90 ml optiray 320 EXAM: CT Abdomen and Pelvis With Intravenous Contrast CLINICAL HISTORY: Reason for exam: abd pain, n/v. TECHNIQUE: Axial computed tomography images of the abdomen and pelvis with intravenous contrast. CTDI is 15.66 mGy and DLP is 685.6 mGy-cm. Automated exposure control was utilized for the study. A dose lowering technique was utilized adhering to the principles of ALARA. CONTRAST: Patient received 90 ml optiray 320 of IV contrast COMPARISON: No relevant prior studies available. FINDINGS: ABDOMEN: Liver: Unremarkable. Gallbladder and bile ducts: Cholelithiasis without evidence of acute cholecystitis. Pancreas: Unremarkable. Spleen: Unremarkable. Adrenals: Fat stranding around the adrenal glands which can be seen in the setting of adrenal insufficiency. Kidneys and ureters: Unremarkable. No obstructing stones. No hydronephrosis. Stomach and bowel: Moderate colorectal stool burden. No obstruction or inflammatory changes. PELVIS: Appendix: No findings to suggest acute appendicitis. Bladder: Unremarkable. Reproductive: Hysterectomy. ABDOMEN and PELVIS: Intraperitoneal space: Unremarkable. No free air. No significant fluid collection. Bones/joints: No acute fracture. Soft tissues: Unremarkable. Vasculature: Unremarkable. Lymph nodes: Unremarkable. IMPRESSION: 1. No acute abnormality identified. 2. Fat stranding around the adrenal glands which can be seen in the setting of adrenal insufficiency. 3. Cholelithiasis without evidence of acute cholecystitis. Electronically signed by: Elan Carrillo MD 05/06/25 23:21 PM Discharge Plan Visit Data Chief Complaint: Dizziness Stated Complaint: N/V, DIZZINESS ED Provider: Karyn Dotson Discharge Problem: Dizziness, Anemia, Nausea & vomiting Patient Disposition: Admitted As Inpatient Condition: Fair Discharge Instructions Interventions: ED Discharge Assessment Last Done: 05/07/25 02:16
[2025-05-06] MEDS: MAGNESIUM SULFATE / D5W 1 GM/100 ML BAG IV STA (23:49)
[2025-05-06] MEDS: PANTOprazole 40 MG/10 ML SYR IV ONE (23:49)
--- NOTE | 2025-05-07 00:41 | History & Physical Report ---
Date of Service May 07, 2025 Assessment & Plan (1) Nausea & vomiting: (2) Anemia: (3) MDS (myelodysplastic syndrome): (4) COPD (chronic obstructive pulmonary disease): (5) Constipation: Plan 70yo female with MDS presenting with several days of nausea and vomiting as well as chills, CARMONA and generalized weakness. Patient anemic with Hgb of 7.3. Per Hematology consultation note, transfusion threshold of Hgb < 7.5 #Nausea and vomiting -etiology unclear. Patient afebrile, no leukocytosis -Admit to medical -NSS at 80mL/hr x 1L ordered -Zofran PRN -Mg repletion -Repeat chemistry in AM #Anemia/MDS - increased number of blasts present on differential. -Check peripheral blood smear -Transfuse 1u PRBCs - irradiated. Blood will need to be ordered from the [place]. 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 Adequate oxygenation now on 2L -Continue supplemental O2 -Albuterol PRN #Hyperlipidemia -Continue Atorvastatin 10m gpo qHS #Constipation - moderate stool burden noted on CT -Dulcolax 10mg OR daily PRN -Colace 100mg po BID PRN -Miralax 17gm PO BID -Senna 8.6mg po BID #Mental Health -Continue Seroquel 200mg po qHS -Hydroxyzine 25mg po qHS and 25mg po QID PRN anxiety #GERD -Protonix 40mg po daily History of Present Illness Chief Complaint: nausea, vomiting Primary Care Provider: Damien Gutierrez DO Sintia Bhatt is a 70yo female with history of newly diagnosed MDS presenting with nausea, vomiting, weakness, dizziness, SOB/CARMONA and chills. Patient was recently admitted to [facility] from 04/05 - 04/16/25 after presenting with symptomatic anemia with Hgb of as well as severe obstipation. Patient was evaluated by Heme/Onc in consult, was transfused 1u PRBCs and ultimately discharged home. Family states that they had home nursing for several sessions for blood draws but the nursing has not continued. Patient has had ongoing nausea with 4-5 episodes of non-bloody/non-bilious emesis as well as pallor, generalized weakness, dizziness, chills and CARMONA. Pat remynt additionally complaining of some back pain as well as LLQ abdominal pain. Family is concerned that the patient looks yellow. In the ER she is afebrile, HD stable. Ongoing nausea with several episodes of vomiting. ER Course: Famotidine 20mg IV Protonix 40mg IV NSS x 500mL Magnesium x 1gm IV Zofran 4mg IV x 2 doses Allergies Allergy/AdvReac Type Severity Reaction Status Date / Time lithium Allergy Confusion Unverified 05/06/25 23:51 ibuprofen AdvReac Nausea Unverified 04/25/22 19:03 Home Medications Medication Instructions Recorded Confirmed Type atorvastatin 10 mg tablet 10 mg PO HS 01/31/25 05/06/25 History furosemide 40 mg tablet 40 mg PO QAM 01/31/25 05/06/25 History gabapentin 800 mg tablet 800 mg PO TID 01/31/25 05/06/25 History hydroxyzine HCl 25 mg tablet 25 mg PO QID PRN Anxiety 01/31/25 05/06/25 History quetiapine 200 mg tablet 200 mg PO HS 01/31/25 05/06/25 History albuterol sulfate 90 mcg/actuation 1 puff inhalation DIRECTED PRN 03/07/25 05/06/25 History aerosol inhaler (Ventolin HFA) sob acetaminophen 325 mg tablet 650 mg (2 x 325 mg) PO Q4H PRN 03/08/25 05/06/25 Rx fever #10 tabs hydrocodone 5 mg-acetaminophen 325 1 tab PO Q8H PRN pain #20 tabs 04/13/25 05/06/25 Rx mg tablet hydroxyzine HCl 25 mg tablet 25 mg PO HS sleep, anxiety #30 tabs 04/13/25 05/06/25 Rx pantoprazole 40 mg tablet,delayed 40 mg PO DAILY #30 tabs 04/13/25 05/06/25 Rx release polyethylene glycol 3350 17 gram 17 g PO BID #0 ea 04/13/25 05/06/25 Rx oral powder packet (Miralax) sennosides 8.6 mg tablet (senna) 8.6 mg PO BID constipation #60 tabs 04/13/25 05/06/25 Rx diphenhydramine 25 2 tab PO HS 08/04/25 08/04/25 History mg-acetaminophen 500 mg tablet (Tylenol PM Extra Strength) Past Med/Surg History Problem List Nausea & vomiting (Acute) Anemia (Acute) Dizziness (Acute) Generalized weakness (Acute) Acute dehydration (Acute) MDS (myelodysplastic syndrome) (Acute) Pancytopenia (Acute) COPD (chronic obstructive pulmonary disease) (Acute) Nausea (Acute) COPD (chronic obstructive pulmonary disease) Lymphoproliferative disorder (Acute) Pancytopenia (Acute) Chronic back pain Bipolar disorder Bilateral leg weakness Acute dyspnea (Acute) Leg swelling (Acute) Elevated brain natriuretic peptide (BNP) level (Acute) Constipation Medical History Pancytopenia Myelodysplastic syndrome CHF (congestive heart failure) Ambulatory dysfunction PUD (peptic ulcer disease) Surgical History H/O: hysterectomy Family History Other Family history non-contributory Social History Smoking Status: Former smoker Tobacco Type: Cigarettes Hx Alcohol Use: No Hx Substance Use: No Preferred Language: [place]ankan Communication Ability: Effective Field Operations Coordinator Required: No Beliefs That Will Affect Care: None Current Living Situation: Family Feels Safe at Home: Yes Assistive Devices: Cane, Walker and Wheelchair Review of Systems Review of Systems: All systems reviewed & are unremarkable except as noted in HPI & below Physical Exam Physical Exam: General: patient ill in appearance, NAD, answers questions appropriately Skin: +pallor, no rash HEENT: NC/AT, PERRL, EOMI, anicteric sclera, conjunctiva without injection, external ear normal to inspection and nontender, nares patent, dry mucus membranes, poor dentition, no oropharyngeal lesions, neck supple, trachea midline, no LAD, no thyromegaly, no JVD Heart: +S1/S2, regular, no m/r/g Lungs: equal air entry bilaterally, no rales/rhonchi/wheezes Abd: +BS, soft, tender in the lower abdomen, no rebound/guarding Ext: warm, 2+ pulses in UE/LE bilaterally, no clubbing/cyanosis, trace LLE edema (chronic and unchanged per patient and family) Neuro: nonfocal, patient AA&O x 4, speech intact, no facial droop, moving all extremities on command with equal strength 5/5 Results & Data Results & Data Vital Signs (Past 12 Hours) Vital Signs Temp Pulse Pulse Resp BP BP Pulse Ox 05/06/25 23:34 86 05/06/25 23:00 104 H 16 134/57 L 05/06/25 21:02 87 16 134/57 L 99 05/06/25 20:06 96 H 16 100 05/06/25 19:39 108 H 05/06/25 19:30 96 H 16 100 05/06/25 19:30 96 H 16 134/57 L 100 05/06/25 19:30 100 05/06/25 19:30 36.8 C 94 H 16 134/57 L 100 O2 Del Method O2 Flow Rate 05/06/25 23:34 05/06/25 23:00 Room Air 05/06/25 21:02 Room Air 05/06/25 20:06 Nasal Cannula 2 05/06/25 19:39 05/06/25 19:30 Nasal Cannula 2 05/06/25 19:30 Nasal Cannula 2 05/06/25 19:30 Nasal Cannula 2 05/06/25 19:30 Nasal Cannula 2 Laboratory Results Laboratory Results WBC 6.89 K/ul (4.8-10.8) 05/06/25 19:39 RBC 2.54 M/uL (4.20-5.40) L 05/06/25 19:39 Hgb 7.3 g/dl (12.0-16.0) L 05/06/25 19:39 POC Hgb 8.2 g/dl (12.0-16.0) L 05/06/25 19:41 Hct 22.3 % (37.0-47.0) L 05/06/25 19:39 POC Hct 24 % (37-47) L 05/06/25 19:41 MCV 87.8 fL (80.0-100.0) 05/06/25 19:39 MCH 28.7 pg (25.0-34.0) 05/06/25 19:39 MCHC 32.7 g/dL (32.0-36.0) 05/06/25 19:39 RDW Std Deviation 52.2 fL (36.4-46.3) H 05/06/25 19:39 RDW Coeff of Aissatou 16.8 % (11.5-14.5) H 05/06/25 19:39 Plt Count 99 K/uL (130-400) L 05/06/25 19:39 Neutrophils % (Manual) 58 % 05/06/25 19:39 Lymphocytes % (Manual) 6 % 05/06/25 19:39 Monocytes % (Manual) 20 % 05/06/25 19:39 Basophils % (Manual) 4 % 05/06/25 19:39 Metamyelocytes % (Man) 2 % 05/06/25 19:39 Myelocytes % (Man) 5 % 05/06/25 19:39 Blast Cells % (Manual) 5 % 05/06/25 19:39 Neutrophils # (Manual) 4.00 K/uL (1.40-6.50) 05/06/25 19:39 Total Absolute Neuts 4.00 K/uL (1.4-6.5) 05/06/25 19:39 Lymphocytes # (Manual) 0.41 K/uL (1.2-3.4) L 05/06/25 19:39 Total Abs Lymphocytes 0.41 K/uL (1.2-3.4) L 05/06/25 19:39 Monocytes # (Manual) 1.38 K/uL (0.11-0.59) H 05/06/25 19:39 Basophils # (Manual) 0.28 K/uL (0-0.2) H 05/06/25 19:39 Metamyelocytes # (Man) 0.14 K/uL (0-0) H 05/06/25 19:39 Myelocytes # (Manual) 0.34 K/uL (0-0) H 05/06/25 19:39 Blast Cells # (Man) 0.34 K/uL (0-0) H 05/06/25 19:39 Polychromasia 1+ 05/06/25 19:39 Tear Drop Cells 1+ 05/06/25 19:39 PT 11.5 Seconds (9.0-12.0) 05/06/25 19:39 INR 1.1 (0.9-1.1) 05/06/25 19:39 POC Sodium 134 mmol/L (135-144) L 05/06/25 19:41 Sodium 137 mmol/L (136-145) 05/06/25 19:39 POC Potassium 4.3 mmol/L (3.3-5.0) 05/06/25 19:41 Potassium 4.4 mmol/L (3.5-5.1) 05/06/25 19:39 POC Chloride 93 mmol/L (101-112) L 05/06/25 19:41 Chloride 95 mmol/L (98-107) L 05/06/25 19:39 Carbon Dioxide 28 mmol/L (21-32) 05/06/25 19:39 POC Total CO2 26 mmol/L (24-31) 05/06/25 19:41 Anion Gap 14 (3-11) H 05/06/25 19:39 POC Anion Gap 21.0 mmol/L (16-25) 05/06/25 19:41 POC BUN 14 mg/dl (7-18) 05/06/25 19:41 BUN 15 mg/dl (6-23) 05/06/25 19:39 Creatinine 0.55 mg/dl (0.6-1.2) L 05/06/25 19:39 POC Creatinine 0.6 mg/dl (0.6-1.3) 05/06/25 19:41 Est Cr Clr Drug Dosing 79.8 ml/min 05/06/25 19:39 eGFR 97.94 05/06/25 19:39 BUN/Creatinine Ratio 27.3 (10-20) H 05/06/25 19:39 Glucose 160 mg/dl (70-99(Fasting)) H 05/06/25 19:39 POC Glucose (other) 156 mg/dl (70-99) H 05/06/25 19:41 Calcium 9.0 mg/dl (8.6-10.3) 05/06/25 19:39 POC Ioniz Calcium Fercho 1.11 mmol/l (1.12-1.32) L 05/06/25 19:41 Magnesium 1.5 mg/dl (1.7-2.4) L 05/06/25 19:39 Total Bilirubin 1.5 mg/dl (0.2-1.0) H 05/06/25 19:39 AST 13 U/L (13-39) 05/06/25 19:39 ALT 8 U/L (7-52) 05/06/25 19:39 Alkaline Phosphatase 110 U/L (34-104) H 05/06/25 19:39 Troponin I High Sens 5.6 pg/ml (0-14) 05/06/25 19:39 Total Protein 6.4 gm/dl (6.0-8.3) 05/06/25 19:39 Albumin 3.7 gm/dl (3.4-5.0) 05/06/25 19:39 Globulin 2.7 gm/dl (2.5-4.0) 05/06/25 19:39 Albumin/Globulin Ratio 1.4 (0.9-2) 05/06/25 19:39 Lipase 17 U/L (11-82) 05/06/25 19:39 Crossmatch See Detail 05/06/25 19:40 Impressions Chest X-Ray 05/06/25 19:32 EXAM: XR chest 1V portable CLINICAL HISTORY: dizzy TECHNIQUE: An X-ray image of the chest is obtained in AP projection. COMPARISON: 05/01/2025 FINDINGS: Pulmonary Parenchyma: Lungs are clear bilaterally. No evidence of consolidation, collapse, or focal opacities. No pulmonary nodules are identified. No evidence of pleural effusion or pleural thickening. Heart and Mediastinum: Heart size and shape are normal. No mediastinal widening or masses. No hilar or mediastinal lymphadenopathy. Atherosclerotic aorta. Bony Thorax: Bony thorax appears intact without fractures or deformities. Soft Tissues: Soft tissues overlying the chest wall are unremarkable. IMPRESSION: 1. No acute cardiopulmonary abnormalities are identified. 2. No significant change from prior xray. Electronically signed by Gavin Summers 05-06-2025 8:56 PM Abdomen/Pelvis CT 05/06/25 19:44 Exam(s): CT ABDOMEN + PELVIS With Contrast IV Amt: 90 ml optiray 320 EXAM: CT Abdomen and Pelvis With Intravenous Contrast CLINICAL HISTORY: Reason for exam: abd pain, n/v. TECHNIQUE: Axial computed tomography images of the abdomen and pelvis with intravenous contrast. CTDI is 15.66 mGy and DLP is 685.6 mGy-cm. Automated exposure control was utilized for the study. A dose lowering technique was utilized adhering to the principles of ALARA. CONTRAST: Patient received 90 ml optiray 320 of IV contrast COMPARISON: No relevant prior studies available. FINDINGS: ABDOMEN: Liver: Unremarkable. Gallbladder and bile ducts: Cholelithiasis without evidence of acute cholecystitis. Pancreas: Unremarkable. Spleen: Unremarkable. Adrenals: Fat stranding around the adrenal glands which can be seen in the setting of adrenal insufficiency. Kidneys and ureters: Unremarkable. No obstructing stones. No hydronephrosis. Stomach and bowel: Moderate colorectal stool burden. No obstruction or inflammatory changes. PELVIS: Appendix: No findings to suggest acute appendicitis. Bladder: Unremarkable. Reproductive: Hysterectomy. ABDOMEN and PELVIS: Intraperitoneal space: Unremarkable. No free air. No significant fluid collection. Bones/joints: No acute fracture. Soft tissues: Unremarkable. Vasculature: Unremarkable. Lymph nodes: Unremarkable. IMPRESSION: 1. No acute abnormality identified. 2. Fat stranding around the adrenal glands which can be seen in the setting of adrenal insufficiency. 3. Cholelithiasis without evidence of acute cholecystitis. Electronically signed by: Elan Carrillo MD 05/06/25 23:21 PM Code Status & VTE Plan VTE Prophylaxis Plan VTE Prophylaxis will be ordered: Yes PG Care Time/CCT Total # of Minutes Spent Total Time Spent with Patient: Total time spent is greater than 50% in coordination of care (as documented) at patient's floor/unit and/or counseling patient: Coding Level of Care Code 07108 INT INP/OBS CARE 3/75MIN Diagnoses Nausea & vomiting R11.2 Anemia D64.9 MDS (myelodysplastic syndrome) D46.9 COPD (chronic obstructive pulmonary disease) J44.9 COPD type: unspecified COPD Constipation K59.00 (4) COPD (chronic obstructive pulmonary disease) COPD type: unspecified COPD Qualified Code(s): J44.9 - Chronic obstructive pulmonary disease, unspecified
[2025-05-07] MEDS ORDERED: ALBUTEROL HFA 8 GM INHALER INH PRN (02:32)
[2025-05-07] MEDS ORDERED: ACETAMINOPHEN 325 MG TAB PO PRN (02:32)
[2025-05-07] MEDS: SODIUM CHLORIDE 0.9% 1,000 ML IV SCH (03:09)
--- NOTE | 2025-05-07 07:41 | Hospitalist Progress Note ---
Date of Service May 07, 2025 At bedside today, pt presents with intractable N & V, since Tuesday, 05/03. Pt's vomit today consists of moments of clear liquid, non bloody, non bilious, spit up, with routine dry heaving. On examination, pt presents in discomfort, with additional mild abdominal pain. During hospital rounds, pt indicated that she refused to eat or take medication this morning due to discomfort. Pts last bowel movement was Tuesday, with a hx of hospitalized obstipation. Pt is recently diagnosed with MDS. Lab's ordered the previous night indicated an anemia with Hg of 6.9, and blood transfusion was scheduled for today. Assessment & Plan (1) Nausea & vomiting: Plan: -Zofran, prochlorperazine, PPI, & Sucralfate order for cessation of N& V, and esophagus and gut relief (2) Anemia: Plan: -Blood transfusion administered today h/h to follow in morning -pt displaying no signs of hypotension or tachycardia (3) Constipation: Plan: -Miralax increased to 34 g -Senna 8.6 mg PO (4) Hyperlipidemia: Plan: -Atorvastatin continued at 10 mg po (5) GERD (gastroesophageal reflux disease): Plan: -see N&V plan, for GERD coverage as well (6) MDS (myelodysplastic syndrome): Plan: -Newly diagnosed MDS -Oncology & Hematology consult ordered (7) Mental health disorder: Plan: -Continued Seroquel 200 mg PO HS (8) COPD (chronic obstructive pulmonary disease): Plan: -Supplemental Oxygen PRN Plan DVT Prophylaxis: PT on Enoxaparin Admission and Anticipated Discharge Date Admission Date: May 07, 2025 Supervising Physician Co-Signing Physician Notes I personally examined the patient and verified shields points of history and exam, discussed case, and agree with decision making and plan documented by Dr. Patel. Patient is 70 yr old female with past medical history pertinent for MDS on admission for intractable nausea and vomiting in setting of anemia. Hgb 6.9 this am, 1 U irradiated PRBC transfused, followup post transfusion H/H. On IVF in setting of n/v. Monitor electrolytes closely. Check am cortisol. PT/OT consulted. Review of Systems Review of Systems: All systems reviewed & are unremarkable except as noted in HPI & below Physical Exam Constitutional: WD/WN, vitals as above ENMT: external ear and nose normal, oropharynx normal Neck: trachea midline, no thyromegaly Respiratory: normal respiratory effort, lungs clear to auscultation Cardiovascular: RRR, no murmur, no edema Skin: no rashes, warm and dry Lymphatic: no cervical or axillary lymphadenopathy Results & Data Results & Data Vital Signs (Past 12 Hours) Vital Signs Temp Pulse Pulse Pulse Resp BP BP 05/07/25 07:12 84 05/07/25 03:12 37.0 C 98 H 18 120/71 05/07/25 02:44 05/07/25 02:16 78 17 127/74 05/07/25 01:00 83 17 131/74 05/06/25 23:34 86 05/06/25 23:00 104 H 16 134/57 L 05/06/25 21:02 87 16 134/57 L 05/06/25 20:06 96 H 16 Pulse Ox O2 Del Method O2 Flow Rate 05/07/25 07:12 05/07/25 03:12 100 Nasal Cannula 2 05/07/25 02:44 Nasal Cannula 2 05/07/25 02:16 98 Nasal Cannula 2 05/07/25 01:00 98 Nasal Cannula 2 05/06/25 23:34 05/06/25 23:00 Room Air 05/06/25 21:02 99 Room Air 05/06/25 20:06 100 Nasal Cannula 2 Resident Activity Tracking Resident Involvement: Resident Care Provided Care Provided: Adult Hospital Medicine
[2025-05-07 08:16] LABS: ALC (manual) 0.25 K/uL (1.2-3.4); ANC (manual) 3.68 K/uL (1.4-6.5); Blast # (manual) 0.38 K/uL (0-0); Hematocrit (blood only) 20.0 % (37.0-47.0); Hemoglobin 6.9 g/dl (12.0-16.0); Mean Corpuscular Hemoglobin 30.8 pg (25.0-34.0); Mean Corpuscular Volume 89.3 fL (80.0-100.0); Platelet Count 74 K/uL (130-400); Polychromasia 1+; RDW Standard Deviation 50.5 fL (36.4-46.3); Red Blood Count 2.24 M/uL (4.20-5.40); White Blood Count 6.35 K/ul (4.8-10.8)
[2025-05-07] MEDS: ONDANSETRON INJ 2 MG/ML 2 ML VIAL IV PRN (08:17)
--- NOTE | 2025-05-07 08:32 | Electrocardiogram Report ---
Test Reason : Blood Pressure : */* mmHG Vent. Rate : 95 BPM Atrial Rate : 95 BPM P-R Int : 146 ms QRS Dur : 64 ms QT Int : 338 ms P-R-T Axes : 68 11 232 degrees QTcB Int : 424 ms Normal sinus rhythm with sinus arrhythmia Low voltage QRS Nonspecific T wave abnormality Abnormal ECG When compared with ECG of 01-May-2025 17:27, No significant change was found Confirmed by Igor Rizvi ([id number]) on 05/07/2025 8:32:11 AM Referred By: REFERRED SELF Confirmed By: Igor Rizvi
[2025-05-07] MEDS: GABAPENTIN 800 MG TAB PO SCH (09:27)
[2025-05-07] MEDS: ENOXAPARIN INJ 30 MG/0.3 ML SYR SQ SCH (09:27)
[2025-05-07] MEDS: POLYETHYLENE (MIRALAX) 17 GM PACK PO SCH ×2 (09:27→20:53)
[2025-05-07] MEDS: SENNA 8.6 MG TAB PO SCH (09:27)
[2025-05-07] MEDS: PANTOprazole 40 MG/10 ML SYR IV SCH (12:54)
[2025-05-07] MEDS: SUCRALFATE 1 GM/10 ML UDC PO SCH (12:54)
[2025-05-07] MEDS: FAMOTIDINE 20MG IV PUSH 20 MG/5 ML SYR IV SCH (12:54)
[2025-05-07] MEDS: PROCHLORPERAZINE 5 MG in SYRINGE 4 ML IV PRN (12:55)
[2025-05-07] MEDS: ONDANSETRON INJ 2 MG/ML 2 ML VIAL IV SCH (14:14)
[2025-05-07] MEDS: ATORVASTATIN 10 MG TAB PO SCH (20:52)
--- NOTE | 2025-05-08 06:53 | Hospitalist Progress Note ---
Date of Service May 08, 2025 Assessment & Plan (1) Nausea & vomiting: Plan: - The cause of pts N & V, may have a multifactorial cause Including her newly diagnosed MDS, obstipation, and hx of esophagitis/GERD - Based on today's bedside findings, the combination of Zofran,prochlorperazine, PPI, & Sucralfate have improved the N &V in addition to providing continued protection for the esophagus and gut relief - Advance diet as tolerated (2) Anemia: Plan: -The MDS is the likely cause of the Anemia, blasts found to be elevated with numerous -Blood transfusion administered yesterday due to pts Hg of 6.9. - 2 bags of Blood products administered yesterday, h/h followed this morning. Pt's Hg bounced back to 10. (3) Constipation: Plan: -Pt has a relapsing hx of obstipation - She has not stooled since Tuesday -Miralax increased to 34 g bid -Senna 8.6 mg PO -monitoring for her coming bowel movement as she did not take any of stool softener medications the previous day (4) Hyperlipidemia: Plan: -Atorvastatin continued at 10 mg po (5) GERD (gastroesophageal reflux disease): Plan: -see N&V plan, for GERD coverage as well (6) MDS (myelodysplastic syndrome): Plan: -Newly diagnosed MDS - Bone Marrow Biopsy at [facility] myelodysplastic syndrome with ring sideroblasts about 5% blast percentage suggestive of low-grade B-cell lymphoproliferative disorder - several hospitaliaztions for anemia in the interim -Oncology & Hematology consult ordered (7) Mental health disorder: Plan: -Continued Seroquel 200 mg PO HS (8) COPD (chronic obstructive pulmonary disease): Plan: -Not on oxygen supplementation at the time - Albuteron prn -Supplemental Oxygen PRN Plan DVT Prophylaxis: PT on Enoxaparin Admission and Anticipated Discharge Date Admission Date: May 07, 2025 Supervising Physician Co-Signing Physician Notes I personally examined the patient and verified shields points of history and exam, discussed case, and agree with decision making and plan documented by Dr. Patel. Patient is 70 yr old female with past medical history pertinent for MDS on admission for intractable nausea and vomiting in setting of anemia. Hemoglobin improved. BM yesterday. Patient continues with limited PO intake. Likely hypovolemic, start mIVF. PT recommending rehab. Subjective At Bedside, pt today is AOx3, and disposition looks improved. N & V has improved. Abdominal pain, light and heavy, illicits no pain, but is guarded. Pt has not stooled today, and urine has a slight red hue, post transfusion the day before. No symptoms of fever, chills, or myalgia present. Hemoglobin has risen to 10 today from 6.9. The day before pt refused food and meds. This morning we encouraged pt to attempt food and meds so that she may continue in her improvement and pass stool as she has a hx of obstipation Review of Systems Review of Systems: All systems reviewed & are unremarkable except as noted in HPI & below Physical Exam Constitutional: WD/WN, vitals as above ENMT: external ear and nose normal, oropharynx normal Neck: trachea midline, no thyromegaly Respiratory: normal respiratory effort, lungs clear to auscultation Cardiovascular: RRR, no murmur, no edema Musculoskeletal: no cyanosis or clubbing, extremities motor strength 5/5 Skin: no rashes, warm and dry Psychiatric: A+Ox3, euthymic affect Lymphatic: no cervical or axillary lymphadenopathy Results & Data Results & Data Vital Signs (Past 12 Hours) Vital Signs Temp Pulse Pulse Resp BP BP Pulse Ox 05/08/25 02:43 36.7 C 91 H 16 141/82 H 98 05/07/25 22:01 88 05/07/25 20:30 05/07/25 19:45 36.6 C 82 20 121/71 95 O2 Del Method O2 Flow Rate 05/08/25 02:43 Nasal Cannula 2 05/07/25 22:01 05/07/25 20:30 Nasal Cannula 1 05/07/25 19:45 Room Air
[2025-05-08 07:51] LABS: Hematocrit (blood only) 28.5 % (37.0-47.0); Hemoglobin 10.0 g/dl (12.0-16.0); Mean Corpuscular Hemoglobin 29.5 pg (25.0-34.0); Mean Corpuscular Volume 84.1 fL (80.0-100.0); Platelet Count 45 K/uL (130-400); RDW Standard Deviation 46.6 fL (36.4-46.3); Red Blood Count 3.39 M/uL (4.20-5.40); White Blood Count 7.93 K/ul (4.8-10.8)
[2025-05-08 08:05] LABS: Alanine Aminotransferase 7.0 U/L (7-52); Albumin Globulin Ratio 1.5 (0.9-2); Alkaline Phosphatase 91.0 U/L (34-104); Anion Gap 5.0 (3-11); Bilirubin,Total 2.8 mg/dl (0.2-1.0); Blood Urea Nitrogen 13.0 mg/dl (6-23); Calcium 8.3 mg/dl (8.6-10.3); Carbon Dioxide 31.0 mmol/L (21-32); Chloride 98.0 mmol/L (98-107); Creatinine Clr Calc Pharmacy 103.9 ml/min; Globulin 2.3 gm/dl (2.5-4.0); Glucose 144.0 mg/dl (70-99(Fasting)); Magnesium 1.7 mg/dl (1.7-2.4); Potassium 3.7 mmol/L (3.5-5.1); Sodium 134.0 mmol/L (136-145); Total Protein 5.8 gm/dl (6.0-8.3)
[2025-05-08 08:11] LABS: ALC (manual) 0.48 K/uL (1.2-3.4); ANC (manual) 6.03 K/uL (1.4-6.5); Blast # (manual) 0.08 K/uL (0-0); Polychromasia 1+
[2025-05-08] MEDS: ACETAMINOPHEN 500 MG TAB PO SCH (16:29)
[2025-05-08] MEDS: DICLOFENAC SOD 1% GEL 100 GM TUBE EXT SCH (16:30)
[2025-05-08] MEDS: LACTATED RINGER'S 1,000 ML IV SCH (18:24)
[2025-05-09] MEDS: HYDROCODONE/ACETAMOPHEN 5/325MG TAB PO PRN (08:06)
[2025-05-09] MEDS: LACTATED RINGER'S 1,000 ML IV SCH (10:27)
[2025-05-09 11:10] LABS: Alanine Aminotransferase 6.0 U/L (7-52); Albumin Globulin Ratio 1.6 (0.9-2); Alkaline Phosphatase 80.0 U/L (34-104); Anion Gap 6.0 (3-11); Bilirubin,Total 1.9 mg/dl (0.2-1.0); Blood Urea Nitrogen 16.0 mg/dl (6-23); Calcium 8.4 mg/dl (8.6-10.3); Carbon Dioxide 30.0 mmol/L (21-32); Chloride 100.0 mmol/L (98-107); Creatinine Clr Calc Pharmacy 73.8 ml/min; Globulin 2.1 gm/dl (2.5-4.0); Glucose 89.0 mg/dl (70-99(Fasting)); Potassium 3.2 mmol/L (3.5-5.1); Sodium 136.0 mmol/L (136-145); Total Protein 5.4 gm/dl (6.0-8.3)
[2025-05-09 11:28] LABS: Hematocrit (blood only) 25.3 % (37.0-47.0); Hemoglobin 8.6 g/dl (12.0-16.0); Mean Corpuscular Hemoglobin 29.8 pg (25.0-34.0); Mean Corpuscular Volume 87.5 fL (80.0-100.0); Platelet Count 27 K/uL (130-400); RDW Standard Deviation 49.4 fL (36.4-46.3); Red Blood Count 2.89 M/uL (4.20-5.40); White Blood Count 3.14 K/ul (4.8-10.8)
[2025-05-09 11:29] LABS: ALC (manual) 0.22 K/uL (1.2-3.4); ANC (manual) 2.20 K/uL (1.4-6.5); RBC Morphology Unremarkable
[2025-05-09 16:30] LABS: Hematocrit (blood only) 25.3 % (37.0-47.0); Hemoglobin 8.6 g/dl (12.0-16.0); Mean Corpuscular Hemoglobin 30.1 pg (25.0-34.0); Mean Corpuscular Volume 88.5 fL (80.0-100.0); Platelet Count 26 K/uL (130-400); RDW Standard Deviation 50.2 fL (36.4-46.3); Red Blood Count 2.86 M/uL (4.20-5.40); White Blood Count 2.84 K/ul (4.8-10.8)
[2025-05-09 16:59] LABS: Immature Granulocytes # (auto) 0.16 K/uL (0.01-0.20); Immature Granulocytes % (auto) 5.6 %; RBC Morphology Unremarkable
--- NOTE | 2025-05-09 19:30 | Hospitalist Progress Note ---
Date of Service May 09, 2025 Assessment & Plan (1) Anemia: Plan: -The MDS is the likely cause of the Anemia, blasts found to be elevated with numerous -Blood transfusion administered yesterday due to pts Hg of 6.9. - 2 bags of Blood products administered Tuesday. Pt's Hg bounced back to 10 the following day - Today, , however pt's Hg has dropped back down to 8.6 - Further, patient's platelet count has declined from Tuesday to 74, 4 5, 26 K/uL - Continue to monitor, with repeat evaluation with AM labs (2) MDS (myelodysplastic syndrome): Plan: -Newly diagnosed MDS - Bone Marrow Biopsy at [facility] myelodysplastic syndrome with ring sideroblasts about 5% blast percentage suggestive of low-grade B-cell lymphoproliferative disorder - several hospitaliaztions for anemia in the interim -Ptat -Oncology & Hematology consult ordered (3) Nausea & vomiting: Plan: - The cause of pts N & V, may have a multifactorial cause Including her newly diagnosed MDS, obstipation, and hx of esophagitis/GERD - Based on today's bedside findings, the combination of Zofran,prochlorperazine, PPI, & Sucralfate have improved the N &V in addition to providing continued protection for the esophagus and gut relief - Advance diet as tolerated (4) Constipation: Plan: -Pt has a relapsing hx of obstipation - She has not stooled since Tuesday -Miralax increased to 34 g bid -Senna 8.6 mg PO -Pt had a bowel movement on Tuesday -Monitor tomorrow for continued stool evacution as pt has a pmh with constipation/obstipation (5) Hyperlipidemia: Plan: -Atorvastatin continued at 10 mg po (6) GERD (gastroesophageal reflux disease): Plan: -see N&V plan, for GERD coverage as well (7) Mental health disorder: Plan: -Continued Seroquel 200 mg PO HS (8) COPD (chronic obstructive pulmonary disease): Plan: -Not on oxygen supplementation at the time - Albuteron prn -Supplemental Oxygen PRN Plan DVT Prophylaxis: PT on Enoxaparin Admission and Anticipated Discharge Date Admission Date: May 07, 2025 Supervising Physician Co-Signing Physician Notes I personally examined the patient and verified shields points of history and exam, discussed case, and agree with decision making and plan documented by Dr. Patel. Patient is 70 yr old female with past medical history pertinent for MDS, COPD, HLD, and bipolar disorder on admission for intractable nausea and vomiting in setting of anemia. Patient fatigued and depressed with limited PO intake. Continue mIVF. Consider antidepressant. Nutrition following, PT recommending rehab. Subjective At Bedside today , 05/09, pt AOx3, and disposition looks improved. N & V has improved. Abdominal pain, light and heavy, illicits no pain. Pt stooled on Tuesday, and urine has a dark brown hue through the [place] collection. No symptoms of fever, chills, or myalgia present. Pt has the appearance of being dehydrated. Fluids given. Hemoglobin is 8.6 today. Platelet count has decreased again to 26. Pt has been been a melancholy mood in her room the past two days when communicating with staff and doctors. She has refused food again today. Physical Exam Constitutional: WD/WN, vitals as above ENMT: external ear and nose normal, oropharynx normal Neck: trachea midline, no thyromegaly Respiratory: normal respiratory effort, lungs clear to auscultation Cardiovascular: RRR, no murmur, no edema Musculoskeletal: no cyanosis or clubbing, extremities motor strength 5/5 Skin: no rashes, warm and dry Psychiatric: A+Ox3, euthymic affect Lymphatic: no cervical or axillary lymphadenopathy Results & Data Results & Data Vital Signs (Past 12 Hours) Vital Signs Temp Pulse Pulse Resp BP Pulse Ox O2 Del Method 05/09/25 15:18 36.3 C L 84 20 96/58 L 94 Room Air 05/09/25 13:02 101 H 05/09/25 11:27 36.3 C L 88 20 105/70 97 Room Air 05/09/25 08:23 36.5 C 61 20 132/81 93 Room Air 05/09/25 08:00 Room Air Resident Activity Tracking Resident Involvement: Resident Care Provided Care Provided: Adult Hospital Medicine
[2025-05-10 04:53] LABS: Alanine Aminotransferase 5.0 U/L (7-52); Albumin Globulin Ratio 1.5 (0.9-2); Alkaline Phosphatase 71.0 U/L (34-104); Anion Gap 6.0 (3-11); Bilirubin,Total 1.2 mg/dl (0.2-1.0); Blood Urea Nitrogen 13.0 mg/dl (6-23); Calcium 7.9 mg/dl (8.6-10.3); Carbon Dioxide 30.0 mmol/L (21-32); Chloride 103.0 mmol/L (98-107); Creatinine Clr Calc Pharmacy 104.5 ml/min; Globulin 1.9 gm/dl (2.5-4.0); Glucose 83.0 mg/dl (70-99(Fasting)); Potassium 3.2 mmol/L (3.5-5.1); Sodium 139.0 mmol/L (136-145); Total Protein 4.7 gm/dl (6.0-8.3)
[2025-05-10 05:11] LABS: Hematocrit (blood only) 22.1 % (37.0-47.0); Hemoglobin 7.6 g/dl (12.0-16.0); Mean Corpuscular Hemoglobin 30.5 pg (25.0-34.0); Mean Corpuscular Volume 88.8 fL (80.0-100.0); Platelet Count 25 K/uL (130-400); RDW Standard Deviation 48.7 fL (36.4-46.3); Red Blood Count 2.49 M/uL (4.20-5.40); White Blood Count 2.15 K/ul (4.8-10.8)
[2025-05-10 05:52] LABS: ALC (manual) 0.30 K/uL (1.2-3.4); ANC (manual) 1.14 K/uL (1.4-6.5); Blast # (manual) 0.02 K/uL (0-0); RBC Morphology Unremarkable
[2025-05-10] MEDS: POTASSIUM CHLORIDE CRTAB 20 MEQ TABCR PO STA (07:40)
[2025-05-10 12:31] LABS: Hematocrit (blood only) 23.5 % (37.0-47.0); Hemoglobin 7.7 g/dl (12.0-16.0)
--- NOTE | 2025-05-10 15:33 | Hospitalist Progress Note ---
Date of Service May 10, 2025 Assessment & Plan (1) Anemia: (2) MDS (myelodysplastic syndrome): (3) Nausea & vomiting: Plan: - (4) Constipation: (5) Hyperlipidemia: (6) GERD (gastroesophageal reflux disease): Plan: -see N&V plan, for GERD coverage as well (7) COPD (chronic obstructive pulmonary disease): Plan # MDS (Myelodysplastic Syndrome) (-Newly diagnosed MDS) / Pancytopenia / Anemia - Bone Marrow Biopsy at [facility] myelodysplastic syndrome with ring rashad eroblasts about 5% blast percentage suggestive of low-grade B-cell lymphoproliferative disorder - several hospitalizations for anemia in the interim - pts hgb has decreased after the transfusion of 2 bags of blood from Tuesday, at 10 to 7.7 Today - Patient's platelet count has also further declined 26 K/uL Plan - CBC ordered for tomorrow - Blood products and platelets ordered for standby - Continue to monitor, with repeat evaluation with AM labs # Nausea & Vomiting -N & V, may have a multifactorial cause Including her newly diagnosed MDS, obstipation, and hx of esophagitis/GERD Plan i. Zofran,prochlorperazine, PPI, & Sucralfate have improved the N &V in addition to providing continued protection for the esophagus and gut relief -ii. Advance diet as tolerated #Constipation -Pt has a relapsing hx of obstipation Plan i. Miralax increased to 34 g bid ii. Senna 8.6 mg PO iii. Monitor tomorrow for continued stool evacution # COPD - Albuteron prn -Supplemental Oxygen PRN # Hyperlipidemia -Atorvastatin continued at 10 mg po # Mental Health Disorder - pt history of bipolar disorder Plan - Quetiapine 200 mg DVT Prophylaxis: PT on Enoxaparin Admission and Anticipated Discharge Date Admission Date: May 07, 2025 Supervising Physician Co-Signing Physician Notes Attending attestation Pt seen and examined in concert with Dr. Patel. In agreement with the documented findings as noted in the resident documentation with any exceptions or additions as noted here. Ongoing improvement in nausea/vomiting and PO tolerance without recurrence. Still complaining of chronic fatigue which has improved somewhat since admission. VS as noted. On examination, S1/S2 nl RRR no MCG. CTAB. Abd NT/ND BS+ve Pancytopenia in the setting of MDS - transfusion with Hgb < 7, Platelets < 20. Trend CBC daily and again this PM. Follow up hematology, input greatly ap preciated. Constipation, acute on chronic - continue bowel regimen w/ goal of 1-2 soft bowel movements daily Bipolar II disorder - continue present psychiatric therapy and monitor for changes in mood. Consider addition of further medication/psych consult based on presenting sx. Else see resident documentation as noted. Subjective Pt is 70 yo female with a pmh of Myelodysplastic Syndrome (MDS), Pancytopenia, CHF, Chronic Back Pain, Constipation, COPD, and Bipolar disorder, At Bedside today , 05/09, pt AOx3, and disposition looks improved. N & V has improved. Abdominal pain, light and heavy, illicits no pain. Pt has stooled today. No symptoms of fever, chills, or myalgia present. Pt has the appearance of being dehydrated. On cardiac auscultation, S1 & S2 heard, with no rubs, gallops, or murmurs; on respiratory auscultation, vesicular sounds appreciated Physical Exam Constitutional: WD/WN, vitals as above ENMT: external ear and nose normal, oropharynx normal Neck: trachea midline, no thyromegaly Respiratory: normal respiratory effort, lungs clear to auscultation Cardiovascular: RRR, no murmur, no edema Musculoskeletal: no cyanosis or clubbing, extremities motor strength 5/5 Skin: no rashes, warm and dry Psychiatric: A+Ox3, euthymic affect Lymphatic: no cervical or axillary lymphadenopathy Results & Data Results & Data Vital Signs (Past 12 Hours) Vital Signs Temp Pulse Pulse Resp BP Pulse Ox O2 Del Method 05/10/25 11:17 36.5 C 83 18 99/65 L 94 Room Air 05/10/25 10:47 Room Air 05/10/25 08:16 37.0 C 84 20 109/69 91 Room Air 05/10/25 06:04 94 Room Air 05/10/25 05:38 79 Resident Activity Tracking Resident Involvement: Resident Care Provided Care Provided: Adult Hospital Medicine and Pediatric Care
[2025-05-10] MEDS ORDERED: SODIUM CHLORIDE 0.9% 100 ML IV PRN (19:20)
[2025-05-10 20:16] LABS: Hematocrit (blood only) 23.9 % (37.0-47.0); Hemoglobin 7.8 g/dl (12.0-16.0); Immature Granulocytes # (auto) 0.14 K/uL (0.01-0.20); Immature Granulocytes % (auto) 6.2 %; Mean Corpuscular Hemoglobin 29.2 pg (25.0-34.0); Mean Corpuscular Volume 89.5 fL (80.0-100.0); Platelet Count 26 K/uL (130-400); RBC Morphology Unremarkable; RDW Standard Deviation 51.9 fL (36.4-46.3); Red Blood Count 2.67 M/uL (4.20-5.40); White Blood Count 2.27 K/ul (4.8-10.8)
[2025-05-11 05:48] LABS: Appearance Urine Clear (Clear); Bacteria Urine Automated 4+ (None Seen); Cast Urine Automated 0-2 /lpf (0-2); Epithelial Cell Urine Auto 0-2 /hpf (0-2); Glucose Urine UA Negative (Negative); RBC Urine Automated 0-2 /hpf (0-2)
--- NOTE | 2025-05-11 07:47 | Hospitalist Progress Note ---
Date of Service May 11, 2025 Assessment & Plan (1) Anemia: (2) MDS (myelodysplastic syndrome): (3) Nausea & vomiting: (4) Constipation: (5) Hyperlipidemia: (6) GERD (gastroesophageal reflux disease): Plan: -see N&V plan, for GERD coverage as well (7) COPD (chronic obstructive pulmonary disease): Plan # MDS (Myelodysplastic Syndrome) (-Newly diagnosed MDS) / Pancytopenia / Anemia - Myelodysplastic syndrome with ring sideroblasts about 5% blast percentage suggestive of low-grade B-cell lymphoproliferative disorder - pts hgb has decreased after the transfusion of 2 bags of blood from Transfusion Tuesday, at raised platelet - Patient's platelet count has also further declined 26 K/uL Plan - CBC ordered for tomorrow - Blood products and platelets ordered for standby - Continue to monitor, with repeat evaluation with AM labs - Zofran,prochlorperazine, PPI, & Sucralfate PRN for N & V symptoms # UTI - urine bacteria 4+ Plan -Ceftriaxone 2,000 mg in 50 ml IV q24 H 100 mls/hr -Still awaiting urine culture #Constipation -Pt has a relapsing hx of obstipation Plan i. Miralax increased to 34 g bid ii. Senna 8.6 mg PO iii. Monitor tomorrow for continued stool evacution # COPD - Albuteron prn -Supplemental Oxygen PRN # Hyperlipidemia -Atorvastatin continued at 10 mg po # Bipolar Disorder Plan - Quetiapine 200 mg Dispo: PT at [facility] or Home DVT Prophylaxis: PT on Enoxaparin Admission and Anticipated Discharge Date Admission Date: May 07, 2025 Supervising Physician Co-Signing Physician Notes Attending attestation Pt seen and examined in concert with Dr. Patel. In agreement with the documented findings as noted in the resident documentation with any exceptions or additions as noted here. No recurrence of nausea/vomiting, gradually improving POI tolerance. Ongoing chronic fatigue. VS as noted. On examination, S1/S2 nl RRR no MCG. CTAB. Abd NT/ND BS+ve Pancytopenia in the setting of MDS - transfusion with Hgb < 7, Platelets < 20. Transfusing additional 1U PRBC and PLT today with post transfusion CBC. Trend CBC daily. Follow up outpatient w/ hematology Constipation, acute on chronic - continue bowel regimen w/ goal of 1-2 soft bowel movements daily Bipolar II disorder - continue present psychiatric therapy and monitor for changes in mood. Consider addition of further medication/psych consult based on presenting sx. Else see resident documentation as noted. Subjective At Bedside today, pt AOx3, and disposition is improved. N & V has improved. Abdominal pain, light and heavy, illicits no pain. Pt has stooled today and passed urine. No symptoms of fever, chills, or myalgia present. Review of Systems Review of Systems: All systems reviewed & are unremarkable except as noted in HPI & below Physical Exam Constitutional: WD/WN, vitals as above Eyes: PERRL, conjunctivae normal, anicteric sclerae ENMT: external ear and nose normal, oropharynx normal Neck: trachea midline, no thyromegaly Respiratory: normal respiratory effort, lungs clear to auscultation Cardiovascular: RRR, no murmur, no edema Gastrointestinal (Abdomen): normal bowel sounds, soft, nontender, no hepatosplenomegaly Musculoskeletal: no cyanosis or clubbing, extremities motor strength 5/5 Skin: no rashes, warm and dry Psychiatric: A+Ox3, euthymic affect Lymphatic: no cervical or axillary lymphadenopathy Results & Data Results & Data Vital Signs (Past 12 Hours) Vital Signs Temp Pulse Pulse Resp BP BP Pulse Ox 05/11/25 03:36 36.8 C 78 18 102/63 93 05/10/25 22:51 36.8 C 83 18 105/64 93 05/10/25 21:45 80 05/10/25 20:09 O2 Del Method 05/11/25 03:36 Room Air 05/10/25 22:51 Room Air 05/10/25 21:45 05/10/25 20:09 Room Air Resident Activity Tracking Resident Involvement: Resident Care Provided Care Provided: Adult Hospital Medicine
[2025-05-11 08:51] LABS: Alanine Aminotransferase 5.0 U/L (7-52); Albumin Globulin Ratio 1.5 (0.9-2); Alkaline Phosphatase 66.0 U/L (34-104); Anion Gap 4.0 (3-11); Bilirubin,Total 0.8 mg/dl (0.2-1.0); Blood Urea Nitrogen 9.0 mg/dl (6-23); Calcium 7.5 mg/dl (8.6-10.3); Carbon Dioxide 30.0 mmol/L (21-32); Chloride 106.0 mmol/L (98-107); Creatinine Clr Calc Pharmacy 103.4 ml/min; Globulin 1.7 gm/dl (2.5-4.0); Glucose 85.0 mg/dl (70-99(Fasting)); Potassium 3.5 mmol/L (3.5-5.1); Sodium 140.0 mmol/L (136-145); Total Protein 4.2 gm/dl (6.0-8.3)
[2025-05-11 09:14] LABS: Hematocrit (blood only) 21.1 % (37.0-47.0); Hemoglobin 7.0 g/dl (12.0-16.0); Mean Corpuscular Hemoglobin 29.7 pg (25.0-34.0); Mean Corpuscular Volume 89.4 fL (80.0-100.0); Platelet Count 24 K/uL (130-400); RDW Standard Deviation 52.2 fL (36.4-46.3); Red Blood Count 2.36 M/uL (4.20-5.40); White Blood Count 1.65 K/ul (4.8-10.8)
[2025-05-11] MEDS: cefTRIAXone SODIUM 2,000 MG/50 ML BAG IV SCH (09:45)
[2025-05-11] MEDS ORDERED: SODIUM CHLORIDE 0.9% 100 ML IV PRN (10:05)
[2025-05-11 10:41] LABS: ALC (manual) 0.33 K/uL (1.2-3.4); ANC (manual) 0.50 K/uL (1.4-6.5); Blast # (manual) 0.03 K/uL (0-0); RBC Morphology Unremarkable
[2025-05-11] MEDS ORDERED: POLYETHYLENE (MIRALAX) 17 GM PACK PO PRN (11:29)
[2025-05-11 19:15] LABS: ALC (manual) 0.17 K/uL (1.2-3.4); ANC (manual) 1.23 K/uL (1.4-6.5); Alanine Aminotransferase 8 U/L (7-52); Albumin Globulin Ratio 1.3 (0.9-2); Alkaline Phosphatase 80 U/L (34-104); Anion Gap 6 (3-11); Bilirubin,Total 0.9 mg/dl (0.2-1.0); Blood Urea Nitrogen 8 mg/dl (6-23); Calcium 7.7 mg/dl (8.6-10.3); Carbon Dioxide 28 mmol/L (21-32); Chloride 105 mmol/L (98-107); Creatinine Clr Calc Pharmacy 86.8 ml/min; Globulin 2.3 gm/dl (2.5-4.0); Glucose 88 mg/dl (70-99(Fasting)); Hematocrit (blood only) 29.5 % (37.0-47.0); Hemoglobin 9.7 g/dl (12.0-16.0); Magnesium 1.4 mg/dl (1.7-2.4); Mean Corpuscular Hemoglobin 30.3 pg (25.0-34.0); Mean Corpuscular Volume 92.2 fL (80.0-100.0); Platelet Count 32 K/uL (130-400); RDW Standard Deviation 49.4 fL (36.4-46.3); Red Blood Count 3.20 M/uL (4.20-5.40); Sodium 139 mmol/L (136-145); Total Protein 5.2 gm/dl (6.0-8.3); White Blood Count 2.15 K/ul (4.8-10.8)
[2025-05-11 21:20] LABS: Potassium 3.5 mmol/L (3.5-5.1)
[2025-05-11 22:39] LABS: ALC (manual) 0.41 K/uL (1.2-3.4); ANC (manual) 1.69 K/uL (1.4-6.5); Hematocrit (blood only) 28.1 % (37.0-47.0); Hemoglobin 9.4 g/dl (12.0-16.0); Mean Corpuscular Hemoglobin 30.1 pg (25.0-34.0); Mean Corpuscular Volume 90.1 fL (80.0-100.0); Platelet Count 32 K/uL (130-400); RDW Standard Deviation 48.1 fL (36.4-46.3); Red Blood Count 3.12 M/uL (4.20-5.40); White Blood Count 2.91 K/ul (4.8-10.8)
[2025-05-12 07:04] LABS: Hematocrit (blood only) 29.6 % (37.0-47.0); Hemoglobin 10.3 g/dl (12.0-16.0); Mean Corpuscular Hemoglobin 31.1 pg (25.0-34.0); Mean Corpuscular Volume 89.4 fL (80.0-100.0); Platelet Count 35 K/uL (130-400); RDW Standard Deviation 47.5 fL (36.4-46.3); Red Blood Count 3.31 M/uL (4.20-5.40); White Blood Count 2.90 K/ul (4.8-10.8)
[2025-05-12 07:30] LABS: Immature Granulocytes # (auto) 0.15 K/uL (0.01-0.20); Immature Granulocytes % (auto) 5.2 %
--- NOTE | 2025-05-12 08:17 | XRay Report ---
XR chest 1V portable HISTORY: 70 years-old Female SOWMYA acute shortness of breath COMPARISON: 05/06/2025 TECHNIQUE: AP view of the chest FINDINGS: Cardiomediastinal and hilar silhouettes are within normal limits. Atherosclerosis aorta. No pneumotho rax, pleural effusion, airspace consolidation or pulmonary edema. Bones appear grossly intact IMPRESSION: No acute process. ACT 112: Negative or not required by law. The above report was generated using voice recognition software. It may contain grammatical, syntax o r spelling errors. Electronically signed by: Lonnie Leija M.D. 05/12/2025 8:15 AM
--- NOTE | 2025-05-12 09:40 | Hospitalist Progress Note ---
Date of Service May 12, 2025 Assessment & Plan (1) Anemia: (2) MDS (myelodysplastic syndrome): (3) Nausea & vomiting: (4) Constipation: (5) Hyperlipidemia: (6) GERD (gastroesophageal reflux disease): Plan: -see N&V plan, for GERD coverage as well (7) COPD (chronic obstructive pulmonary disease): Plan # MDS (Myelodysplastic Syndrome) (-Newly diagnosed MDS) / Pancytopenia / Anemia - Myelodysplastic syndrome with ring sideroblasts about 5% blast percentage suggestive of low-grade B-cell lymphoproliferative disorder - pts hgb has decreased after the transfusion of 2 bags of blood from Transfusion Tuesday, at raised platelet - Patient's platelet count has also further declined 26 K/uL Plan - CBC ordered for tomorrow - Blood products and platelets ordered for standby - Continue to monitor, with repeat evaluation with AM labs - Zofran,prochlorperazine, PPI, & Sucralfate PRN for N & V symptoms # UTI - urine bacteria 4+ Plan Ceftriaxone 2,000 mg in 50 ml IV q24 -Still awaiting urine culture Electrolyte Imbalance -- -Hypomagnesia -Magnesium SUlfate/Dextrose 1gm once #Constipation -Pt has a relapsing hx of obstipation Plan i. Miralax increased to 34 g bid ii. Senna 8.6 mg PO iii. Monitor tomorrow for continued stool evacuation # COPD - Albuteron prn -Supplemental Oxygen PRN # Hyperlipidemia -Atorvastatin continued at 10 mg po # Bipolar Disorder Plan - Quetiapine 200 mg Dispo: PT at [facility] or Home DVT Prophylaxis: PT on Enoxaparin Admission and Anticipated Discharge Date Admission Date: May 07, 2025 Supervising Physician Co-Signing Physician Notes Attending attestation Pt seen and examined in concert with Dr. Patel. In agreement with the documented findings as noted in the resident documentation with any exceptions or additions as noted here. Initial refusal for medications and intake today but has since decided to adhere to therapy. No recurrence of nausea/vomiting, gradually improving POI tolerance. Ongoing chronic fatigue. VS as noted. On examination, S1/S2 nl RRR no MCG. CTAB. Abd NT/ND BS+ve Abnormal UA with urinary retention - reports no symptoms on evaluation today. UCx pending. Continue ceftriaxone for empiric therapy and follow Cx. Pancytopenia in the setting of MDS - transfusion with Hgb < 7, Platelets < 20. improved following additional 1U PRBC and PLT on 8.10. Trend CBC daily. Follow up outpatient w/ hematology Constipation, acute on chronic - continue bowel regimen w/ goal of 1-2 soft bowel movements daily Bipolar II disorder - continue present psychiatric therapy and monitor for changes in mood. Consider addition of further medication/psych consult based on presenting sx. Else see resident documentation as noted. Subjective At Bedside today, pt AOx3, and disposition is improved. N & V has improved. Abdominal pain, light and heavy, illicits no pain. Pt has stooled today and passed urine. No symptoms of fever, chills, or myalgia present. Review of Systems Review of Systems: All systems reviewed & are unremarkable except as noted in HPI & below Physical Exam Constitutional: WD/WN, vitals as above Eyes: PERRL, conjunctivae normal, anicteric sclerae ENMT: external ear and nose normal, oropharynx normal Neck: trachea midline, no thyromegaly Respiratory: normal respiratory effort, lungs clear to auscultation Cardiovascular: RRR, no murmur, no edema Gastrointestinal (Abdomen): normal bowel sounds, soft, nontender, no hepatosplenomegaly Skin: no rashes, warm and dry Psychiatric: A+Ox3, euthymic affect Lymphatic: no cervical or axillary lymphadenopathy Results & Data Results & Data Vital Signs (Past 12 Hours) Vital Signs Temp Pulse Pulse Resp BP Pulse Ox O2 Del Method 05/12/25 04:00 36.4 C L 74 18 108/60 91 Room Air 05/11/25 23:25 36.9 C 75 18 113/71 95 Room Air 05/11/25 21:57 74 Resident Activity Tracking Resident Involvement: Resident Care Provided Care Provided: Adult Hospital Medicine
[2025-05-12] MEDS: MAGNESIUM SULFATE / D5W 1 GM/100 ML BAG IV ONE (11:02)
[2025-05-13 07:31] LABS: Hematocrit (blood only) 26.5 % (37.0-47.0); Hemoglobin 9.0 g/dl (12.0-16.0); Mean Corpuscular Hemoglobin 30.6 pg (25.0-34.0); Mean Corpuscular Volume 90.1 fL (80.0-100.0); Platelet Count 37 K/uL (130-400); RDW Standard Deviation 48.9 fL (36.4-46.3); Red Blood Count 2.94 M/uL (4.20-5.40); White Blood Count 2.41 K/ul (4.8-10.8)
[2025-05-13 07:52] LABS: ALC (manual) 0.55 K/uL (1.2-3.4); ANC (manual) 1.13 K/uL (1.4-6.5); Acanthocytes 1+; Polychromasia 1+
--- NOTE | 2025-05-13 09:11 | Hospitalist Progress Note ---
Date of Service May 13, 2025 Assessment & Plan (1) Anemia: (2) MDS (myelodysplastic syndrome): (3) Nausea & vomiting: (4) Constipation: (5) Hyperlipidemia: (6) GERD (gastroesophageal reflux disease): Plan: -see N&V plan, for GERD coverage as well (7) COPD (chronic obstructive pulmonary disease): Plan # MDS (Myelodysplastic Syndrome) (-Newly diagnosed MDS) / Pancytopenia / Anemia - Myelodysplastic syndrome with ring sideroblasts about 5% blast percentage suggestive of low-grade B-cell lymphoproliferative disorder - pts hgb has decreased after the transfusion of 2 bags of blood from Transfusion Tuesday, at raised platelet - Patient's platelet count has also further declined 26 K/uL Plan - CBC ordered for tomorrow - Blood products and platelets ordered for standby - Continue to monitor, with repeat evaluation with AM labs - Zofran,prochlorperazine, PPI, & Sucralfate PRN for N & V symptoms # UTI - urine bacteria 4+ Plan Ceftriaxone 2,000 mg in 50 ml IV q24 -Urine Culture pending # Electrolyte Imbalance --Resolved #Constipation -Pt has a relapsing hx of obstipation Plan i. Miralax increased to 34 g bid ii. Senna 8.6 mg PO iii. Monitor tomorrow for continued stool evacuation # COPD - Albuteron prn -Supplemental Oxygen PRN # Hyperlipidemia -Atorvastatin continued at 10 mg po # Bipolar Disorder Plan - Quetiapine 200 mg Dispo: PT at [facility] or Home DVT Prophylaxis: PT on Enoxaparin Admission and Anticipated Discharge Date Admission Date: May 07, 2025 Supervising Physician Co-Signing Physician Notes I personally examined the patient and verified all shields points of history and exam, discussed case, and agree with decision making with Dr Patel feeling weak. vitals noted nad heent nc at mmm breathing unlabored no accessory muscles good effort skin no rashes no pallor or icterus Abnormal UA with urinary retention - treating as though UTI might have caused retention Pancytopenia in the setting of MDS - transfusion with Hgb < 7, ongoing vigilance. outpt heme/onc follow up (although since she'll almost certainly need a facility will need to coordinate w them) Constipation, acute on chronic - continue bowel regimen w/ goal of 1-2 soft bowel movements daily Bipolar II disorder - continue present psychiatric therapy and monitor for changes in mood. Consider addition of further medication/psych consult based on presenting sx. deconditioning/weakness - PT/OT eval and treat - understands and is willing to go to a facility for this (sounds like she recognizes home was unsafe) otherwise as above Subjective At Bedside today, pt AOx3, and disposition is improved. N & V has improved. Abdominal pain, light and heavy, illicits no pain. Pt has stooled today and passed urine. No symptoms of fever, chills, or myalgia present. Physical Exam Constitutional: WD/WN, vitals as above Eyes: PERRL, conjunctivae normal, anicteric sclerae ENMT: external ear and nose normal, oropharynx normal Neck: trachea midline, no thyromegaly Respiratory: normal respiratory effort, lungs clear to auscultation Cardiovascular: RRR, no murmur, no edema Gastrointestinal (Abdomen): normal bowel sounds, soft, nontender, no hepatosplenomegaly Musculoskeletal: no cyanosis or clubbing, extremities motor strength 5/5 Skin: no rashes, warm and dry Psychiatric: A+Ox3, euthymic affect Lymphatic: no cervical or axillary lymphadenopathy Results & Data Results & Data Vital Signs (Past 12 Hours) Vital Signs Temp Pulse Pulse Resp BP Pulse Ox O2 Del Method 05/13/25 08:40 36.4 C L 83 17 113/71 91 Room Air 05/13/25 07:37 71 05/13/25 04:00 36.4 C L 75 18 108/58 L 92 Room Air 05/12/25 22:08 36.5 C 81 17 110/63 93 Room Air 05/12/25 21:42 84
--- NOTE | 2025-05-13 13:16 | Billing Data ---
Date of Service May 13, 2025 Coding Level of Care Code 83067 SUB INP/OBS CARE MIN
--- NOTE | 2025-05-14 07:00 | Hospitalist Progress Note ---
Date of Service May 14, 2025 Assessment & Plan (1) Anemia: (2) MDS (myelodysplastic syndrome): (3) Nausea & vomiting: (4) Constipation: (5) Hyperlipidemia: (6) GERD (gastroesophageal reflux disease): (7) COPD (chronic obstructive pulmonary disease): Plan Pt is a 70 yo Female, w/ a pmh MDS/Pancytopenia, UTI, Constipation, COPD, presents to the ED with Nausea & Vomitting and SOB # MDS (Myelodysplastic Syndrome) (-Newly diagnosed MDS) / Pancytopenia / Anemia - Myelodysplastic syndrome with ring sideroblasts about 5% blast percentage suggestive of low-grade B-cell lymphoproliferative disorder - Anemia - Fink received 3 PRBCs on this admission so far - Thrombocytopenia - Patient's platelet count has also further declined 26 K/uL, received 1 bag of platelets Plan - CBC AM - Zofran,prochlorperazine, PPI, & Sucralfate PRN for N & V symptom -Hematology consult today -- repeat bone marrow eval - to evaluate for Acute Leukemia; transfuse Hb <7.5, platelet count and/or below 15,000. -Encouraged to work with PT/OT today - Continue monitoring # Abnormal UA - urine bacteria 4+ and - Ceftriaxone discontinued -Urine Culture results indicated Asymptomatic Bacteruria -- Gardnerella - No symptoms present -Catheter removed today # Electrolyte Imbalance --Resolved - Replaced as needed #Constipation -Pt has a relapsing hx of obstipation Plan i. Miralax increased to 34 g bid prn ii. Senna 8.6 mg PO prn iii. Monitor tomorrow for continued stool evacuation # COPD - Albuteron prn -Supplemental Oxygen PRN # Hyperlipidemia -Atorvastatin continued at 10 mg po # Bipolar Disorder Plan - Quetiapine 200 mg Dispo: PT at [facility] or Home DVT Prophylaxis: PT on Enoxaparin Admission and Anticipated Discharge Date Admission Date: May 07, 2025 Supervising Physician Co-Signing Physician Notes I personally examined the patient and verified all shields points of history and exam, discussed case, and agree with decision making with Dr Patel feeling weak. d/w oncology - pt OK w repeat bone marrow bx vitals noted nad heent nc at mmm breathing unlabored no accessory muscles good effort skin no rashes no pallor or icterus Abnormal UA with urinary retention - treating as though UTI might have caused retention, although urinary retention may just relate to weakness Pancytopenia in the setting of MDS - transfusion with Hgb < 7, ongoing vigilance. repeat marrow per heme/onc. appreciate input Constipation, acute on chronic - continue bowel regimen w/ goal of 1-2 soft bowel movements daily Bipolar II disorder - continue present psychiatric therapy and monitor for changes in mood. Consider addition of further medication/psych consult based on presenting sx. deconditioning/weakness - PT/OT eval and treat - understands and is willing to go to a facility for this (sounds like she recognizes home was unsafe), for SNF otherwise as above Subjective At Bedside today, pt AOx3, and disposition is improved. N & V has improved. Abdominal pain, light and heavy, illicits no pain. Pt has stooled today and is passing urine through catheter. No symptoms of fever, chills, or myalgia present. Physical Exam Constitutional: WD/WN, vitals as above Eyes: PERRL, conjunctivae normal, anicteric sclerae ENMT: external ear and nose normal, oropharynx normal Neck: trachea midline, no thyromegaly Respiratory: normal respiratory effort, lungs clear to auscultation Cardiovascular: RRR, no murmur, no edema Gastrointestinal (Abdomen): normal bowel sounds, soft, nontender, no hepatosplenomegaly Musculoskeletal: no cyanosis or clubbing, extremities motor strength 5/5 Skin: no rashes, warm and dry Psychiatric: A+Ox3, euthymic affect Lymphatic: no cervical or axillary lymphadenopathy Results & Data Results & Data Vital Signs (Past 12 Hours) Vital Signs Temp Pulse Pulse Resp BP BP Pulse Ox 05/14/25 03:29 97 05/14/25 02:45 37.0 C 80 18 97/63 L 90 05/13/25 22:37 36.7 C 74 18 108/68 93 05/13/25 21:35 72 05/13/25 19:41 36.7 C 75 18 103/69 95 05/13/25 19:23 O2 Del Method 05/14/25 03:29 Room Air 05/14/25 02:45 Room Air 05/13/25 22:37 Room Air 05/13/25 21:35 05/13/25 19:41 Room Air 05/13/25 19:23 Room Air
--- NOTE | 2025-05-14 09:25 | Oncology Consultation ---
Date of Consultation May 14, 2025 Assessment & Plan (1) MDS (myelodysplastic syndrome): Plan -recommend repeat bone marrow biopsy to r/o progression to acute leukemia -Transfuse for Hb <7.5, Plate[place] 17718 History of Present Illness Reason for Consultation: Myelodysplastic syndrome Attending Physician: Davin Ray DO History of Present Illness 70-year-old female with MDS not currently on treatment who was admitted to [facility] with nausea, vomiting and anemia. Patient was supposed to follow-up with me outpatient several weeks ago but missed her outpatient appointment.She continues to be transfusion dependent Allergies Allergy/AdvReac Type Severity Reaction Status Date / Time lithium Allergy Confusion Unverified 05/06/25 23:51 ibuprofen AdvReac Nausea Unverified 04/25/22 19:03 Home Medications Medication Instructions Recorded Confirmed Type atorvastatin 10 mg tablet 10 mg PO HS 01/31/25 05/06/25 History furosemide 40 mg tablet 40 mg PO QAM 01/31/25 05/06/25 History gabapentin 800 mg tablet 800 mg PO TID 01/31/25 05/06/25 History hydroxyzine HCl 25 mg tablet 25 mg PO QID PRN Anxiety 01/31/25 05/06/25 History quetiapine 200 mg tablet 200 mg PO HS 01/31/25 05/06/25 History albuterol sulfate 90 mcg/actuation 1 puff inhalation DIRECTED PRN 03/07/25 05/06/25 History aerosol inhaler (Ventolin HFA) sob acetaminophen 325 mg tablet 650 mg (2 x 325 mg) PO Q4H PRN 03/08/25 05/06/25 Rx fever #10 tabs hydrocodone 5 mg-acetaminophen 325 1 tab PO Q8H PRN pain #20 tabs 04/13/25 05/06/25 Rx mg tablet hydroxyzine HCl 25 mg tablet 25 mg PO HS sleep, anxiety #30 tabs 04/13/25 05/06/25 Rx pantoprazole 40 mg tablet,delayed 40 mg PO DAILY #30 tabs 04/13/25 05/06/25 Rx release polyethylene glycol 3350 17 gram 17 g PO BID #0 ea 04/13/25 05/06/25 Rx oral powder packet (Miralax) sennosides 8.6 mg tablet (senna) 8.6 mg PO BID constipation #60 tabs 04/13/25 05/06/25 Rx diphenhydramine 25 2 tab PO HS 05/06/25 05/06/25 History mg-acetaminophen 500 mg tablet (Tylenol PM Extra Strength) Patient History Medical History (Updated 05/10/25 @ 10:45 by Igor Mccauley MD) Pancytopenia Myelodysplastic syndrome CHF (congestive heart failure) Ambulatory dysfunction PUD (peptic ulcer disease) Surgical History H/O: hysterectomy Family History Other Family history non-contributory Social History Smoking Status: Never smoker Tobacco Type: Cigarettes Hx Alcohol Use: No Hx Substance Use: No Preferred Language: Irish Communication Ability: Effective 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
--- NOTE | 2025-05-14 11:29 | Billing Data ---
Date of Service May 14, 2025 Coding Level of Care Code 12992 SUB INP/OBS CARE MIN
--- NOTE | 2025-05-14 11:29 | Billing Data ---
Date of Service May 14, 2025 Coding Level of Care Code 26303 SUB INP/OBS CARE MIN
[2025-05-14 12:07] LABS: Hematocrit (blood only) 23.7 % (37.0-47.0); Hemoglobin 8.5 g/dl (12.0-16.0); Mean Corpuscular Hemoglobin 33.5 pg (25.0-34.0); Mean Corpuscular Volume 93.3 fL (80.0-100.0); Platelet Count 39 K/uL (130-400); RDW Standard Deviation 50.1 fL (36.4-46.3); Red Blood Count 2.54 M/uL (4.20-5.40); White Blood Count 1.95 K/ul (4.8-10.8)
[2025-05-14 13:18] LABS: ALC (manual) 0.23 K/uL (1.2-3.4); ANC (manual) 0.88 K/uL (1.4-6.5); Blast # (manual) 0.06 K/uL (0-0); RBC Morphology Unremarkable
[2025-05-15 07:43] LABS: Hematocrit (blood only) 24.4 % (37.0-47.0); Hemoglobin 8.3 g/dl (12.0-16.0); Mean Corpuscular Hemoglobin 32.0 pg (25.0-34.0); Mean Corpuscular Volume 94.2 fL (80.0-100.0); Platelet Count 38 K/uL (130-400); RDW Standard Deviation 49.5 fL (36.4-46.3); Red Blood Count 2.59 M/uL (4.20-5.40); White Blood Count 1.92 K/ul (4.8-10.8)
[2025-05-15 08:44] LABS: ALC (manual) 0.36 K/uL (1.2-3.4); ANC (manual) 0.77 K/uL (1.4-6.5); Blast # (manual) 0.04 K/uL (0-0)
--- NOTE | 2025-05-15 09:25 | Hospitalist Progress Note ---
Date of Service May 15, 2025 Assessment & Plan (1) Anemia: (2) MDS (myelodysplastic syndrome): (3) Nausea & vomiting: (4) Constipation: (5) Hyperlipidemia: (6) GERD (gastroesophageal reflux disease): (7) COPD (chronic obstructive pulmonary disease): Plan Pt is a 70 yo Female, w/ a pmh MDS/Pancytopenia, UTI, Constipation, COPD, presents to the ED with Nausea & Vomitting and SOB # MDS (Myelodysplastic Syndrome) (-Newly diagnosed MDS) / Pancytopenia / Anemia - Myelodysplastic syndrome with ring sideroblasts about 5% blast percentage suggestive of low-grade B-cell lymphoproliferative disorder - Anemia - Fink received 3 PRBCs on this admission so far - Thrombocytopenia - Patient's platelet count has also further declined 26 K/uL, received 1 bag of platelets Plan - CBC AM - Zofran,prochlorperazine, PPI, & Sucralfate PRN for N & V symptom -Hematology consult today -- repeat bone marrow eval - to evaluate for Acute Leukemia; transfuse Hb <7.5, platelet count and/or below 15,000. -Encouraged to work with PT/OT today - Continue monitoring -Bone Marrow Biopsy scheduled for today # Urinary Retention 2/2 itiology caused potentially UTI - urine bacteria 4+ and urinary retention --U/A ordered - Ceftriaxone ordered -Straight cath PRN # Electrolyte Imbalance --Resolved - Replaced as needed #Constipation -Pt has a relapsing hx of obstipation Plan i. Miralax increased to 34 g bid prn ii. Senna 8.6 mg PO prn iii. Monitor tomorrow for continued stool evacuation # COPD - Albuterol prn -Supplemental Oxygen PRN # Hyperlipidemia -Atorvastatin continued at 10 mg po # Bipolar Disorder Plan - Quetiapine 200 mg Dispo: PT at [facility] or Home DVT Prophylaxis: PT on Enoxaparin Admission and Anticipated Discharge Date Admission Date: May 07, 2025 Supervising Physician Co-Signing Physician Notes I personally examined the patient and verified all shields points of history and exam, discussed case, and agree with decision making with Dr Patel seen post bone marrow bx, resting comfortably vitals noted nad resting comfortably heent nc at mmm breathing unlabored no accessory muscles good effort skin no rashes no pallor or icterus Abnormal UA with urinary retention - treating as though UTI might have caused retention, although urinary retention may just relate to weakness (rocephin), straight cath prn Pancytopenia in the setting of MDS - transfusion with Hgb < 7, ongoing vigilance. repeat marrow per heme/onc recs has been done, results pending. appreciate input Constipation, acute on chronic - continue bowel regimen w/ goal of 1-2 soft bowel movements daily Bipolar II disorder - continue present psychiatric therapy and monitor for changes in mood. Consider addition of further medication/psych consult based on presenting sx. deconditioning/weakness - PT/OT eval and treat - understands and is willing to go to a facility for this (sounds like she recognizes home was unsafe), for SNF once available otherwise as above Subjective At Bedside today, pt AOx3, and disposition is improved. N & V has improved. Abdominal pain, light and heavy, illicits no pain. Pt has stooled today. No symptoms of fever, chills, or myalgia present. Review of Systems Review of Systems: All systems reviewed & are unremarkable except as noted in HPI & below Physical Exam Constitutional: WD/WN, vitals as above Eyes: PERRL, conjunctivae normal, anicteric sclerae ENMT: external ear and nose normal, oropharynx normal Neck: trachea midline, no thyromegaly Respiratory: normal respiratory effort, lungs clear to auscultation Cardiovascular: RRR, no murmur, no edema Gastrointestinal (Abdomen): normal bowel sounds, soft, nontender, no hepatosplenomegaly Musculoskeletal: no cyanosis or clubbing, extremities motor strength 5/5 Skin: no rashes, warm and dry Psychiatric: A+Ox3, euthymic affect Lymphatic: no cervical or axillary lymphadenopathy Results & Data Results & Data Vital Signs (Past 12 Hours) Vital Signs Temp Pulse Pulse Resp BP BP Pulse Ox 05/15/25 07:53 36.8 C 75 20 103/67 97 05/15/25 07:33 71 05/15/25 02:37 36.5 C 73 16 95/67 L 99 05/14/25 23:13 36.6 C 73 20 94/58 L 97 05/14/25 22:11 73 O2 Del Method O2 Flow Rate 05/15/25 07:53 Nasal Cannula 1 05/15/25 07:33 05/15/25 02:37 Nasal Cannula 2 05/14/25 23:13 Nasal Cannula 2 05/14/25 22:11
[2025-05-15 09:36] LABS: Anion Gap 2.0 (3-11); Blood Urea Nitrogen 8.0 mg/dl (6-23); Calcium 7.9 mg/dl (8.6-10.3); Carbon Dioxide 34.0 mmol/L (21-32); Chloride 103.0 mmol/L (98-107); Creatinine Clr Calc Pharmacy 116.3 ml/min; Glucose 98.0 mg/dl (70-99(Fasting)); Potassium 3.6 mmol/L (3.5-5.1); Sodium 139.0 mmol/L (136-145)
[2025-05-15 09:39] LABS: Bone Marrow Smear SLHOLD
[2025-05-15] MEDS: LACTATED RINGER'S 1,000 ML IV SCH (11:39)
[2025-05-15] MEDS: cefTRIAXone SODIUM 1,000 MG/50 ML BAG IV SCH (11:41)
--- NOTE | 2025-05-15 13:25 | CT Scan Report ---
CT guided bone marrow biopsy INDICATION: MDS versus leukemia PROCEDURE: Procedure and risks were explained. Informed consent was obtained. A final timeout was com pleted. The patient was placed prone on the CT exam table. The left gluteal region was prepped and dr aped in sterile fashion. 1% lidocaine was utilized for skin anesthesia. The patient received 1 mg Tyl enol IV. Utilizing CT guidance, an 11-gauge bone biopsy needle was advanced into the left iliac bone. Multiple aspirates and 1 bone core was obtained and given to the lab. The needle was removed and Band-Aid jayden lied. The patient tolerated the procedure well. Vital signs will be monitored postprocedure. IMPRESSION: Bone marrow biopsy as above. Performed, dictated, and signed by Osvaldo Ring PA-C; to be co-signed by Dr. Oseas Julien. Electronically signed by: Oseas Julien M.D. 05/15/2025 2:22 PM
[2025-05-15] MEDS: ACETAMINOPHEN 1000 MG/100 ML IV IV ONE (15:23)
--- NOTE | 2025-05-15 17:45 | Billing Data ---
Date of Service May 15, 2025 Coding Level of Care Code 77608 SUB INP/OBS CARE MIN
--- NOTE | 2025-05-16 08:17 | Hospitalist Progress Note ---
Date of Service May 16, 2025 Assessment & Plan (1) Anemia: (2) MDS (myelodysplastic syndrome): (3) Nausea & vomiting: (4) Constipation: (5) Hyperlipidemia: (6) GERD (gastroesophageal reflux disease): (7) COPD (chronic obstructive pulmonary disease): Plan Pt is a 70 yo Female, w/ a pmh MDS/Pancytopenia, UTI, Constipation, COPD, presents to the ED with Nausea & Vomitting and SOB # MDS (Myelodysplastic Syndrome) (-Newly diagnosed MDS) / Pancytopenia / Anemia - Myelodysplastic syndrome with ring sideroblasts about 5% blast percentage suggestive of low-grade B-cell lymphoproliferative disorder - Anemia - Fink received 3 PRBCs on this admission so far - Thrombocytopenia - Patient's platelet count has also further declined 26 K/uL, received 1 bag of platelets Plan - CBC AM - Zofran,prochlorperazine, PPI, & Sucralfate PRN for N & V symptom -Hematology consult today -- repeat bone marrow eval - to evaluate for Acute Leukemia; transfuse Hb <7.5, platelet count and/or below 15,000. -Encouraged to work with PT/OT today -Bone Marrow Biopsy scheduled for today - Continue monitoring # Urinary Retention 2/2 itiology caused potentially UTI - urine bacteria 4+ and urinary retention --U/A ordered - Ceftriaxone ordered -Straight cath PRN # Electrolyte Imbalance --Resolved - Replaced as needed #Constipation -Pt has a relapsing hx of obstipation Plan i. Miralax increased to 34 g bid prn ii. Senna 8.6 mg PO prn iii. Monitor tomorrow for continued stool evacuation # COPD - Albuterol prn -Supplemental Oxygen PRN # Hyperlipidemia -Atorvastatin continued at 10 mg po # Bipolar Disorder Plan - Quetiapine 200 mg Dispo: PT to [facility], working with Case Management DVT Prophylaxis: PT on Enoxaparin Admission and Anticipated Discharge Date Admission Date: May 07, 2025 Supervising Physician Co-Signing Physician Notes I personally examined the patient and verified all shields points of history and exam, discussed case, and agree with decision making with Dr Patel no new complaints today, still weak. wonders what bone marrow will show vitals noted nad resting comfortably heent nc at mmm breathing unlabored no accessory muscles good effort skin no rashes no pallor or icterus Abnormal UA with urinary retention - treating as though UTI might have caused retention, although urinary retention may just relate to weakness (rocephin), straight cath prn (seems to be improving some) Pancytopenia in the setting of MDS - transfusion with Hgb < 7, ongoing vigilance. repeat marrow per heme/onc recs has been done, results still pending. appreciate input Constipation, acute on chronic - continue bowel regimen w/ goal of 1-2 soft bowel movements daily Bipolar II disorder - continue present psychiatric therapy and monitor for changes in mood. Consider addition of further medication/psych consult based on presenting sx. deconditioning/weakness - PT/OT eval and treat - understands and is willing to go to a facility for this (sounds like she recognizes home was unsafe), for SNF once available otherwise as above Subjective At Bedside today, pt AOx3, and disposition is improved. N & V has improved. Abdominal pain, light and heavy, illicits no pain. Pt has stooled today. No symptoms of fever, chills, or myalgia present. Review of Systems Review of Systems: All systems reviewed & are unremarkable except as noted in HPI & below Physical Exam Constitutional: WD/WN, vitals as above Eyes: PERRL, conjunctivae normal, anicteric sclerae ENMT: external ear and nose normal, oropharynx normal Neck: trachea midline, no thyromegaly Respiratory: normal respiratory effort, lungs clear to auscultation Cardiovascular: RRR, no murmur, no edema Gastrointestinal (Abdomen): normal bowel sounds, soft, nontender, no hepatosplenomegaly Musculoskeletal: no cyanosis or clubbing, extremities motor strength 5/5 Skin: no rashes, warm and dry Psychiatric: A+Ox3, euthymic affect Lymphatic: no cervical or axillary lymphadenopathy Results & Data Results & Data Vital Signs (Past 12 Hours) Vital Signs Temp Pulse Pulse Resp BP Pulse Ox O2 Del Method 05/16/25 07:47 36.6 C 68 18 101/55 L 100 Nasal Cannula 05/16/25 05:42 69 05/16/25 04:08 36.5 C 72 18 97/61 L 100 Nasal Cannula 05/16/25 00:02 68 05/15/25 23:42 36.5 C 74 20 101/55 L 99 Room Air 05/15/25 20:24 Nasal Cannula O2 Flow Rate 05/16/25 07:47 2 05/16/25 05:42 05/16/25 04:08 2 05/16/25 00:02 05/15/25 23:42 05/15/25 20:24 2
[2025-05-16 11:18] LABS: Hematocrit (blood only) 25.7 % (37.0-47.0); Hemoglobin 8.5 g/dl (12.0-16.0); Mean Corpuscular Hemoglobin 30.7 pg (25.0-34.0); Mean Corpuscular Volume 92.8 fL (80.0-100.0); Platelet Count 39 K/uL (130-400); RDW Standard Deviation 49.0 fL (36.4-46.3); Red Blood Count 2.77 M/uL (4.20-5.40); White Blood Count 1.41 K/ul (4.8-10.8)
[2025-05-16 11:21] LABS: ALC (manual) 0.24 K/uL (1.2-3.4); ANC (manual) 0.71 K/uL (1.4-6.5); Blast # (manual) 0.03 K/uL (0-0)
[2025-05-16 13:50] LABS: Appearance Urine Cloudy (Clear); Bacteria Urine Automated None Seen (None Seen); Cast Urine Automated 0-2 /lpf (0-2); Epithelial Cell Urine Auto 0-2 /hpf (0-2); Glucose Urine UA Negative (Negative); RBC Urine Automated 0-2 /hpf (0-2); Starch Talc Urine Present (None Prsent); WBC Urine Automated 0-5 /hpf (0-5)
--- NOTE | 2025-05-16 15:37 | Billing Data ---
Date of Service May 16, 2025 Coding Level of Care Code 16501 SUB INP/OBS CARE
[2025-05-17 09:39] LABS: Hematocrit (blood only) 23.6 % (37.0-47.0); Hemoglobin 7.7 g/dl (12.0-16.0); Mean Corpuscular Hemoglobin 29.6 pg (25.0-34.0); Mean Corpuscular Volume 90.8 fL (80.0-100.0); Platelet Count 33 K/uL (130-400); RDW Standard Deviation 48.3 fL (36.4-46.3); Red Blood Count 2.60 M/uL (4.20-5.40); White Blood Count 4.12 K/ul (4.8-10.8)
[2025-05-17 09:44] LABS: Immature Granulocytes # (auto) 0.09 K/uL (0.01-0.20); Immature Granulocytes % (auto) 2.2 %; Polychromasia 1+
--- NOTE | 2025-05-17 09:51 | Hospitalist Progress Note ---
Date of Service May 17, 2025 Assessment & Plan (1) Anemia: (2) MDS (myelodysplastic syndrome): (3) Nausea & vomiting: (4) Constipation: (5) Hyperlipidemia: (6) GERD (gastroesophageal reflux disease): (7) COPD (chronic obstructive pulmonary disease): Plan Pt is a 70 yo Female, w/ a pmh MDS/Pancytopenia, UTI, Constipation, COPD, presents to the ED with Nausea & Vomitting and SOB # MDS (Myelodysplastic Syndrome) (-Newly diagnosed MDS) / Pancytopenia / Anemia - Myelodysplastic syndrome with ring sideroblasts about 5% blast percentage suggestive of low-grade B-cell lymphoproliferative disorder - Anemia - Fink received 3 PRBCs on this admission so far - Thrombocytopenia - Patient's platelet count has also further declined 26 K/uL, received 1 bag of platelets Plan - CBC AM - Zofran,prochlorperazine, PPI, & Sucralfate PRN for N & V symptom -Hematology consult today -- repeat bone marrow eval - to evaluate for Acute Leukemia; transfuse Hb <7.5, platelet count and/or below 15,000. -Encouraged to work with PT/OT today -Waiting Bone Marrow Biopsy results - Continue monitoring # Urinary Retention 2/2 itiology caused potentially UTI - urine bacteria 4+ and urinary retention --U/A ordered - Ceftriaxone ordered -Catheterized for excess bladder retention # Electrolyte Imbalance --Resolved - Replaced as needed #Constipation -Pt has a relapsing hx of obstipation Plan i. Miralax increased to 34 g bid prn ii. Senna 8.6 mg PO prn iii. Monitor tomorrow for continued stool evacuation # COPD - Albuterol prn -Supplemental Oxygen PRN # Hyperlipidemia -Atorvastatin continued at 10 mg po # Bipolar Disorder Plan - Quetiapine 200 mg Dispo: PT to [facility], working with Case Management DVT Prophylaxis: PT on Enoxaparin Admission and Anticipated Discharge Date Admission Date: May 07, 2025 Supervising Physician Co-Signing Physician Notes I personally examined the patient and verified all shields points of history and exam, discussed case, and agree with decision making with Dr Patle no new complaints today, still weak. wonders what bone marrow will show vitals noted nad resting comfortably heent nc at mmm breathing unlabored no accessory muscles good effort skin no rashes no pallor or icterus Abnormal UA with urinary retention - treating as though UTI might have caused retention, although urinary retention may just relate to weakness (rocephin), straight cath prn (Still needing intermittent straight cath) Pancytopenia in the setting of MDS - transfusion with Hgb < 7.5, ongoing vigilance. repeat marrow per heme/onc recs has been done, results still pending. appreciate input; they did note transfuse as needed less than 7.5, and she is 7.7 today, given her trend of continuing to drop, it seems reasonable to be proactive with a unit of blood in her unique circumstances. Constipation, acute on chronic - continue bowel regimen w/ goal of 1-2 soft bowel movements daily Bipolar II disorder - continue present psychiatric therapy and monitor for changes in mood. Consider addition of further medication/psych consult based on presenting sx. deconditioning/weakness - PT/OT eval and treat - Anticipate center care tomorrow, will inform them of ongoing "work in progress" as far as her hematologic diagnosis and ongoing follow-up with hematology. otherwise as above Subjective At Bedside today, pt AOx3, and disposition is improved. N & V has improved. Abdominal pain, light and heavy, illicits no pain. Pt has had bowel movements and was recatheterized. No symptoms of fever, chills, or myalgia present. Results & Data Results & Data Vital Signs (Past 12 Hours) Vital Signs Temp Pulse Pulse Resp BP Pulse Ox O2 Del Method 05/17/25 08:47 36.8 C 78 18 90/52 L 100 Nasal Cannula 05/17/25 05:46 74 05/17/25 03:53 36.5 C 71 18 101/65 98 Nasal Cannula 05/16/25 23:24 Nasal Cannula 05/16/25 23:00 36.6 C 73 18 99/64 L 100 Nasal Cannula 05/16/25 21:54 74 O2 Flow Rate 05/17/25 08:47 2 05/17/25 05:46 05/17/25 03:53 2 05/16/25 23:24 2 05/16/25 23:00 2 05/16/25 21:54
--- NOTE | 2025-05-17 11:50 | Billing Data ---
Date of Service May 17, 2025 Coding Level of Care Code 30804 SUB INP/OBS CARE
--- NOTE | 2025-05-17 11:51 | Hospitalist Progress Note ---
Date of Service May 17, 2025 Assessment & Plan (1) Anemia: (2) MDS (myelodysplastic syndrome): (3) Nausea & vomiting: (4) Constipation: (5) Hyperlipidemia: (6) GERD (gastroesophageal reflux disease): (7) COPD (chronic obstructive pulmonary disease): Plan Pt is a 70 yo Female, w/ a pmh MDS/Pancytopenia, UTI, Constipation, COPD, presents to the ED with Nausea & Vomitting and SOB # MDS (Myelodysplastic Syndrome) (-Newly diagnosed MDS) / Pancytopenia / Anemia - Myelodysplastic syndrome with ring sideroblasts about 5% blast percentage suggestive of low-grade B-cell lymphoproliferative disorder - Anemia - Fink received 3 PRBCs on this admission so far - Thrombocytopenia - Patient's platelet count has also further declined 26 K/uL, received 1 bag of platelets Plan - CBC AM - Zofran,prochlorperazine, PPI, & Sucralfate PRN for N & V symptom -Hematology consult today -- repeat bone marrow eval - to evaluate for Acute Leukemia; transfuse Hb <7.5, platelet count and/or below 15,000. -Encouraged to work with PT/OT today -Waiting Bone Marrow Biopsy results -Hbg 7.7, transfusion scheduled, prior to transfer - Continue monitoring # Urinary Retention 2/2 itiology caused potentially UTI - urine bacteria 4+ and urinary retention --U/A ordered - Ceftriaxone ordered -Catheterized for excess bladder retention # Electrolyte Imbalance --Resolved - Replaced as needed #Constipation -Pt has a relapsing hx of obstipation Plan i. Miralax increased to 34 g bid prn ii. Senna 8.6 mg PO prn iii. Monitor tomorrow for continued stool evacuation # COPD - Albuterol prn -Supplemental Oxygen PRN # Hyperlipidemia -Atorvastatin continued at 10 mg po # Bipolar Disorder Plan - Quetiapine 200 mg Dispo: PT to [facility], working with Case Management DVT Prophylaxis: PT on Enoxaparin Admission and Anticipated Discharge Date Admission Date: May 07, 2025 Supervising Physician Co-Signing Physician Notes I personally examined the patient and verified all shields points of history and exam, discussed case, and agree with decision making with Dr Patel no new complaints today, still weak. wonders what bone marrow will show vitals noted nad resting comfortably heent nc at mmm breathing unlabored no accessory muscles good effort skin no rashes no pallor or icterus Abnormal UA with urinary retention - treating as though UTI might have caused retention, although urinary retention may just relate to weakness (rocephin), straight cath prn (Still needing intermittent straight cath) Pancytopenia in the setting of MDS - transfusion with Hgb < 7.5, ongoing vigilance. repeat marrow per heme/onc recs has been done, results still pending. appreciate input; they did note transfuse as needed less than 7.5, and she is 7.7 today, given her trend of continuing to drop, it seems reasonable to be proactive with a unit of blood in her unique circumstances. Constipation, acute on chronic - continue bowel regimen w/ goal of 1-2 soft bowel movements daily Bipolar II disorder - continue present psychiatric therapy and monitor for changes in mood. Consider addition of further medication/psych consult based on presenting sx. deconditioning/weakness - PT/OT eval and treat - Anticipate center care tomorrow, will inform them of ongoing "work in progress" as far as her hematologic diagnosis and ongoing follow-up with hematology. otherwise as above Subjective At Bedside today, pt AOx3, and disposition is improved. N & V has improved. Abdominal pain, light and heavy, illicits no pain. Pt has had bowel movements and was recatheterized. No symptoms of fever, chills, or myalgia present. Physical Exam Constitutional: WD/WN, vitals as above Eyes: PERRL, conjunctivae normal, anicteric sclerae ENMT: external ear and nose normal, oropharynx normal Neck: trachea midline, no thyromegaly Respiratory: normal respiratory effort, lungs clear to auscultation Cardiovascular: RRR, no murmur, no edema Gastrointestinal (Abdomen): normal bowel sounds, soft, nontender, no hepatosplenomegaly Musculoskeletal: no cyanosis or clubbing, extremities motor strength 5/5 Skin: no rashes, warm and dry Psychiatric: A+Ox3, euthymic affect Lymphatic: no cervical or axillary lymphadenopathy Results & Data Results & Data Vital Signs (Past 12 Hours) Vital Signs Temp Pulse Pulse Resp BP BP Pulse Ox 05/17/25 10:57 36.4 C L 76 18 100/63 98 05/17/25 08:47 36.8 C 78 18 90/52 L 100 05/17/25 07:40 08/15/25 05:46 74 05/17/25 03:53 36.5 C 71 18 101/65 98 O2 Del Method O2 Flow Rate 05/17/25 10:57 Nasal Cannula 2 05/17/25 08:47 Nasal Cannula 2 05/17/25 07:40 Nasal Cannula 2 05/17/25 05:46 05/17/25 03:53 Nasal Cannula 2
[2025-05-17] MEDS ORDERED: SODIUM CHLORIDE 0.9% 100 ML IV PRN ×2 (14:44→16:14)
--- NOTE | 2025-05-17 18:17 | History & Physical Report ---
Date of Service May 17, 2025 Assessment & Plan (1) Anemia: (2) MDS (myelodysplastic syndrome): (3) Nausea & vomiting: (4) Constipation: (5) Hyperlipidemia: (6) GERD (gastroesophageal reflux disease): (7) COPD (chronic obstructive pulmonary disease): Plan Pt is a 70 yo Female, w/ a pmh MDS/Pancytopenia, UTI, Constipation, COPD, presents to the ED with Nausea & Vomitting and SOB # MDS (Myelodysplastic Syndrome) (-Newly diagnosed MDS) / Pancytopenia / Anemia - Myelodysplastic syndrome with ring sideroblasts about 5% blast percentage suggestive of low-grade B-cell lymphoproliferative disorder - Anemia - Fink received 3 PRBCs on this admission so far - Thrombocytopenia - Patient's platelet count has also further declined 26 K/uL, received 1 bag of platelets Plan - CBC AM - Zofran,prochlorperazine, PPI, & Sucralfate PRN for N & V symptom -Hematology consult today -- repeat bone marrow eval - to evaluate for Acute Leukemia; transfuse Hb <7.5, platelet count and/or below 15,000. -Encouraged to work with PT/OT today -Waiting Bone Marrow Biopsy results -Hbg 7.7, transfusion scheduled, prior to transfer - Continue monitoring # Urinary Retention 2/2 itiology caused potentially UTI - urine bacteria 4+ and urinary retention --U/A ordered - Ceftriaxone ordered -Catheterized for excess bladder retention # Electrolyte Imbalance --Resolved - Replaced as needed #Constipation -Pt has a relapsing hx of obstipation Plan i. Miralax increased to 34 g bid prn ii. Senna 8.6 mg PO prn iii. Monitor tomorrow for continued stool evacuation # COPD - Albuterol prn -Supplemental Oxygen PRN # Hyperlipidemia -Atorvastatin continued at 10 mg po # Bipolar Disorder Plan - Quetiapine 200 mg Dispo: PT to [facility], working with Case Management DVT Prophylaxis: PT on Enoxaparin Admission and Anticipated Discharge Date Admission Date: May 07, 2025 History of Present Illness Primary Care Provider: Damien Gutierrez MD Allergies Allergy/AdvReac Type Severity Reaction Status Date / Time lithium Allergy Confusion Unverified 05/06/25 23:51 ibuprofen AdvReac Nausea Unverified 04/25/22 19:03 Home Medications Medication Instructions Recorded Confirmed Type atorvastatin 10 mg tablet 10 mg PO HS 01/31/25 05/06/25 History furosemide 40 mg tablet 40 mg PO QAM 01/31/25 05/06/25 History gabapentin 800 mg tablet 800 mg PO TID 01/31/25 05/06/25 History hydroxyzine HCl 25 mg tablet 25 mg PO QID PRN Anxiety 01/31/25 05/06/25 History quetiapine 200 mg tablet 200 mg PO HS 01/31/25 05/06/25 History albuterol sulfate 90 mcg/actuation 1 puff inhalation DIRECTED PRN 03/07/25 05/06/25 History aerosol inhaler (Ventolin HFA) sob acetaminophen 325 mg tablet 650 mg (2 x 325 mg) PO Q4H PRN 03/08/25 05/06/25 Rx fever #10 tabs hydrocodone 5 mg-acetaminophen 325 1 tab PO Q8H PRN pain #20 tabs 04/13/25 05/06/25 Rx mg tablet hydroxyzine HCl 25 mg tablet 25 mg PO HS sleep, anxiety #30 tabs 04/13/25 05/06/25 Rx pantoprazole 40 mg tablet,delayed 40 mg PO DAILY #30 tabs 04/13/25 05/06/25 Rx release polyethylene glycol 3350 17 gram 17 g PO BID #0 ea 04/13/25 05/06/25 Rx oral powder packet (Miralax) sennosides 8.6 mg tablet (senna) 8.6 mg PO BID constipation #60 tabs 04/13/25 05/06/25 Rx diphenhydramine 25 2 tab PO HS 05/06/25 05/06/25 History mg-acetaminophen 500 mg tablet (Tylenol PM Extra Strength) Past Med/Surg History Problem List (Updated 05/16/25 @ 00:06 by Background Daemon) COPD (chronic obstructive pulmonary disease) MDS (myelodysplastic syndrome) GERD (gastroesophageal reflux disease) Hyperlipidemia Constipation Anemia Nausea & vomiting (Acute) Dizziness (Acute) Lymphoproliferative disorder (Acute) Pancytopenia (Acute) Chronic back pain Bipolar disorder Bilateral leg weakness Leg swelling (Acute) Elevated brain natriuretic peptide (BNP) level (Acute) Medical History (Updated 05/16/25 @ 00:06 by Background Daemon) Pancytopenia Myelodysplastic syndrome CHF (congestive heart failure) Ambulatory dysfunction PUD (peptic ulcer disease) Surgical History H/O: hysterectomy Family History Other Family history non-contributory Social History Smoking Status: Never smoker Tobacco Type: Cigarettes Hx Alcohol Use: No Hx Substance Use: No Preferred Language: Sami Communication Ability: Effective Cane Feeder Required: No Beliefs That Will Affect Care: None Current Living Situation: Family Feels Safe at Home: Yes Safety Concerns: Feels Safe At This Time Assistive Devices: Cane, Oxygen - Continuous, Walker and Wheelchair Results & Data Results & Data Vital Signs (Past 12 Hours) Vital Signs Temp Pulse Pulse Resp BP BP Pulse Ox 05/17/25 15:27 36.6 C 77 18 95/60 L 99 05/17/25 13:27 75 05/17/25 10:57 36.4 C L 76 18 100/63 98 05/17/25 08:47 36.8 C 78 18 90/52 L 100 05/17/25 07:40 O2 Del Method O2 Flow Rate 05/17/25 15:27 Nasal Cannula 2 05/17/25 13:27 05/17/25 10:57 Nasal Cannula 2 05/17/25 08:47 Nasal Cannula 2 05/17/25 07:40 Nasal Cannula 2 Code Status & VTE Plan VTE Prophylaxis Plan VTE Prophylaxis will be ordered: Yes
[2025-05-18 07:33] LABS: Anion Gap 2.0 (3-11); Blood Urea Nitrogen 11.0 mg/dl (6-23); Calcium 8.1 mg/dl (8.6-10.3); Carbon Dioxide 36.0 mmol/L (21-32); Chloride 101.0 mmol/L (98-107); Creatinine Clr Calc Pharmacy 98.1 ml/min; Glucose 93.0 mg/dl (70-99(Fasting)); Potassium 4.1 mmol/L (3.5-5.1); Sodium 139.0 mmol/L (136-145)
[2025-05-18 07:40] LABS: Hematocrit (blood only) 21.7 % (37.0-47.0); Hemoglobin 7.0 g/dl (12.0-16.0); Mean Corpuscular Hemoglobin 29.9 pg (25.0-34.0); Mean Corpuscular Volume 92.7 fL (80.0-100.0); Platelet Count 28 K/uL (130-400); RDW Standard Deviation 48.2 fL (36.4-46.3); Red Blood Count 2.34 M/uL (4.20-5.40); White Blood Count 1.92 K/ul (4.8-10.8)
[2025-05-18] MEDS ORDERED: SODIUM CHLORIDE 0.9% 100 ML IV PRN (07:52)
[2025-05-18 09:02] LABS: Immature Granulocytes # (auto) 0.11 K/uL (0.01-0.20); Immature Granulocytes % (auto) 5.7 %
--- NOTE | 2025-05-18 10:33 | Hospitalist Progress Note ---
Date of Service May 18, 2025 Assessment & Plan (1) Anemia: (2) MDS (myelodysplastic syndrome): (3) Nausea & vomiting: (4) Constipation: (5) Hyperlipidemia: (6) GERD (gastroesophageal reflux disease): (7) COPD (chronic obstructive pulmonary disease): Plan Pt is a 70 yo Female, w/ a pmh MDS/Pancytopenia, UTI, Constipation, COPD, presents to the ED with Nausea & Vomiting and SOB # MDS (Myelodysplastic Syndrome) (-Newly diagnosed MDS) / Pancytopenia / Anemia - Myelodysplastic syndrome with ring sideroblasts about 5% blast percentage suggestive of low-grade B-cell lymphoproliferative disorder - Anemia - Has received 4 PRBCs on this admission so far - Thrombocytopenia - Patient's platelet count has also further declined 28 K/uL, received 1 bag of platelets Plan - Zofran,prochlorperazine, PPI, & Sucralfate PRN for N & V symptom - Waiting for bone marrow biopsy- to evaluate for Acute Leukemia; transfuse Hb <7.5, platelet count and/or below 15,000. -Encouraged to work with PT/OT today -Bone Marrow Biopsy results pending. -Hbg 7, transfused today. - CBC qAM. # Urinary Retention 2/2 itiology caused potentially UTI - urine bacteria 4+ and urinary retention --U/A ordered - Continue Ceftriaxone. -Catheterized for excess bladder retention # Electrolyte Imbalance --Resolved - Replaced as needed #Constipation -Pt has a relapsing hx of obstipation Plan i. Miralax increased to 34 g bid prn ii. Senna 8.6 mg PO prn iii. Monitor tomorrow for continued stool evacuation # COPD - Albuterol prn -Supplemental Oxygen PRN # Hyperlipidemia -Atorvastatin continued at 10 mg po # Bipolar Disorder Plan - Quetiapine 200 mg Dispo: PT to [facility], working with Case Management DVT Prophylaxis: PT on Enoxaparin Admission and Anticipated Discharge Date Admission Date: May 07, 2025 Supervising Physician Co-Signing Physician Notes I personally examined the patient and verified all shields points of history and exam, discussed case, and agree with decision making with Dr Mills Feels more weak. Looks more pale. Worried about rehab. vitals noted nad resting comfortably heent nc at mmm breathing unlabored no accessory muscles good effort skin no rashes Noticeable pallor Abnormal UA with urinary retention - treating as though UTI might have caused retention, although urinary retention may just relate to weakness (rocephin), but more suspicious that she has idiopathic urinary retentionpossibly simply related to being so weak overall Pancytopenia in the setting of MDS - transfusion with Hgb < 7.5, ongoing vigilance. repeat marrow per heme/onc recs has been done, results still pending. she trended down on all cell lines, and her hemoglobin went from 7.77.0 in spite of a unit of blood yesterday. She feels weaker and looks visibly more paleadditional unit of blood today. Given that her situation still seems to be acutely dynamic, it does not appear safe to move her to SNF yet. We would either need more clear-cut and durable stability in her clinical status, or bone marrow results and the plan moving forward Constipation, acute on chronic - continue bowel regimen w/ goal of 1-2 soft bowel movements daily Bipolar II disorder - continue present psychiatric therapy and monitor for changes in mood. Consider addition of further medication/psych consult based on presenting sx. deconditioning/weakness - PT/OT eval and treat - Anticipate center care but above noted not until she either has more durable stability in her clinical status, or until we have bone marrow results and a clear plan/direction. otherwise as above Subjective At Bedside today, pt AOx3, and disposition is improved. Looks weak, was on nasal cannula and on blood transfusion. N & V has improved. Pt has had bowel movements and was recatheterized. No symptoms of fever, chills, myalgia, bleeding complications. Review of Systems Review of Systems: All systems reviewed & are unremarkable except as noted in HPI & below Physical Exam Constitutional: WD/WN, vitals as above Eyes: PERRL, conjunctivae normal, anicteric sclerae ENMT: external ear and nose normal, oropharynx normal Neck: trachea midline, no thyromegaly Respiratory: normal respiratory effort, lungs clear to auscultation Cardiovascular: RRR, no murmur, no edema Gastrointestinal (Abdomen): normal bowel sounds, soft, nontender, no hepatosplenomegaly Musculoskeletal: no cyanosis or clubbing, extremities motor strength 5/5 Skin: no rashes, warm and dry Psychiatric: A+Ox3, euthymic affect Lymphatic: no cervical or axillary lymphadenopathy Results & Data Results & Data Vital Signs (Past 12 Hours) Vital Signs Temp Pulse Pulse Resp BP BP BP 05/18/25 08:38 36.4 C L 74 12 90/55 L 05/18/25 08:23 36.5 C 75 20 95/63 L 05/18/25 02:59 36.6 C 69 18 95/59 L 05/18/25 01:27 74 05/17/25 22:55 Pulse Ox O2 Del Method O2 Flow Rate 05/18/25 08:38 100 05/18/25 08:23 100 Room Air 05/18/25 02:59 100 Nasal Cannula 2 05/18/25 01:27 05/17/25 22:55 Nasal Cannula 2
[2025-05-18] MEDS ORDERED: Nursing to Pharmacy Communication SCH (13:00)
--- NOTE | 2025-05-18 15:28 | Billing Data ---
Date of Service May 18, 2025 Coding Level of Care Code 33023 SUB INP/OBS CARE MIN
[2025-05-19 07:39] LABS: Hematocrit (blood only) 23.1 % (37.0-47.0); Hemoglobin 7.4 g/dl (12.0-16.0); Mean Corpuscular Hemoglobin 28.8 pg (25.0-34.0); Mean Corpuscular Volume 89.9 fL (80.0-100.0); Platelet Count 32 K/uL (130-400); RDW Standard Deviation 51.3 fL (36.4-46.3); Red Blood Count 2.57 M/uL (4.20-5.40); White Blood Count 3.54 K/ul (4.8-10.8)
[2025-05-19 09:00] LABS: Immature Granulocytes # (auto) 0.22 K/uL (0.01-0.20); Immature Granulocytes % (auto) 6.2 %; Ovalocytes 1+; Polychromasia 1+
--- NOTE | 2025-05-19 10:49 | Hospitalist Progress Note ---
Date of Service May 19, 2025 Assessment & Plan (1) Anemia: (2) MDS (myelodysplastic syndrome): (3) Nausea & vomiting: (4) Constipation: (5) Hyperlipidemia: (6) GERD (gastroesophageal reflux disease): (7) COPD (chronic obstructive pulmonary disease): Plan Pt is a 70 yo Female, w/ a pmh MDS/Pancytopenia, UTI, Constipation, COPD, presents to the ED with Nausea & Vomiting and SOB # MDS (Myelodysplastic Syndrome) (-Newly diagnosed MDS) / Pancytopenia / Anemia - Myelodysplastic syndrome with ring sideroblasts about 5% blast percentage suggestive of low-grade B-cell lymphoproliferative disorder - Anemia - Has received 4 PRBCs on this admission so far - Thrombocytopenia - Patient's platelet count has also further declined 28 K/uL, received 1 bag of platelets Plan - Zofran,prochlorperazine, PPI, & Sucralfate PRN for N & V symptom - Waiting for bone marrow biopsy- to evaluate for Acute Leukemia; transfuse Hb <7.5, platelet count and/or below 15,000. -Encouraged to work with PT/OT today -Bone Marrow Biopsy results pending. -Hbg 7.4, transfused yesterday. - Destined for [facility] after the clear plan from Hem/Onc either its myeloid dysplasia or acute leukemia. - CBC qAM. # Urinary Retention 2/2 itiology caused potentially UTI - urine bacteria 4+ and urinary retention - Continue Ceftriaxone. - Catheterized for excess bladder retention # Electrolyte Imbalance --Resolved - Replaced as needed #Constipation -Pt has a relapsing hx of obstipation Plan i. Miralax increased to 34 g bid prn ii. Senna 8.6 mg PO prn iii. Monitor tomorrow for continued stool evacuation # COPD - Albuterol prn -Supplemental Oxygen PRN # Hyperlipidemia -Atorvastatin continued at 10 mg po # Bipolar Disorder Plan - Quetiapine 200 mg Dispo: PT to [facility], working with Case Management DVT Prophylaxis: PT on Enoxaparin Admission and Anticipated Discharge Date Admission Date: May 07, 2025 Subjective At Bedside today, pt AOx3, and disposition is improved. Looks pale, reports her legs were sore but overall she looks better than yesterday, was on nasal cannula and had blood transfusion yesterday N & V has improved. Pt has not had bowel movements yesterday, was recatheterized. No symptoms of fever, chills, myalgia, bleeding complications. Physical Exam Constitutional: WD/WN, vitals as above Eyes: PERRL, conjunctivae normal, anicteric sclerae ENMT: external ear and nose normal, oropharynx normal Neck: trachea midline, no thyromegaly Respiratory: normal respiratory effort, lungs clear to auscultation Cardiovascular: RRR, no murmur, no edema Gastrointestinal (Abdomen): normal bowel sounds, soft, nontender, no hepatosplenomegaly Musculoskeletal: no cyanosis or clubbing, extremities motor strength 5/5 Skin: no rashes, warm and dry Psychiatric: A+Ox3, euthymic affect Lymphatic: no cervical or axillary lymphadenopathy Results & Data Results & Data Vital Signs (Past 12 Hours) Vital Signs Temp Pulse Pulse Resp BP Pulse Ox O2 Del Method 05/19/25 08:22 36.3 C L 72 18 103/64 100 Nasal Cannula 05/19/25 08:00 Nasal Cannula 05/19/25 02:36 36.4 C L 87 18 104/62 99 Nasal Cannula 05/19/25 02:21 72 05/19/25 02:06 Nasal Cannula O2 Flow Rate 05/19/25 08:22 2 05/19/25 08:00 2 05/19/25 02:36 2 05/19/25 02:21 05/19/25 02:06 2
--- NOTE | 2025-05-19 13:43 | Billing Data ---
Date of Service May 19, 2025 Coding Level of Care Code 95271 SUB INP/OBS CARE
[2025-05-19] MEDS: MoRPHine SULFATE 2 MG/ML CARP IV STA (20:25)
[2025-05-19] MEDS: KETOROLAC TROMETHAMINE 15 MG/ML VIAL IV ONE (20:29)
[2025-05-20 07:22] LABS: Hematocrit (blood only) 23.4 % (37.0-47.0); Hemoglobin 7.6 g/dl (12.0-16.0); Mean Corpuscular Hemoglobin 29.6 pg (25.0-34.0); Mean Corpuscular Volume 91.1 fL (80.0-100.0); Platelet Count 35 K/uL (130-400); RDW Standard Deviation 50.2 fL (36.4-46.3); Red Blood Count 2.57 M/uL (4.20-5.40); White Blood Count 2.58 K/ul (4.8-10.8)
[2025-05-20 07:38] LABS: ALC (manual) 0.44 K/uL (1.2-3.4); ANC (manual) 1.78 K/uL (1.4-6.5); Blast # (manual) 0.03 K/uL (0-0); Ovalocytes 1+; Polychromasia 2+
[2025-05-20 07:44] LABS: Anion Gap 1.0 (3-11); Blood Urea Nitrogen 12.0 mg/dl (6-23); Calcium 8.0 mg/dl (8.6-10.3); Carbon Dioxide 36.0 mmol/L (21-32); Chloride 102.0 mmol/L (98-107); Creatinine Clr Calc Pharmacy 78.0 ml/min; Glucose 92.0 mg/dl (70-99(Fasting)); Potassium 3.9 mmol/L (3.5-5.1); Sodium 139.0 mmol/L (136-145)
[2025-05-20] MEDS: DOCUSATE SODIUM 100 MG CAP PO PRN (08:30)
--- NOTE | 2025-05-20 08:53 | History & Physical Report ---
Date of Service May 20, 2025 Assessment & Plan (1) Anemia: (2) MDS (myelodysplastic syndrome): (3) Nausea & vomiting: (4) Constipation: (5) Hyperlipidemia: (6) GERD (gastroesophageal reflux disease): (7) COPD (chronic obstructive pulmonary disease): Plan Pt is a 70 yo Female, w/ a pmh MDS/Pancytopenia, UTI, Constipation, COPD, presents to the ED with Nausea & Vomiting and SOB # MDS (Myelodysplastic Syndrome) (-Newly diagnosed MDS) / Pancytopenia / Anemia - Myelodysplastic syndrome with ring sideroblasts about 5% blast percentage suggestive of low-grade B-cell lymphoproliferative disorder - Anemia - Has received 4 PRBCs on this admission so far - Thrombocytopenia - Patient's platelet count has also further declined 28 K/uL, received 1 bag of platelets - Zofran,prochlorperazine, PPI, & Sucralfate PRN for N & V symptom - Waiting for bone marrow biopsy- to evaluate for Acute Leukemia; transfuse Hb <7.5, platelet count and/or below 15,000. -Encouraged to work with PT/OT today -Bone Marrow Biopsy results pending. -Hbg 7.4, transfused yesterday. - Destined for [facility] after the clear plan from Hem/Onc either its myeloid dysplasia or acute leukemia. - CBC qAM. # Urinary Retention 2/2 itiology caused potentially UTI - urine bacteria 4+ and urinary retention - Continue Ceftriaxone. - Catheterized for excess bladder retention # Electrolyte Imbalance --Resolved - Replaced as needed #Constipation -Pt has a relapsing hx of obstipation - bowel regimen - miralax 34 mg bid prn, senna 8.6 mg PO prn i. Miralax increased to 34 g bid prn ii. Senna 8.6 mg PO prn iii. Monitor tomorrow for continued stool evacuation # COPD - Albuterol prn - Supplemental Oxygen PRN # Hyperlipidemia - Atorvastatin continued at 10 mg po # Bipolar Disorder - continue home uetiapine 200 mg Dispo: PT to [facility], working with Case Management DVT Prophylaxis: PT on Enoxaparin Delivery Information [place] Information Length (inches): 5 ft Sex: F Race: White Physical Exam Constitutional: + WD/WN, vitals as above, + well appeari ng and + alert Eyes: + PERRL, conjunctivae normal, anicteric sclerae Neck: + trachea midline, no thyromegaly and no rmal visual inspection Respiratory: + normal respiratory effort, lungs clear to auscultation and normal respiratory effort Cardiovascular: RRR, no murmur, no edema Vessels: normal pulses Extremities: + edema Gastrointestinal (Abdomen): normal bowel sounds, soft, nontender, no hepatosplenomegaly Musculoskeletal: no cyanosis or clubbing, no motor strength deficits noted Skin: + no rashes, warm and dry Neurologic: + no reflex abnormalities, no sensory de ficits noted PG Care Time/CCT Total # of Minutes Spent Total Time Spent with Patient: Total time spent is greater than 50% in coordination of care (as documented) at patient's floor/unit and/or counseling patient: Coding Diagnoses Anemia D64.9 MDS (myelodysplastic syndrome) D46.9 Nausea & vomiting R11.2 Constipation K59.00 Hyperlipidemia E78.5 GERD (gastroesophageal reflux disease) K21.9 COPD (chronic obstructive pulmonary disease) J44.9
--- NOTE | 2025-05-20 09:04 | Hospitalist Progress Note ---
Date of Service May 20, 2025 Assessment & Plan (1) Anemia: (2) MDS (myelodysplastic syndrome): (3) Nausea & vomiting: (4) Constipation: Plan Pt is a 70 yo Female PMHx MDS/Pancytopenia, UTI, Constipation, COPD, presents to the ED with Nausea & Vomiting and SOB # MDS (Myelodysplastic Syndrome) (-Newly diagnosed MDS) / Pancytopenia / Anemia - Myelodysplastic syndrome with ring sideroblasts about 5% blast percentage suggestive of low-grade B-cell lymphoproliferative disorder - Anemia - Has received 4 PRBCs on this admission so far. Last transfusion 05/18. - Thrombocytopenia - received 1 bag of platelets; count has been improving - 35 K/uL this morning Plan - waiting for bone marrow biopsy - evaluating for acute leukemia; transfuse Hb <7.5; plaletet count and/or below 15,000. H&H 7.6 & 23.4 this morning. - Zofran,prochlorperazine, PPI, & Sucralfate PRN for N/V - encouraged continue working with PT/OT - planned dispo to [facility] after plan from Hem/Onc either its myeloid dysplasia or acute leukemia. - CBC qAM. # Urinary Retention 2/2 etiology caused potentially UTI - urine bacteria 4+ from urinalysis on 05/11/25 and urinary retention. repeat urine showing no bacteria or leukocyte esterase - patient also has history of chronic opioid use, which could also be contributing to urinary retention; will also try to increase bowel regimen to see if there is improvement - see plan below - has received 5 days of ceftriaxone therapy - can discontinue - continue Case catheter and discontinue/voiding trial after constipation improved #Constipation -Pt has a relapsing hx of obstipation, likely in the setting of chronic opioid use; has not had BM in two days; chronic constipation could be contributing to urinary retention, documented above. - current bowel regimen: miralax 34g bid prn, senna 8.6mg PO prn. Added bisacodyl prn daily. - goal is for 1-2 soft bowel movements daily - continue monitoring for stool output. # Bilateral leg pain - patient reporting worsening bilateral leg pain L>R which started yesterday. - concern for potential DVT given patient's hypercoagulable state and current immobility status. - 2+ pitting edema bilateral LE; no erythema, calf tenderness or swelling noted on exam - US BL LE ordered for further evaluation. # Electrolyte Imbalance -- Resolved - Replaced as needed # COPD - Albuterol prn - Supplemental Oxygen PRN # Hyperlipidemia -continue home atorvastatin 10 mg po # Bipolar Disorder - continue home quetiapine 200 mg Dispo: PT to [facility], working with Case Management DVT Prophylaxis: SCDs given platelet count - avoid oral anticoagulation Admission and Anticipated Discharge Date Admission Date: May 07, 2025 Supervising Physician Co-Signing Physician Notes I personally examined the patient and verified all shields points of history and exam, discussed case, and agree with decision making with Dr Leal with the following additions/exceptions: S-patient says "why am I here?" I explained what was going on with her and at the end of the explanation she said "okay so nothing is wrong with me?" And then later said "I am going to sign myself out." She reports pain in her knees bilaterally but this is chronic for her. She is basically completely immobile even at home and is refusing to work with PT here. O- Vitals Reviewed Gen: NAD, appears chronically ill HEENT: Anicteric sclerae, EOMI CV: RRR no mgr nl S1S2 Pulm: CTAB no wcr Abd: +BS soft NT ND no masses or hernias Ext: 1+ pitting edema of legs to the knees bilaterally Skin: No rashes, warm/dry CBC, BMP reviewed, bilateral lower extremity venous Dopplers reviewed A/P: This patient is a 70-year-old female here with a history of MDS, COPD, HLD, depression/bipolar, GERD, constipation, with nausea vomiting, weakness, UTI and transfusion dependency. Blasts were seen and she is being worked up for acute leukemia - Follow-up bone marrow biopsy when available - Transfusional support as needed - Completed treatment with ceftriaxone-only regarding Elana grew out on urine culture. - Her leg pain is likely due to arthritis and from immobility-pain control but need to back off the opioids to help with constipation and urine retention Subjective A&Ox3 at bedside this morning. No issues overnight. Reporting her lower legs are painful and has been receiving tylenol/hydrocodone for management. States N/V has improved, able to tolerate diet. Has been having bowel movements, recatheterized this morning. Reports feeling better overall. Denies fever/chills, chest pain, SOB, abnormal bleeding/bruising. Review of Systems Review of Systems: All systems reviewed & are unremarkable except as noted in Subjective Physical Exam Constitutional: WD/WN, vitals as above Eyes: PERRL, conjunctivae normal, anicteric sclerae ENMT: external ear and nose normal, oropharynx normal Neck: trachea midline, no thyromegaly Respiratory: normal respiratory effort, lungs clear to auscultation Cardiovascular: Rate/Rhythm: regular rate and regular rhythm Extremities: + edema Gastrointestinal (Abdomen): normal bowel sounds, soft, nontender, no hepatosplenomegaly Musculoskeletal: no cyanosis or clubbing, extremities motor strength 5/5 Extremities: extremities normal to inspection Skin: no rashes, warm and dry Neurologic: PERRL, EOMI, accommodation nl, no face palsy, no dysarthria Psychiatric: A+Ox3, euthymic affect Results & Data Results & Data Vital Signs (Past 12 Hours) Vital Signs Temp Pulse Pulse Resp BP Pulse Ox O2 Del Method 05/20/25 07:16 36.9 C 72 16 106/61 98 Nasal Cannula 05/20/25 06:57 68 05/20/25 04:04 36.3 C L 69 20 94/65 L 100 Nasal Cannula 05/19/25 23:37 36.5 C 71 20 88/52 L 98 Room Air 05/19/25 21:45 74 05/19/25 21:15 Nasal Cannula O2 Flow Rate 05/20/25 07:16 2 05/20/25 06:57 05/20/25 04:04 2 05/19/25 23:37 2 05/19/25 21:45 05/19/25 21:15 2
--- NOTE | 2025-05-20 14:38 | Ultrasound Report ---
BILATERAL LOWER EXTREMITY VENOUS DOPPLER HISTORY: LE edema/ pain, MDL COMPARISON STUDY: 04/25/2022 FINDINGS: No evidence of DVT seen in bilateral lower extremities. IMPRESSION: No DVT seen. ACT 112: Negative or not required by law. Electronically signed by: Oseas Julien M.D. 05/20/2025 2:37 PM
--- NOTE | 2025-05-20 17:47 | Billing Data ---
Date of Service May 20, 2025 Coding Level of Care Code 76060 SUB INP/OBS CARE
[2025-05-20] MEDS: POLYETHYLENE (MIRALAX) 17 GM PACK PO SCH (20:26)
[2025-05-20] MEDS: DOCUSATE SODIUM 100 MG CAP PO SCH (20:30)
[2025-05-21 08:22] LABS: Hematocrit (blood only) 22.8 % (37.0-47.0); Hemoglobin 7.2 g/dl (12.0-16.0); Mean Corpuscular Hemoglobin 28.8 pg (25.0-34.0); Mean Corpuscular Volume 91.2 fL (80.0-100.0); Platelet Count 34 K/uL (130-400); RDW Standard Deviation 49.6 fL (36.4-46.3); Red Blood Count 2.50 M/uL (4.20-5.40); White Blood Count 4.44 K/ul (4.8-10.8)
[2025-05-21 08:27] LABS: Alanine Aminotransferase 7.0 U/L (7-52); Albumin Globulin Ratio 1.4 (0.9-2); Alkaline Phosphatase 87.0 U/L (34-104); Anion Gap 2.0 (3-11); Bilirubin,Total 0.6 mg/dl (0.2-1.0); Blood Urea Nitrogen 14.0 mg/dl (6-23); Calcium 7.9 mg/dl (8.6-10.3); Carbon Dioxide 36.0 mmol/L (21-32); Chloride 102.0 mmol/L (98-107); Creatinine Clr Calc Pharmacy 74.2 ml/min; Globulin 1.7 gm/dl (2.5-4.0); Glucose 104.0 mg/dl (70-99(Fasting)); Potassium 4.1 mmol/L (3.5-5.1); Sodium 140.0 mmol/L (136-145); Total Protein 4.0 gm/dl (6.0-8.3)
[2025-05-21 08:36] LABS: Immature Granulocytes # (auto) 0.21 K/uL (0.01-0.20); Immature Granulocytes % (auto) 4.7 %; Polychromasia 1+
[2025-05-21] MEDS ORDERED: SODIUM CHLORIDE 0.9% 100 ML IV PRN (08:47)
--- NOTE | 2025-05-21 09:20 | Hospitalist Progress Note ---
Date of Service May 21, 2025 Assessment & Plan (1) Anemia: (2) MDS (myelodysplastic syndrome): (3) Constipation: Plan Pt is a 70 yo Female PMHx MDS/Pancytopenia, UTI, Constipation, COPD, presents to the ED with Nausea & Vomiting and SOB # MDS (Myelodysplastic Syndrome) (-Newly diagnosed MDS) / Pancytopenia / Anemia - Myelodysplastic syndrome with ring sideroblasts about 5% blast percentage suggestive of low-grade B-cell lymphoproliferative disorder - Anemia - Has received 4 PRBCs on this admission so far. Last transfusion 05/18. - Thrombocytopenia - received 1 bag of platelets; count has been improving - 35 K/uL this morning Plan - H&H 7.2 & 22.8 today - transfuse 1 unit PRBCs. Platelet count stable at 34,000. Remains afebrile w/o leukocytosis. - discussed with heme/onc this morning regarding plan for patient. Waiting for bone marrow biopsy results to r/o acute leukemia vs myeloid dysplasia. Per heme/onc - can wait for results as outpatient and to begin MDS treatment within a week of discharge. Planning for discharge tomorrow to [facility] within labs and [facility] with [facility]/onc. - was previously on prophylaxis regimen of acyclovir, fluconazole, and allopurinol before admission. ANC 3160. Per heme recommendations, patient does not need prophylaxis until ANC <500. - Zofran,prochlorperazine, PPI, & Sucralfate PRN for N/V - encouraged continue working with PT/OT - planned dispo to [facility] with heme/onco f/u outpatient - CBC qAM. # Urinary Retention - unsure of etiology of urinary retention - could be in the setting of UTI vs chronic constipation vs immobility vs chronic opioid use. - urine bacteria 4+ from urinalysis on 05/11/25 and urinary retention. repeat urine showing no bacteria or leukocyte esterase. - ceftriaxone therapy discontinued yesterday - Case catheter placed yesterday afternoon, drainage clear yellow urine this morning. Due to patient's immunocompromised state, will continue observe for signs of infection. #Constipation - has a relapsing hx of obstipation, likely in the setting of chronic opioid use; patient reports not having a bowel movement in three days; chronic constipation could be contributing to urinary retention, documented above. - current bowel regimen: miralax 34g bid prn, senna 8.6mg PO prn. Added magnesium citrate to morning regimen. Bisacodyl suppository prn daily. - goal is for 1-2 soft bowel movements daily - continue monitoring for stool output. # Bilateral leg pain - patient reporting worsening bilateral leg pain L>R. After talking more with patient, seems to be chronic for her. Trying to wean her off of chronic use of opioids for better control of urinary retention/constipation. - US BL LE completed yesterday negative for DVT. - 2+ pitting edema bilateral LE; no erythema, calf tenderness or swelling noted on exam - pain management with tylenol and diclofenac gel. Could add tramadol if needs something for significant pain - Continue gabapentin # Electrolyte Imbalance -- Resolved - Replaced as needed # COPD - Albuterol prn - Supplemental Oxygen PRN # Hyperlipidemia -continue home atorvastatin 10 mg po # Bipolar Disorder - continue home quetiapine 200 mg Dispo: PT to [facility] tomorrow, working with Case Management DVT Prophylaxis: SCDs given platelet count - avoid oral anticoagulation Admission and Anticipated Discharge Date Admission Date: May 07, 2025 Supervising Physician Co-Signing Physician Notes I personally examined the patient and verified all shields points of history and exam, discussed case, and agree with decision making with Dr Leal with the following additions/exceptions: S-patient feeling better today, more awake and alert and apologizes for being rude to me the day before. 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 Blasts were seen and she is being worked up for acute leukemia-bone marrow biopsy is borderline MDS/AML -Transfuse 1 unit PRBCs today - Plan close follow-up with oncology for next week to start treatment for AML -Continue to work on bowel regimen, continue Case catheter for now but plan to remove for trial of void after improved bowel regimen - Likely stable for discharge to rehab on 05/22 Subjective Patient examined at bedside this morning - A&Ox3. Reporting feeling well this morning. Has minimal appetite, but denies abdominal pain, N/V. Has not had bowel movement yet - has been taking miralax as scheduled. Case catheter is place and draining clear, yellow urine. Keeps saying "I want to know what's wrong with me." Discussed with patient that we are waiting for results of her bone marrow biopsy. Review of Systems Review of Systems: All systems reviewed & are unremarkable except as noted in HPI & below Physical Exam Constitutional: WD/WN, vitals as above Eyes: PERRL, conjunctivae normal, anicteric sclerae ENMT: external ear and nose normal, oropharynx normal Neck: trachea midline, no thyromegaly Respiratory: normal respiratory effort, lungs clear to auscultation Cardiovascular: Rate/Rhythm: regular rate and regular rhythm Extremities: + edema Gastrointestinal (Abdomen): normal bowel sounds, soft, nontender, no hepatosplenomegaly Musculoskeletal: no cyanosis or clubbing, extremities motor strength 5/5 Extremities: extremities normal to inspection Skin: no rashes, warm and dry Neurologic: PERRL, EOMI, accommodation nl, no face palsy, no dysarthria Psychiatric: A+Ox3, euthymic affect Results & Data Results & Data Vital Signs (Past 12 Hours) Vital Signs Temp Pulse Pulse Resp BP Pulse Ox O2 Del Method 05/21/25 08:12 37.2 C 80 18 93/47 L 96 Nasal Cannula 05/21/25 07:22 75 05/21/25 03:54 37 C 83 16 90/54 L 96 Nasal Cannula 05/21/25 02:08 37 C 85 16 88/56 L 90 Nasal Cannula 05/20/25 23:30 77 05/20/25 22:41 36.7 C 73 16 86/52 L 93 Nasal Cannula O2 Flow Rate 05/21/25 08:12 2 05/21/25 07:22 05/21/25 03:54 2 05/21/25 02:08 2 05/20/25 23:30 05/20/25 22:41 2
[2025-05-21] MEDS: MAGNESIUM CITRATE 296 ML/BTL PO STA (11:03)
[2025-05-21] MEDS: SODIUM CHLORIDE 0.9% 250 ML IV ONE (12:14)
--- NOTE | 2025-05-21 14:44 | Billing Data ---
Date of Service May 21, 2025 Coding Level of Care Code 72880 SUB INP/OBS CARE MIN
--- NOTE | 2025-05-22 09:22 | Hospitalist Progress Note ---
Date of Service May 22, 2025 Assessment & Plan (1) Anemia: (2) MDS (myelodysplastic syndrome): (3) Constipation: Plan Pt is a 70 yo Female PMHx MDS/Pancytopenia, UTI, Constipation, COPD, presents to the ED with Nausea & Vomiting and SOB # MDS (Myelodysplastic Syndrome) (-Newly diagnosed MDS) / Pancytopenia / Anemia - Myelodysplastic syndrome with ring sideroblasts about 5% blast percentage suggestive of low-grade B-cell lymphoproliferative disorder - Anemia - Has received 4 PRBCs on this admission so far. Last transfusion 05/18. - Thrombocytopenia - received 1 bag of platelets; count has been improving - 35 K/uL this morning Plan - H&H - transfused 1 unit PRBCs yesterday, total of 5 transfusions during admission. Platelet count . Remains afebrile w/o leukocytosis. - discussed with heme/onc yesterday regarding bone marrow biopsy results and discharge planning. Results still pending - planning on starting aggressive treatment outpatient for MDS/AML and f/u with labs and possible [facility] with heme/onc. - was previously on prophylaxis regimen of acyclovir, fluconazole, and allopurinol before admission. ANC 3160. Per heme recommendations, patient does not need prophylaxis until ANC <500. - Zofran,prochlorperazine, PPI, & Sucralfate PRN for N/V - encouraged continue working with PT/OT - yesterday dispo plan was to [facility] with heme/onco f/u outpatient, however after discussion with patient this morning, she is wishing to be d/c home with scheduled home care. Will discuss with case management for further planning - CBC qAM. # Urinary Retention - unsure of etiology of urinary retention - could be in the setting of UTI vs chronic constipation vs immobility vs chronic opioid use. - urine bacteria 4+ from urinalysis on 05/11/25 and urinary retention. repeat urine showing no bacteria or leukocyte esterase. - was on ceftriaxone therapy - course has been completed - Bryson catheter placed 05/20, still in this morning on exam, draining clear yellow urine. Ordered bryson removal for voiding trial before d/c. Due to patient's immunocompromised state and indwelling Bryson catheter, will continue observe for signs of infection. #Constipation - has a relapsing hx of obstipation, likely in the setting of chronic opioid use; chronic constipation could be contributing to urinary retention, documented above. - tap water enema ordered yesterday to stimulate bowel movement - per nursing, had two loose BM overnight. - current bowel regimen: miralax 34g bid prn, senna 8.6mg PO prn. Bisacodyl prn daily. Was given magnesium citrate and tap water enema yesterday. - goal is for 1-2 soft bowel movements daily - continue monitoring for stool output. # Bilateral leg pain - patient reporting worsening bilateral leg pain L>R. After talking more with patient, seems to be chronic for her. Trying to wean her off of chronic use of opioids for better control of urinary retention/constipation. - US BL LE completed 05/20 negative for DVT. - 2+ pitting edema bilateral LE; no erythema, calf tenderness or swelling noted on exam - pain management with tylenol and diclofenac gel; tramadol as needed if pain becomes more significant # Electrolyte Imbalance -- Resolved - Replaced as needed # COPD - Albuterol prn - Supplemental Oxygen PRN # Hyperlipidemia -continue home atorvastatin 10 mg po # Bipolar Disorder - continue home quetiapine 200 mg Dispo: PT to [facility], working with Case Management - patient wishing to be d/c home with home care. DVT Prophylaxis: SCDs given platelet count - avoid oral anticoagulation Admission and Anticipated Discharge Date Admission Date: May 07, 2025 Subjective Patient examined at bedside this morning - A&Ox3. Reporting feeling well this morning. Still reporting bilateral leg pain, has been getting tylenol and using diclofenac gel for pain. States still having minimal appetite but denies abdominal pain/N/V. Two loose bowel movements yesterday after tap water enema. Bryson placed draining clear, yellow urine. Discussed discharge planning with patient and she is asking to go home with scheduled home care rather than [facility]. Physical Exam Constitutional: WD/WN, vitals as above Eyes: PERRL, conjunctivae normal, anicteric sclerae ENMT: external ear and nose normal, oropharynx normal Neck: trachea midline, no thyromegaly Respiratory: normal respiratory effort, lungs clear to auscultation Cardiovascular: Rate/Rhythm: regular rate and regular rhythm Extremities: + edema Gastrointestinal (Abdomen): normal bowel sounds, soft, nontender, no hepatosplenomegaly Musculoskeletal: no cyanosis or clubbing, extremities motor strength 5/5 Extremities: extremities normal to inspection Skin: no rashes, warm and dry Neurologic: PERRL, EOMI, accommodation nl, no face palsy, no dysarthria Psychiatric: A+Ox3, euthymic affect Results & Data Results & Data Vital Signs (Past 12 Hours) Vital Signs Temp Pulse Resp BP Pulse Ox O2 Del Method O2 Flow Rate 05/22/25 07:44 99/65 L 05/22/25 07:30 37.5 C 56 L 16 82/56 L 95 Nasal Cannula 2 05/21/25 22:40 36.9 C 91 H 18 112/62 92 Nasal Cannula 2 05/21/25 22:23 Nasal Cannula 2
[2025-05-22 09:58] LABS: Hematocrit (blood only) 26.7 % (37.0-47.0); Hemoglobin 8.8 g/dl (12.0-16.0); Mean Corpuscular Hemoglobin 28.9 pg (25.0-34.0); Mean Corpuscular Volume 87.5 fL (80.0-100.0); Platelet Count 40 K/uL (130-400); RDW Standard Deviation 48.9 fL (36.4-46.3); Red Blood Count 3.05 M/uL (4.20-5.40); White Blood Count 8.83 K/ul (4.8-10.8)
[2025-05-22 10:11] LABS: Alanine Aminotransferase 9.0 U/L (7-52); Albumin Globulin Ratio 1.1 (0.9-2); Alkaline Phosphatase 107.0 U/L (34-104); Anion Gap 4.0 (3-11); Bilirubin,Total 1.1 mg/dl (0.2-1.0); Blood Urea Nitrogen 20.0 mg/dl (6-23); Calcium 7.9 mg/dl (8.6-10.3); Carbon Dioxide 33.0 mmol/L (21-32); Chloride 99.0 mmol/L (98-107); Creatinine Clr Calc Pharmacy 73.1 ml/min; Globulin 2.2 gm/dl (2.5-4.0); Glucose 126.0 mg/dl (70-99(Fasting)); Potassium 4.8 mmol/L (3.5-5.1); Sodium 136.0 mmol/L (136-145); Total Protein 4.7 gm/dl (6.0-8.3)
--- NOTE | 2025-05-22 10:28 | Discharge Summary ---
Date of Service May 22, 2025 Admission HPI Per Admitting Provider Sintia Bhatt is a 70yo female with history of newly diagnosed MDS presenting with nausea, vomiting, weakness, dizziness, SOB/CARMONA and chills. Patient was recently admitted to [facility] from 04/05 - 04/16/25 after presenting with symptomatic anemia with Hgb of as well as severe obstipation. Patient was evaluated by Heme/Onc in consult, was transfused 1u PRBCs and ultimately discharged home. Family states that they had home nursing for several sessions for blood draws but the nursing has not continued. Patient has had ongoing nausea with 4-5 episodes of non-bloody/non-bilious emesis as well as pallor, generalized weakness, dizziness, chills and CARMONA. Patient additionally complaining of some back pain as well as LLQ abdominal pain. Family is concerned that the patient looks yellow. In the ER she is afebrile, HD stable. Ongoing nausea with several episodes of vomiting. ER Course: Famotidine 20mg IV Protonix 40mg IV NSS x 500mL Magnesium x 1gm IV Zofran 4mg IV x 2 doses Discharge Data Allergies Allergy/AdvReac Type Severity Reaction Status Date / Time lithium Allergy Confusion Unverified 05/06/25 23:51 ibuprofen AdvReac Nausea Unverified 04/25/22 19:03 Consultations 05/07/25 00:41 Consult Hematology Routine Ordered Studies 05/06/25 19:44 CT abd pelvis IV con only Stat 05/15/25 09:15 IR bone marrow bx & asp Routine 05/20/25 11:21 US venous doppler LE Stat Hospital Course (1) Anemia: (2) MDS (myelodysplastic syndrome): (3) Constipation: Plan Pt is a 70 yo Female PMHx MDS/Pancytopenia, UTI, Constipation, COPD, presents to the ED with Nausea & Vomiting and SOB # MDS (Myelodysplastic Syndrome) (-Newly diagnosed MDS) / Pancytopenia / Anemia - Myelodysplastic syndrome with ring sideroblasts about 5% blast percentage suggestive of low-grade B-cell lymphoproliferative disorder - Anemia - Has received 4 PRBCs on this admission so far. Last transfusion 05/18. - Thrombocytopenia - received 1 bag of platelets; count has been improving - 35 K/uL this morning Plan - H&H 8.8 & 26.7 this morning. Was transfused 1 unit PRBCs yesterday, total of 5 transfusions during admission. Platelet count 40K. Remains afebrile w/o leukocytosis. - Discussed care plan for Heme/Onc yesterday regarding bone marrow biopsy results and discharge planning. Biopsy results are still pending, however will plan on starting aggressive treatment outpatient for MDS/AML and f/u with labs and [facility] with heme/onc. - Patient was previously on prophylaxis regimen of acyclovir, fluconazole, and allopurinol before admission. ANC 3160. Per heme recommendations, patient does not need prophylaxis until ANC <500. - Will continue Zofran,prochlorperazine, PPI, & Sucralfate PRN for N/V - She is encouraged to continue working with PT/OT given patient's limited mobility status. - yesterday dispo plan was to [facility] with heme/onco f/u outpatient, however after discussion with patient this morning, she is wishing to be d/c home with scheduled home care. Will discuss with case management for further planning - CBC qAM. # Urinary Retention - unsure of etiology of urinary retention - could be in the setting of UTI vs chronic constipation vs immobility vs chronic opioid use. Urinalysis one 05/10/25 showing urine bacteria 4+ with retention. Urine as repeated showing no bacteria or leukocyte esterase. Patient was treated with 5 day course of ceftriaxone therapy. Has denies urinary symptoms since admission. Was previously having to straight cath due to retention, Bryson catheter was placed 05/20 and has been mell ining clear yellow urine. Bryson was ordered to be removed and to complete voiding trial before d/c. Due to patient's immunocompromised status and hx of straight cath/indwelling Bryson, plan to continue to observe for signs of infection. Throughout - urine bacteria 4+ from urinalysis on 05/11/25 and urinary retention. repeat urine showing no bacteria or leukocyte esterase. - was on ceftriaxone therapy - course has been completed - Bryson catheter placed 05/20, still in this morning on exam, draining clear yellow urine. Ordered bryson removal for voiding trial before d/c. Due to patient's immunocompromised state and indwelling Bryson catheter, will continue observe for signs of infection. Patient remained afebrile without leukocytosis during the admission. #Constipation - has a relapsing hx of obstipation, likely in the setting of chronic opioid use; Chronic constipation could be contributing to urinary retention, documented above. During admission, bowel regimen included miralax 34mg BID, senna 8.6mg PO, Bisacodyl prn daily to try and stimulate BM. Yesterday, given magnesium citrate and tap water enema, resulting in two loose BM overnight. Goal is for 1- 2 soft bowel movements daily. Continue to monitor stool output. # Bilateral leg pain - patient reporting worsening bilateral leg pain L>R. After talking more with p atient, this seems to be chronic for her. Trying to wean her off of chronic use of opioids for better control of urinary retention/constipation. US BL LE was completed 05/20 which was negative for DVT. Patient continues to have 2+ pitting edema in the bilateral LE without erythema or calf tenderness on exam. Management for pain currently is with tylenol and diclofenac gel, plan on tramadol as needed if pain becomes more significant. # Electrolyte Imbalance -- Resolved - Replaced as needed # COPD - Has been saturating well on 2L NC during admission. Denies SOB. No increased work of breathing noted on exam. Albuterol ordered as needed. # Hyperlipidemia -continue home atorvastatin 10 mg po # Bipolar Disorder - continue home quetiapine 200 mg Dispo: PT to [facility], working with Case Management - patient wishing to be d/c home with home care. Discussed with nursing yesterday, states patient is max 2 person assist; concerns that patient is unable to care for self at home, encouraging rehab dispo. DVT Prophylaxis: SCDs given platelet count - avoid oral anticoagulation Discharge Plan Discharge Items Patient Disposition: Transfer Inpatient Rehab Fac Reason For Visit: NAUSEA, VOMITING Discharge Diagnosis: MDS/pancytopenia Condition on Discharge: Fair Activity: Per Instructions section Non-emergency contact: Primary Care Provider Call non-emergency contact if: you have any medication questions, your symptoms worsen and your pain is not controlled Follow-up/Referrals: Get Nathan MD [Physician] - Damien Gutierrez DO [Primary Care Provider] - Diet: Regular Pending Studies at Discharge: Yes Studies:: waiting bone marrow bx results Stand-Alone Forms: My [employer] Skilled Items Patient informed of condition?: No DNR: No Discharge Level of Care: Skilled Communicable Disease: No Discharge Prognosis: Stable Lines: None Urinary Catheter: Yes Medications and DC Order Prescriptions: New diclofenac sodium [Voltaren Arthritis Pain] 1 % Gel 2 g EXT QID Qty: 50 0RF sucralfate 100 mg/mL Suspension 1 g PO QID Qty: 414 0RF docusate sodium 100 mg Capsule 100 mg PO BID Qty: 60 0RF Continued albuterol sulfate [Ventolin HFA] 90 mcg/actuation HFA aerosol inhaler 1 puff INHALATION DIRECTED PRN (Reason: sob) Rx Instructions: last filed 03/06 50 day supply acetaminophen 325 mg Tablet 650 mg PO Q4H PRN (Reason: fever) Qty: 10 0RF polyethylene glycol 3350 [Miralax] 17 gram Powder In Packet 17 g PO BID Qty: 0 0RF Rx Instructions: buy over the counter. 1 capful twice a day pantoprazole 40 mg Tablet,Delayed Release (Dr/Ec) 40 mg PO DAILY Qty: 30 0RF sennosides [senna] 8.6 mg tablet 8.6 mg PO BID Qty: 60 0RF Rx Instructions: buy over the counter hydroxyzine HCl 25 mg Tablet 25 mg PO HS Qty: 30 0RF diphenhydramine-acetaminophen [Tylenol PM Extra Strength] 25-500 mg Tablet 2 tab PO HS furosemide 40 mg tablet 40 mg PO QAM atorvastatin 10 mg tablet 10 mg PO HS quetiapine 200 mg tablet 200 mg PO HS gabapentin 800 mg tablet 800 mg PO TID hydroxyzine HCl 25 mg tablet 25 mg PO QID PRN (Reason: Anxiety) Discontinued hydrocodone-acetaminophen 5-325 mg Tablet 1 tab PO Q8H PRN (Reason: pain) Qty: 20 0RF Admission Data Admit Date/Time: 05/07/25 00:41 Attending Provider: Karime Ugarte Admit Provider: Alana Servin Primary Care Provider: Damien Gutierrez Other Providers: Get Nathan; [facility]; [facility]; [facility] Fax
[2025-05-22 11:03] LABS: Immature Granulocytes # (auto) 0.42 K/uL (0.01-0.20); Immature Granulocytes % (auto) 4.8 %; Toxic Vacuolation 2+
[2025-05-22] MEDS: MAGNESIUM CITRATE 296 ML/BTL PO STA (12:16)
--- NOTE | 2025-05-22 12:41 | Hospitalist Progress Note ---
Date of Service May 22, 2025 Assessment & Plan (1) Anemia: (2) MDS (myelodysplastic syndrome): (3) Constipation: Plan Pt is a 70 yo Female PMHx MDS/Pancytopenia, UTI, Constipation, COPD, presents to the ED with Nausea & Vomiting and SOB # MDS (Myelodysplastic Syndrome) (-Newly diagnosed MDS) / Pancytopenia / Anemia - Myelodysplastic syndrome with ring sideroblasts about 5% blast percentage suggestive of low-grade B-cell lymphoproliferative disorder - Anemia - Has received 4 PRBCs on this admission so far. Last transfusion 05/18. - Thrombocytopenia - received 1 bag of platelets; count has been improving - 35 K/uL this morning Plan - H&H 8.8 & 26.7 this morning. Was transfused 1 unit PRBCs yesterday, total of 5 transfusions during admission. Platelet count 40K. Remains afebrile w/o leukocytosis. - Discussed care plan for Heme/Onc yesterday regarding bone marrow biopsy results and discharge planning. Biopsy results are still pending, however will plan on starting aggressive treatment outpatient for MDS/AML and f/u with labs and possible transfusion [facility] next week with heme/onc. - Patient was previously on prophylaxis regimen of acyclovir, fluconazole, and allopurinol before admission. ANC 3160. Per heme recommendations, patient does not need prophylaxis until ANC <500. - Will continue Zofran,prochlorperazine, PPI, & Sucralfate PRN for N/V - She is encouraged to continue working with PT/OT given patient's limited mobility status. - yesterday dispo plan was to [facility] with heme/onco f/u outpatient, however after discussion with patient this morning, she is wishing to be d/c home with scheduled home care. Will discuss with case management for further planning - CBC qAM. # Urinary Retention - unsure of etiology of urinary retention - could be in the setting of UTI vs chronic constipation vs immobility vs chronic opioid use. Urinalysis one 05/10/25 showing urine bacteria 4+ with retention. Urine as repeated showing no bacteria or leukocyte esterase. Patient was treated with 5 day course of ceftriaxone therapy. Has denies urinary symptoms since admission. Was previously having to straight cath due to retention, Bryson catheter was placed 05/20 and has been draining clear yellow urine. Bryson was ordered to be removed and to complete voiding trial before d/c. Due to patient's immunocompromised status and hx of straight cath/indwelling Bryson, plan to continue to observe for signs of infection. Throughout - urine bacteria 4+ from urinalysis on 05/11/25 and urinary retention. repeat urine showing no bacteria or leukocyte esterase. - was on ceftriaxone therapy - course has been completed - Bryson catheter placed 05/20, still in this morning on exam, draining clear yellow urine. Ordered bryson removal for voiding trial before d/c. Due to patient's immunocompromised state and indwelling Bryson catheter, will continue observe for signs of infection. Patient remained afebrile without leukocytosis during the admission. #Constipation - has a relapsing hx of obstipation, likely in the setting of chronic opioid use; Chronic constipation could be contributing to urinary retention, documented above. During admission, bowel regimen included miralax 34mg BID, senna 8.6mg PO, Bisacodyl prn daily to try and stimulate BM. Yesterday, given magnesium citrate and tap water enema, resulting in two loose BM overnight. Goal is for 1- 2 soft bowel movements daily. Continue to monitor stool output. - Given another magnesium citrate to stimulate further BM. # Bilateral leg pain - patient reporting worsening bilateral leg pain L>R. After talking more with patient, this seems to be chronic for her. Trying to wean her off of chronic use of opioids for better control of urinary retention/constipation. US BL LE was completed 05/20 which was negative for DVT. Patient continues to have 2+ pitting edema in the bilateral LE without erythema or calf tenderness on exam. Management for pain currently is with tylenol and diclofenac gel, plan on tramadol as needed if pain becomes more significant. # Electrolyte Imbalance -- Resolved - Replaced as needed # COPD - Has been saturating well on 2L NC during admission. Denies SOB. No increased work of breathing noted on exam. Albuterol ordered as needed. # Hyperlipidemia -continue home atorvastatin 10 mg po # Bipolar Disorder - continue home quetiapine 200 mg Dispo: PT to [facility], working with Case Management - patient wishing to be d/c home with home care. Discussed with nursing yesterday, states patient is max 2 person assist; concerns that patient is unable to care for self at home, encouraging rehab dispo. DVT Prophylaxis: SCDs given platelet count - avoid oral anticoagulation Admission and Anticipated Discharge Date Admission Date: May 07, 2025 Supervising Physician Co-Signing Physician Notes I personally examined the patient and verified all shields points of history and exam, discussed case, and agree with decision making with Dr Leal with the following additions/exceptions: S-Pt reports ongoing pain in legs, is now getting tramadol. Also c/o a tremor in her arms and legs and says this happened the last time she was on gabapentin whi ch is why she stopped it as an outpatient. 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 Blasts were seen and she is being worked up for acute leukemia-bone marrow biopsy is borderline MDS/AML Blood counts improved with transfusions - Plan close follow-up with oncology for next week to start treatment for AML- Onco Dr. Saenz recommends oral therapy for MDS as opposed to IV/SQ and will work on ordering as outpt -Continue bowel regimen, dc Bryson catheter for trial of void -dc gabapentin for tremor -stable for discharge to rehab on 05/23 if bed available at [facility] Subjective Patient seen and examined at bedside this morning. A&Ox3. Resting comfortable, responding appropriately. Had 2 loose bowel movements overnight. Bryson still indwelling, draining clear yellow urine. Tolerating regular diet w/o N/V/abdo cristobal pain. Patient asking to be discharged home with home care, rather than rehab. Results & Data Results & Data Vital Signs (Past 12 Hours) Vital Signs Temp Pulse Resp BP Pulse Ox O2 Del Method O2 Flow Rate 05/22/25 08:00 Nasal Cannula 2 05/22/25 07:44 99/65 L 05/22/25 07:30 37.5 C 56 L 16 82/56 L 95 Nasal Cannula 2
[2025-05-22 15:14] VITALS: RESP 18; TEMP 97.7
--- NOTE | 2025-05-22 18:13 | Oncology Consultation ---
Date of Consultation May 22, 2025 Assessment & Plan (1) MDS (myelodysplastic syndrome): Plan -recommend peripheral blood work to r/o progression to acute leukemia -Transfuse for Hb <7.0, [place] [address]012 -Recommend SC Azacitidine for patient every 28 days as outpt. alternatively, recommend oral decitabine for patient to be given as outpatient. - Reblozyl - Blood work to monitor disease serially - pt wants treatment - discussed case at length with Dr. Ugarte. ECOG 3. Pt amenable with plan. History of Present Illness Reason for Consultation: MDS Pancytopenia Requesting Physician: Dr. Ugarte Attending Physician: Karime Ugarte MD History of Present Illness 70-year-old female with MDS not currently on treatment who was admitted to [facility] with transfusion dependent anemia and debilitation. She is profoundly weak. Allergies Allergy/AdvReac Type Severity Reaction Status Date / Time lithium Allergy Confusion Unverified 05/06/25 23:51 ibuprofen AdvReac Nausea Unverified 04/25/22 19:03 Home Medications Medication Instructions Recorded Confirmed Type atorvastatin 10 mg tablet 10 mg PO HS 01/31/25 05/06/25 History furosemide 40 mg tablet 40 mg PO QAM 01/31/25 05/06/25 History hydroxyzine HCl 25 mg tablet 25 mg PO QID PRN Anxiety 01/31/25 05/06/25 History quetiapine 200 mg tablet 200 mg PO HS 01/31/25 05/06/25 History albuterol sulfate 90 mcg/actuation 1 puff inhalation DIRECTED PRN 03/07/25 05/06/25 History aerosol inhaler (Ventolin HFA) sob acetaminophen 325 mg tablet 650 mg (2 x 325 mg) PO Q4H PRN 03/08/25 05/06/25 Rx fever #10 tabs hydroxyzine HCl 25 mg tablet 25 mg PO HS sleep, anxiety #30 tabs 04/13/25 05/06/25 Rx pantoprazole 40 mg tablet,delayed 40 mg PO DAILY #30 tabs 04/13/25 05/06/25 Rx release polyethylene glycol 3350 17 gram 17 g PO BID #0 ea 04/13/25 05/06/25 Rx oral powder packet (Miralax) sennosides 8.6 mg tablet (senna) 8.6 mg PO BID constipation #60 tabs 04/13/25 05/06/25 Rx diphenhydramine 25 2 tab PO HS 05/06/25 05/06/25 History mg-acetaminophen 500 mg tablet (Tylenol PM Extra Strength) diclofenac sodium 1 % topical gel 2 g EXT QID arthritis pain #50 05/22/25 Rx (Voltaren Arthritis Pain) grams docusate sodium 100 mg capsule 100 mg PO BID #60 caps 05/22/25 Rx sucralfate 100 mg/mL oral 1 g (10 mL) PO QID #414 mL 05/22/25 Rx suspension tramadol 50 mg tablet 50 mg PO Q6H PRN pain, moderate 05/23/25 Rx #12 tabs Patient History Medical History (Updated 05/16/25 @ 00:06 by Donovan Figueroa) Pancytopenia Myelodysplastic syndrome CHF (congestive heart failure) Ambulatory dysfunction PUD (peptic ulcer disease) Surgical History H/O: hysterectomy Family History Other Family history non-contributory Social History Smoking Status: Never smoker Tobacco Type: Cigarettes Hx Alcohol Use: No Hx Substance Use: No Preferred Language: Urugu[place] Communication Ability: Effective [employer] Supervisor Required: No Beliefs That Will Affect Care: None Current Living Situation: Family Feels Safe at Home: Yes Assistive Devices: Cane, Oxygen - Continuous, Walker and Wheelchair Review of Systems Review of Systems: Constitutional: No Weight Change, No Fever, No Chills, No Night Sweats, No Fatigue, No Malaise ENT/Mouth: No Hearing Changes, No Ear Pain, No Nasal Congestion, No Sinus Pain, No Hoarseness, No sore throat, No Rhinorrhea, No Swallowing Difficulty Eyes: No Eye Pain, No Swelling, No Redness, No Foreign Body, No Discharge, No Vision Changes Cardiovascular: No Chest Pain, No SOB, No PND, No Dyspnea on Exertion, No Orthopnea, No Claudication, No Edema, No Palpitations Respiratory: No Cough, No Sputum, No Wheezing, No Smoke Exposure, No Dyspnea Gastrointestinal: No Nausea, No Vomiting, No Diarrhea, No Constipation, No Pain, No Heartburn, No Anorexia, No Dysphagia, No Hematochezia, No Melena, No Flatulence, No Jaundice Genitourinary: No Dysmenorrhea, No DUB, No Dyspareunia, No Dysuria, No Urinary Frequency, No Hematuria, No Urinary Incontinence, No Urgency, No Flank Pain, No Urinary Flow Changes, No Hesitancy Musculoskeletal: No Arthralgias, No Myalgias, No Joint Swelling, No Joint Stiffness, No Back Pain, No Neck Pain, No Injury History Skin: No Skin Lesions, No Pruritis, No Hair Changes, No Breast/Skin Changes, No Nipple Discharge Neuro: No Weakness, No Numbness, No Paresthesias, No Loss of Consciousness, No Syncope, No Dizziness, No Headache, No Coordination Changes, No Recent Falls Psych: No Anxiety/Panic, No Depression, No Insomnia, No Personality Changes, No Delusions, No Rumination, No SI/HI/AH/VH, No Social Issues, No Memory Changes, No Violence/Abuse Hx., No Eating Concerns Heme/Lymph: No Bruising, No Bleeding, No Transfusions History, No Lymphadenopathy Endocrine: No Polyuria, No Polydipsia, No Temperature Intolerance Physical Exam Physical Exam: General: patient ill in appearance, NAD, answers questions appropriately Skin: +pallor, no rash HEENT: NC/AT, PERRL, EOMI, anicteric sclera, conjunctiva without injection, external ear normal to inspection and nontender, nares patent, dry mucus membranes, poor dentition, no oropharyngeal lesions, neck supple, trachea midline, no LAD, no thyromegaly, no JVD Heart: +S1/S2, regular, no m/r/g Lungs: equal air entry bilaterally, no rales/rhonchi/wheezes Abd: +BS, soft, tender in the lower abdomen, no rebound/guarding Ext: warm, 2+ pulses in UE/LE bilaterally, no clubbing/cyanosis, trace LLE edema (chronic and unchanged per patient and family) Neuro: nonfocal, patient AA&O x 4, speech intact, no facial droop, moving all extremities on command with equal strength 5/5 Constitutional: WD/WN, vitals as above Eyes: PERRL, conjunctivae normal, anicteric sclerae ENMT: external ear and nose normal, oropharynx normal Neck: trachea midline, no thyromegaly Respiratory: normal respiratory effort, lungs clear to auscultation Cardiovascular: RRR, no murmur, no edema Rate/Rhythm: regular rate and regular rhythm Extremities: + edema Gastrointestinal (Abdomen): normal bowel sounds, soft, nontender, no hepatosplenomegaly Musculoskeletal: no cyanosis or clubbing, extremities motor strength 5/5 Extremities: extremities normal to inspection Skin: no rashes, warm and dry Neurologic: PERRL, EOMI, accommodation nl, no face palsy, no dysarthria Psychiatric: A+Ox3, euthymic affect Lymphatic: no cervical or axillary lymphadenopathy Results & Data Vital Signs (Past 12 Hours) Vital Signs Temp Pulse Resp BP Pulse Ox O2 Del Method O2 Flow Rate 05/22/25 15:14 36.5 C 79 18 94/63 L 94 Nasal Cannula 2 05/22/25 08:00 Nasal Cannula 2 05/22/25 07:44 99/65 L 05/22/25 07:30 37.5 C 56 L 16 82/56 L 95 Nasal Cannula 2
[2025-05-22] MEDS ORDERED: ONDANSETRON INJ 2 MG/ML 2 ML VIAL IV PRN (18:29)
--- NOTE | 2025-05-22 18:42 | Billing Data ---
Date of Service May 22, 2025 Coding Level of Care Code 20432 SUB INP/OBS CARE
[2025-05-23 07:19] LABS: Anion Gap 5.0 (3-11); Bilirubin,Total 0.8 mg/dl (0.2-1.0); Calcium 8.1 mg/dl (8.6-10.3); Carbon Dioxide 31.0 mmol/L (21-32); Chloride 99.0 mmol/L (98-107); Potassium 4.7 mmol/L (3.5-5.1); Sodium 135.0 mmol/L (136-145)
[2025-05-23 07:20] LABS: Hematocrit (blood only) 26.4 % (37.0-47.0); Hemoglobin 8.6 g/dl (12.0-16.0); Immature Granulocytes # (auto) 0.28 K/uL (0.01-0.20); Immature Granulocytes % (auto) 3.8 %; Mean Corpuscular Hemoglobin 29.2 pg (25.0-34.0); Mean Corpuscular Volume 89.5 fL (80.0-100.0); Platelet Count 33 K/uL (130-400); Polychromasia 1+; RDW Standard Deviation 48.0 fL (36.4-46.3); Red Blood Count 2.95 M/uL (4.20-5.40); Toxic Vacuolation 1+; White Blood Count 7.45 K/ul (4.8-10.8)
[2025-05-23 07:25] LABS: Alanine Aminotransferase 6.0 U/L (7-52); Albumin Globulin Ratio 1.3 (0.9-2); Alkaline Phosphatase 94.0 U/L (34-104); Blood Urea Nitrogen 16.0 mg/dl (6-23); Creatinine Clr Calc Pharmacy 85.2 ml/min; Globulin 1.9 gm/dl (2.5-4.0); Glucose 110.0 mg/dl (70-99(Fasting)); Total Protein 4.4 gm/dl (6.0-8.3)
[2025-05-23 07:46] VITALS: BP 112/56; PULSE 93; O2SAT 97
--- NOTE | 2025-05-23 11:28 | Hospitalist Progress Note ---
Date of Service May 23, 2025 Assessment & Plan (1) Anemia: (2) MDS (myelodysplastic syndrome): (3) Constipation: Plan Pt is a 70 yo Female PMHx MDS/Pancytopenia, UTI, Constipation, COPD, presents to the ED with Nausea & Vomiting and SOB # MDS (Myelodysplastic Syndrome) (-Newly diagnosed MDS) / Pancytopenia / Anemia - Myelodysplastic syndrome with ring sideroblasts about 5% blast percentage suggestive of low-grade B-cell lymphoproliferative disorder - Anemia - Has received 4 PRBCs on this admission so far. Last transfusion 05/18. - Thrombocytopenia - received 1 bag of platelets; count has been improving - 35 K/uL this morning Plan - H&H 8.8 & 26.7 this morning. Was transfused 1 unit PRBCs yesterday, total of 5 transfusions during admission. Platelet count 40K. Remains afebrile w/o leukocytosis. - Discussed care plan for Heme/Onc yesterday regarding bone marrow biopsy results and discharge planning. Biopsy results are still pending, however will plan on starting aggressive treatment outpatient for MDS/AML and f/u with labs and [facility] with [facility]/onc. - Patient was previously on prophylaxis regimen of acyclovir, fluconazole, and allopurinol before admission. ANC 3160. Per heme recommendations, patient does not need prophylaxis until ANC <500. - Will continue Zofran,prochlorperazine, PPI, & Sucralfate PRN for N/V - She is encouraged to continue working with PT/OT given patient's limited mobility status. - yesterday dispo plan was to [facility] with heme/onco f/u outpatient, however after discussion with patient this morning, she is wishing to be d/c home with scheduled home care. Will discuss with case management for further planning - CBC qAM. # Urinary Retention - unsure of etiology of urinary retention - could be in the setting of UTI vs chronic constipation vs immobility vs chronic opioid use. Urinalysis one 05/10/25 showing urine bacteria 4+ with retention. Urine as repeated showing no bacteria or leukocyte esterase. Patient was treated with 5 day course of ceftriaxone therapy. Has denies urinary symptoms since admission. Was previously having to straight cath due to retention, Bryson catheter was placed 05/20 and has been draining clear yellow urine. Bryson was ordered to be removed and to complete voiding trial before d/c. Due to patient's immunocompromised status and hx of straight cath/indwelling Bryson, plan to continue to observe for signs of infection. Throughout - urine bacteria 4+ from urinalysis on 05/11/25 and urinary retention. repeat urine showing no bacteria or leukocyte esterase. - was on ceftriaxone therapy - course has been completed - Bryson catheter placed 05/20, still in this morning on exam, draining clear yellow urine. Ordered bryson removal for voiding trial before d/c. Due to patient's immunocompromised state and indwelling Bryson catheter, will continue observe for signs of infection. Patient remained afebrile without leukocytosis during the admission. #Constipation - has a relapsing hx of obstipation, likely in the setting of chronic opioid use; Chronic constipation could be contributing to urinary retention, documented above. During admission, bowel regimen included miralax 34mg BID, senna 8.6mg PO, Bisacodyl prn daily to try and stimulate BM. Yesterday, given magnesium citrate and tap water enema, resulting in two loose BM overnight. Goal is for 1- 2 soft bowel movements daily. Continue to monitor stool output. - Given another magnesium citrate to stimulate further BM. # Bilateral leg pain - patient reporting worsening bilateral leg pain L>R. After talking more with patient, this seems to be chronic for her. Trying to wean her off of chronic use of opioids for better control of urinary retention/constipation. US BL LE was completed 05/20 which was negative for DVT. Patient continues to have 2+ pitting edema in the bilateral LE without erythema or calf tenderness on exam. Management for pain currently is with tylenol and diclofenac gel, plan on tramadol as needed if pain becomes more significant. # Electrolyte Imbalance -- Resolved - Replaced as needed # COPD - Has been saturating well on 2L NC during admission. Denies SOB. No increased work of breathing noted on exam. Albuterol ordered as needed. # Hyperlipidemia -continue home atorvastatin 10 mg po # Bipolar Disorder - continue home quetiapine 200 mg Dispo: PT to [facility], working with Case Management - patient wishing to be d/c home with home care. Discussed with nursing yesterday, states patient is max 2 person assist; concerns that patient is unable to care for self at home, encouraging rehab dispo. DVT Prophylaxis: SCDs given platelet count - avoid oral anticoagulation Admission and Anticipated Discharge Date Admission Date: May 07, 2025 Subjective Patient seen and examined at bedside this morning. A&Ox3. Resting comfortable, responding appropriately. Had large loose BM this morning. Failed voiding trial this morning, bryson in and draining clear yellow urine. Endorses some nausea this morning, otherwise tolerating regular diet without vomiting or abdominal pain. Patient asking to be discharged home with home care, rather than rehab. Results & Data Results & Data Vital Signs (Past 12 Hours) Vital Signs Temp Pulse Resp BP Pulse Ox O2 Del Method O2 Flow Rate 05/23/25 07:46 36.5 C 93 H 18 112/56 L 97 Nasal Cannula 2 05/23/25 00:00 36.5 C 80 18 99/57 L 98 Nasal Cannula 2
--- NOTE | 2025-05-23 13:04 | Discharge Summary ---
Date of Service May 23, 2025 Admission HPI Per Admitting Provider Chief Complaint: nausea, vomiting Primary Care Provider: Damien Gutierrez DO Sintia Bhatt is a 70yo female with history of newly diagnosed MDS presenting with nausea, vomiting, weakness, dizziness, SOB/CARMONA and chills. Patient was recently admitted to [facility] from 04/05 - 04/16/25 after presenting with symptomatic anemia with Hgb of as well as severe obstipation. Patient was evaluated by Heme/Onc in consult, was transfused 1u PRBCs and ultimately discharged home. Family states that they had home nursing for several sessions for blood draws but the nursing has not continued. Patient has had ongoing nausea with 4-5 episodes of non-bloody/non-bilious emesis as well as pallor, generalized weakness, dizziness, chills and CARMONA. Patient additionally complaining of some back pain as well as LLQ abdominal pain. Family is concerned that the patient looks yellow. In the ER she is afebrile, HD stable. Ongoing nausea with several episodes of vomiting. ER Course: Famotidine 20mg IV Protonix 40mg IV NSS x 500mL Magnesium x 1gm IV Zofran 4mg IV x 2 doses Admission Exam Per Admitting Provider General: patient ill in appearance, NAD, answers questions appropriately Skin: +pallor, no rash HEENT: NC/AT, PERRL, EOMI, anicteric sclera, conjunctiva without injection, external ear normal to inspection and nontender, nares patent, dry mucus membranes, poor dentition, no oropharyngeal lesions, neck supple, trachea midline, no LAD, no thyromegaly, no JVD Heart: +S1/S2, regular, no m/r/g Lungs: equal air entry bilaterally, no rales/rhonchi/wheezes Abd: +BS, soft, tender in the lower abdomen, no rebound/guarding Ext: warm, 2+ pulses in UE/LE bilaterally, no clubbing/cyanosis, trace LLE edema (chronic and unchanged per patient and family) Neuro: nonfocal, patient AA&O x 4, speech intact, no facial droop, moving all extremities on command with equal strength 5/5 Principal Diagnosis MDS/pancytopenia Discharge Exam Constitutional WD/WN, vitals as above Eyes PERRL, conjunctivae normal, anicteric sclerae Respiratory normal respiratory effort, lungs clear to auscultation patient on 2L NC Cardiovascular Rate/Rhythm: regular rate and regular rhythm Extremities: + edema Gastrointestinal (Abdomen) normal bowel sounds, soft, nontender, no hepatosplenomegaly Musculoskeletal Head/Neck/Chest: head atraumatic Extremities: extremities normal to inspection and + limited ROM of extremities Skin no rashes, warm and dry Neurologic no focal neurological deficits Psychiatric A+Ox3, euthymic affect Discharge Data Allergies Allergy/AdvReac Type Severity Reaction Status Date / Time lithium Allergy Confusion Unverified 05/06/25 23:51 ibuprofen AdvReac Nausea Unverified 04/25/22 19:03 Consultations 05/07/25 00:41 Consult Hematology Routine Ordered Studies 05/06/25 19:44 CT abd pelvis IV con only Stat 05/15/25 09:15 IR bone marrow bx & asp Routine 05/20/25 11:21 US venous doppler LE BI Stat Hospital Course (1) Anemia: (2) MDS (myelodysplastic syndrome): (3) Constipation: Plan Pt is a 70 yo Female PMHx MDS/Pancytopenia, UTI, Constipation, COPD, presents to the ED with Nausea & Vomiting and SOB # MDS (Myelodysplastic Syndrome) (-Newly diagnosed MDS) / Pancytopenia / Anemia - Myelodysplastic syndrome with ring sideroblasts about 5% blast percentage suggestive of low-grade B-cell lymphoproliferative disorder. - Discussed care plan for Heme/Onc yesterday regarding bone marrow biposy and discharge planning. Biopsy results are still pending, however will plan on starting aggressive treatment outpatient for MDS/AML and f/u with labs and possible [facility] next week with heme/onc. - Patient had received 5 units PRBCs on this admission; last transfusion was 05/21/25. Her H&H has been stable since transfusion - 8.6 & 26%. Also received 1 bag platelets and count has remained stable 33K this morning. Plan to check CBC in 2-3 days after discharge. - Patient was previously on prophylaxis regimen of acyclovir, fluconazole, and allopurinol before admission. ANC 3160. Per heme recommendations, patient does not need prophylaxis until ANC <500. - She is encouraged to continue working with PT/OT given patient's limited mobility status. # Urinary Retention - unsure of etiology of urinary retention - could be in the setting of UTI vs chronic constipation vs immobility vs chronic opioid use. Urinalysis one 05/10/25 showing urine bacteria 4+ with retention. Urine as repeated showing no bacteria or leukocyte esterase. Patient was treated with 5 day course of ceftriaxone therapy. Has denies urinary symptoms since admission. Was previously having to straight cath due to retention, Case catheter was placed 05/20 and has been drai dixie clear yellow urine. Voiding trial yesterday was failed. Bladder scan this morning showing 637mL urine. Replaced Case catheter and has been draining clear, yellow urine. Due to patient's immunocompromised status and hx of straight cath/indwelling Case, plan to continue to observe for signs of infection. Throughout admission patient has remained hemodynamically stable, afebrile and without leukocytosis. Urinalysis completed on 05/11/25 urine bacteria 4+ from urinalysis on 05/11/25 and urinary retention. Repeat urine showing no bacteria or leukocyte esterase. Was on ceftriaxone therapy - course has been completed. #Constipation - has a relapsing hx of obstipation, likely in the setting of chronic opioid use; Chronic constipation could be contributing to urinary retention, documented above. During admission, bowel regimen included miralax 34mg BID, senna 8.6mg PO, Bisacodyl prn, magnesium citrate and tap water enema. Patient did have a large loose BM the morning of discharge. Goal after d/c is for 1-2 soft bowel movements daily. Continue to monitor stool output. # Bilateral leg pain - patient reporting worsening bilateral leg pain L>R. After talking more with patient, this seems to be chronic for her. Trying to wean her off of chronic use of opioids for better control of urinary retention/constipation. US BL LE was completed 05/20 which was negative for DVT. Patient continues to have 2+ pitting edema in the bilateral LE without erythema or calf tenderness on exam. Management for pain currently is with tylenol and diclofenac gel, plan on tramadol as needed if pain becomes more significant. Gabapentin has been discontinued due to tremor. Plan to restart home Lasix for lower extremity edema. # Electrolyte Imbalance -- Resolved - Replaced as needed # COPD - Has been saturating well on 2L NC during admission. Denies SOB. No increased work of breathing noted on exam. # Hyperlipidemia - continue home atorvastatin 10 mg po # Bipolar Disorder - continue home quetiapine 200 mg Dispo: PT to [facility] today DVT Prophylaxis: SCDs given platelet count - avoid oral anticoagulation Total Time Total Time Spent Total Time Spent (In Minutes): 45 Total Time Includes: Examination of the Patient, Discharge Planning, Medication Reconciliation and Communication With Other Providers Discharge Plan Discharge Items Patient Disposition: Transfer Inpatient Rehab Fac Reason For Visit: NAUSEA, VOMITING Discharge Diagnosis: MDS/pancytopenia Condition on Discharge: Fair Activity: Per Instructions section Non-emergency contact: Primary Care Provider Call non-emergency contact if: you have any medication questions, your symptoms worsen and your pain is not controlled Follow-up/Referrals: Kimber Leija MD [Physician] - (Follow up within 1 week) Damien Gutierrez DO [Primary Care Provider] - Diet: Regular Addtl Attending Provider Instructions: You were admitted [facility] for low blood counts. A bone marrow biopsy was performed and results are pending. You received 5 blood transfusions and 1 bag of platelets while in the hospital. You were also treated for your constipation and urinary retention. Please plan to follow-up with hematology/oncology after discharge for further treatment. Please have your labs rechecked in 2-3 days after discharge. # MDS (Myelodysplastic Syndrome) (-Newly diagnosed MDS) / Pancytopenia / Anemia - Myelodysplastic syndrome with ring sideroblasts about 5% blast percentage suggestive of low-grade B-cell lymphoproliferative disorder. - Discussed care plan for Heme/Onc yesterday regarding bone marrow biposy and discharge planning. Biopsy results are still pending, however will plan on starting aggressive treatment outpatient for MDS/AML and f/u with labs and possible [facility] with heme/onc. - Patient had received 5 units PRBCs on this admission; last transfusion was 05/21/25. Her H&H has been stable since transfusion - 8.6 & 26%. Also received 1 bag platelets and count has remained stable 33K this morning. Plan to check CBC in 2-3 days after discharge. - Patient was previously on prophylaxis regimen of acyclovir, fluconazole, and allopurinol before admission. ANC 3160. Per heme recommendations, patient does not need prophylaxis until ANC <500. - She is encouraged to continue working with PT/OT given patient's limited mobility status. # Urinary Retention - unsure of etiology of urinary retention - could be in the setting of UTI vs chronic constipation vs immobility vs chronic opioid use. Urinalysis one 05/10/25 showing urine bacteria 4+ with retention. Urine as repeated showing no bacteria or leukocyte esterase. Patient was treated with 5 day course of ceftriaxone therapy. Has denies urinary symptoms since admission. Was previously having to straight cath due to retention, Case catheter was placed 05/20 and has been draining clear yellow urine. Voiding trial yesterday was failed. Bladder scan this morning showing 637mL urine. Replaced Case catheter and has been draining clear, yellow urine. Due to patient's immunocompromised status and hx of straight cath/indwelling Case, plan to continue to observe for signs of infection. Throughout admission patient has remained hemodynamically stable, afebrile and without leukocytosis. Urinalysis completed on 05/11/25 urine bacteria 4+ from urinalysis on 05/11/25 and urinary retention. Repeat urine showing no bacteria or leukocyte esterase. Was on ceftriaxone therapy - course has been completed. #Constipation - has a relapsing hx of obstipation, likely in the setting of chronic opioid use; Chronic constipation could be contributing to urinary retention, documented above. During admission, bowel regimen included miralax 34mg BID, senna 8.6mg PO, Bisacodyl prn, magnesium citrate and tap water enema. Patient did have a large loose BM the morning of discharge. Goal after d/c is for 1-2 soft bowel movements daily. Continue to monitor stool output. # Bilateral leg pain - patient reporting worsening bilateral leg pain L>R. After talking more with patient, this seems to be chronic for her. Trying to wean her off of chronic use of opioids for better control of urinary retention/constipation. US BL LE was completed 05/20 which was negative for DVT. Patient continues to have 2+ pitting edema in the bilateral LE without erythema or calf tenderness on exam. Management for pain currently is with tylenol and diclofenac gel, plan on tramadol as needed if pain becomes more significant. Gabapentin has been discontinued due to tremor. Plan to restart home Lasix for lower extremity edema. # Electrolyte Imbalance -- Resolved - Replaced as needed # COPD - Has been saturating well on 2L NC during admission. Denies SOB. No increased work of breathing noted on exam. # Hyperlipidemia - continue home atorvastatin 10 mg po # Bipolar Disorder - continue home quetiapine 200 mg Pending Studies at Discharge: Yes Studies:: awaiting bone marrow bx results Stand-Alone Forms: My [facility] Skilled Items Patient informed of condition?: No DNR: No Discharge Level of Care: Skilled Communicable Disease: No Discharge Prognosis: Stable Lines: None Urinary Catheter: Yes Medications and DC Order Prescriptions: New diclofenac sodium [Voltaren Arthritis Pain] 1 % Gel 2 g EXT QID Qty: 50 0RF sucralfate 100 mg/mL Suspension 1 g PO QID Qty: 414 0RF docusate sodium 100 mg Capsule 100 mg PO BID Qty: 60 0RF tramadol 50 mg tablet 50 mg PO Q6H PRN (Reason: pain, moderate) Qty: 12 0RF Continued albuterol sulfate [Ventolin HFA] 90 mcg/actuation HFA aerosol inhaler 1 puff INHALATION DIRECTED PRN (Reason: sob) Rx Instructions: last filed 03/06 50 day supply acetaminophen 325 mg Tablet 650 mg PO Q4H PRN (Reason: fever) Qty: 10 0RF polyethylene glycol 3350 [Miralax] 17 gram Powder In Packet 17 g PO BID Qty: 0 0RF Rx Instructions: buy over the counter. 1 capful twice a day pantoprazole 40 mg Tablet,Delayed Release (Dr/Ec) 40 mg PO DAILY Qty: 30 0RF sennosides [senna] 8.6 mg tablet 8.6 mg PO BID Qty: 60 0RF Rx Instructions: buy over the counter hydroxyzine HCl 25 mg Tablet 25 mg PO HS Qty: 30 0RF diphenhydramine-acetaminophen [Tylenol PM Extra Strength] 25-500 mg Tablet 2 tab PO HS furosemide 40 mg tablet 40 mg PO QAM atorvastatin 10 mg tablet 10 mg PO HS quetiapine 200 mg tablet 200 mg PO HS hydroxyzine HCl 25 mg tablet 25 mg PO QID PRN (Reason: Anxiety) Discontinued hydrocodone-acetaminophen 5-325 mg Tablet 1 tab PO Q8H PRN (Reason: pain) Qty: 20 0RF gabapentin 800 mg tablet 800 mg PO TID Discharge Orders: Discharge Order (Routine); Ordered 05/23/25 Ordered By: Karime Ugarte Admission Data Admit Date/Time: 05/07/25 00:41 Attending Provider: Karime Ugarte Admit Provider: Alana Servin Primary Care Provider: Damien Gutierrez Other Providers: [facility]; [facility]; [facility]; [facility] Fax Supervising Physician Co-Signing Physician Notes I personally examined the patient and verified all shields points of history and exam, discussed case, and agree with decision making with Dr Leal with the following additions/exceptions: S-Pt reports ongoing pain in legs, is now getting tramadol. Tremor is now gone since discontinuing gabapentin. She had 2 bowel movements. She failed her trial of void and had Case catheter replaced otherwise counts on CBC are stable and she is ready for discharge O- Vitals Reviewed Gen: NAD, appears chronically ill HEENT: Anicteric sclerae, EOMI CV: RRR no mgr nl S1S2 Pulm: CTAB no wcr Abd: +BS soft NT ND no masses or hernias Ext: 1+ pitting edema of legs to the knees bilaterally Skin: No rashes, warm/dry, with scattered ecchymoses on the arms at the site of blood draws Neuro-no further tremor of hands and feet CBC, BMP reviewed A/P: This patient is a 70-year-old female here with a history of MDS, COPD, HLD, depression/bipolar, GERD, constipation, with nausea vomiting, weakness, UTI and transfusion dependency. Blasts were seen and she is being worked up for acute leukemia-bone marrow biopsy is borderline MDS/AML Blood counts improved with transfusions - Plan close follow-up with oncology for next week to start treatment for MDS/AML-Onco Dr. Saenz recommends oral therapy for MDS as opposed to IV/SQ and will work on ordering as outpt -Continue bowel regimen, Case catheter-failed multiple trials of void -Follow CBC closely in 2 to 3 days at rehab, may need transfusions as an outpatient until chemotherapy takes effect -stable for discharge to rehab on 05/23
--- NOTE | 2025-05-23 13:57 | Billing Data ---
Date of Service May 23, 2025 Coding Level of Care Code 65590 INP/OBS DISCH >30 MIN Time Spent (min) 35 Comment 35 minutes on day of discharge spent [id number], review of labs, coordination of care
--- NOTE | 2025-05-28 13:03 | Coding Query ---
PATHOLOGY To promote full compliance with coding requirements relating to patient care, physician participation is requested in all cases of regional driver uncertainty. Please assist us with the question(s) below: Please review the Pathology report and please document any relevant diagnosis(es) below: Pt with Myelodysplastic Syndrome- Bone Marrow Biopsy resulted . 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
--- NOTE | 2025-06-10 06:16 | Coding Query ---
PATHOLOGY To promote full compliance with coding requirements relating to patient care, physician participation is requested in all cases of bartenders uncertainty. Please assist us with the question(s) below: PATHOLOGY Please review the Pathology report and please document any relevant diagnosis(es) below: Pt with Myelodysplastic Syndrome- Bone Marrow Biopsy resulted . Thanks for your help! 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
== END 2025-05-23 15:20 | DRG 841 ==
LOC: ED 19:12 → 2N 05-07 00:41 → SUATTDRO 05-07 00:41 → 2N 05-07 02:16

== ENCOUNTER 2025-07-05 02:30 | Inpatient (IN) ==
[2025-07-05] MEDS: ONDANSETRON INJ 2 MG/ML 2 ML VIAL IV STA (03:04)
--- NOTE | 2025-07-05 03:11 | Emergency Department Note ---
Impression & Plan Acute joint pain, Anemia, AML (acute myeloid leukemia), Elevated troponin ED Provider Note ED Provider Note NAME: JENNIFER CARPENTER AGE:70 SEX: Female : 1955 ARRIVES VIA: private vehicle INFORMANT: Patient, daughter, granddaughter ED PROVIDER(s): Karyn Dotson DO CHIEF COMPLAINT: Increased joint pain, needs a blood transfusion HPI: This is a 70-year-old female with a recent history of MDS and AML presents due to worsening joint pain and need for further blood transfusion. Granddaughter at bedside states she called 911 to have the patient brought here due to persistent and worsening joint pains today however the EMS crew took her to [facility]. She states [facility] noted that her blood cell count was low around 5 and did give her a unit of blood. They stated they did not have any more units of her specific blood type. Family asked that she be transferred here however they were told that that was not possible. Family states they discharged the patient and the family picked her up and immediately brought her here. Patient was an indwelling Case catheter. They state they have not noticed any blood loss from any source. Patient does have ongoing joint pain however they state it has been worse recently. They state when they picked her up from [facility] to bring her here she also complained of nausea but has not had any overt vomiting. No fevers or chills. Patient denies chest pain or shortness of breath, however does admit to dizziness and weakness. PAST MEDICAL HISTORY:See Below PAST SURGICAL HISTORY:See Below FAMILY HISTORY:See Below SOCIAL HISTORY:See Below HOME MEDICATIONS:See Below ALLERGIES:See Below VITALS:See Below PHYSICAL EXAMINATION: GENERAL: alert, ill appearing, well nourished, no distress, non-toxic EYE EXAM: normal conjunctiva, PERRL and EOM's grossly intact OROPHARYNX: no exudate, no erythema, lips, buccal mucosa, and tongue normal and mucous membranes are dry NECK: supple, no nuchal rigidity, no adenopathy, non-tender LUNGS: Clear to auscultation. Normal chest wall mechanics, no w/r/r, intermittent coarse cough noted during exam HEART: no murmurs, S1 normal and S2 normal ABDOMEN: abdomen soft, non-tender, normo-active bowel sounds, no masses, no rebound or guarding. SKIN: no rashes, petechiae, orbruising; pallor noted UPPER EXTREMITIES: upper extremities are grossly normal. FROM, nml pulses b/l. LOWER EXTREMITIES: 1+ left pedal pitting edema. FROM, nml pulses b/l. Pain with palpation of bilateral feet and ankles. NEURO EXAM: Normal sensorium, cranial nerves II-XII grossly intact, normal speech, no facial droop,nogross weakness of arms, no gross weakness of legs. Gross sensation intact. No ataxia. Vital Signs: reviewed and remarkable Differential Diagnosis: cancer related pain, anemia, GI bleed, ACS, medication ADR, dysrhythmia, DVT/PE, dehydration, RANDELL, metastatic disease, as well as others were considered MEDICAL DECISION MAKING: This is a 70-year-old female who presents to the emergency department due to concern for increased arthralgias and worsening anemia. Patient was afebrile and hemodynamically stable. Family at bedside helped provide history. Labs drawn and sent, IV established, EKG and chest ray performed at bedside and interpreted by me and the patient was monitored on telemetry. Initial [id number] BMP showed a hemoglobin of greater than 7 which was reassuring. Patient given IV Tylenol and IV morphine for pain. She was sent for a lower extremity ultrasound as a precaution. I did consent the patient with family in the room who signed a consent form for her for blood given history and need for prior blood transfusions. Patient did have a transfusion at outside facility earlier tonight. Patient noted to have a significantly elevated troponin which is new for her despite no complaints of chest pain or shortness of breath. I suspect given prior reported hemoglobin of 5 this is likely demand ischemia from significant anemia. No acute EKG changes. Given concern for worsening pain, anemia, newly elevated troponin, case discussed with hospitalist team for additional evaluation and management. Consultation(s): 0545: Discussed with Dr. Servin, [place] hospitalist team, for additional evaluation and mgmt. ER Treatment Provided: See below Diagnostics Interpreted By Me: -ECG: Sinus tachycardia at 104, normal axis, normal intervals, no acute ST/T wave changes -Cardiac Monitoring: An order was placed for continuous cardiac monitoring. The monitor shows a rate of 82 with normal sinus rhythm. -Laboratory studies: As stated above and show below. -Imaging studies: X-ray Chest: A single view study of the chest was reviewed and was negative for cardiomegaly, focal infiltrate, effusion, pulmonary edema, or wide mediastinum. Triage Nursing Note Reviewed Prior/Outside Records Reviewed - heme/onc consult from May 2025 reviewed Past Med/Surg History Problem List (Updated 07/05/25 @ 05:48 by Karyn Dotson DO) Elevated troponin (Acute) Acute joint pain (Acute) AML (acute myeloid leukemia) (Acute) COPD (chronic obstructive pulmonary disease) MDS (myelodysplastic syndrome) GERD (gastroesophageal reflux disease) Hyperlipidemia Constipation Anemia (Acute) Lymphoproliferative disorder (Acute) Pancytopenia (Acute) Chronic back pain Bipolar disorder Bilateral leg weakness Leg swelling (Acute) Elevated brain natriuretic peptide (BNP) level (Acute) Medical History Pancytopenia Myelodysplastic syndrome CHF (congestive heart failure) Ambulatory dysfunction PUD (peptic ulcer disease) Surgical History H/O: hysterectomy Family History Other Family history non-contributory Social History Smoking Status: Former smoker Tobacco Type: Cigarettes Hx Alcohol Use: No Hx Substance Use: No Preferred Language: Danish Communication Ability: Effective Manager Publishing Required: No Beliefs That Will Affect Care: None Current Living Situation: Family Feels Safe at Home: Yes Assistive Devices: Cane, Oxygen - Continuous, Walker and Wheelchair Allergies Allergies Allergy/AdvReac Type Severity Reaction Status Date / Time lithium Allergy Confusion Unverified 05/06/25 23:51 ibuprofen AdvReac Nausea Unverified 04/25/22 19:03 Home Meds Home Medications Medication Instructions Recorded Confirmed atorvastatin 10 mg tablet 10 mg PO HS 01/31/25 05/29/25 hydroxyzine HCl 25 mg tablet 25 mg PO Q6H PRN Anxiety 01/31/25 05/29/25 quetiapine 200 mg tablet 200 mg PO HS 01/31/25 05/29/25 albuterol sulfate 90 mcg/actuation 1 puff inhalation Q4H PRN sob 03/07/25 05/29/25 aerosol inhaler (Ventolin HFA) diphenhydramine 25 2 tab PO HS 05/06/25 05/29/25 mg-acetaminophen 500 mg tablet (Tylenol PM Extra Strength) Milk of Magnesia 30 ml PO DAILY PRN Constipation 05/29/25 05/29/25 bisacodyl 10 mg rectal suppository 10 mg ND DAILY PRN Constipation 05/29/25 05/29/25 (Dulcolax (bisacodyl)) fluconazole 150 mg tablet 150 mg PO UD 05/29/25 05/29/25 loperamide 2 mg tablet (Imodium 2 mg PO Q4H PRN Loose Stool 05/29/25 05/29/25 A-D) potassium chloride 20 mEq 20 meq PO TID 05/29/25 05/29/25 tablet,extended release sodium phosphates 19 gram-7 118 ml ND DAILY PRN Constipation 05/29/25 05/29/25 gram/118 mL enema (Fleet Enema) Previous Rx's Medication Instructions Recorded acetaminophen 325 mg tablet 650 mg (2 x 325 mg) PO Q4H PRN 03/08/25 fever #10 tabs hydroxyzine HCl 25 mg tablet 25 mg PO HS sleep, anxiety #30 tabs 04/13/25 pantoprazole 40 mg tablet,delayed 40 mg PO DAILY #30 tabs 04/13/25 release polyethylene glycol 3350 17 gram 17 g PO BID #0 ea 04/13/25 oral powder packet (Miralax) sennosides 8.6 mg tablet (senna) 8.6 mg PO BID constipation #60 tabs 04/13/25 diclofenac sodium 1 % topical gel 2 g EXT QID arthritis pain #50 05/22/25 (Voltaren Arthritis Pain) grams docusate sodium 100 mg capsule 100 mg PO BID #60 caps 05/22/25 sucralfate 100 mg/mL oral 1 g (10 mL) PO QID #414 mL 05/22/25 suspension tramadol 50 mg tablet 50 mg PO Q6H PRN pain, moderate 05/23/25 #12 tabs Results & Data (ED) Vital Signs Vital Signs - 24 hr 07/05/25 02:38 07/05/25 02:45 07/05/25 03:30 Temperature 36.4 C L Temperature Source Oral Pulse Rate 96 H 96 H 83 Pulse Rate from SpO2 Sensor 83 Respiratory Rate 16 15 Respiratory Effort / Characteristics Non-Labored Spontaneous Respiratory Depth Normal Respiratory Pattern Regular Blood Pressure 132/68 105/66 Blood Pressure Mean 89 79 Blood Pressure Position Semi-fowlers Pulse Oximetry 99 91 Oxygen Delivery Method Room Air Nasal Cannula Oxygen Flow Rate 2 Sepsis Recent Fever Within 48 Hours No Sepsis New/Unexplained Change in Mental Status N/A Sepsis Action Taken by Nursing No Action Required 07/05/25 04:06 07/05/25 05:30 Temperature Temperature Source Pulse Rate 80 74 Pulse Rate from SpO2 Sensor 80 75 Respiratory Rate 22 12 Respiratory Effort / Characteristics Respiratory Depth Respiratory Pattern Blood Pressure 120/46 L 96/72 L Blood Pressure Mean 70 80 Blood Pressure Position Pulse Oximetry 100 100 Oxygen Delivery Method Nasal Cannula Room Air Oxygen Flow Rate 2 Sepsis Recent Fever Within 48 Hours Sepsis New/Unexplained Change in Mental Status Sepsis Action Taken by Nursing Laboratory Data 07/05/25 02:47 07/05/25 02:47 Lab Results 07/05/25 07/05/25 Range/Units 02:47 02:49 WBC 7.07 (4.8-10.8) K/ul RBC 2.73 L (4.20-5.40) M/uL Hgb 7.9 L (12.0-16.0) g/dl POC Hgb 7.8 L (12.0-16.0) g/dl Hct 23.6 L (37.0-47.0) % POC Hct 23 L (37-47) % MCV 86.4 (80.0-100.0) fL MCH 28.9 (25.0-34.0) pg MCHC 33.5 (32.0-36.0) g/dL RDW Std Deviation 44.2 (36.4-46.3) fL RDW Coeff of Aissatou 14.0 (11.5-14.5) % Plt Count 31 L (130-400) K/uL Absolute Nucleated RBC 0.02 (0.00-0.12) K/uL Nucleated RBC % (auto) 0.3 % Neutrophils % (Manual) 63 % Lymphocytes % (Manual) 17 % Monocytes % (Manual) 10 % Basophils % (Manual) 4 % Metamyelocytes % (Man) 3 % Myelocytes % (Man) 3 % Neutrophils # (Manual) 4.45 (1.40-6.50) K/uL Total Absolute Neuts 4.45 (1.4-6.5) K/uL Lymphocytes # (Manual) 1.20 (1.2-3.4) K/uL Total Abs Lymphocytes 1.20 (1.2-3.4) K/uL Monocytes # (Manual) 0.71 H (0.11-0.59) K/uL Basophils # (Manual) 0.28 H (0-0.2) K/uL Metamyelocytes # (Man) 0.21 H (0-0) K/uL Myelocytes # (Manual) 0.21 H (0-0) K/uL PT 12.5 H (9.0-12.0) Seconds INR 1.2 H (0.9-1.1) POC Sodium 132 L (135-144) mmol/L Sodium 134 L (136-145) mmol/L POC Potassium 3.7 (3.3-5.0) mmol/L Potassium 3.8 (3.5-5.1) mmol/L POC Chloride 92 L (101-112) mmol/L Chloride 93 L (98-107) mmol/L Carbon Dioxide 23 (21-32) mmol/L POC Total CO2 24 (24-31) mmol/L Anion Gap 18 H (3-11) POC Anion Gap 21.0 (16-25) mmol/L POC BUN 20 H (7-18) mg/dl BUN 21 (6-23) mg/dl Creatinine 0.84 (0.6-1.2) mg/dl POC Creatinine 0.9 (0.6-1.3) mg/dl Est Cr Clr Drug Dosing 51.0 ml/min eGFR 74.25 BUN/Creatinine Ratio 25.0 H (10-20) Glucose 153 H (70-99(Fasting)) mg/dl POC Glucose (other) 146 H (70-99) mg/dl Calcium 8.7 (8.6-10.3) mg/dl POC Ioniz Calcium Fercho 1.05 L (1.12-1.32) mmol/l Magnesium 1.8 (1.7-2.4) mg/dl Total Bilirubin 2.2 H (0.2-1.0) mg/dl AST 11 L (13-39) U/L ALT 6 L (7-52) U/L Alkaline Phosphatase 118 H (34-104) U/L Troponin I High Sens 130.2 H* (0-14) pg/ml Total Protein 6.4 (6.0-8.3) gm/dl Albumin 3.5 (3.4-5.0) gm/dl Globulin 2.9 (2.5-4.0) gm/dl Albumin/Globulin Ratio 1.2 (0.9-2) Lipase 11 (11-82) U/L Administered Medications Discontinued Medications Ondansetron HCl (Ondansetron Inj 2 Mg/Ml 2 Ml Vial) 4 mg IV NOW STA Stop: 07/05/25 03:00 Last Admin: 07/05/25 03:04 Dose: 4 mg Documented By: NILTON Imaging Data Radiologist's Impression: Chest X-Ray 07/05/25 02:53 EXAM: XR chest 1V portable CLINICAL HISTORY: sob. TECHNIQUE: Radiograph of the chest was acquired. COMPARISON: 05/29/2025. FINDINGS: The lungs are clear and well expanded, with no pulmonary infiltrate. Bilateral costophrenic angles are free. The cardiomediastinal silhouette is within normal limits. No acute osseous abnormality is identified. IMPRESSION: 1. No significant abnormality seen. No interval change. Electronically signed by Lucas Man 07-05-2025 04:20 AM Venous Doppler Study 07/05/25 02:53 EXAM: US venous doppler LE LT CLINICAL HISTORY: swelling TECHNIQUE: Ultrasound examination of the left lower extremity veins was performed in real time and with duplex imaging. One or more of the following were performed: spectral analysis, resistive index, waveform analysis, and pulsed Doppler. COMPARISON: 05/20/2025 FINDINGS: Normal phasic, non-pulsatile, and spontaneous flow is noted in the left common femoral, superficial femoral, popliteal, anterior tibial, posterior tibial, and peroneal veins. The visualized veins of the left lower extremity demonstrate normal compressibility. No sonographic evidence of acute deep vein thrombosis (DVT) is detected in the visualized veins of the lower extremity. Compression: All evaluated veins are fully compressible with applied transducer pressure. Additional Findings: Evaluation of the calf vessels is limited due to small vessel size. IMPRESSION: - No sonographic evidence of acute DVT is detected at the time of examination. - No interval changes. Disclaimer: DVT could be missed early in the disease when clot burden is minimal. For patients with moderate and high pretest probability of DVT and negative ultrasound, the [employer] clinical guidelines recommend testing with a D-dimer assay or repeat ultrasound in 5-7 days. If symptoms worsen, the Society of Radiologists in Ultrasound recommends repeating ultrasound even earlier. Electronically signed by Gavin Summers 07-05-2025 05:53 AM Discharge Plan Visit Data Chief Complaint: Vomiting Stated Complaint: CANCER NEEDS BLOOD ED Provider: aKryn Dotson Discharge Problem: Acute joint pain, Anemia, AML (acute myeloid leukemia), Elevated troponin Patient Disposition: Being Evaluated by Hospitalist Condition: Fair Forms Stand Alone Forms: [employer] Prescriptions Prescriptions: No Action albuterol sulfate [Ventolin HFA] 90 mcg/actuation HFA aerosol inhaler 1 puff INHALATION Q4H PRN (Reason: sob) acetaminophen 325 mg Tablet 650 mg PO Q4H PRN (Reason: fever) Qty: 10 0RF polyethylene glycol 3350 [Miralax] 17 gram Powder In Packet 17 g PO BID Qty: 0 0RF Rx Instructions: buy over the counter. 1 capful twice a day pantoprazole 40 mg Tablet,Delayed Release (Dr/Ec) 40 mg PO DAILY Qty: 30 0RF sennosides [senna] 8.6 mg tablet 8.6 mg PO BID Qty: 60 0RF Rx Instructions: buy over the counter hydroxyzine HCl 25 mg Tablet 25 mg PO HS Qty: 30 0RF diphenhydramine-acetaminophen [Tylenol PM Extra Strength] 25-500 mg Tablet 2 tab PO HS diclofenac sodium [Voltaren Arthritis Pain] 1 % Gel 2 g EXT QID Qty: 50 0RF sucralfate 100 mg/mL Suspension 1 g PO QID Qty: 414 0RF docusate sodium 100 mg Capsule 100 mg PO BID Qty: 60 0RF tramadol 50 mg tablet 50 mg PO Q6H PRN (Reason: pain, moderate) Qty: 12 0RF atorvastatin 10 mg tablet 10 mg PO HS quetiapine 200 mg tablet 200 mg PO HS hydroxyzine HCl 25 mg tablet 25 mg PO Q6H PRN (Reason: Anxiety) fluconazole [Diflucan] 150 mg Tablet 150 mg PO UD Rx Instructions: and loperamide [Imodium A-D] 2 mg Tablet 2 mg PO Q4H PRN (Reason: Loose Stool) Rx Instructions: administer after each loose stool until symptoms controlled; do not exceed 8 mg per 24 hrs bisacodyl [Dulcolax (bisacodyl)] 10 mg Suppository 10 mg ND DAILY PRN (Reason: Constipation) Fleet Enema 19-7 gram/118 mL Enema 118 ml ND DAILY PRN (Reason: Constipation) potassium chloride 20 mEq Tablet Extended Release 20 meq PO TID Milk of Magnesia 30 ml PO DAILY PRN (Reason: Constipation) Rx Instructions: 7.75% Referrals Referrals: Damien Gutierrez DO [Primary Care Provider] -
[2025-07-05 03:49] LABS: Alanine Aminotransferase 6.0 U/L (7-52); Albumin Globulin Ratio 1.2 (0.9-2); Albumin Level 3.5 gm/dl (3.4-5.0); Alkaline Phosphatase 118.0 U/L (34-104); Anion Gap 18.0 (3-11); Bilirubin,Total 2.2 mg/dl (0.2-1.0); Blood Urea Nitrogen 21.0 mg/dl (6-23); Calcium 8.7 mg/dl (8.6-10.3); Carbon Dioxide 23.0 mmol/L (21-32); Chloride 93.0 mmol/L (98-107); Creatinine Clr Calc Pharmacy 51.0 ml/min; Globulin 2.9 gm/dl (2.5-4.0); Glucose 153.0 mg/dl (70-99(Fasting)); Lipase 11.0 U/L (11-82); Magnesium 1.8 mg/dl (1.7-2.4); Potassium 3.8 mmol/L (3.5-5.1); Sodium 134.0 mmol/L (136-145); Total Protein 6.4 gm/dl (6.0-8.3)
[2025-07-05 04:10] LABS: INR 1.2 (0.9-1.1); Prothrombin Time 12.5 Seconds (9.0-12.0)
[2025-07-05 04:13] LABS: Hematocrit (blood only) 23.6 % (37.0-47.0); Hemoglobin 7.9 g/dl (12.0-16.0); Mean Corpuscular Hemoglobin 28.9 pg (25.0-34.0); Mean Corpuscular Volume 86.4 fL (80.0-100.0); Platelet Count 31 K/uL (130-400); RDW Standard Deviation 44.2 fL (36.4-46.3); Red Blood Count 2.73 M/uL (4.20-5.40); White Blood Count 7.07 K/ul (4.8-10.8)
[2025-07-05] MEDS ORDERED: MoRPHine SULFATE 2 MG/ML CARP IV PRN (04:19)
--- NOTE | 2025-07-05 04:20 | XRay Report ---
EXAM: XR chest 1V portable CLINICAL HISTORY: sob. TECHNIQUE: Radiograph of the chest was acquired. COMPARISON: 05/29/2025. FINDINGS: The lungs are clear and well expanded, with no pulmonary infiltrate. Bilateral costophrenic angles are free. The cardiomediastinal silhouette is within normal limits. No acute osseous abnormality is identified. IMPRESSION: 1. No significant abnormality seen. No interval change. Electronically signed by Lucas Man 07-05-2025 04:20 AM
[2025-07-05 04:41] LABS: ALC (manual) 1.20 K/uL (1.2-3.4); ANC (manual) 4.45 K/uL (1.4-6.5)
--- NOTE | 2025-07-05 05:53 | Ultrasound Report ---
EXAM: US venous doppler LE LT CLINICAL HISTORY: swelling TECHNIQUE: Ultrasound examination of the left lower extremity veins was performed in real time and with duplex imaging. One or more of the following were performed: spectral analysis, resistive index, waveform analysis, and pulsed Doppler. COMPARISON: 05/20/2025 FINDINGS: Normal phasic, non-pulsatile, and spontaneous flow is noted in the left common femoral, superficial femoral, popliteal, anterior tibial, posterior tibial, and peroneal veins. The visualized veins of the left lower extremity demonstrate normal compressibility. No sonographic evidence of acute deep vein thrombosis (DVT) is detected in the visualized veins of the lower extremity. Compression: All evaluated veins are fully compressible with applied transducer pressure. Additional Findings: Evaluation of the calf vessels is limited due to small vessel size. IMPRESSION: - No sonographic evidence of acute DVT is detected at the time of examination. - No interval changes. Disclaimer: DVT could be missed early in the disease when clot burden is minimal. For patients with moderate and high pretest probability of DVT and negative ultrasound, the [employer] clinical guidelines recommend testing with a D-dimer assay or repeat ultrasound in 5-7 days. If symptoms worsen, the Society of Radiologists in Ultrasound recommends repeating ultrasound even earlier. Electronically signed by Gavin Summers 07-05-2025 05:53 AM
--- NOTE | 2025-07-05 06:03 | History & Physical Report ---
Date of Service July 05, 2025 Assessment & Plan (1) MDS (myelodysplastic syndrome): (2) Elevated troponin: (3) COPD (chronic obstructive pulmonary disease): (4) GERD (gastroesophageal reflux disease): (5) Hyperlipidemia: Plan 70yo female with Myelodyplastic Syndrome, presence of TP53 mutation, 5% blasts per bone marrow biospy performed at [facility] on 05/31/25. Patient with generalized weakness, fatigue, CARMONA, joint pain, nausea and vomiting. Initially presented to an outside facility and found to be severely anemic with Hgb=5's. She was transfused PRBCs x 1u, discharged and came to [facility]. No blood loss. Patient's diagnosis is relatively new (January 2025), per note review she is opting for supportive transfusions, however, when I questioned her she would like to undergo chemotherapy if warranted but feels that she is too weak at present. Transfusions thresholds PRBCs for Hgb <7, Platelets for level <10, Cryo for fibrinogen <150 #MDS - transfusion dependent. -Type and screen -Transfuse for Hgb <7, Plt <10 -Repeat blood work ordered for today at noon -Patient had been on prophylactic medications before, is not neutropenic at present #Elevated troponin - likely demand. Patient denies chest pain -Telemetry monitoring -Trend troponin #COPD - - Continue Breo -= Albuterol PRN -Supplemental O2 as needed #GERD -Protonix 40mg po daily NEEDS TO HAVE MEDICATION RECONCILIATION COMPLETED - PATIENT IS NOT SURE WHAT MEDICATIONS SHE IS TAKING AND HER MEDICATION REFILL HISTORY DOES NOT ALIGN WITH MOST RECENT NOTES History of Present Illness Chief Complaint: body pain, nausea, vomiting, CARMONA, dizziness Primary Care Provider: Damien Gutierrez DO Sintia Bhatt is a 70yo female with history of myelodysplastic syndrome/acute myeloid leukemia with mutated TP53 presenting with multiple complaints - nausea, dizziness, CARMONA, pain, weakness. Patient was initially diagnosed in January. She was admitted to [facility] 05/07 - 05/23 and was transfused 5u PRBCs and 1u Platelets (Patient with Anti-D and C Antibodies present on blood). She returned to the ER on 05/29 with complaints of weakness and fatigue and found to have 2% blasts on differential therefore she was transferred to [facility]. She had a bone marrow biopsy performed which revealed 5% blasts consistent with myelodysplastic syndrome. Per review of DC summary - patient is opting for supportive care with transfusions as needed. Patient with Case catheter placed on 06/10/25 - has remained in place. Urinary retention. Family reported to ER attending that they are to have home services but nobody comes to the house. Patient presents today with multiple complaints - ongoing weakness, dizziness, nausea, CARMONA as ell as pain in her joints, vomiting. EMS was called earlier this evening and patient was reportedly taken to [facility] where she was found to have a Hgb in the 5's. She was transfused with 1u PRBCs then discharged. Family brought her here. Family is not at bedside presently. Patient is not able to provide clear details of her medical history. Denies chest pain, fever, chills, diarrhea, abdominal pain ER Course: Tylenol Morphine Zofran Allergies Allergy/AdvReac Type Severity Reaction Status Date / Time lithium Allergy Confusion Unverified 05/06/25 23:51 ibuprofen AdvReac Nausea Unverified 04/25/22 19:03 Home Medications Medication Instructions Recorded Confirmed Type atorvastatin 10 mg tablet 10 mg PO HS 01/31/25 05/29/25 History hydroxyzine HCl 25 mg tablet 25 mg PO Q6H PRN Anxiety 01/31/25 05/29/25 History quetiapine 200 mg tablet 200 mg PO HS 01/31/25 05/29/25 History albuterol sulfate 90 mcg/actuation 1 puff inhalation Q4H PRN sob 03/07/25 05/29/25 History aerosol inhaler (Ventolin HFA) acetaminophen 325 mg tablet 650 mg (2 x 325 mg) PO Q4H PRN 03/08/25 05/29/25 Rx fever #10 tabs hydroxyzine HCl 25 mg tablet 25 mg PO HS sleep, anxiety #30 tabs 04/13/25 05/29/25 Rx pantoprazole 40 mg tablet,delayed 40 mg PO DAILY #30 tabs 04/13/25 05/29/25 Rx release polyethylene glycol 3350 17 gram 17 g PO BID #0 ea 04/13/25 05/29/25 Rx oral powder packet (Miralax) sennosides 8.6 mg tablet (senna) 8.6 mg PO BID constipation #60 tabs 04/13/25 05/29/25 Rx diphenhydramine 25 2 tab PO HS 05/06/25 05/29/25 History mg-acetaminophen 500 mg tablet (Tylenol PM Extra Strength) diclofenac sodium 1 % topical gel 2 g EXT QID arthritis pain #50 05/22/25 05/29/25 Rx (Voltaren Arthritis Pain) grams docusate sodium 100 mg capsule 100 mg PO BID #60 caps 05/22/25 05/29/25 Rx sucralfate 100 mg/mL oral 1 g (10 mL) PO QID #414 mL 05/22/25 05/29/25 Rx suspension tramadol 50 mg tablet 50 mg PO Q6H PRN pain, moderate 05/23/25 05/29/25 Rx #12 tabs Milk of Magnesia 30 ml PO DAILY PRN Constipation 05/29/25 05/29/25 History bisacodyl 10 mg rectal suppository 10 mg AZ DAILY PRN Constipation 05/29/25 05/29/25 History (Dulcolax (bisacodyl)) fluconazole 150 mg tablet 150 mg PO UD 05/29/25 05/29/25 History loperamide 2 mg tablet (Imodium 2 mg PO Q4H PRN Loose Stool 05/29/25 05/29/25 History A-D) potassium chloride 20 mEq 20 meq PO TID 05/29/25 05/29/25 History tablet,extended release sodium phosphates 19 gram-7 118 ml AZ DAILY PRN Constipation 05/29/25 05/29/25 History gram/118 mL enema (Fleet Enema) Past Med/Surg History Problem List Elevated troponin (Acute) Acute joint pain (Acute) AML (acute myeloid leukemia) (Acute) COPD (chronic obstructive pulmonary disease) MDS (myelodysplastic syndrome) GERD (gastroesophageal reflux disease) Hyperlipidemia Constipation Anemia (Acute) Lymphoproliferative disorder (Acute) Pancytopenia (Acute) Chronic back pain Bipolar disorder Bilateral leg weakness Leg swelling (Acute) Elevated brain natriuretic peptide (BNP) level (Acute) Medical History Nausea & vomiting Dizziness Pancytopenia Myelodysplastic syndrome CHF (congestive heart failure) Ambulatory dysfunction PUD (peptic ulcer disease) Surgical History H/O: hysterectomy Family History Other Family history non-contributory Social History Smoking Status: Former smoker Tobacco Type: Cigarettes Hx Alcohol Use: No Hx Substance Use: No Preferred Language: Mauritian Communication Ability: Effective Head Of Loss Prevention Required: No Beliefs That Will Affect Care: None Current Living Situation: Family Feels Safe at Home: Yes Assistive Devices: Cane, Oxygen - Continuous, Walker and Wheelchair Review of Systems Review of Systems: All systems reviewed & are unremarkable except as noted in HPI & below Physical Exam Physical Exam: General: patient chronically ill in appearance, answering questions and following commands Skin: +Pallor, no petechiae noted HEENT: NC/AT, PERRL, EOMI, anicteric sclera, conjunctiva without injection, external ear normal to inspection and nontender, nares patent, dry mucus membranes, dentition intact, no oropharyngeal lesions, neck supple, trachea midline, no LAD, no thyromegaly, no JVD Heart: +S1/S2, regular, no m/r/g Lungs: equal air entry bilaterally, no rales/rhonchi/wheezes Abd: +BS, soft, NT/ND, no masses/organomegaly/ascites Ext: warm, 2+ pulses in UE/LE bilaterally, no clubbing/cyanosis, LLE with mildly increased edema Neuro: nonfocal, patient AA&O x 4, speech intact, no facial droop, moving all extremities on command with equal strength 5/5 Results & Data Results & Data Vital Signs (Past 12 Hours) Vital Signs Temp Pulse Resp BP Pulse Ox O2 Del Method O2 Flow Rate 07/05/25 05:30 74 12 96/72 L 100 Room Air 07/05/25 04:06 80 22 120/46 L 100 Nasal Cannula 2 07/05/25 03:30 83 15 105/66 91 Nasal Cannula 2 07/05/25 02:45 96 H 07/05/25 02:38 36.4 C L 96 H 16 132/68 99 Room Air Laboratory Results Laboratory Results WBC 7.07 K/ul (4.8-10.8) 07/05/25 02:47 RBC 2.73 M/uL (4.20-5.40) L 07/05/25 02:47 Hgb 7.9 g/dl (12.0-16.0) L 07/05/25 02:47 POC Hgb 7.8 g/dl (12.0-16.0) L 07/05/25 02:49 Hct 23.6 % (37.0-47.0) L 07/05/25 02:47 POC Hct 23 % (37-47) L 07/05/25 02:49 MCV 86.4 fL (80.0-100.0) 07/05/25 02:47 MCH 28.9 pg (25.0-34.0) 07/05/25 02:47 MCHC 33.5 g/dL (32.0-36.0) 07/05/25 02:47 RDW Std Deviation 44.2 fL (36.4-46.3) 07/05/25 02:47 RDW Coeff of Aissatou 14.0 % (11.5-14.5) 07/05/25 02:47 Plt Count 31 K/uL (130-400) L 07/05/25 02:47 Absolute Nucleated RBC 0.02 K/uL (0.00-0.12) 07/05/25 02:47 Nucleated RBC % (auto) 0.3 % 07/05/25 02:47 Neutrophils % (Manual) 63 % 07/05/25 02:47 Lymphocytes % (Manual) 17 % 07/05/25 02:47 Monocytes % (Manual) 10 % 07/05/25 02:47 Basophils % (Manual) 4 % 07/05/25 02:47 Metamyelocytes % (Man) 3 % 07/05/25 02:47 Myelocytes % (Man) 3 % 07/05/25 02:47 Neutrophils # (Manual) 4.45 K/uL (1.40-6.50) 07/05/25 02:47 Total Absolute Neuts 4.45 K/uL (1.4-6.5) 07/05/25 02:47 Lymphocytes # (Manual) 1.20 K/uL (1.2-3.4) 07/05/25 02:47 Total Abs Lymphocytes 1.20 K/uL (1.2-3.4) 07/05/25 02:47 Monocytes # (Manual) 0.71 K/uL (0.11-0.59) H 07/05/25 02:47 Basophils # (Manual) 0.28 K/uL (0-0.2) H 07/05/25 02:47 Metamyelocytes # (Man) 0.21 K/uL (0-0) H 07/05/25 02:47 Myelocytes # (Manual) 0.21 K/uL (0-0) H 07/05/25 02:47 PT 12.5 Seconds (9.0-12.0) H 07/05/25 02:47 INR 1.2 (0.9-1.1) H 07/05/25 02:47 POC Sodium 132 mmol/L (135-144) L 07/05/25 02:49 Sodium 134 mmol/L (136-145) L 07/05/25 02:47 POC Potassium 3.7 mmol/L (3.3-5.0) 07/05/25 02:49 Potassium 3.8 mmol/L (3.5-5.1) 07/05/25 02:47 POC Chloride 92 mmol/L (101-112) L 07/05/25 02:49 Chloride 93 mmol/L (98-107) L 07/05/25 02:47 Carbon Dioxide 23 mmol/L (21-32) 07/05/25 02:47 POC Total CO2 24 mmol/L (24-31) 07/05/25 02:49 Anion Gap 18 (3-11) H 07/05/25 02:47 POC Anion Gap 21.0 mmol/L (16-25) 07/05/25 02:49 POC BUN 20 mg/dl (7-18) H 07/05/25 02:49 BUN 21 mg/dl (6-23) 07/05/25 02:47 Creatinine 0.84 mg/dl (0.6-1.2) 07/05/25 02:47 POC Creatinine 0.9 mg/dl (0.6-1.3) 07/05/25 02:49 Est Cr Clr Drug Dosing 51.0 ml/min 07/05/25 02:47 eGFR 74.25 07/05/25 02:47 BUN/Creatinine Ratio 25.0 (10-20) H 07/05/25 02:47 Glucose 153 mg/dl (70-99(Fasting)) H 07/05/25 02:47 POC Glucose (other) 146 mg/dl (70-99) H 07/05/25 02:49 Calcium 8.7 mg/dl (8.6-10.3) 07/05/25 02:47 POC Ioniz Calcium Fercho 1.05 mmol/l (1.12-1.32) L 07/05/25 02:49 Magnesium 1.8 mg/dl (1.7-2.4) 07/05/25 02:47 Total Bilirubin 2.2 mg/dl (0.2-1.0) H 07/05/25 02:47 AST 11 U/L (13-39) L 07/05/25 02:47 ALT 6 U/L (7-52) L 07/05/25 02:47 Alkaline Phosphatase 118 U/L (34-104) H 07/05/25 02:47 Troponin I High Sens 130.2 pg/ml (0-14) H* 07/05/25 02:47 Total Protein 6.4 gm/dl (6.0-8.3) 07/05/25 02:47 Albumin 3.5 gm/dl (3.4-5.0) 07/05/25 02:47 Globulin 2.9 gm/dl (2.5-4.0) 07/05/25 02:47 Albumin/Globulin Ratio 1.2 (0.9-2) 07/05/25 02:47 Lipase 11 U/L (11-82) 07/05/25 02:47 Impressions Chest X-Ray 07/05/25 02:53 EXAM: XR chest 1V portable CLINICAL HISTORY: sob. TECHNIQUE: Radiograph of the chest was acquired. COMPARISON: 05/29/2025. FINDINGS: The lungs are clear and well expanded, with no pulmonary infiltrate. Bilateral costophrenic angles are free. The cardiomediastinal silhouette is within normal limits. No acute osseous abnormality is identified. IMPRESSION: 1. No significant abnormality seen. No interval change. Electronically signed by Lucas Man 07-05-2025 04:20 AM Venous Doppler Study 07/05/25 02:53 EXAM: US venous doppler LE LT CLINICAL HISTORY: swelling TECHNIQUE: Ultrasound examination of the left lower extremity veins was performed in real time and with duplex imaging. One or more of the following were performed: spectral analysis, resistive index, waveform analysis, and pulsed Doppler. COMPARISON: 05/20/2025 FINDINGS: Normal phasic, non-pulsatile, and spontaneous flow is noted in the left common femoral, superficial femoral, popliteal, anterior tibial, posterior tibial, and peroneal veins. The visualized veins of the left lower extremity demonstrate normal compressibility. No sonographic evidence of acute deep vein thrombosis (DVT) is detected in the visualized veins of the lower extremity. Compression: All evaluated veins are fully compressible with applied transducer pressure. Additional Findings: Evaluation of the calf vessels is limited due to small vessel size. IMPRESSION: - No sonographic evidence of acute DVT is detected at the time of examination. - No interval changes. Disclaimer: DVT could be missed early in the disease when clot burden is minimal. For patients with moderate and high pretest probability of DVT and negative ultrasound, the [employer] clinical guidelines recommend testing with a D-dimer assay or repeat ultrasound in 5-7 days. If symptoms worsen, the Society of Radiologists in Ultrasound recommends repeating ultrasound even earlier. Electronically signed by Gavin Summers 07-05-2025 05:53 AM PG Care Time/CCT Total # of Minutes Spent Total Time Spent with Patient: Total time spent is greater than 50% in coordination of care (as documented) at patient's floor/unit and/or counseling patient: Coding Level of Care Code 76019 INT INP/OBS CARE 3/75MIN Diagnoses MDS (myelodysplastic syndrome) D46.9 Elevated troponin R79.89 COPD (chronic obstructive pulmonary disease) J44.9 GERD (gastroesophageal reflux disease) K21.9 Hyperlipidemia E78.5
[2025-07-05] MEDS: SODIUM CHLORIDE 0.9% 500 ML IV SCH (06:28)
[2025-07-05] MEDS ORDERED: POLYETHYLENE (MIRALAX) 17 GM PACK PO PRN (08:45)
[2025-07-05] MEDS ORDERED: ALBUTEROL HFA 8 GM INHALER INH PRN (08:45)
[2025-07-05] MEDS ORDERED: ALBUTEROL 0.083% NEBU SOLN 3 ML VIAL NEB PRN (08:45)
[2025-07-05] MEDS ORDERED: ONDANSETRON INJ 2 MG/ML 2 ML VIAL IV PRN (08:45)
[2025-07-05] MEDS ORDERED: ACETAMINOPHEN 325 MG TAB PO PRN (08:45)
[2025-07-05] MEDS: LACTATED RINGER'S 1,000 ML IV SCH (09:20)
[2025-07-05] MEDS: CALCIUM GLUCONATE 1,000 MG/60 ML BAG IV SCH (09:20)
[2025-07-05] MEDS: LIDOCAINE 5% 1 PATCH TD STA (09:24)
[2025-07-05] MEDS: DOCUSATE SODIUM/SENNA 50/8.6MG TAB PO SCH (09:25)
[2025-07-05] MEDS: ACETAMINOPHEN 1,000 MG/100 ML VIAL IV STA (09:26)
[2025-07-05] MEDS: ROSUVASTATIN CALCIUM 5 MG TAB PO SCH (09:29)
[2025-07-05] MEDS: MoRPHine SULFATE 2 MG/ML CARP IV PRN ×2 (09:30→20:24)
--- NOTE | 2025-07-05 10:47 | Electrocardiogram Report ---
Test Reason : Blood Pressure : */* mmHG Vent. Rate : 104 BPM Atrial Rate : 104 BPM P-R Int : 150 ms QRS Dur : 64 ms QT Int : 316 ms P-R-T Axes : 59 25 141 degrees QTcB Int : 415 ms Sinus tachycardia Low voltage QRS Nonspecific ST abnormality Abnormal ECG When compared with ECG of 29-May-2025 15:03, Inverted T waves have replaced nonspecific T wave abnormality in Anterior leads QT has shortened Confirmed by Igor Rizvi ([id number]) on 07/05/2025 10:47:17 AM Referred By: Confirmed By: Igor Rizvi
[2025-07-05] MEDS ORDERED: Nursing to Pharmacy Communication SCH (11:45)
[2025-07-05] MEDS: FLUTICASONE/VILANTEROL 100/25MCG 14 PUFFS/INHALER INH SCH ×2 (12:47→17:34)
[2025-07-05 12:55] LABS: Hematocrit (blood only) 16.6 % (37.0-47.0); Hemoglobin 5.6 g/dl (12.0-16.0); Mean Corpuscular Hemoglobin 28.7 pg (25.0-34.0); Mean Corpuscular Volume 85.1 fL (80.0-100.0); Platelet Count 19 K/uL (130-400); RDW Standard Deviation 43.6 fL (36.4-46.3); Red Blood Count 1.95 M/uL (4.20-5.40); White Blood Count 5.44 K/ul (4.8-10.8)
[2025-07-05 12:56] LABS: Anion Gap 9.0 (3-11); Blood Urea Nitrogen 21.0 mg/dl (6-23); Calcium 8.8 mg/dl (8.6-10.3); Carbon Dioxide 31.0 mmol/L (21-32); Chloride 95.0 mmol/L (98-107); Creatinine Clr Calc Pharmacy 55.6 ml/min; Glucose 106.0 mg/dl (70-99(Fasting)); Potassium 3.6 mmol/L (3.5-5.1); Sodium 135.0 mmol/L (136-145)
[2025-07-05 13:10] LABS: Fibrinogen 323 mg/dl (184-400)
[2025-07-05 13:45] LABS: ALC (manual) 0.87 K/uL (1.2-3.4); ANC (manual) 2.34 K/uL (1.4-6.5); Blast # (manual) 0.27 K/uL (0-0)
[2025-07-05 15:57] LABS: Hematocrit (blood only) 16.3 % (37.0-47.0); Hemoglobin 5.6 g/dl (12.0-16.0); Mean Corpuscular Hemoglobin 28.7 pg (25.0-34.0); Mean Corpuscular Volume 83.6 fL (80.0-100.0); Platelet Count 18 K/uL (130-400); RDW Standard Deviation 43.3 fL (36.4-46.3); Red Blood Count 1.95 M/uL (4.20-5.40); White Blood Count 4.50 K/ul (4.8-10.8)
[2025-07-05] MEDS ORDERED: SODIUM CHLORIDE 0.9% 100 ML IV PRN (16:09)
[2025-07-05] MEDS: REMOVE LIDODERM PATCH SCH (20:22)
--- NOTE | 2025-07-05 20:22 | Hospitalist Progress Note ---
Date of Service July 05, 2025 Assessment & Plan (1) MDS (myelodysplastic syndrome): (2) Elevated troponin: (3) COPD (chronic obstructive pulmonary disease): (4) GERD (gastroesophageal reflux disease): (5) Hyperlipidemia: Plan 70yo female with Myelodyplastic Syndrome, presence of TP53 mutation, 5% blasts per bone marrow biospy performed at [facility] on 05/31/25. Patient with generalized weakness, fatigue, CARMONA, joint pain, nausea and vomiting. Initially presented to an outside facility and found to be severely anemic with Hgb=5's. She was transfused PRBCs x 1u, discharged and came to [facility]. No blood loss. Patient's diagnosis is relatively new (January 2025), per note review she is opting for supportive transfusions, however, when I questioned her she would like to undergo chemotherapy if warranted but feels that she is too weak at present. Transfusions thresholds PRBCs for Hgb <7, Platelets for level <10, Cryo for fibrinogen <150 - given anemia, will give 2 units of PRBC #MDS - transfusion dependent. -Type and screen -Transfuse for Hgb <7, Plt <10 -Repeat blood work ordered for today at noon -Patient had been on prophylactic medications before, is not neutropenic at present #Elevated troponin - likely demand. Patient denies chest pain -Telemetry monitoring -Trend troponin #COPD - - Continue Breo - Albuterol PRN -Supplemental O2 as needed #GERD -Protonix 40mg po daily NEEDS TO HAVE MEDICATION RECONCILIATION COMPLETED - PATIENT IS NOT SURE WHAT MEDICATIONS SHE IS TAKING AND HER MEDICATION REFILL HISTORY DOES NOT ALIGN WITH MOST RECENT NOTES Admission and Anticipated Discharge Date Admission Date: July 05, 2025 Subjective admitted overnight Currently no new complaints Review of Systems Review of Systems: Comprehensive ROS completed and is otherwise negative. Physical Exam Physical Exam: Gen: no acute distress, lying in bed comfortable HEENT: NC/AT, pallor, MMM Lungs: nonlabored breathing, CTAB CVS: s1s2nl, RRR Abd: nl bowel sounds, soft, NT / ND : no bryson Ext: no edema Neuro: AAOx3 Psych: calm, cooperative Results & Data Results & Data Vital Signs (Past 12 Hours) Vital Signs Temp Pulse Pulse Resp BP BP Pulse Ox 07/05/25 19:35 36.2 C L 68 20 102/69 97 10/03/25 17:59 78 07/05/25 16:18 36.6 C 86 16 94/50 L 99 07/05/25 15:41 07/05/25 14:15 36.4 C L 82 18 101/56 L 100 07/05/25 13:30 80 16 98 07/05/25 13:03 85 21 100 07/05/25 13:00 117/57 L 07/05/25 13:00 117/57 L 07/05/25 13:00 117/57 L 07/05/25 13:00 117/57 L 07/05/25 12:57 81 26 H 100 07/05/25 12:30 81 19 100 07/05/25 12:00 82 20 98 07/05/25 12:00 119/61 07/05/25 12:00 119/61 07/05/25 12:00 119/61 07/05/25 12:00 119/61 07/05/25 11:30 81 16 98 07/05/25 11:03 82 20 99 07/05/25 11:00 104/58 L 07/05/25 11:00 104/58 L 07/05/25 11:00 104/58 L 07/05/25 10:57 82 21 99 07/05/25 10:33 79 13 99 07/05/25 10:18 77 21 98 07/05/25 10:00 82 21 99 07/05/25 10:00 119/60 07/05/25 10:00 119/60 07/05/25 09:35 99/66 L 07/05/25 09:33 88 20 100 07/05/25 09:30 07/05/25 09:30 37 C 84 16 99/66 L 100 O2 Del Method O2 Flow Rate 07/05/25 19:35 Nasal Cannula 2 07/05/25 17:59 07/05/25 16:18 Nasal Cannula 1.5 07/05/25 15:41 Nasal Cannula 2 07/05/25 14:15 Nasal Cannula 2 07/05/25 13:30 07/05/25 13:03 07/05/25 13:00 07/05/25 13:00 07/05/25 13:00 07/05/25 13:00 07/05/25 12:57 07/05/25 12:30 07/05/25 12:00 07/05/25 12:00 07/05/25 12:00 07/05/25 12:00 07/05/25 12:00 07/05/25 11:30 07/05/25 11:03 07/05/25 11:00 07/05/25 11:00 07/05/25 11:00 07/05/25 10:57 07/05/25 10:33 07/05/25 10:18 07/05/25 10:00 07/05/25 10:00 07/05/25 10:00 07/05/25 09:35 07/05/25 09:33 Nasal Cannula 2 07/05/25 09:30 Nasal Cannula 2 07/05/25 09:30 Nasal Cannula 2 PG Care Time/CCT Total # of Minutes Spent Total Time Spent with Patient: Total time spent is greater than 50% in coordination of care (as documented) at patient's floor/unit and/or counseling patient: Coding Level of Care Code 59617 SUB INP/OBS CARE 3/50MIN Diagnoses MDS (myelodysplastic syndrome) D46.9 Elevated troponin R79.89 COPD (chronic obstructive pulmonary disease) J44.9 GERD (gastroesophageal reflux disease) K21.9 Hyperlipidemia E78.5
--- NOTE | 2025-07-06 07:46 | Hospitalist Progress Note ---
Date of Service July 06, 2025 Assessment & Plan (1) MDS (myelodysplastic syndrome): (2) Elevated troponin: (3) COPD (chronic obstructive pulmonary disease): (4) GERD (gastroesophageal reflux disease): (5) Hyperlipidemia: Plan 70yo female with Myelodyplastic Syndrome, presence of TP53 mutation, 5% blasts per bone marrow biospy performed at [facility] on 05/31/25. Patient with generalized weakness, fatigue, CARMONA, joint pain, nausea and vomiting. Initially presented to an outside facility and found to be severely anemic with Hgb=5's. She was transfused PRBCs x 1u, discharged and came to [facility]. No blood loss. Patient's diagnosis is relatively new (January 2025), per note review she is opting for supportive transfusions, however, when I questioned her she would like to undergo chemotherapy if warranted but feels that she is too weak at present. Transfusions thresholds PRBCs for Hgb <7, Platelets for level <10, Cryo for fibrinogen <150 #MDS - transfusion dependent #Anemia - pt was transfused 1unit at outside facility and was discharged. pt presented to [facility] and initial hgb was 7.9, but repeat was 5.6 (confirmed by repeat) - Transfuse for Hgb <7, Plt <10 - Patient had been on prophylactic medications before, is not neutropenic at present - transfusing PRBC as Hgb has been < 7 - monitor Hgb / Plt - heme/onc consulted #Decreased urine output - pt has bryson in place - will initiate gentle fluids #Elevated troponin - most likely demand in the setting of acute anemia - cont telemetry monitoring - trend troponin, currently trending down #COPD - not in exacerbation - Continue Breo - Albuterol PRN - Supplemental O2 as needed #GERD - Protonix 40mg po daily NEEDS TO HAVE MEDICATION RECONCILIATION COMPLETED - PATIENT IS NOT SURE WHAT MEDICATIONS SHE IS TAKING AND HER MEDICATION REFILL HISTORY DOES NOT ALIGN WITH MOST RECENT NOTES Still attempting to obtain her outpatient med recs completed Admission and Anticipated Discharge Date Admission Date: July 05, 2025 Subjective No acute events Plts low, Hgb low needing further transfusions Review of Systems Review of Systems: Comprehensive ROS completed and is otherwise negative. Physical Exam Physical Exam: Gen: no acute distress, lying in bed comfortable HEENT: NC/AT, pallor, MMM Lungs: nonlabored breathing, CTAB CVS: s1s2nl, RRR Abd: nl bowel sounds, soft, NT / ND : no bryson Ext: no edema Neuro: AAOx3 Psych: calm, cooperative Results & Data Results & Data Vital Signs (Past 12 Hours) Vital Signs Temp Pulse Pulse Resp BP BP Pulse Ox 07/06/25 07:22 36.5 C 97 H 20 104/64 100 07/06/25 06:22 36.8 C 98 H 18 105/81 96 07/06/25 05:22 37.4 C 93 H 17 97/65 L 93 07/06/25 04:52 36.7 C 92 H 17 100/67 99 07/06/25 04:37 36.7 C 88 17 107/75 99 07/06/25 04:19 36.5 C 82 18 105/62 99 07/06/25 04:02 36.7 C 90 20 107/79 98 07/05/25 23:46 36.6 C 84 20 101/65 99 07/05/25 23:01 83 07/05/25 21:05 O2 Del Method O2 Flow Rate 07/06/25 07:22 07/06/25 06:22 4 07/06/25 05:22 4 07/06/25 04:52 4 07/06/25 04:37 4 07/06/25 04:19 4 07/06/25 04:02 Nasal Cannula 2 07/05/25 23:46 Nasal Cannula 2 07/05/25 23:01 07/05/25 21:05 Nasal Cannula 2 PG Care Time/CCT Total # of Minutes Spent Total Time Spent with Patient: Total time spent is greater than 50% in coordination of care (as documented) at patient's floor/unit and/or counseling patient: Coding Level of Care Code 44197 SUB INP/OBS CARE 3/50MIN Diagnoses MDS (myelodysplastic syndrome) D46.9 Elevated troponin R79.89 COPD (chronic obstructive pulmonary disease) J44.9 GERD (gastroesophageal reflux disease) K21.9 Hyperlipidemia E78.5
[2025-07-06 10:30] LABS: Anion Gap 5.0 (3-11); Blood Urea Nitrogen 16.0 mg/dl (6-23); Calcium 8.3 mg/dl (8.6-10.3); Carbon Dioxide 32.0 mmol/L (21-32); Chloride 96.0 mmol/L (98-107); Creatinine Clr Calc Pharmacy 68.0 ml/min; Glucose 122.0 mg/dl (70-99(Fasting)); Magnesium 1.5 mg/dl (1.7-2.4); Potassium 3.3 mmol/L (3.5-5.1); Sodium 133.0 mmol/L (136-145)
[2025-07-06 10:35] LABS: Hematocrit (blood only) 23.1 % (37.0-47.0); Hemoglobin 7.6 g/dl (12.0-16.0); Mean Corpuscular Hemoglobin 27.7 pg (25.0-34.0); Mean Corpuscular Volume 84.3 fL (80.0-100.0); Platelet Count 11 K/uL (130-400); RDW Standard Deviation 43.8 fL (36.4-46.3); Red Blood Count 2.74 M/uL (4.20-5.40); White Blood Count 4.38 K/ul (4.8-10.8)
[2025-07-06] MEDS ORDERED: SODIUM CHLORIDE 0.9% 100 ML IV PRN ×2 (12:26→17:25)
[2025-07-06] MEDS ORDERED: CALCIUM CARBONATE 500 MG CHEWABLE TAB PO PRN (12:46)
[2025-07-06] MEDS: MAGNESIUM OXIDE 400 MG TAB PO ONE (13:04)
[2025-07-06] MEDS: POTASSIUM CHLORIDE CRTAB 20 MEQ TABCR PO STA (13:04)
[2025-07-06 17:06] LABS: ALC (manual) 0.42 K/uL (1.2-3.4); ANC (manual) 2.28 K/uL (1.4-6.5); Hematocrit (blood only) 21.0 % (37.0-47.0); Hemoglobin 7.0 g/dl (12.0-16.0); Mean Corpuscular Hemoglobin 27.9 pg (25.0-34.0); Mean Corpuscular Volume 83.7 fL (80.0-100.0); Platelet Count 11 K/uL (130-400); Polychromasia 1+; RDW Standard Deviation 43.3 fL (36.4-46.3); Red Blood Count 2.51 M/uL (4.20-5.40); White Blood Count 4.22 K/ul (4.8-10.8)
[2025-07-06] MEDS: Nursing to Pharmacy Communication SCH (17:49)
[2025-07-06] MEDS: PLASMA-LYTE A 1,000 ML IV SCH (23:54)
[2025-07-07 01:14] LABS: Hematocrit (blood only) 27.1 % (37.0-47.0); Hemoglobin 8.9 g/dl (12.0-16.0); Mean Corpuscular Hemoglobin 27.7 pg (25.0-34.0); Mean Corpuscular Volume 84.4 fL (80.0-100.0); Platelet Count 10 K/uL (130-400); RDW Standard Deviation 45.8 fL (36.4-46.3); Red Blood Count 3.21 M/uL (4.20-5.40); White Blood Count 4.15 K/ul (4.8-10.8)
[2025-07-07] MEDS ORDERED: SODIUM CHLORIDE 0.9% 100 ML IV PRN ×2 (01:19→12:14)
[2025-07-07 01:20] LABS: ALC (manual) 0.83 K/uL (1.2-3.4); ANC (manual) 1.58 K/uL (1.4-6.5); Blast # (manual) 0.04 K/uL (0-0); Ovalocytes 1+
[2025-07-07 07:14] LABS: Anion Gap 8.0 (3-11); Blood Urea Nitrogen 16.0 mg/dl (6-23); Calcium 8.1 mg/dl (8.6-10.3); Carbon Dioxide 31.0 mmol/L (21-32); Chloride 96.0 mmol/L (98-107); Creatinine Clr Calc Pharmacy 84.0 ml/min; Glucose 107.0 mg/dl (70-99(Fasting)); Magnesium 1.5 mg/dl (1.7-2.4); Potassium 3.7 mmol/L (3.5-5.1); Sodium 135.0 mmol/L (136-145)
[2025-07-07 07:30] LABS: Hematocrit (blood only) 23.3 % (37.0-47.0); Hemoglobin 7.8 g/dl (12.0-16.0); Mean Corpuscular Hemoglobin 27.8 pg (25.0-34.0); Mean Corpuscular Volume 82.9 fL (80.0-100.0); Platelet Count 13 K/uL (130-400); RDW Standard Deviation 45.2 fL (36.4-46.3); Red Blood Count 2.81 M/uL (4.20-5.40); White Blood Count 3.65 K/ul (4.8-10.8)
[2025-07-07 07:59] LABS: Fibrinogen 336 mg/dl (184-400)
[2025-07-07] MEDS: MAGNESIUM OXIDE 400 MG TAB PO SCH (08:42)
[2025-07-07 08:53] LABS: ALC (manual) 0.51 K/uL (1.2-3.4); ANC (manual) 1.90 K/uL (1.4-6.5); RBC Morphology Unremarkable
--- NOTE | 2025-07-07 17:07 | Hospitalist Progress Note ---
Date of Service July 07, 2025 Assessment & Plan (1) MDS (myelodysplastic syndrome): (2) Elevated troponin: (3) COPD (chronic obstructive pulmonary disease): (4) GERD (gastroesophageal reflux disease): (5) Hyperlipidemia: Plan 70yo female with Myelodyplastic Syndrome, presence of TP53 mutation, 5% blasts per bone marrow biospy performed at [facility] on 05/31/25. Patient with generalized weakness, fatigue, CARMONA, joint pain, nausea and vomiting. Initially presented to an outside facility and found to be severely anemic with Hgb=5's. She was transfused PRBCs x 1u, discharged and came to [facility]. No blood loss. Patient's diagnosis is relatively new (January 2025), per note review she is opting for supportive transfusions, however, when I questioned her she would like to undergo chemotherapy if warranted but feels that she is too weak at present. Transfusions thresholds PRBCs for Hgb <7, Platelets for level <10, Cryo for fibrinogen <150 #MDS - transfusion dependent #Anemia #Thrombocytopenia - pt was transfused 1unit at outside facility and was discharged. pt presented to [facility] and initial hgb was 7.9, but repeat was 5.6 (confirmed by repeat) - Transfuse for Hgb <7, Plt <10 (<15 if possible) - Patient had been on prophylactic medications before, is not neutropenic at present - transfusing PRBC as Hgb has been < 7 - monitor Hgb / Plt - as of 07/07. pt has received 2 units PRBC and 4 units platelets - spoke with Dr. Leija- she will discuss with Dr. Nathan's team to make her appointment for next week. Dr. Nathan is post tronic machine operator starting Tuesday. Will need to discuss outpatient plan with Dr. Nathan tomorrow, to ensure she has follow up appointment scheduled for possible this week #Decreased urine output- resolving - pt has bryson in place - monitor urine output #Elevated troponin - most likely demand in the setting of acute anemia - cont telemetry monitoring - trend troponin, currently trending down #COPD - not in exacerbation - Continue Breo - Albuterol PRN - Supplemental O2 as needed #Generalized weakness - per granddaughter, pt is practically bedbound. they are not interested in going to rehab as pt is not able to stay there long enough to get treatment as pt is sent back to hospital for low count. Home PT/OT might be better option for her - given her debility, it is quite difficult for family to reposition patient in bed or even get her out of bed. Thus she would benefit from hospital bed. She would benefit from a semi-electric hospital bed so that pt and family can adjust the position of the bed to help her eat as well as even help her to get in and out of bed #GERD - Protonix 40mg po daily #DVT ppx: pharmacologic agents are contraindicated due to low platelet count #Code status: full code #Goals of care (very brief) - 07/07: spoke with pt, her daughter Sandy, and pt's granddaughter Roselia. Provided information regarding MDS diagnosis. Informed pt and family that palliative is consulted to re-establish goals of care. Pt did state that she wants treatment. She was informed that she would need to be strong enough to get to the oncology office to continue treatment and to maintain counts. - palliative consulted for further assistance Pharmacy team is communicating with pt's family to complete med rec as her granddaughter is able to provide the information NEEDS TO HAVE MEDICATION RECONCILIATION COMPLETED - PATIENT IS NOT SURE WHAT MEDICATIONS SHE IS TAKING AND HER MEDICATION REFILL HISTORY DOES NOT ALIGN WITH MOST RECENT NOTES Still attempting to obtain her outpatient med recs completed Admission and Anticipated Discharge Date Admission Date: July 05, 2025 Subjective Granddaughter Roselia at bedside. Spoke to patient's daughter Sandy (POA) She stated that pt has missed her appointments because she forgot to put it on the calendar or patient gets admitted to the hospital. Roselia reports that patient is bedbound at home. Neither patient nor family wants to pursue rehab for strength gaining. Roselia notes that when she does go to rehab, she only stays there for short period of time before she gets sent back to the hospital for low counts. We also discussed that patient may not be a candidate for treatment if she is not physically be able to get to the office and is too weak. Discussed how patient's platelet counts are not responding to transfusions. Explained that if counts are not responding despite transfusions then we might have to consider hospice. We also discussed the complications of low platelet counts, primarily catastrophic bleeding including hemorrhagic stroke. Spoke with Dr Liss antonio as well. Reviewed bone marrow report from [place]. 5% blast consistent with MDS. Pt does not have diagnosis of AML. If patient is able to get to the office, then treatment can be started and she stated that it is somewhat mild. If home health can check blood 2-3 times per week, then heme/onc office can coordinate transfusion even every other day. However, if poor quality of life, then needs to establish goals of care and even consider hospice. Pt stated that she would like to receive treatment at this time. Review of Systems Review of Systems: Comprehensive ROS completed and is otherwise negative. Physical Exam Physical Exam: Gen: no acute distress, lying in bed comfortable HEENT: NC/AT, pallor, MMM Lungs: nonlabored breathing, CTAB CVS: s1s2nl, tachycardic Abd: nl bowel sounds, soft, NT / ND : no bryson Ext: no edema Neuro: AAOx3 Psych: calm, cooperative Results & Data Results & Data Vital Signs (Past 12 Hours) Vital Signs Temp Pulse Pulse Resp BP BP Pulse Ox 07/07/25 16:28 37 C 110 H 16 103/61 92 07/07/25 16:14 102 H 07/07/25 15:28 37.1 C 102 H 16 113/75 94 07/07/25 14:58 36.6 C 103 H 16 115/63 95 07/07/25 14:43 36.9 C 102 H 16 121/79 96 07/07/25 14:23 36.8 C 103 H 16 106/71 93 07/07/25 13:49 36.6 C 104 H 18 114/64 94 07/07/25 07:53 105/68 93 07/07/25 07:39 99 H 07/07/25 07:38 36.5 C 97 H 16 98/65 L 93 O2 Del Method 07/07/25 16:28 07/07/25 16:14 07/07/25 15:28 07/07/25 14:58 07/07/25 14:43 07/07/25 14:23 07/07/25 13:49 Room Air 07/07/25 07:53 Room Air 07/07/25 07:39 07/07/25 07:38 Room Air PG Care Time/CCT Total # of Minutes Spent Total Time Spent with Patient: Total time spent is greater than 50% in coordination of care (as documented) at patient's floor/unit and/or counseling patient: Coding Level of Care Code 56457 SUB INP/OBS CARE MIN Diagnoses MDS (myelodysplastic syndrome) D46.9 Elevated troponin R79.89 COPD (chronic obstructive pulmonary disease) J44.9 GERD (gastroesophageal reflux disease) K21.9 Hyperlipidemia E78.5
[2025-07-07] MEDS ORDERED: ROSUVASTATIN CALCIUM 5 MG TAB PO SCH (21:00)
[2025-07-07] MEDS: METOPROLOL SUCC 25MG EXT REL TAB PO SCH (21:30)
[2025-07-08 06:48] LABS: Alanine Aminotransferase 4.0 U/L (7-52); Albumin Globulin Ratio 1.2 (0.9-2); Albumin Level 2.6 gm/dl (3.4-5.0); Alkaline Phosphatase 74.0 U/L (34-104); Anion Gap 6.0 (3-11); Bilirubin,Total 1.7 mg/dl (0.2-1.0); Blood Urea Nitrogen 12.0 mg/dl (6-23); Calcium 7.9 mg/dl (8.6-10.3); Carbon Dioxide 33.0 mmol/L (21-32); Chloride 96.0 mmol/L (98-107); Creatinine Clr Calc Pharmacy 95.2 ml/min; Globulin 2.2 gm/dl (2.5-4.0); Glucose 98.0 mg/dl (70-99(Fasting)); Magnesium 1.6 mg/dl (1.7-2.4); Potassium 3.6 mmol/L (3.5-5.1); Sodium 135.0 mmol/L (136-145); Total Protein 4.8 gm/dl (6.0-8.3)
[2025-07-08 06:54] LABS: Hematocrit (blood only) 23.2 % (37.0-47.0); Hemoglobin 7.7 g/dl (12.0-16.0); Mean Corpuscular Hemoglobin 27.9 pg (25.0-34.0); Mean Corpuscular Volume 84.1 fL (80.0-100.0); Platelet Count 7 K/uL (130-400); RDW Standard Deviation 45.8 fL (36.4-46.3); Red Blood Count 2.76 M/uL (4.20-5.40); White Blood Count 3.28 K/ul (4.8-10.8)
[2025-07-08 07:13] LABS: INR 1.2 (0.9-1.1); Prothrombin Time 12.7 Seconds (9.0-12.0)
[2025-07-08 07:44] LABS: Immature Granulocytes # (auto) 0.23 K/uL (0.01-0.20); Immature Granulocytes % (auto) 7.0 %; Polychromasia 1+
[2025-07-08] MEDS: MIDODRINE HCL 2.5 MG TAB PO SCH (07:59)
--- NOTE | 2025-07-08 08:53 | Palliative Care Consultation ---
Date of Consultation July 08, 2025 Assessment & Plan (1) Generalized weakness: Pt c/o chronic weakness, lethargy, malaise. She asserts that these symptoms do improve with transfusions. (2) Palliative care by specialist: Met with pt at bedside, no visitors present. Introduced Palliative Medicine and explained our role in advanced care planning, symptom management and navigation through the progression of life limiting disease. Patient was receptive to palliative services for goals of care discussions. Reviewed we are different from hospice, a home health nurse visiting service. (3) Counseling regarding goals of care: Spent 30 minutes with pt discussing her acute and chronic medical conditions, general prognosis, treatment options, and goals of care. Pt shared that she lives with her daughter and 15yo grand daughter in a trailer. She shared that she has had difficulty getting to Dr caban but they have recently acquired a van that will allow her to get to scheduled appts. She shared understanding that she has cancer but unclear on type or treatment options. She shred that she has had three bone marrow biopsies but has not been told the results nor has has discussed treatment options with her oncologist. She believes that she has reported to oncology clinic for multiple appointments but has been turned away "because they did not have time". Pt does have clear understanding of parts of her recent medical history while being confused with others. For example, she did share that she was at another local hospital and rec'd a transfusion but was discharged ("sent away") and so she came to [facility], which is consistent with previous notes. Pt does share that she has not walked in several months and that she has been bed/chair bound aside from pivoting from one to other. She shared that she eats independently but requires assistance with all other ADLs. She shared that she has had poor appetite for "quite a while" and reports a 300# weight loss over past year. She shared that she does not wish to remain this weak and questioned what could be done. Discussed feasibility of attending rehab. Discussed what goals/wishes would be if rehab goes poorly. Pt shared that she and her daughter have taken measures to be sure she can get to appointments and she would prefer to remain living at home. At any rate, pt does express interest in receiving information about treatment options and would like to discuss treatment options and GOC in more depth with her daughter present. I attempted to call daughter (Sandy), no answer and VM was full. Will revisit tomorrow. History of Present Illness Reason for Consultation: goals of care Requesting Physician: Laura Fleming MD Attending Physician: Karime Ugarte MD History of Present Illness 70yo female with Myelodyplastic Syndrome, presence of TP53 mutation, 5% blasts per bone marrow biospy performed at [facility] on 05/31/25. Patient with generalized weakness, fatigue, CARMONA, joint pain, nausea and vomiting. Initially presented to an outside facility and found to be severely anemic with Hgb=5's. She was transfused PRBCs x 1u, discharged and came to [facility]. Patient with recent diagnosis (January 2025) and has opted for supportive transfusions. Allergies Allergy/AdvReac Type Severity Reaction Status Date / Time lithium Allergy Confusion Unverified 05/06/25 23:51 ibuprofen AdvReac Nausea Unverified 04/25/22 19:03 Home Medications Medication Instructions Recorded Confirmed Type albuterol sulfate 90 mcg/actuation 1 puff inhalation Q4H PRN sob 03/07/25 07/06/25 History aerosol inhaler (Ventolin HFA) midodrine 5 mg tablet 5 mg PO TID 07/06/25 07/06/25 History pantoprazole 40 mg tablet,delayed 40 mg PO DAILY PRN Unknown 07/06/25 07/06/25 History release rosuvastatin 5 mg tablet 5 mg PO HS 07/06/25 07/06/25 History hydrocodone 5 mg-acetaminophen 325 1 tab PO Q8H PRN Pain 07/07/25 07/07/25 History mg tablet metoprolol succinate 25 mg 25 mg PO HS 07/07/25 07/07/25 History tablet,extended release 24 hr Patient History Medical History Nausea & vomiting Dizziness Pancytopenia Myelodysplastic syndrome CHF (congestive heart failure) Ambulatory dysfunction PUD (peptic ulcer disease) Surgical History H/O: hysterectomy Family History Other Family history non-contributory Social History Smoking Status: Never smoker Tobacco Type: Cigarettes Hx Alcohol Use: No Hx Substance Use: No Preferred Language: Kinyarwanda Communication Ability: Effective Insecticide Supervisor Required: No Beliefs That Will Affect Care: None Current Living Situation: Family Feels Safe at Home: Yes Safety Concerns: Feels Safe At This Time Assistive Devices: Wheelchair Review of Systems Review of Systems: All systems reviewed & are unremarkable except as noted in HPI & below Constitutional: + malaise, + weakness, + anorexia and + weight loss Physical Exam Constitutional: WD/WN, vitals as above + ill appearing, + obese, cooperative and comfortable Eyes: PERRL, conjunctivae normal, anicteric sclerae Respiratory: normal respiratory effort, lungs clear to auscultation Gastrointestinal (Abdomen): normal bowel sounds, soft, nontender, no hepatosplenomegaly Skin: no rashes, warm and dry Psychiatric: A+Ox3, euthymic affect Results & Data Vital Signs (Past 12 Hours) Vital Signs Temp Pulse Pulse Resp BP Pulse Ox O2 Del Method 07/08/25 08:20 36.7 C 82 17 99/54 L 94 Nasal Cannula 07/08/25 07:47 81 07/08/25 03:51 36.9 C 20 100/64 92 Room Air 07/07/25 23:44 36.8 C 88 20 97/61 L 94 Nasal Cannula 07/07/25 21:45 99 H 07/07/25 21:15 Room Air O2 Flow Rate 07/08/25 08:20 2 07/08/25 07:47 07/08/25 03:51 07/07/25 23:44 2 07/07/25 21:45 07/07/25 21:15 Laboratory Results Abnormal lab results 07/05/25 07/08/25 Range/Units 02:47 05:49 WBC 3.28 L (4.8-10.8) K/ul RBC 2.76 L (4.20-5.40) M/uL Hgb 7.7 L (12.0-16.0) g/dl Hct 23.2 L (37.0-47.0) % RDW Coeff of Aissatou 15.2 H (11.5-14.5) % Plt Count 7 L* (130-400) K/uL Neut # (Auto) 1.31 L (1.40-6.50) K/uL Lymph # (Auto) 0.61 L (1.20-3.40) K/uL Deuel # (Auto) 1.08 H (0.11-0.59) K/uL Immature Gran # (Auto) 0.23 H (0.01-0.20) K/uL PT 12.7 H (9.0-12.0) Seconds INR 1.2 H (0.9-1.1) Sodium 135 L (136-145) mmol/L Chloride 96 L (98-107) mmol/L Carbon Dioxide 33 H (21-32) mmol/L Creatinine 0.45 L (0.6-1.2) mg/dl BUN/Creatinine Ratio 26.7 H (10-20) Calcium 7.9 L (8.6-10.3) mg/dl Magnesium 1.6 L (1.7-2.4) mg/dl Total Bilirubin 1.7 H (0.2-1.0) mg/dl AST 8 L (13-39) U/L ALT 4 L (7-52) U/L Total Protein 4.8 L (6.0-8.3) gm/dl Albumin 2.6 L (3.4-5.0) gm/dl Globulin 2.2 L (2.5-4.0) gm/dl Crossmatch See Detail Diagnostic Findings Chest X-Ray 07/05/25 02:53 EXAM: XR chest 1V portable CLINICAL HISTORY: sob. TECHNIQUE: Radiograph of the chest was acquired. COMPARISON: 05/29/2025. FINDINGS: The lungs are clear and well expanded, with no pulmonary infiltrate. Bilateral costophrenic angles are free. The cardiomediastinal silhouette is within normal limits. No acute osseous abnormality is identified. IMPRESSION: 1. No significant abnormality seen. No interval change. Electronically signed by Lucas Man 07-05-2025 04:20 AM Venous Doppler Study 07/05/25 02:53 EXAM: US venous doppler LE LT CLINICAL HISTORY: swelling TECHNIQUE: Ultrasound examination of the left lower extremity veins was performed in real time and with duplex imaging. One or more of the following were performed: spectral analysis, resistive index, waveform analysis, and pulsed Doppler. COMPARISON: 05/20/2025 FINDINGS: Normal phasic, non-pulsatile, and spontaneous flow is noted in the left common femoral, superficial femoral, popliteal, anterior tibial, posterior tibial, and peroneal veins. The visualized veins of the left lower extremity demonstrate normal compressibility. No sonographic evidence of acute deep vein thrombosis (DVT) is detected in the visualized veins of the lower extremity. Compression: All evaluated veins are fully compressible with applied transducer pressure. Additional Findings: Evaluation of the calf vessels is limited due to small vessel size. IMPRESSION: - No sonographic evidence of acute DVT is detected at the time of examination. - No interval changes. Disclaimer: DVT could be missed early in the disease when clot burden is minimal. For patients with moderate and high pretest probability of DVT and negative ultrasound, the [employer] [employer] clinical guidelines recommend testing with a D-dimer assay or repeat ultrasound in 5-7 days. If symptoms worsen, the Society of Radiologists in Ultrasound recommends repeating ultrasound even earlier. Electronically signed by Gavin Summers 07-05-2025 05:53 AM Medications Administered Current Inpatient Medications Acetaminophen (Acetaminophen 325 Mg Tab) 650 mg PO Q4H PRN PRN Reason: fever Stop: 08/04/25 08:44 Hydrocodone Bitart/Acetaminophen (Hydrocodone/Acetamophen 5/325mg Tab) 1 tab PO Q8H PRN PRN Reason: Pain Stop: 07/21/25 20:32 Albuterol (Albuterol Hfa 8 Gm Inhaler) 1 puffs INH Q4H PRN PRN Reason: sob Stop: 08/04/25 08:44 Albuterol (Albuterol 0.083% Nebu Soln 3 Ml Vial) 2.5 mg NEB Q6H PRN; Protocol PRN Reason: Shortness Of Breath Or Wheezing Stop: 08/04/25 08:44 Calcium Carbonate (Calcium Carbonate 500 Mg Chewable Tab) 500 mg PO AC PRN PRN Reason: Indigestion Stop: 08/05/25 12:45 Fluticasone/Vilanterol (Fluticasone/Vilanterol 100/25mcg 14 Puffs/Inhaler) 1 puffs INH DAILY@1400 NANCY Stop: 08/04/25 08:59 Last Admin: 07/08/25 13:03 Dose: 1 puffs Sodium Chloride (Nss) 100 mls @ 15 mls/hr IV .Q6H40M PRN PRN Reason: For Transfusion Duration Stop: 07/08/25 19:05 Metoprolol Succinate (Metoprolol Succ 25mg Ext Rel Tab) 25 mg PO HS [facility] Stop: 08/06/25 20:59 Last Admin: 07/07/25 21:30 Dose: 25 mg Midodrine (Midodrine Hcl 2.5 Mg Tab) 5 mg PO TID@0800,1200,1700 [facility] Stop: 08/07/25 07:59 Last Admin: 07/08/25 16:13 Dose: 5 mg Miscellaneous (Remove Lidoderm Patch) 1 each N/A DAILY@2100 [facility] Stop: 08/04/25 20:59 Last Admin: 07/07/25 21:42 Dose: Not Given Morphine Sulfate (Morphine Sulfate 2 Mg/Ml Carp) 1 mg IV Q3H PRN PRN Reason: Pain (1,2,3,4,5) & Pre PT Stop: 07/19/25 08:44 Last Admin: 07/07/25 19:01 Dose: 1 mg Morphine Sulfate (Morphine Sulfate 2 Mg/Ml Carp) 2 mg IV Q3H PRN PRN Reason: Pain (6,7,8,9,10) Stop: 07/19/25 08:44 Last Admin: 07/08/25 16:14 Dose: 2 mg Ondansetron HCl (Ondansetron Inj 2 Mg/Ml 2 Ml Vial) 4 mg IV Q6H PRN PRN Reason: Nausea And Vomiting Stop: 08/04/25 08:44 Pantoprazole Sodium (Pantoprazole 40 Mg Tab) 40 mg PO DAILY [facility] Stop: 08/04/25 08:59 Last Admin: 07/08/25 07:59 Dose: 40 mg Polyethylene Glycol (Polyethylene (Miralax) 17 Gm Pack) 17 gm PO DAILY PRN PRN Reason: Constipation Stop: 08/04/25 08:44 Rosuvastatin Calcium (Rosuvastatin Calcium 5 Mg Tab) 5 mg PO QAM [facility] Stop: 08/04/25 08:59 Last Admin: 07/08/25 07:59 Dose: 5 mg Senna/Docusate Sodium (Docusate Sodium/Senna 50/8.6mg Tab) 1 tab PO QAM [facility] Stop: 08/04/25 08:59 Last Admin: 07/08/25 07:58 Dose: 1 tab PG Care Time/CCT Total # of Minutes Spent Total Time Spent with Patient: Total time spent is greater than 50% in coordination of care (as documented) at patient's floor/unit and/or counseling patient: Advanced Care Planning 84603 Advanced Care Planning 30 [place] [address] IN/OBS CONSULT LVL 4,60M Patient Type New History Expanded Problem Focused Exam Expanded Problem Focused Medical Decision Making Moderate Complexity Diagnoses Generalized weakness R53.1 Palliative care by specialist Z51.5 Counseling regarding goals of care Z71.89 Additional Codes Advanced Care Planning - 75783 Advanced Care Planning 30 Min: 17737 Advanced Care Planning 30 Min ([id number])
[2025-07-08] MEDS ORDERED: SODIUM CHLORIDE 0.9% 100 ML IV PRN (11:04)
[2025-07-08] MEDS: MAGNESIUM SULFATE / D5W 1 GM/100 ML BAG IV SCH (13:02)
--- NOTE | 2025-07-08 19:44 | Hospitalist Progress Note ---
Date of Service July 08, 2025 Assessment & Plan (1) MDS (myelodysplastic syndrome): (2) Pancytopenia: (3) Hypomagnesemia: (4) Elevated troponin: Plan This patient is a 70yo female with Myelodyplastic Syndrome, presence of TP53 mutation, 5% blasts per bone marrow biospy performed at [facility] on 05/31/25. Patient with generalized weakness, fatigue, CARMONA, joint pain, nausea and vomiting. Initially presented to an outside facility and found to be severely anemic with Hgb=5's. She was transfused PRBCs x 1u, discharged and came to [facility]. No blood loss. Patient's diagnosis is relatively new (January 2025) and she is not yet been able to begin treatment due to some logistical reasons and poor social support which has now been resolved. #MDS - transfusion dependent/pancytopenia- pt was transfused 1unit at outside facility and was discharged. pt presented to [facility] and initial hgb was 7.9, but repeat was 5.6 (confirmed by repeat). Thus far has received 2 units PRBCs and 4 units platelets this admission. -Transfusions thresholds PRBCs for Hgb <7, Platelets for level <10, Cryo for fibrinogen <150--> give 1 pack of platelets on 07/08 - Patient had been on prophylactic medications before, is not neutropenic at present-Will need to find out if his to be on acyclovir. Levofloxacin is only for ANC less than 500 -Follow CBC -Still awaiting oncology consultation this admission to arrange [facility] outpatient treatment - Apparently, transfusions could be arranged even for as often as every other day at the oncology center #Urine retention-Case catheter placed during hospitalization in 05/2025 for recurrent urinary retention - Will need to replace Case catheter likely by 07/11 #Elevated troponin - most likely demand in the setting of acute anemia. No events on telemetry, no chest pain, ECG with nonspecific anterior T wave flattening. - Can downgrade off telemetry #COPD - not in exacerbation - Continue Breo - Albuterol PRN - Supplemental O2 as needed #Bipolar disorder-patient previously was on Seroquel but it is not on her current medication list-patient is confused as to whether she still takes this - Will discuss with daughter and restart Seroquel 200 mg p.o. at bedtime if she is still to be taking this #Generalized weakness- per granddaughter, pt is practically bedbound. they are not interested in going to rehab as pt is not able to stay there long enough to get treatment as pt is sent back to hospital for low count. - given her debility, it is quite difficult for family to reposition patient in bed or even get her out of bed. Thus she would benefit from hospital bed. She would benefit from a semi-electric hospital bed so that pt and family can adjust the position of the bed to help her eat as well as even help her to get in and out of bed #Chronic pain-suspected neuropathy in lower extremities. She previously was on gabapentin but I believe this was discontinued last admission as it caused tremor - Takes opioids as needed for pain #CAD/HFpEF--patient is not volume overloaded. Patient is on metoprolol but is also on midodrine her orthostasis - Continue to hold Lasix - Continue metoprolol and midodrine #GERD - Protonix 40mg po daily DVT prophylaxis-pharmacologic agents are contraindicated due to low platelet count Disposition-continued stay for necessary transfusions and to get oncology plan in place. Plan will be to go home with home health. Palliative medicine following. Admission and Anticipated Discharge Date Admission Date: July 08, 2025 Subjective Patient reports chronic pain in her legs. No other concerns. No bleeding noted from anywhere. Telemetry with normal sinus rhythm, PACs, rates in the 80s to low 100s Physical Exam Constitutional: WD/WN, vitals as above Respiratory: normal respiratory effort, lungs clear to auscultation Cardiovascular: Rate/Rhythm: regular rate and regular rhythm Heart Sounds: no murmur Extremities: + edema (Trace edema of the legs bilaterally) Gastrointestinal (Abdomen): normal bowel sounds, soft, nontender, no hepatosplenomegaly Psychiatric: Orientation: alert, oriented to person, oriented to place and cooperative Genitourinary: + abnormal external appearance (Case ca theter in place) Results & Data Results & Data Vital Signs (Past 12 Hours) Vital Signs Temp Pulse Pulse Resp BP BP BP 07/08/25 19:20 07/08/25 13:58 36.8 C 80 17 98/55 L 07/08/25 13:53 83 07/08/25 12:59 36.4 C L 78 18 109/68 07/08/25 12:38 36.4 C L 78 18 110/77 07/08/25 12:08 36.6 C 81 16 108/72 07/08/25 11:53 37 C 80 18 111/66 07/08/25 11:30 36.6 C 93 H 18 123/60 07/08/25 08:20 36.7 C 82 17 99/54 L 07/08/25 08:00 07/08/25 07:47 81 Pulse Ox O2 Del Method O2 Flow Rate 07/08/25 19:20 Nasal Cannula 1 07/08/25 13:58 97 Nasal Cannula 2 07/08/25 13:53 07/08/25 12:59 100 1 07/08/25 12:38 98 1 07/08/25 12:08 97 1 07/08/25 11:53 98 1 07/08/25 11:30 99 1 07/08/25 08:20 94 Nasal Cannula 2 07/08/25 08:00 Nasal Cannula 1 07/08/25 07:47 Laboratory Results CBC, BMP, INR, LFTs, magnesium reviewed PG Care Time/CCT Total # of Minutes Spent Total Time Spent with Patient: Total time spent is greater than 50% in coordination of care (as documented) at patient's floor/unit and/or counseling patient: Coding Level of Care Code 88817 SUB INP/OBS CARE 235MIN Diagnoses MDS (myelodysplastic syndrome) D46.9 Pancytopenia D61.818 Hypomagnesemia E83.42 Elevated troponin R79.89
[2025-07-09 08:11] LABS: Alanine Aminotransferase 4.0 U/L (7-52); Albumin Globulin Ratio 1.2 (0.9-2); Albumin Level 2.5 gm/dl (3.4-5.0); Alkaline Phosphatase 72.0 U/L (34-104); Anion Gap 6.0 (3-11); Bilirubin,Total 1.6 mg/dl (0.2-1.0); Blood Urea Nitrogen 10.0 mg/dl (6-23); Calcium 8.0 mg/dl (8.6-10.3); Carbon Dioxide 33.0 mmol/L (21-32); Chloride 96.0 mmol/L (98-107); Creatinine Clr Calc Pharmacy 102.0 ml/min; Globulin 2.1 gm/dl (2.5-4.0); Glucose 91.0 mg/dl (70-99(Fasting)); Potassium 3.5 mmol/L (3.5-5.1); Sodium 135.0 mmol/L (136-145); Total Protein 4.6 gm/dl (6.0-8.3)
[2025-07-09 10:20] LABS: Hematocrit (blood only) 21.6 % (37.0-47.0); Hemoglobin 7.2 g/dl (12.0-16.0); Mean Corpuscular Hemoglobin 28.1 pg (25.0-34.0); Mean Corpuscular Volume 84.4 fL (80.0-100.0); Platelet Count 16 K/uL (130-400); RDW Standard Deviation 46.0 fL (36.4-46.3); Red Blood Count 2.56 M/uL (4.20-5.40); White Blood Count 2.53 K/ul (4.8-10.8)
[2025-07-09 11:36] LABS: ALC (manual) 0.61 K/uL (1.2-3.4); ANC (manual) 0.89 K/uL (1.4-6.5); Blast # (manual) 0.03 K/uL (0-0); RBC Morphology Unremarkable
--- NOTE | 2025-07-09 13:30 | Communication Note ---
Date of Service: July 09, 2025 Spoke with pt's daughter Sandy Lopez via phone. Family meeting planned for 07/10/25 at noon to discuss GOC/ACP. This meeting is necessary for determining the appropriate course of treatment. No charges submitted for palliative services today.
--- NOTE | 2025-07-09 16:14 | Oncology Consultation ---
Date of Consultation July 09, 2025 Assessment & Plan (1) MDS (myelodysplastic syndrome): First of fall, establish transfusion parameters, transfuse packed red blood cells if hemoglobin is less than 7 g/dL or platelet count is less than 10,000/mcL or the patient is actively bleeding. Will arrange for outpatient monitoring of labs including labs every Tuesday with above-mentioned transfusion parameters will arrange for outpatient institution of treatment for MDS with T p53 mutation which will include Vidaza and we can add venetoclax based on patient tolerability. the patient lives in [place] will arrange for outpatient institution of therapy as well labs labs regularly. Plan Thank you for this interesting hematological consult. A total of 60 minutes were spent in counseling, coronation care, review of prior records. History of Present Illness Reason for Consultation: Myelodysplastic syndrome with T p53 mutation severe anemia severe thrombocytopenia Attending Physician: Karime Ugarte MD History of Present Illness the patient is a very pleasant 70-year-old woman with multiple medical issues including schizoaffective disorder, heart failure with preserved ejection fraction, COPD on 2 L baseline oxygen who was diagnosed with high-grade myelodysplastic syndrome with T p53 mutation in May 2023. At that time she was evaluated by my colleague Dr. Saenz, subsequently she was transferred to [place]. Given her multiple medical comorbidities and aggressive malignancy, it is likely she is not to be considered for intensive therapy as well as consolidative stem cell transplant. She is requiring blood transfusions regularly. At this point she has not started any kind of treatment for high- grade myelodysplastic syndrome. Hematology has been consulted to assist in management for this particular patient with aggressive myelodysplastic syndrome/acute myeloid leukemia who is needing regular blood transfusions. Allergies Allergy/AdvReac Type Severity Reaction Status Date / Time lithium Allergy Confusion Unverified 05/06/25 23:51 ibuprofen AdvReac Nausea Unverified 04/25/22 19:03 Home Medications Medication Instructions Recorded Confirmed Type albuterol sulfate 90 mcg/actuation 1 puff inhalation Q4H PRN sob 03/07/25 07/06/25 History aerosol inhaler (Ventolin HFA) midodrine 5 mg tablet 5 mg PO TID 07/06/25 07/06/25 History pantoprazole 40 mg tablet,delayed 40 mg PO DAILY PRN Unknown 07/06/25 07/06/25 History release rosuvastatin 5 mg tablet 5 mg PO HS 07/06/25 07/06/25 History hydrocodone 5 mg-acetaminophen 325 1 tab PO Q8H PRN Pain 07/07/25 07/07/25 History mg tablet metoprolol succinate 25 mg 25 mg PO HS 07/07/25 07/07/25 History tablet,extended release 24 hr Patient History Medical History Nausea & vomiting Dizziness Pancytopenia Myelodysplastic syndrome CHF (congestive heart failure) Ambulatory dysfunction PUD (peptic ulcer disease) Surgical History H/O: hysterectomy Family History Other Family history non-contributory Social History Smoking Status: Never smoker Tobacco Type: Cigarettes Hx Alcohol Use: No Hx Substance Use: No Preferred Language: [place] Communication Ability: Effective Mast Maker Required: No Beliefs That Will Affect Care: None Current Living Situation: Family Feels Safe at Home: Yes Safety Concerns: Feels Safe At This Time Assistive Devices: Wheelchair Review of Systems Review of Systems: All systems reviewed & are unremarkable except as noted in HPI & below Constitutional: as per Subjective / HPI Eyes: as per Subjective / HPI Ear, Nose, Mouth, Throat: as per Subjective / HPI Respiratory: as per Subjective / HPI Cardiovascular: as per Subjective / HPI Gastrointestinal: as per Subjective / HPI Genitourinary: as per Subjective / HPI Musculoskeletal: as per Subjective / HPI Integumentary: as per Subjective / HPI Neurologic: as per Subjective / HPI Psychiatric: as per Subjective / HPI Endocrine: as per Subjective / HPI Hematologic / Lymphatic: as per Subjective / HPI Physical Exam Constitutional: WD/WN, vitals as above Eyes: PERRL, conjunctivae normal, anicteric sclerae ENMT: external ear and nose normal, oropharynx normal Neck: trachea midline, no thyromegaly Respiratory: normal respiratory effort, lungs clear to auscultation Cardiovascular: RRR, no murmur, no edema Gastrointestinal (Abdomen): normal bowel sounds, soft, nontender, no hepatosplenomegaly Musculoskeletal: no cyanosis or clubbing, extremities motor strength 5/5 Skin: no rashes, warm and dry Neurologic: patellar DTR's 2+ bilat, sensation intact Psychiatric: A+Ox3, euthymic affect Results & Data Vital Signs (Past 12 Hours) Vital Signs Temp Pulse Resp BP Pulse Ox O2 Del Method O2 Flow Rate 07/09/25 13:56 36.3 C L 76 15 111/73 95 Nasal Cannula 1 07/09/25 08:58 100 Nasal Cannula 2 07/09/25 07:49 36.8 C 79 18 110/69 97 Nasal Cannula 2 07/09/25 07:35 Nasal Cannula 2
[2025-07-09] MEDS: HYDROCODONE/ACETAMOPHEN 5/325MG TAB PO PRN (17:27)
--- NOTE | 2025-07-09 18:59 | Hospitalist Progress Note ---
Date of Service July 09, 2025 Assessment & Plan (1) MDS (myelodysplastic syndrome): (2) Pancytopenia: (3) Hypomagnesemia: (4) Elevated troponin: Plan This patient is a 70yo female with Myelodyplastic Syndrome, presence of TP53 mutation, 5% blasts per bone marrow biospy performed at [facility] [place]. Patient with generalized weakness, fatigue, CARMONA, joint pain, nausea and vomiting. Initially presented to an outside facility and found to be severely anemic with Hgb=5's. She was transfused PRBCs x 1u, discharged and came to [facility]. No blood loss. Patient's diagnosis is relatively new (January 2025) and she is not yet been able to begin treatment due to some logistical reasons and poor social support which has now been resolved. #MDS - transfusion dependent/pancytopenia- pt was transfused 1unit at outside facility and was discharged. pt presented to [facility] and initial hgb was 7.9, but repeat was 5.6 (confirmed by repeat). Thus far has received 2 units PRBCs and 5 units platelets this admission. -Transfusions thresholds PRBCs for Hgb <7, Platelets for level <10, Cryo for fibrinogen <150 - Patient had been on prophylactic medications before, is now neutropenic at 890-Will resume acyclovir 400 mg p.o. twice daily. Levofloxacin is only to be given for ANC less than 500 -Follow CBC with differential -Appreciate oncology consultation this admission to arrange [facility] outpatient treatment-plan for this 3 times a week for labs, treatment and possible transfusions -If CBC remains stable on 07/10, could possibly discharge to home - Palliative medicine consultation appreciated-plan for family meeting with goals of care on 07/10 #Urine retention-Case catheter placed during hospitalization in 05/2025 for recurrent urinary retention - Will need to replace Case catheter likely by 07/11/prior to discharge #Elevated troponin - most likely demand in the setting of acute anemia. No events on telemetry, no chest pain, ECG with nonspecific anterior T wave flattening. - Have since downgraded off telemetry #COPD - not in exacerbation - Continue Breo - Albuterol PRN - Supplemental O2 as needed #Bipolar disorder-patient previously was on Seroquel but it is not on her current medication list-patient is confused as to whether she still takes this - Will discuss with daughter and restart Seroquel 200 mg p.o. at bedtime if she is still to be taking this #Generalized weakness- per granddaughter, pt is practically bedbound. they are not interested in going to rehab as pt is not able to stay there long enough to get treatment as pt is sent back to hospital for low count. - given her debility, it is quite difficult for family to reposition patient in bed or even get her out of bed. Thus she would benefit from hospital bed. She would benefit from a semi-electric hospital bed so that pt and family can adjust the position of the bed to help her eat as well as even help her to get in and out of bed #Chronic pain-suspected neuropathy in lower extremities. She previously was on gabapentin but I believe this was discontinued last admission as it caused tremor - Takes opioids as needed for pain #Constipation-was constipated from opioids but now having multiple loose stools - Discontinue Senokot/docusate - Continue MiraLAX as needed #CAD/HFpEF--patient is not volume overloaded. Patient is on metoprolol but is also on midodrine her orthostasis - Continue to hold Lasix - Continue metoprolol and midodrine #GERD - Protonix 40mg po daily DVT prophylaxis-pharmacologic agents are contraindicated due to low platelet count Disposition-continued stay for necessary transfusions and to get oncology plan in place. Plan will be to go home with home health. Palliative medicine following. Possible discharge to home on 07/10 Admission and Anticipated Discharge Date Admission Date: July 08, 2025 Anticipated date of discharge: 07/10/25 Subjective Patient reports feeling scared about her cancer. She did talk to the oncologist today. I also discussed her care with the oncologist. I discussed her care with palliative medicine as well No bleeding from anywhere. Complains of a lot of loose stools Physical Exam Constitutional: WD/WN, vitals as above Respiratory: normal respiratory effort, lungs clear to auscultation Cardiovascular: Rate/Rhythm: regular rate and regular rhythm Heart Sounds: no murmur Extremities: + edema (Trace edema of the legs bilaterally) Gastrointestinal (Abdomen): normal bowel sounds, soft, nontender, no hepatosplenomegaly Psychiatric: Orientation: alert, oriented to person, oriented to place and cooperative Genitourinary: + abnormal external appearance (Case ca theter in place) Results & Data Results & Data Vital Signs (Past 12 Hours) Vital Signs Temp Pulse Resp BP Pulse Ox O2 Del Method O2 Flow Rate 07/09/25 13:56 36.3 C L 76 15 111/73 95 Nasal Cannula 1 07/09/25 08:58 100 Nasal Cannula 2 07/09/25 07:49 36.8 C 79 18 110/69 97 Nasal Cannula 2 07/09/25 07:35 Nasal Cannula 2 Laboratory Results CBC, CMP reviewed PG Care Time/CCT Total # of Minutes Spent Total Time Spent with Patient: Total time spent is greater than 50% in coordination of care (as documented) at patient's floor/unit and/or counseling patient: Coding Level of Care Code 45744 SUB INP/OBS CARE 2/35MIN Diagnoses MDS (myelodysplastic syndrome) D46.9 Pancytopenia D61.818 Hypomagnesemia E83.42 Elevated troponin R79.89
[2025-07-09] MEDS: ACYCLOVIR 400 MG TAB PO SCH (20:57)
[2025-07-10 07:10] LABS: Hematocrit (blood only) 21.9 % (37.0-47.0); Hemoglobin 7.5 g/dl (12.0-16.0); Mean Corpuscular Hemoglobin 29.0 pg (25.0-34.0); Mean Corpuscular Volume 84.6 fL (80.0-100.0); Platelet Count 17 K/uL (130-400); RDW Standard Deviation 45.6 fL (36.4-46.3); Red Blood Count 2.59 M/uL (4.20-5.40); White Blood Count 2.68 K/ul (4.8-10.8)
[2025-07-10 07:46] LABS: Alanine Aminotransferase 4.0 U/L (7-52); Albumin Globulin Ratio 1.1 (0.9-2); Albumin Level 2.5 gm/dl (3.4-5.0); Alkaline Phosphatase 74.0 U/L (34-104); Anion Gap 5.0 (3-11); Bilirubin,Total 1.5 mg/dl (0.2-1.0); Blood Urea Nitrogen 10.0 mg/dl (6-23); Calcium 8.2 mg/dl (8.6-10.3); Carbon Dioxide 34.0 mmol/L (21-32); Chloride 97.0 mmol/L (98-107); Creatinine Clr Calc Pharmacy 99.6 ml/min; Globulin 2.3 gm/dl (2.5-4.0); Glucose 96.0 mg/dl (70-99(Fasting)); Potassium 3.4 mmol/L (3.5-5.1); Sodium 136.0 mmol/L (136-145); Total Protein 4.8 gm/dl (6.0-8.3)
[2025-07-10 07:52] LABS: ALC (manual) 0.38 K/uL (1.2-3.4); ANC (manual) 0.64 K/uL (1.4-6.5); Blast # (manual) 0.03 K/uL (0-0); Polychromasia 1+
--- NOTE | 2025-07-10 15:09 | Palliative Family Discussion ---
Date of Service July 10, 2025 Patient Directed Conference Time of Meetin:30 - 13:00 Participants: Riya AMOR CM Patient participation: yes Patient Support System: daughter Sandy, grand daughter Roselia and pt's sister Tisha (via phone) Other Healthcare Provider Participation: None Meeting Location: bedside Advanced Directive available: no If yes, descriptors: The patient's surrogate medical decision maker participated: patient Legally authorized health care proxy: n/a Other surrogate: n/a A family meeting was held for Sintia Bhatt. This meeting was necessary for determining the appropriate course of treatment. Topics of Discussion Topics of Discussion: 1. Opportunity given for participants to speak and ask questions. 2. Participants were assured of attention to patient comfort. 3. Reassurance provided. 4. Support was provided for informed, good-nancy decisions. 5. Emotions expressed by family were acknowledged and addressed. 6. Follow-up Outpatient: n/a 7. Plan of Care: full code Met at [facility] with patient and her daughter Sandy, grand daughter Roselia. Roselia brought the patient's sister Tisha into conversation by phone. We discussed at length the patient's acute and chronic medical conditions, general prognosis, treatment options, and goals of care. We discussed the patient's sedentary life and that she has been bed/chair bound and non ambulatory for several months. Discussed with family and patient previous barriers to access to care being transportation and finance as well as patient lacking willingness to participate. Pt expresssed desire to improve her strength and mobility with PT. Discussed feasibility of attending rehab vs participating in PT/OT at home. Tisha shared belief that patient does not wish to be in a rehab facility or to be "toted back and forth" to infusion clinic and dr's appointments. Sandy shared that they do not have reliable transportation to get her to appointments and Roselia shared that they are trying to access charitable funds to get their vehicle operational. Tisha shared that she had been on the phone when a doctor was discussing reatment options and prognosis of 6 months with the patient yesterday. We discussed pt's poor prognosis and that for any hope to reduce dependence on transfusions, she would have to agree to go to her appointments and follow up care as directed by the oncology team. Tisha shared concern that the patient is unlikely to be compliant with going to lab 3x per week for blood draws, nor to follow up with frequent transfusions in clinic. Tisha sited that it is logistically difficult but also causes patient a great deal of discomfort to leave her home for medical interventions. Tisha brought up possible discharge home with hospice. Tisha tried to encouraged her sister that hospice is the best option for her. The patient replied "what does it matter if I am just going to ". Encouraged pt to elaborate on this and she refused. We discussed possibility of HHC for blood draws at home and KAEL Benitez was able to join discussion to share options for care at home. Pt clearly stated desire to return home and shared that she does not wish to go to rehab or SNF. Tisha again encouraged patient to go home with hospice and pt responded "sure, just send me home to ". Roselia was focused on patient's pain medications and encouraged that pt be given something for pain, despite patient denying having any pain. Throughout discussion she repeatedly stated that patient "must be in pain because she is cranky". I acknowledged and encouraged patient to express her emotions. Patient expressed anger at her family for being late for this meeing and telling her how to feel, then refused to participate further in communication. I attempted to revisit pt later in day after family had left, I again encouraged her to express her concerns / questions. Validated that her feeling are real and that we would like to allow her wishes to guide her care. She again refused to engage in communication, but did agree to revisiting discussion tomorrow. Time Involved in Meeting: I spent 55 minutes overall addressing this case: 10 in medical data review/discussion with referring provider(s) and/or preparation for the visit 30 in direct interaction with the patient and family 30 Advance Care Planning/Goals of Care discussions as detailed above in note (must be >16min) 5 in subsequent review and synthesis of assessment and plan 10 in communicating with other providers regarding the patient's case: BSMAGO, attending, KAEL
--- NOTE | 2025-07-10 17:31 | Hospitalist Progress Note ---
Date of Service July 10, 2025 Assessment & Plan (1) MDS (myelodysplastic syndrome): (2) Pancytopenia: (3) Hypomagnesemia: (4) Elevated troponin: Plan This patient is a 70yo female with Myelodyplastic Syndrome, presence of TP53 mutation, 5% blasts per bone marrow biospy performed at [facility] [place] on 05/31/25. Patient with generalized weakness, fatigue, CARMONA, joint pain, nausea and vomiting. Initially presented to an outside facility and found to be severely anemic with Hgb=5's. She was transfused PRBCs x 1u, discharged and came to [facility]. No blood loss. Patient's diagnosis is relatively new (January 2025) and she is not yet been able to begin treatment due to logistical reasons and poor social support #MDS - transfusion dependent/pancytopenia- pt was transfused 1unit at outside facility and was discharged. pt presented to [facility] and initial hgb was 7.9, but repeat was 5.6 (confirmed by repeat). Thus far has received 2 units PRBCs and 5 units platelets this admission. CBC stable the last 2 days-no transfusions needed -Transfusions thresholds PRBCs for Hgb <7, Platelets for level <10, Cryo for fibrinogen <150 - Patient had been on prophylactic medications before, is now neutropenic at 890-Will resume acyclovir 400 mg p.o. twice daily. Levofloxacin is only to be given for ANC less than 500 -Follow CBC with differential -Appreciate oncology consultation this admission to arrange [facility] outpatient treatment-plan for this 3 times a week for labs, treatment and possible transfusions -pt and family now moving towards going to a SNF because family does not feel they can transport her to oncology appts - Palliative medicine consultation appreciated-s/p family meeting with goals of care on 07/10--> pt angry about possibility of hospice option and then would not make any further decisions -currently has appt set with Oncology for this Fri at 1340 #Urine retention-Case catheter placed during hospitalization in 05/2025 for recurrent urinary retention. Replaced Case catheter 07/10 #Elevated troponin - most likely demand in the setting of acute anemia. No events on telemetry, no chest pain, ECG with nonspecific anterior T wave flattening. - Have since downgraded off telemetry #COPD - not in exacerbation - Continue Breo - Albuterol PRN - Supplemental O2 as needed #Bipolar disorder-patient previously was on Seroquel but it is not on her current medication list-patient is confused as to whether she still takes this - will hold off on resuming Seroquel 200 mg p.o. at bedtime #Generalized weakness- per granddaughter, pt is practically bedbound. they are not interested in going to rehab as pt is not able to stay there long enough to get treatment as pt is sent back to hospital for low count. - given her debility, it is quite difficult for family to reposition patient in bed or even get her out of bed. Thus she would benefit from hospital bed. She would benefit from a semi-electric hospital bed so that pt and family can adjust the position of the bed to help her eat as well as even help her to get in and out of bed -insurance won't cover hospital bed -needs rehab but refuses most times to work with PT #Chronic pain-suspected neuropathy in lower extremities. She previously was on gabapentin but I believe this was discontinued last admission as it caused tremor - Takes opioids as needed for pain #Constipation-was constipated from opioids but now having multiple loose stools - Discontinued Senokot/docusate - Continue MiraLAX as needed #CAD/HFpEF--patient is not volume overloaded. Patient is on metoprolol but is also on midodrine her orthostasis - Continue to hold Lasix - Continue metoprolol and midodrine #GERD - Protonix 40mg po daily DVT prophylaxis-pharmacologic agents are contraindicated due to low platelet count Disposition-continued stay monitoring for need for transfusions and to get plan for SNF vs home with HH or hospice Admission and Anticipated Discharge Date Admission Date: July 08, 2025 Subjective Pt very upset today when seen after Palliative family meeting. She would no make eye contact, asked me to leave here alone and said I could talk to her family about her dispo plans. Physical Exam Constitutional: WD/WN, vitals as above Psychiatric: Orientation: alert, oriented to person and oriented to place Genitourinary: + abnormal external appearance (Manpreet hewitt theter in place) Results & Data Results & Data Vital Signs (Past 12 Hours) Vital Signs Temp Pulse Resp BP Pulse Ox O2 Del Method O2 Flow Rate 07/10/25 07:50 Nasal Cannula 1 07/10/25 07:41 36.5 C 77 16 104/64 98 Room Air Laboratory Results CBC, CMP reviewed PG Care Time/CCT Total # of Minutes Spent Total Time Spent with Patient: Total time spent is greater than 50% in coordination of care (as documented) at patient's floor/unit and/or counseling patient: Coding Level of Care Code 10305 SUB INP/OBS CARE 10/27MIN Diagnoses MDS (myelodysplastic syndrome) D46.9 Pancytopenia D61.818 Hypomagnesemia E83.42 Elevated troponin R79.89
[2025-07-11 07:26] LABS: Hematocrit (blood only) 20.0 % (37.0-47.0); Hemoglobin 6.5 g/dl (12.0-16.0); Mean Corpuscular Hemoglobin 27.5 pg (25.0-34.0); Mean Corpuscular Volume 84.7 fL (80.0-100.0); Platelet Count 13 K/uL (130-400); RDW Standard Deviation 45.7 fL (36.4-46.3); Red Blood Count 2.36 M/uL (4.20-5.40); White Blood Count 1.86 K/ul (4.8-10.8)
[2025-07-11 07:56] LABS: Anion Gap 6.0 (3-11); Calcium 8.0 mg/dl (8.6-10.3); Carbon Dioxide 33.0 mmol/L (21-32); Chloride 98.0 mmol/L (98-107); Potassium 3.1 mmol/L (3.5-5.1); Sodium 137.0 mmol/L (136-145)
[2025-07-11 08:02] LABS: Blood Urea Nitrogen 9.0 mg/dl (6-23); Creatinine Clr Calc Pharmacy 129.8 ml/min; Glucose 131.0 mg/dl (70-99(Fasting))
[2025-07-11 08:25] LABS: ALC (manual) 0.48 K/uL (1.2-3.4); ANC (manual) 0.52 K/uL (1.4-6.5); RBC Morphology Unremarkable
[2025-07-11] MEDS ORDERED: SODIUM CHLORIDE 0.9% 100 ML IV PRN (09:38)
[2025-07-11] MEDS: POTASSIUM CHLORIDE CRTAB 20 MEQ TABCR PO STA (10:22)
--- NOTE | 2025-07-11 10:24 | Palliative Care Progress Note ---
Date of Service July 11, 2025 Assessment & Plan (1) Palliative care by specialist: Plan: Met with pt at bedside, no visitors present. Palliative care will continue to follow for ongoing patient and family support. (2) Counseling regarding goals of care: Plan: Today, 07/11: 30 minutes spent discussing GOC and ACP with patient and her daughter Sandy today. Met with pt at bedside, no visitors present. Pt was more communicative this morning. 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 She stated that she is not sure if she wants to pursue treatment but stated that she is "not ready to ". She shared that she does not wish to make decisions and requests that her daughter Sandy be her proxy for medical decisions. She reinforce that it is her wish to be at home and not in SNF due to concerns for loss of control over her daily life (schedules, diet, activity level were mentioned). When asked what the plan will be moving forward, she asked that I call Sandy to discuss because "Sandy is making the decisions". Phone call placed to Sandy. She shared that they are concerned that they cannot provide the care needed at home and expressed concern for her high risk of bleeding. SHe shared that given the pt's propensity toward bleeding and basel ine transfusion dependence, they feel she would be better in a half-way facility of rehab unit. She expressed hope that the patient "can be transported by professionals" to cancer clinic for treatments and any necessary transfusions. She shared that they are hopeful that the patient can improve strength with PT/OT and if she responds well to treatments she could return home at some point. We briefly discussed code status and Sandy shared that she wants everything possible done at this time to give her mother chance to benefit from treatments. She requests full code continue at this time. CM will work with family to establish discharge disposition, goals of care are clearly established at this time for all aggressive life prolonging measures to continue. 07/10: Met at bedside with patient and her daughter Sandy, grand daughter Roselia. Roselia brought the patient's sister Tisha into conversation by phone. We discussed at length the patient's acute and chronic medical conditions, general prognosis, treatment options, and goals of care. We discussed the patient's sedentary life and that she has been bed/chair bound and non ambulatory for several months. Discussed with family and patient previous barriers to access to care being transportation and finance as well as patient lacking willingness to participate. Pt expresssed desire to improve her strength and mobility with PT. Discussed feasibility of attending rehab vs participating in PT/OT at home. Tisha shared belief that patient does not wish to be in a rehab facility or to be "toted back and forth" to infusion clinic and dr's appointments. Sandy shared that they do not have reliable transportation to get her to appointments and Roselia shared that they are trying to access [employer] funds to get their vehicle operational. Tisha shared that she had been on the phone when a doctor was discussing reatment options and prognosis of 6 months with the patient yesterday. We discussed pt's poor prognosis and that for any hope to reduce dependence on transfusions, she would have to agree to go to her appointments and follow up care as directed by the oncology team. Tisha shared concern that the patient is unlikely to be compliant with going to lab 3x per week for blood draws, nor to follow up with frequent transfusions in clinic. Tisha sited that it is logistically difficult but also causes patient a great deal of discomfort to leave her home for medical interventions. Tisha brought up possible discharge home with hospice. Tisha tried to encouraged her sister that hospice is the best option for her. The patient replied "what does it matter if I am just going to ". Encouraged pt to elaborate on this and she refused. We discussed possibility of HHC for blood draws at home and KAEL Benitez was able to join discussion to share options for care at home. Pt clearly stated desire to return home and shared that she does not wish to go to rehab or SNF. Tisha again encouraged patient to go home with hospice and pt responded "sure, just send me home to ". Roselia was focused on patient's pain medications and encouraged that pt be given something for pain, despite patient denying having any pain. Throughout discussion she repeatedly stated that patient "must be in pain because she is cranky". I acknowledged and encouraged patient to express her emotions. Patient expressed anger at her family for being late for this meeing and telling her how to feel, then refused to participate further in communication. I attempted to revisit pt later in day after family had left, I again encouraged her to express her concerns / questions. Validated that her feeling are real and that we would like to allow her wishes to guide her care. She again refused to engage in communication, but did agree to revisiting discussion tomorrow. 07/08:Spent 30 minutes with pt discussing her acute and chronic medical conditions, general prognosis, treatment options, and goals of care. Pt shared that she lives with her daughter and 15yo grand daughter in a trailer. She shared that she has had difficulty getting to Dr caban but they have recently acquired a van that will allow her to get to scheduled mee. She shared understanding that she has cancer but unclear on type or treatment options. She shred that she has had three bone marrow biopsies but has not been told the results nor has has discussed treatment options with her oncologist. She believes that she has reported to oncology clinic for multiple appointments but has been turned away "because they did not have time". Pt does have clear understanding of parts of her recent medical history while being confused with others. For example, she did share that she was at another local hospital and rec'd a transfusion but was discharged ("sent away") and so she came to [facility], which is consistent with previous notes. Pt does share that she has not walked in several months and that she has been bed/chair bound aside from pivoting from one to other. She shared that she eats independently but requires assistance with all other ADLs. She shared that she has had poor appetite for "quite a while" and reports a 300# weight loss over past year. She shared that she does not wish to remain this weak and questioned what could be done. Discussed feasibility of attending rehab. Discussed what goals/wishes would be if rehab goes poorly. Pt shared that she and her daughter have taken measures to be sure she can get to appointments and she would prefer to remain living at home. At any rate, pt does express interest in receiving information about treatment options and would like to discuss treatment options and GOC in more depth with her daughter present. I attempted to call daughter (Sandy), no answer and VM was full. Will revisit tomorrow. Plan as above Admission and Anticipated Discharge Date Admission Date: July 08, 2025 Subjective Assessed pt aat bedside, no visitors present. She was awake and alert, denied any discomfort. VSS, NAD on RA. NAEON. Review of Systems Constitutional: + malaise, + weakness, + anorexia and + weight loss Physical Exam Constitutional: WD/WN, vitals as above + ill appearing, + obese, cooperative and comfortable Eyes: PERRL, conjunctivae normal, anicteric sclerae Respiratory: normal respiratory effort, lungs clear to auscultation Gastrointestinal (Abdomen): normal bowel sounds, soft, nontender, no hepatosplenomegaly Skin: no rashes, warm and dry Psychiatric: A+Ox3, euthymic affect Results & Data Vital Signs (Past 12 Hours) Vital Signs Temp Pulse Resp BP BP Pulse Ox O2 Del Method 07/11/25 07:42 36.8 C 76 16 103/68 96 Nasal Cannula 07/10/25 23:50 37.0 C 71 16 109/68 97 Room Air O2 Flow Rate 07/11/25 07:42 1 07/10/25 23:50 Laboratory Results Abnormal lab results 07/11/25 07/11/25 Range/Units 06:16 09:51 WBC 1.86 L (4.8-10.8) K/ul RBC 2.36 L (4.20-5.40) M/uL Hgb 6.5 L* (12.0-16.0) g/dl Hct 20.0 L* (37.0-47.0) % RDW Coeff of Aissatou 14.9 H (11.5-14.5) % Plt Count 13 L* (130-400) K/uL Neutrophils # (Manual) 0.52 L (1.40-6.50) K/uL Total Absolute Neuts 0.52 L* (1.4-6.5) K/uL Lymphocytes # (Manual) 0.48 L (1.2-3.4) K/uL Total Abs Lymphocytes 0.48 L (1.2-3.4) K/uL Basophils # (Manual) 0.35 H (0-0.2) K/uL Potassium 3.1 L (3.5-5.1) mmol/L Carbon Dioxide 33 H (21-32) mmol/L Creatinine 0.33 L (0.6-1.2) mg/dl BUN/Creatinine Ratio 27.3 H (10-20) Glucose 131 H (70-99(Fasting)) mg/dl Calcium 8.0 L (8.6-10.3) mg/dl Crossmatch See Detail Diagnostic Findings Chest X-Ray 07/05/25 02:53 EXAM: XR chest 1V portable CLINICAL HISTORY: sob. TECHNIQUE: Radiograph of the chest was acquired. COMPARISON: 05/29/2025. FINDINGS: The lungs are clear and well expanded, with no pulmonary infiltrate. Bilateral costophrenic angles are free. The cardiomediastinal silhouette is within normal limits. No acute osseous abnormality is identified. IMPRESSION: 1. No significant abnormality seen. No interval change. Electronically signed by Lucas Man 07-05-2025 04:20 AM Venous Doppler Study 07/05/25 02:53 EXAM: US venous doppler LE LT CLINICAL HISTORY: swelling TECHNIQUE: Ultrasound examination of the left lower extremity veins was performed in real time and with duplex imaging. One or more of the following were performed: spectral analysis, resistive index, waveform analysis, and pulsed Doppler. COMPARISON: 05/20/2025 FINDINGS: Normal phasic, non-pulsatile, and spontaneous flow is noted in the left common femoral, superficial femoral, popliteal, anterior tibial, posterior tibial, and peroneal veins. The visualized veins of the left lower extremity demonstrate normal compressibility. No sonographic evidence of acute deep vein thrombosis (DVT) is detected in the visualized veins of the lower extremity. Compression: All evaluated veins are fully compressible with applied transducer pressure. Additional Findings: Evaluation of the calf vessels is limited due to small vessel size. IMPRESSION: - No sonographic evidence of acute DVT is detected at the time of examination. - No interval changes. Disclaimer: DVT could be missed early in the disease when clot burden is minimal. For patients with moderate and high pretest probability of DVT and negative ultrasound, the [employer] [place] [employer] clinical guidelines recommend testing with a D-dimer assay or repeat ultrasound in 5-7 days. If symptoms worsen, the Society of Radiologists in Ultrasound recommends repeating ultrasound even earlier. Electronically signed by Gavin Summers 07-05-2025 05:53 AM Medications Administered Current Inpatient Medications Acetaminophen (Acetaminophen 325 Mg Tab) 650 mg PO Q4H PRN PRN Reason: fever Stop: 08/04/25 08:44 Hydrocodone Bitart/Acetaminophen (Hydrocodone/Acetamophen 5/325mg Tab) 1 tab PO Q8H PRN PRN Reason: Pain Stop: 07/21/25 20:32 Last Admin: 07/11/25 05:09 Dose: 1 tab Acyclovir (Acyclovir 400 Mg Tab) 400 mg PO BID [facility] Stop: 08/08/25 20:59 Last Admin: 07/11/25 09:04 Dose: 400 mg Albuterol (Albuterol Hfa 8 Gm Inhaler) 1 puffs INH Q4H PRN PRN Reason: sob Stop: 08/04/25 08:44 Albuterol (Albuterol 0.083% Nebu Soln 3 Ml Vial) 2.5 mg NEB Q6H PRN; Protocol PRN Reason: Shortness Of Breath Or Wheezing Stop: 08/04/25 08:44 Calcium Carbonate (Calcium Carbonate 500 Mg Chewable Tab) 500 mg PO AC PRN PRN Reason: Indigestion Stop: 08/05/25 12:45 Fluticasone/Vilanterol (Fluticasone/Vilanterol 100/25mcg 14 Puffs/Inhaler) 1 puffs INH DAILY@1400 [facility] Stop: 08/04/25 08:59 Last Admin: 07/10/25 13:58 Dose: Not Given Sodium Chloride (Nss) 100 mls @ 15 mls/hr IV .Q6H40M PRN PRN Reason: For Transfusion Duration Stop: 07/11/25 17:38 Metoprolol Succinate (Metoprolol Succ 25mg Ext Rel Tab) 25 mg PO HS [facility] Stop: 08/06/25 20:59 Last Admin: 07/10/25 20:33 Dose: Not Given Midodrine (Midodrine Hcl 2.5 Mg Tab) 5 mg PO TID@0800,1200,1700 [facility] Stop: 08/07/25 07:59 Last Admin: 07/11/25 09:04 Dose: 5 mg Miscellaneous (Remove Lidoderm Patch) 1 each N/A DAILY@2100 [facility] Stop: 08/04/25 20:59 Last Admin: 07/10/25 20:33 Dose: 1 each Morphine Sulfate (Morphine Sulfate 2 Mg/Ml Carp) 1 mg IV Q3H PRN PRN Reason: Pain (1,2,3,4,5) & Pre PT Stop: 07/19/25 08:44 Last Admin: 07/07/25 19:01 Dose: 1 mg Morphine Sulfate (Morphine Sulfate 2 Mg/Ml Carp) 2 mg IV Q3H PRN PRN Reason: Pain (6,7,8,9,10) Stop: 07/19/25 08:44 Last Admin: 07/11/25 00:24 Dose: 2 mg Ondansetron HCl (Ondansetron Inj 2 Mg/Ml 2 Ml Vial) 4 mg IV Q6H PRN PRN Reason: Nausea And Vomiting Stop: 08/04/25 08:44 Pantoprazole Sodium (Pantoprazole 40 Mg Tab) 40 mg PO DAILY [facility] Stop: 08/04/25 08:59 Last Admin: 07/11/25 09:04 Dose: 40 mg Polyethylene Glycol (Polyethylene (Miralax) 17 Gm Pack) 17 gm PO DAILY PRN PRN Reason: Constipation Stop: 08/04/25 08:44 Rosuvastatin Calcium (Rosuvastatin Calcium 5 Mg Tab) 5 mg PO QAM [facility] Stop: 08/04/25 08:59 Last Admin: 07/11/25 09:04 Dose: 5 mg PG Care Time/CCT Total # of Minutes Spent Total Time Spent with Patient: Total time spent is greater than 50% in coordination of care (as documented) at patient's floor/unit and/or counseling patient: Advanced Care Planning 25157 Advanced Care Planning 30 Min [place] [address] SUB INP/OBS CARE 2/35MIN Patient Type Established History Expanded Problem Focused Exam Expanded Problem Focused Medical Decision Making Moderate Complexity Diagnoses Palliative care by specialist Z51.5 Counseling regarding goals of care Z71.89 Additional Codes Advanced Care Planning - 30221 Advanced Care Planning 30 Min: 64035 Advanced Care Planning 30 Min ([id number])
--- NOTE | 2025-07-11 16:16 | Hospitalist Progress Note ---
Date of Service July 11, 2025 Assessment & Plan (1) MDS (myelodysplastic syndrome): (2) Pancytopenia: (3) Hypomagnesemia: (4) Elevated troponin: Plan This patient is a 70yo female with Myelodyplastic Syndrome, presence of TP53 mutation, 5% blasts per bone marrow biospy performed at [facility] on 05/31/25. Patient with generalized weakness, fatigue, CARMONA, joint pain, nausea and vomiting. Initially presented to an outside facility and found to be severely anemic with Hgb=5's. She was transfused PRBCs x 1u, discharged and came to [facility]. No blood loss. Patient's diagnosis is relatively new (January 2025) and she is not yet been able to begin treatment due to logistical reasons and poor social support #MDS - transfusion dependent/pancytopenia- pt was transfused 1unit at outside facility and was discharged. pt presented to [facility] and initial hgb was 7.9, but repeat was 5.6 (confirmed by repeat). Thus far has received 2 units PRBCs and 5 units platelets this admission. Hemoglobin now down to 6.5 -Transfusions thresholds PRBCs for Hgb <7, Platelets for level <10, Cryo for fibrinogen <150-Will give 1 unit PRBCs on 07/11 - Patient had been on prophylactic medications before, is now neutropenic at 520-continue acyclovir 400 mg p.o. twice daily. Levofloxacin is only to be given for ANC less than 500 -Follow CBC with differential -Appreciate oncology consultation this admission to arrange [facility] outpatient treatment-plan for this 3 times a week for labs, treatment and possible transfusions-Will push back until definite discharge date is known -pt and family now moving towards going to a SNF because family does not feel they can transport her to oncology appts - Palliative medicine consultation appreciated-s/p family meeting with goals of care on 07/10--> pt angry about possibility of hospice option and then would not make any further decisions #Urine retention-Case catheter placed during hospitalization in 05/2025 for recurrent urinary retention. Replaced Case catheter 07/10 #Elevated troponin - most likely demand in the setting of acute anemia. No events on telemetry, no chest pain, ECG with nonspecific anterior T wave flattening. - Have since downgraded off telemetry #COPD - not in exacerbation - Continue Breo - Albuterol PRN - Supplemental O2 as needed #Bipolar disorder-patient previously was on Seroquel but it is not on her current medication list-patient is confused as to whether she still takes this - will hold off on resuming Seroquel 200 mg p.o. at bedtime #Generalized weakness- per granddaughter, pt is practically bedbound. they are not interested in going to rehab as pt is not able to stay there long enough to get treatment as pt is sent back to hospital for low count. - given her debility, it is quite difficult for family to reposition patient in bed or even get her out of bed. Thus she would benefit from hospital bed. She would benefit from a semi-electric hospital bed so that pt and family can adjust the position of the bed to help her eat as well as even help her to get in and out of bed -insurance won't cover hospital bed -needs rehab but refuses most times to work with PT #Chronic pain-suspected neuropathy in lower extremities. She previously was on gabapentin but I believe this was discontinued last admission as it caused tremor - Takes opioids as needed for pain #Constipation-was constipated from opioids but now having multiple loose stools - Discontinued Senokot/docusate - Continue MiraLAX as needed #CAD/HFpEF--patient is not volume overloaded. Patient is on metoprolol but is also on midodrine her orthostasis - Continue to hold Lasix - Continue metoprolol and midodrine #GERD - Protonix 40mg po daily DVT prophylaxis-pharmacologic agents are contraindicated due to low platelet count Disposition-continued stay monitoring for need for transfusions and to get plan for SNF vs home with or hospice-referrals made to [facility] for SNF and case management working on [facility] to get hospital bed and Terrell lift for patient at home Admission and Anticipated Discharge Date Admission Date: July 08, 2025 Subjective Patient frustrated that she cannot get a hold of her daughter to talk about things. She does not want to do hospice and she still wants to pursue treatment. Her urine output has been minimal today but she insist that she is eating and drinking. She does not want me to examine her. Physical Exam Constitutional: WD/WN, vitals as above Psychiatric: Orientation: alert, oriented to person and oriented to place Genitourinary: + abnormal external appearance (Case ca theter in place) Results & Data Results & Data Vital Signs (Past 12 Hours) Vital Signs Temp Pulse Pulse Resp BP BP Pulse Ox 07/11/25 15:45 36.9 C 78 16 94/62 L 93 07/11/25 14:45 36.6 C 75 16 102/59 L 93 07/11/25 14:41 36.6 C 75 18 102/59 L 93 07/11/25 14:15 36.5 C 83 18 105/67 93 07/11/25 14:00 36.4 C L 83 16 111/74 96 07/11/25 13:42 36.4 C L 83 16 100/70 98 07/11/25 07:42 36.8 C 76 16 103/68 96 O2 Del Method O2 Flow Rate 07/11/25 15:45 07/11/25 14:45 07/11/25 14:41 07/11/25 14:15 07/11/25 14:00 07/11/25 13:42 1 07/11/25 07:42 Nasal Cannula 1 Laboratory Results CBC, BMP reviewed PG Care Time/CCT Total # of Minutes Spent Total Time Spent with Patient: Total time spent is greater than 50% in coordination of care (as documented) at patient's floor/unit and/or counseling patient: Coding Level of Care Code 00314 SUB INP/OBS CARE 2/35MIN Diagnoses MDS (myelodysplastic syndrome) D46.9 Pancytopenia D61.818 Hypomagnesemia E83.42 Elevated troponin R79.89
[2025-07-12 07:49] LABS: Hematocrit (blood only) 27.2 % (37.0-47.0); Hemoglobin 8.8 g/dl (12.0-16.0); Mean Corpuscular Hemoglobin 27.8 pg (25.0-34.0); Mean Corpuscular Volume 86.1 fL (80.0-100.0); RDW Standard Deviation 43.9 fL (36.4-46.3); Red Blood Count 3.16 M/uL (4.20-5.40); White Blood Count 2.41 K/ul (4.8-10.8)
[2025-07-12 08:07] LABS: Anion Gap 3.0 (3-11); Blood Urea Nitrogen 14.0 mg/dl (6-23); Calcium 8.2 mg/dl (8.6-10.3); Carbon Dioxide 35.0 mmol/L (21-32); Chloride 98.0 mmol/L (98-107); Creatinine Clr Calc Pharmacy 126.0 ml/min; Glucose 101.0 mg/dl (70-99(Fasting)); Potassium 4.0 mmol/L (3.5-5.1); Sodium 136.0 mmol/L (136-145)
[2025-07-12 08:39] LABS: Platelet Count 16 K/uL (130-400)
[2025-07-12 08:43] LABS: ALC (manual) 0.53 K/uL (1.2-3.4); ANC (manual) 0.75 K/uL (1.4-6.5); RBC Morphology Unremarkable
[2025-07-12] MEDS ORDERED: MoRPHine SULFATE 2 MG/ML CARP IV PRN (08:55)
--- NOTE | 2025-07-12 18:33 | Hospitalist Progress Note ---
Date of Service July 12, 2025 Assessment & Plan (1) MDS (myelodysplastic syndrome): (2) Pancytopenia: (3) Hypomagnesemia: (4) Elevated troponin: Plan This patient is a 70yo female with Myelodyplastic Syndrome, presence of TP53 mutation, 5% blasts per [place] [facility] [place] Patient with generalized weakness, fatigue, CARMONA, joint pain, nausea and vomiting. Initially presented to an outside facility and found to be severely anemic with Hgb=5's. She was transfused PRBCs x 1u, discharged and came to [facility]. No blood loss. Patient's diagnosis of MDS is relatively new (January 2025) and she is not yet been able to begin treatment due to logistical reasons and poor social support #MDS - transfusion dependent/pancytopenia- pt was transfused 1unit at outside facility and was discharged. pt presented to [facility] and initial hgb was 7.9, but repeat was 5.6 (confirmed by repeat). Thus far has received 3 units PRBCs and 5 units platelets this admission. Hemoglobin stable/improved today at 8.8, platelets stable at 16 -Transfusions thresholds PRBCs for Hgb <7, Platelets for level <10, Cryo for fibrinogen <150 -continue prophylactic acyclovir 400 mg p.o. twice daily. Levofloxacin is only to be given for ANC less than 500 -Follow CBC with differential daily -Appreciate oncology consultation this admission to arrange [facility] outpatient treatment-plan for this 3 times a week for labs, treatment and possible transfusions-Will push back until definite discharge date is known -pt and family now moving towards going to a SNF because family does not feel they can transport her to oncology appts-referral to [facility] pending - Palliative medicine consultation appreciated-s/p family meeting with goals of care on 07/10--> pt angry about possibility of hospice option and then would not make any further decisions #Urine retention-Case catheter placed during hospitalization in 05/2025 for recurrent urinary retention. Replaced Case catheter 07/10 #Elevated troponin - most likely demand in the setting of acute anemia. No events on telemetry, no chest pain, ECG with nonspecific anterior T wave flattening. - Have since downgraded off telemetry #COPD - not in exacerbation - Continue Breo - Albuterol PRN - Supplemental O2 as needed #Bipolar disorder-patient previously was on Seroquel but it is not on her current medication list-patient is confused as to whether she still takes this - will hold off on resuming Seroquel 200 mg p.o. at bedtime as it seems she has not been on this for some time now #Generalized weakness- per granddaughter, pt is practically bedbound. they are not interested in going to rehab as pt is not able to stay there long enough to get treatment as pt is sent back to hospital for low count. - given her debility, it is quite difficult for family to reposition patient in bed or even get her out of bed. Thus she would benefit from hospital bed. She would benefit from a semi-electric hospital bed so that pt and family can adjust the position of the bed to help her eat as well as even help her to get in and out of bed -insurance won't cover hospital bed -needs rehab but refuses most times to work with PT #Chronic pain-suspected neuropathy in lower extremities. She previously was on gabapentin but I believe this was discontinued last admission as it caused tremor - Takes hydrocodone/APAP as needed for pain #Constipation-was constipated from opioids but then was having multiple loose stools - Discontinued Senokot/docusate - Continue MiraLAX as needed #CAD/HFpEF--patient is not volume overloaded. Patient is on metoprolol but is also on midodrine her orthostasis - Continue to hold Lasix - Continue metoprolol and midodrine #GERD - Protonix 40mg po daily DVT prophylaxis-pharmacologic agents are contraindicated due to low platelet count Disposition-continued stay monitoring for need for transfusions and to get plan for SNF vs home with or hospice-referrals made to [facility] for SNF (awaiting approval from [facility]) and case management working on [facility] to get hospital bed and Terrell lift for patient at home in case she decides to return home instead Admission and Anticipated Discharge Date Admission Date: July 08, 2025 Subjective Nursing reports the patient slept most of the day but then did wake up and perk up and ate all of her dinner and is drinking more. Patient says she has a little bit of pain in her legs but overall okay. She is awaiting to hear if she can be transferred to [facility]. Reports that her family is now sick with fevers and will be coming in to see her. Physical Exam Constitutional: WD/WN, vitals as above Respiratory: normal respiratory effort, lungs clear to auscultation Cardiovascular: Rate/Rhythm: regular rate and regular rhythm Heart Sounds: no murmur Extremities: + edema (Trace edema of the legs bilaterally) Gastrointestinal (Abdomen): normal bowel sounds, soft, nontender, no hepatosplenomegaly Psychiatric: Orientation: alert, oriented to person, oriented to place and cooperative Genitourinary: + abnormal external appearance (Case ca theter in place) Results & Data Results & Data Vital Signs (Past 12 Hours) Vital Signs Temp Pulse Resp BP BP Pulse Ox O2 Del Method 07/12/25 16:50 36.9 C 66 16 108/57 L 97 Nasal Cannula 07/12/25 11:53 66 112/72 94 Nasal Cannula 07/12/25 11:39 37.0 C 65 16 117/69 88 L Room Air 07/12/25 10:00 Room Air 07/12/25 08:00 37.0 C 69 16 112/60 89 L Room Air O2 Flow Rate 07/12/25 16:50 07/12/25 11:53 1 07/12/25 11:39 07/12/25 10:00 07/12/25 08:00 Laboratory Results CBC, BMP reviewed PG Care Time/CCT Total # of Minutes Spent Total Time Spent with Patient: Total time spent is greater than 50% in coordination of care (as documented) at patient's floor/unit and/or counseling patient: Coding Level of Care Code 92526 SUB INP/OBS CARE 10/27MIN Diagnoses MDS (myelodysplastic syndrome) D46.9 Pancytopenia D61.818 Hypomagnesemia E83.42 Elevated troponin R79.89
[2025-07-13 07:23] LABS: Hematocrit (blood only) 30.2 % (37.0-47.0); Hemoglobin 10.2 g/dl (12.0-16.0); Mean Corpuscular Hemoglobin 29.4 pg (25.0-34.0); Mean Corpuscular Volume 87.0 fL (80.0-100.0); Platelet Count 19 K/uL (130-400); RDW Standard Deviation 45.6 fL (36.4-46.3); Red Blood Count 3.47 M/uL (4.20-5.40); White Blood Count 4.57 K/ul (4.8-10.8)
[2025-07-13 07:28] LABS: Anion Gap 6.0 (3-11); Blood Urea Nitrogen 16.0 mg/dl (6-23); Calcium 8.5 mg/dl (8.6-10.3); Carbon Dioxide 33.0 mmol/L (21-32); Chloride 98.0 mmol/L (98-107); Creatinine Clr Calc Pharmacy 109.8 ml/min; Glucose 121.0 mg/dl (70-99(Fasting)); Potassium 4.3 mmol/L (3.5-5.1); Sodium 137.0 mmol/L (136-145)
[2025-07-13 07:35] LABS: ALC (manual) 0.55 K/uL (1.2-3.4); ANC (manual) 2.56 K/uL (1.4-6.5); Polychromasia 1+; Toxic Vacuolation 1+
--- NOTE | 2025-07-13 14:58 | Hospitalist Progress Note ---
Date of Service July 13, 2025 Assessment & Plan (1) MDS (myelodysplastic syndrome): (2) Pancytopenia: (3) Hypomagnesemia: (4) Elevated troponin: Plan This patient is a 70yo female with Myelodyplastic Syndrome, presence of TP53 mutation, 5% blasts per bone marrow biospy performed at [facility] [place]. Patient with generalized weakness, fatigue, CARMONA, joint pain, nausea and vomiting. Initially presented to an outside facility and found to be severely anemic with Hgb=5's. She was transfused PRBCs x 1u, discharged and came to [facility]. No blood loss. Patient's diagnosis of MDS is relatively new (January 2025) and she is not yet been able to begin treatment due to logistical reasons and poor social support #MDS - transfusion dependent/pancytopenia- pt was transfused 1unit at outside facility and was discharged. pt presented to [facility] and initial hgb was 7.9, but repeat was 5.6 (confirmed by repeat). Thus far has received 3 units PRBCs and 5 units platelets this admission. Hemoglobin stable/improved today at 10.2, platelets improved to 19. ANC is also now improved and no longer neutropenic -Transfusions thresholds PRBCs for Hgb <7, Platelets for level <10, Cryo for fibrinogen <150 -continue prophylactic acyclovir 400 mg p.o. twice daily. Levofloxacin is only to be given for ANC less than 500 -Follow CBC with differential daily -Appreciate oncology consultation this admission to arrange [facility] outpatient treatment-plan for this 3 times a week for labs, treatment and possible transfusions-Will push back initial oncology appointment until definite discharge date is known -pt and family have gone [id number] multiple times about SNF versus going home with family to transport to oncology for treatment-final decision on 07/13 is that family will bring the patient home if they can obtain a hospital bed through charitable means as they cannot afford one-they then will use public wheelchair van transportation to get the patient to appointments 3 days a week - Palliative medicine consultation appreciated-s/p family meeting with goals of care on 07/10--> pt gets upset about discussion of hospice and does not want that at this time #Urine retention-Case catheter placed during hospitalization in 05/2025 for r ecurrent urinary retention. Replaced Case catheter 10/8 - Plan to replace Case catheter once monthly or as needed #Elevated troponin - most likely demand in the setting of acute anemia. No events on telemetry, no chest pain, ECG with nonspecific anterior T wave flattening. - Have since downgraded off telemetry #COPD - not in exacerbation - Continue Breo - Albuterol PRN - Supplemental O2 as needed #Bipolar disorder-patient previously was on Seroquel but it is not on her current medication list-patient is confused as to whether she still takes this - will hold off on resuming Seroquel 200 mg p.o. at bedtime as it seems she has not been on this for some time now #Generalized weakness- per granddaughter, pt is practically bedbound and has been for many months-she does not want to participate with physical therapy -insurance won't cover hospital bed - Plan is to go home and try to get hospital bed through [employer] funds. She does have a wheelchair as well #Chronic pain-suspected neuropathy in lower extremities. She previously was on gabapentin but I believe this was discontinued last admission as it caused tremor - Takes hydrocodone/APAP as needed for pain which seems to be helping #Constipation-was constipated from opioids but then was having multiple loose stools, now some abdominal cramping - Discontinued Senokot/docusate - Continue MiraLAX as needed - Add Bentyl 10 mg p.o. 3 times daily as needed for abdominal cramps #CAD/HFpEF--patient is not volume overloaded. Patient is on metoprolol but is also on midodrine her orthostasis - Continue to hold Lasix and should only be given as needed on discharge - Continue metoprolol and midodrine #GERD - Protonix 40mg po daily DVT prophylaxis-pharmacologic agents are contraindicated due to low platelet count Disposition-continued stay monitoring for need for transfusions while awaiting arrangements for getting the patient home i.e. hospital bed, Terrell lift-case management working on [facility] to get hospital bed and Terrell lift for patient at home. Hopeful for discharge early next week so she can begin treatment and oncology DORI after that-she will need oncology to make her an appointment Admission and Anticipated Discharge Date Admission Date: July 08, 2025 Subjective Patient better spirits today. Her granddaughter is at the bedside. Granddaughter requests Bentyl for the patient for abdominal cramping because that is what the granddaughter takes at home which helps. Granddaughter tells me that they have decided to bring the patient home if she can get a hospital bed arranged through charitable organizations. We discussed the need to get these things done quickly so that the patient can begin treatment as she desires. The patient tells me that her pain is controlled even though the granddaughter thinks that the patient is not getting enough pain control. No bleeding from anywhere Physical Exam Constitutional: WD/WN, vitals as above Respiratory: normal respiratory effort, lungs clear to auscultation Cardiovascular: Rate/Rhythm: regular rate and regular rhythm Heart Sounds: no murmur Extremities: + edema (Trace edema of the legs bilaterally) Gastrointestinal (Abdomen): normal bowel sounds, soft, nontender, no hepatosplenomegaly Psychiatric: Orientation: alert, oriented to person, oriented to place and cooperative Genitourinary: + abnormal external appearance (Case ca theter in place) Results & Data Results & Data Vital Signs (Past 12 Hours) Vital Signs Temp Pulse Resp BP Pulse Ox O2 Del Method 07/13/25 10:44 Room Air 07/13/25 07:00 36.9 C 77 16 94/61 L 96 Nasal Cannula Laboratory Results CBC, BMP reviewed PG Care Time/CCT Total # of Minutes Spent Total Time Spent with Patient: Total time spent is greater than 50% in coordination of care (as documented) at patient's floor/unit and/or counseling patient: Coding Level of Care Code 04159 SUB INP/OBS CARE 2/35MIN Diagnoses MDS (myelodysplastic syndrome) D46.9 Pancytopenia D61.818 Hypomagnesemia E83.42 Elevated troponin R79.89
[2025-07-13] MEDS: DICYCLOMINE HCL 10 MG CAP PO PRN (17:42)
[2025-07-14 06:51] LABS: Hematocrit (blood only) 26.5 % (37.0-47.0); Hemoglobin 8.8 g/dl (12.0-16.0); Mean Corpuscular Hemoglobin 28.5 pg (25.0-34.0); Mean Corpuscular Volume 85.8 fL (80.0-100.0); Platelet Count 16 K/uL (130-400); RDW Standard Deviation 44.9 fL (36.4-46.3); Red Blood Count 3.09 M/uL (4.20-5.40); White Blood Count 5.16 K/ul (4.8-10.8)
[2025-07-14 06:58] LABS: Anion Gap 8.0 (3-11); Blood Urea Nitrogen 17.0 mg/dl (6-23); Calcium 8.4 mg/dl (8.6-10.3); Carbon Dioxide 31.0 mmol/L (21-32); Chloride 97.0 mmol/L (98-107); Creatinine Clr Calc Pharmacy 112.7 ml/min; Glucose 112.0 mg/dl (70-99(Fasting)); Potassium 3.7 mmol/L (3.5-5.1); Sodium 136.0 mmol/L (136-145)
[2025-07-14 07:19] LABS: ALC (manual) 0.36 K/uL (1.2-3.4); ANC (manual) 2.58 K/uL (1.4-6.5); Blast # (manual) 0.05 K/uL (0-0); Toxic Vacuolation 1+
[2025-07-14] MEDS: MoRPHine SULFATE 4 MG/ML 1 ML CARP\\VIAL IV PRN (08:00)
--- NOTE | 2025-07-14 18:58 | Hospitalist Progress Note ---
Date of Service July 14, 2025 Assessment & Plan (1) MDS (myelodysplastic syndrome): (2) Pancytopenia: (3) Hypomagnesemia: (4) Elevated troponin: Plan This patient is a 70yo female with Myelodyplastic Syndrome, presence of TP53 mutation, 5% blasts per bone marrow biospy performed at [facility] [place] on 05/31/25. Patient with generalized weakness, fatigue, CARMONA, joint pain, nausea and vomiting. Initially presented to an outside facility and found to be severely anemic with Hgb=5's. She was transfused PRBCs x 1u, discharged and came to [facility]. No blood loss. Patient's diagnosis of MDS is relatively new (January 2025) and she is not yet been able to begin treatment due to logistical reasons and poor social support #MDS - transfusion dependent/pancytopenia- pt was transfused 1unit at outside facility and was discharged. pt presented to [facility] and initial hgb was 7.9, but repeat was 5.6 (confirmed by repeat). Thus far has received 3 units PRBCs and 5 units platelets this admission. Hemoglobin stable/improved today at 8.8, platelets improved and stable at 16. ANC is also now improved and no longer neutropenic -Transfusions thresholds PRBCs for Hgb <7, Platelets for level <10 -continue prophylactic acyclovir 400 mg p.o. twice daily -prophylactic Levofloxacin is only to be given for ANC less than 500 -Follow CBC with differential daily -Appreciate oncology consultation this admission -plan to arrange [facility] outpatient treatment-plan for 3 times a week appts for labs, treatment and possible transfusions-Will wait to schedule oncology appointment until definite discharge date is known -pt and family have gone [id number] multiple times about SNF versus going home with family to transport to oncology for treatment-final decision on 07/13 is that family will bring the patient home if they can obtain a hospital bed through charitable means as they cannot afford one-they then will use public wheelchair van transportation to [facility] - Palliative medicine consultation appreciated-s/p family meeting with goals of care on 07/10--> pt gets upset about discussion of hospice and does not want that at this time #Constipation--> Diarrhea-was constipated from opioids but then was having multiple loose stools on laxatives which were then stopped. Now with multiple loose stools daily, and worsening abdominal cramping, painful hemorrhoid on 07/14 - Discontinued Senokot/docusate - Continue Bentyl 10 mg p.o. 3 times daily as needed for abdominal cramps -increase frequency of hydrocodone to 1 tab po q4h (from q8) -check C. diff -add Anusol HC for hemorrhoid pain -follow BMP and Magnesium to watch for electrolyte abnormalities #Urine retention-Case catheter placed during hospitalization in 05/2025 for recurrent urinary retention. Replaced Case catheter 07/10 - Plan to replace Case catheter once monthly or as needed #Elevated troponin - most likely demand in the setting of acute anemia. No events on telemetry, no chest pain, ECG with nonspecific anterior T wave flattening. - Have since downgraded off telemetry #COPD - not in exacerbation - Continue Breo, Albuterol PRN - Supplemental O2 as needed #Bipolar disorder-patient previously was on Seroquel but it is not on her current medication list-patient is confused as to whether she still takes this - will hold off on resuming Seroquel 200 mg p.o. at bedtime as it seems she has not been on this for some time now #Generalized weakness- per granddaughter, pt is practically bedbound and has been for many months-she does not want to participate with physical therapy -insurance won't cover hospital bed - Plan is to go home and try to get hospital bed through [employer] funds. She does have a wheelchair as well #Chronic pain-suspected neuropathy in lower extremities. She previously was on gabapentin but I believe this was discontinued last admission as it caused tremor - Takes hydrocodone/APAP as needed for pain which seems to be helping #CAD/HFpEF--patient is not volume overloaded. Patient is on metoprolol but is also on midodrine for her orthostasis - Continue to hold Lasix and should only be given as needed on discharge - Continue metoprolol and midodrine #GERD - Protonix 40mg po daily DVT prophylaxis-pharmacologic agents and SCDs are contraindicated due to low platelet count Disposition-continued stay monitoring for need for transfusions while awaiting arrangements for getting the patient home i.e. hospital bed, Terrell lift-case management working on [facility] to get hospital bed and Terrell lift for patient at home. Hopeful for discharge early next week so she can begin treatment and oncology DORI after that-she will need oncology to make her an appointment Admission and Anticipated Discharge Date Admission Date: July 08, 2025 Subjective Pt c/o increasing abdominal cramping all day and multiple loose stools despite stopping all laxatives several days ago. Is having a painful external hemorrhoid. Physical Exam Constitutional: WD/WN, vitals as above Respiratory: normal respiratory effort, lungs clear to auscultation Cardiovascular: Rate/Rhythm: regular rate and regular rhythm Heart Sounds: no murmur Gastrointestinal (Abdomen): Inspection/Auscultation: normal bowel sounds; abdomen not distended Percussion/Palpation: + abdomen tender (mild in mid abdomen but no guarding) and abdomen soft Psychiatric: Orientation: alert, oriented to person, oriented to place and cooperative Genitourinary: + abnormal external appearance (Case ca theter in place) Results & Data Results & Data Vital Signs (Past 12 Hours) Vital Signs Temp Pulse Resp BP Pulse Ox O2 Del Method 07/14/25 16:02 36.6 C 61 16 105/67 98 Room Air 07/14/25 11:10 Room Air 07/14/25 08:24 36.7 C 75 16 102/69 90 Room Air Laboratory Results CBC,BMP reviewed PG Care Time/CCT Total # of Minutes Spent Total Time Spent with Patient: Total time spent is greater than 50% in coordination of care (as documented) at patient's floor/unit and/or counseling patient: Coding Level of Care Code 33880 SUB INP/OBS CARE 2/35MIN Diagnoses MDS (myelodysplastic syndrome) D46.9 Pancytopenia D61.818 Hypomagnesemia E83.42 Elevated troponin R79.89
[2025-07-14] MEDS: HYDROCORTISONE HC 2.5% CRM 30GM TUBE EXT PRN (21:12)
[2025-07-14 21:44] LABS: Cdiff Toxin B Gene (2yr or >) Negative Cdiff Gene (Neg)
[2025-07-14] MEDS: HYDROCODONE/ACETAMOPHEN 5/325MG TAB PO PRN (23:25)
[2025-07-15] MEDS: LOPERAMIDE HCL 2 MG CAP PO STA (00:24)
[2025-07-15 07:17] LABS: Anion Gap 7.0 (3-11); Blood Urea Nitrogen 17.0 mg/dl (6-23); Calcium 8.1 mg/dl (8.6-10.3); Carbon Dioxide 32.0 mmol/L (21-32); Chloride 96.0 mmol/L (98-107); Creatinine Clr Calc Pharmacy 97.3 ml/min; Glucose 99.0 mg/dl (70-99(Fasting)); Magnesium 1.5 mg/dl (1.7-2.4); Potassium 3.3 mmol/L (3.5-5.1); Sodium 135.0 mmol/L (136-145)
[2025-07-15 07:50] LABS: Hematocrit (blood only) 23.0 % (37.0-47.0); Hemoglobin 7.5 g/dl (12.0-16.0); Mean Corpuscular Hemoglobin 28.0 pg (25.0-34.0); Mean Corpuscular Volume 85.8 fL (80.0-100.0); Platelet Count 12 K/uL (130-400); RDW Standard Deviation 45.8 fL (36.4-46.3); Red Blood Count 2.68 M/uL (4.20-5.40); White Blood Count 5.22 K/ul (4.8-10.8)
[2025-07-15 08:26] LABS: ALC (manual) 0.63 K/uL (1.2-3.4); ANC (manual) 1.98 K/uL (1.4-6.5); Blast # (manual) 0.05 K/uL (0-0); Polychromasia 1+
[2025-07-15] MEDS: MAGNESIUM SULFATE / D5W 1 GM/100 ML BAG IV SCH (09:26)
--- NOTE | 2025-07-15 12:11 | Hospitalist Progress Note ---
Date of Service July 15, 2025 Assessment & Plan (1) MDS (myelodysplastic syndrome): Plan: -Transfusions thresholds PRBCs for Hgb <7, Platelets for level <10 -continue prophylactic acyclovir 400 mg p.o. twice daily -prophylactic Levofloxacin is only to be given for ANC less than 500 -Follow CBC with differential daily -Appreciate oncology consultation this admission -plan to arrange [facility] outpatient treatment-plan for 3 times a week appts for labs, treatment and possible transfusions-Will wait to schedule oncology appointment until definite discharge date is known -pt and family have gone [id number]-[id number] multiple times about SNF versus going home with family to transport to oncology for treatment-final decision on 07/13 is that family will bring the patient home if they can obtain a hospital bed through charitable means as they cannot afford one-they then will use public wheelchair van transportation to get the patient [facility] - Palliative medicine consultation appreciated-s/p family meeting with goals of care on 07/10--> pt gets upset about discussion of hospice and does not want that at this time (2) Elevated troponin: Plan: most likely demand in the setting of acute anemia. No events on telemetry, no chest pain, ECG with nonspecific anterior T wave flattening. (3) COPD (chronic obstructive pulmonary disease): Plan: - Continue Breo, Albuterol PRN - Supplemental O2 as n (4) Bipolar disorder: Plan: - will hold off on resuming Seroquel 200 mg p.o. at bedtime as it seems she has not been on this for some time now Plan This patient is a 70yo female with Myelodyplastic Syndrome, presence of TP53 mutation, 5% blasts per bone marrow biospy performed at [facility] on 05/31/25. Patient with generalized weakness, fatigue, CARMONA, joint pain, nausea and vomiting. Initially presented to an outside facility and found to be severely anemic with Hgb=5's. She was transfused PRBCs x 1u, discharged and came to [facility]. No blood loss. Patient's diagnosis of MDS is relatively new (January 2025) and she is not yet been able to begin treatment due to logistical reasons and poor social support Disposition-continued stay monitoring for need for transfusions while awaiting arrangements for getting the patient home i.e. hospital bed, Terrell lift-case management working on [facility], [place] to get hospital bed and Terrell lift for patient at home. Hopeful for discharge early next week so she can begin treatment and oncology [facility] after that-she will need oncology to make her an appointment Admission and Anticipated Discharge Date Admission Date: July 08, 2025 Subjective No events overnight. Pt resting comfortably in bed Review of Systems Review of Systems: CONST: Negative for fever, body aches and chills. HENT: Negative for neck pain/stiffness, headache, congestion, sore throat, swelling. EYES: Negative for discharge/pain or vision changes. RESP: Negative for cough/hemoptysis and shortness of breath. CV: Negative chest pain, difficulty breathing, palpitations. ABD: Negative pain, nausea, vomiting. : Negative increase frequency, dysuria, blood in urine or stool. MUSC: Negative for muscle aches, edema. SKIN: Negative rash, lesions/sores. NEURO: Negative headache, dizziness, weakness. Physical Exam Physical Exam: GENERAL APPEARANCE NAD, activity normal for age, well developed/ well nourished, no cyanosis, pallor, or diaphoresis. EYES lids/conjunctiva normal. EARS/NOSE/THROAT Mucous membranes moist, nares normal, lips/teeth normal uvula midline without oral pharyngeal erythema, exudate or swelling TMs normal bilaterally. No lymphangitis/lymphedema. HEAD/NECK normocephalic atraumatic, no facial trauma, neck is supple. RESPIRATORY respiratory effort normal, speaks in full sentences, no tripod position, no accessory muscle use. Lungs clear to auscultation without rhonchi, wheezes, rales CARDIAC Regular rate and rhythm, no edema. ABDOMINAL Soft, ND/NT. No evidence of fluid wave. No pulsatile masses on exam, rebound tenderness, Luna sign or pain over Mcburney's point. MUSCLES/EXTREMITIES No abnormal range of motion, no swelling. SKIN Warm, pink and dry. No rashes, dermatoses, petechiae or lesions. NEUROLOGICAL Speech is clear and appropriate. Normal level of consciousness. Gait and coordination are normal. 5/5 strength in all extremities. PSYCH Normal mood and affect. Judgement/competence is appropriate Results & Data Results & Data Vital Signs (Past 12 Hours) Vital Signs Temp Pulse Resp BP Pulse Ox O2 Del Method O2 Flow Rate 07/15/25 08:40 Nasal Cannula 1 10/13/25 07:21 36.8 C 75 18 93/58 L 95 Room Air PG Care Time/CCT Total # of Minutes Spent Total Time Spent with Patient: Total time spent is greater than 50% in coordination of care (as documented) at patient's floor/unit and/or counseling patient: Coding Level of Care Code 27807 SUB INP/OBS CARE 2/35MIN Diagnoses MDS (myelodysplastic syndrome) D46.9 Elevated troponin R79.89 COPD (chronic obstructive pulmonary disease) J44.9 Bipolar disorder F31.9
[2025-07-15] MEDS: POTASSIUM CHLORIDE / WTR 10 MEQ/100 ML PLCT IV ONE (12:37)
[2025-07-16 08:02] LABS: Anion Gap 5.0 (3-11); Blood Urea Nitrogen 14.0 mg/dl (6-23); Calcium 8.1 mg/dl (8.6-10.3); Carbon Dioxide 33.0 mmol/L (21-32); Chloride 96.0 mmol/L (98-107); Creatinine Clr Calc Pharmacy 93.1 ml/min; Glucose 99.0 mg/dl (70-99(Fasting)); Potassium 3.4 mmol/L (3.5-5.1); Sodium 134.0 mmol/L (136-145)
[2025-07-16 08:34] LABS: Hematocrit (blood only) 20.7 % (37.0-47.0); Hemoglobin 7.1 g/dl (12.0-16.0); Mean Corpuscular Hemoglobin 29.5 pg (25.0-34.0); Mean Corpuscular Volume 85.9 fL (80.0-100.0); Platelet Count 11 K/uL (130-400); RDW Standard Deviation 45.6 fL (36.4-46.3); Red Blood Count 2.41 M/uL (4.20-5.40); White Blood Count 5.97 K/ul (4.8-10.8)
[2025-07-16] MEDS ORDERED: SODIUM CHLORIDE 0.9% 100 ML IV PRN (10:27)
--- NOTE | 2025-07-16 10:31 | Hospitalist Progress Note ---
Date of Service July 16, 2025 Assessment & Plan (1) MDS (myelodysplastic syndrome): Plan: -Transfusions thresholds PRBCs for Hgb <7, Platelets for level <10 -continue prophylactic acyclovir 400 mg p.o. twice daily -prophylactic Levofloxacin is only to be given for ANC less than 500 -Follow CBC with differential daily -Appreciate oncology consultation this admission -plan to arrange [facility] outpatient treatment-plan for 3 times a week appts for labs, treatment and possible transfusions-Will wait to schedule oncology appointment until definite discharge date is known -pt and family have gone [id number]-nepvn multiple times about SNF versus going home with family to transport to oncology for treatment-final decision on 07/13 is that family will bring the patient home if they can obtain a hospital bed through charitable means as they cannot afford one-they then will use public wheelchair van transportation to get the patient to [facility] - Palliative medicine consultation appreciated-s/p family meeting with goals of care on 07/10--> pt gets upset about discussion of hospice and does not want that at this time (2) Elevated troponin: Plan: most likely demand in the setting of acute anemia. No events on telemetry, no chest pain, ECG with nonspecific anterior T wave flattening. (3) COPD (chronic obstructive pulmonary disease): Plan: - Continue Breo, Albuterol PRN - Supplemental O2 as n (4) Bipolar disorder: Plan: - will hold off on resuming Seroquel 200 mg p.o. at bedtime as it seems she has not been on this for some time now Plan This patient is a 70yo female with Myelodyplastic Syndrome, presence of TP53 mutation, 5% blasts per bone marrow biospy performed at [facility] on 05/31/25. Patient with generalized weakness, fatigue, CARMONA, joint pain, nausea and vomiting. Initially presented to an outside facility and found to be severely anemic with Hgb=5's. She was transfused PRBCs x 1u, discharged and came to [facility]. No blood loss. Patient's diagnosis of MDS is relatively new (January 2025) and she is not yet been able to begin treatment due to logistical reasons and poor social support Disposition-continued stay monitoring for need for transfusions while awaiting arrangements for getting the patient home i.e. hospital bed, Terrell lift-case management working on [facility] to get hospital bed and Terrell lift for patient at home. Plan for d/c once all equipment is delivered. Admission and Anticipated Discharge Date Admission Date: July 08, 2025 Subjective No events overnight. Pt resting comfortably in bed Review of Systems Review of Systems: CONST: Negative for fever, body aches and chills. HENT: Negative for neck pain/stiffness, headache, congestion, sore throat, swelling. EYES: Negative for discharge/pain or vision changes. RESP: Negative for cough/hemoptysis and shortness of breath. CV: Negative chest pain, difficulty breathing, palpitations. ABD: Negative pain, nausea, vomiting. : Negative increase frequency, dysuria, blood in urine or stool. MUSC: Negative for muscle aches, edema. SKIN: Negative rash, lesions/sores. NEURO: Negative headache, dizziness, weakness. Physical Exam Physical Exam: GENERAL APPEARANCE NAD, activity normal for age, well developed/ well nourished, no cyanosis, pallor, or diaphoresis. EYES lids/conjunctiva normal. EARS/NOSE/THROAT Mucous membranes moist, nares normal, lips/teeth normal uvula midline without oral pharyngeal erythema, exudate or swelling TMs normal bilaterally. No lymphangitis/lymphedema. HEAD/NECK normocephalic atraumatic, no facial trauma, neck is supple. RESPIRATORY respiratory effort normal, speaks in full sentences, no tripod position, no accessory muscle use. Lungs clear to auscultation without rhonchi, wheezes, rales CARDIAC Regular rate and rhythm, no edema. ABDOMINAL Soft, ND/NT. No evidence of fluid wave. No pulsatile masses on exam, rebound tenderness, Luna sign or pain over Mcburney's point. MUSCLES/EXTREMITIES No abnormal range of motion, no swelling. SKIN Warm, pink and dry. No rashes, dermatoses, petechiae or lesions. NEUROLOGICAL Speech is clear and appropriate. Normal level of consciousness. Gait and coordination are normal. 5/5 strength in all extremities. PSYCH Normal mood and affect. Judgement/competence is appropriate Results & Data Results & Data Vital Signs (Past 12 Hours) Vital Signs Temp Pulse Resp BP Pulse Ox O2 Del Method O2 Flow Rate 07/16/25 07:50 Nasal Cannula 2 07/16/25 07:40 36.7 C 72 18 98/65 L 97 Room Air 07/15/25 23:12 36.6 C 77 18 101/52 L 95 Nasal Cannula 2 PG Care Time/CCT Total # of Minutes Spent Total Time Spent with Patient: Total time spent is greater than 50% in coordination of care (as documented) at patient's floor/unit and/or counseling patient: Coding Level of Care Code 76741 SUB INP/OBS CARE 2/35MIN Diagnoses MDS (myelodysplastic syndrome) D46.9 Elevated troponin R79.89 COPD (chronic obstructive pulmonary disease) J44.9 Bipolar disorder F31.9
[2025-07-17 09:20] LABS: Hematocrit (blood only) 20.1 % (37.0-47.0); Hemoglobin 6.7 g/dl (12.0-16.0); Mean Corpuscular Hemoglobin 29.0 pg (25.0-34.0); Mean Corpuscular Volume 87.0 fL (80.0-100.0); Platelet Count 15 K/uL (130-400); RDW Standard Deviation 46.5 fL (36.4-46.3); Red Blood Count 2.31 M/uL (4.20-5.40); White Blood Count 3.80 K/ul (4.8-10.8)
[2025-07-17] MEDS: SODIUM CHLORIDE 0.9% 500 ML IV ONE (09:32)
[2025-07-17 09:49] LABS: Anion Gap 5.0 (3-11); Blood Urea Nitrogen 13.0 mg/dl (6-23); Calcium 8.1 mg/dl (8.6-10.3); Carbon Dioxide 33.0 mmol/L (21-32); Chloride 96.0 mmol/L (98-107); Creatinine Clr Calc Pharmacy 115.8 ml/min; Glucose 92.0 mg/dl (70-99(Fasting)); Potassium 3.4 mmol/L (3.5-5.1); Sodium 134.0 mmol/L (136-145)
[2025-07-17] MEDS ORDERED: SODIUM CHLORIDE 0.9% 100 ML IV PRN ×2 (10:07→10:08)
--- NOTE | 2025-07-17 10:13 | Hospitalist Progress Note ---
Date of Service July 17, 2025 Assessment & Plan (1) MDS (myelodysplastic syndrome): Plan: -Transfusions thresholds PRBCs for Hgb <7, Platelets for level <10 -heme globin 6.7, will transfuse 1 unit PRBC today -plan to d/c home once transfusion completed, this afternoon or tmw -continue prophylactic acyclovir 400 mg p.o. twice daily -prophylactic Levofloxacin is only to be given for ANC less than 500 -Follow CBC with differential daily -Appreciate oncology consultation this admission -plan to arrange [facility] outpatient treatment-plan for 3 times a week appts for labs, treatment and possible transfusions-Will wait to schedule oncology appointment until definite discharge date is known -pt and family have gone [id number]-[id number]-[id number] multiple times about SNF versus going home with family to transport to oncology for treatment-final decision on 07/13 is that family will bring the patient home if they can obtain a hospital bed through charitable means as they cannot afford one-they then will use public wheelchair van transportation to get the patient to [facility] - Palliative medicine consultation appreciated-s/p family meeting with goals of care on 07/10--> pt gets upset about discussion of hospice and does not want that at this time (2) Elevated troponin: Plan: most likely demand in the setting of acute anemia. No events on telemetry, no chest pain, ECG with nonspecific anterior T wave flattening. (3) COPD (chronic obstructive pulmonary disease): Plan: - Continue Breo, Albuterol PRN - Supplemental O2 as n (4) Bipolar disorder: Plan: - will hold off on resuming Seroquel 200 mg p.o. at bedtime as it seems she has not been on this for some time now Plan This patient is a 70yo female with Myelodyplastic Syndrome, presence of TP53 mutation, 5% blasts per bone marrow biospy performed at [facility] on 05/[place]25. Patient with generalized weakness, fatigue, CARMONA, joint pain, nausea and vomiting. Initially presented to an outside facility and found to be severely anemic with Hgb=5's. She was transfused PRBCs x 1u, discharged and came to [facility]. No blood loss. Patient's diagnosis of MDS is relatively new (January 2025) and she is not yet been able to begin treatment due to logistical reasons and poor social support Disposition-continued stay monitoring for need for transfusions while awaiting arrangements for getting the patient home i.e. hospital bed, Terrell lift-case management working on [facility] to get hospital bed and Terrell lift for patient at home. Plan for d/c once all equipment is delivered. Admission and Anticipated Discharge Date Admission Date: July 08, 2025 Subjective No events overnight. Pt resting in bed. Review of Systems Review of Systems: CONST: Negative for fever, body aches and chills. HENT: Negative for neck pain/stiffness, headache, congestion, sore throat, swelling. EYES: Negative for discharge/pain or vision changes. RESP: Negative for cough/hemoptysis and shortness of breath. CV: Negative chest pain, difficulty breathing, palpitations. ABD: Negative pain, nausea, vomiting. : Negative increase frequency, dysuria, blood in urine or stool. MUSC: Negative for muscle aches, edema. SKIN: Negative rash, lesions/sores. NEURO: Negative headache, dizziness, weakness. Physical Exam Physical Exam: GENERAL APPEARANCE NAD, activity normal for age, well developed/ well nourished, no cyanosis, pallor, or diaphoresis. EYES lids/conjunctiva normal. EARS/NOSE/THROAT Mucous membranes moist, nares normal, lips/teeth normal uvula midline without oral pharyngeal erythema, exudate or swelling TMs normal bilaterally. No lymphangitis/lymphedema. HEAD/NECK normocephalic atraumatic, no facial trauma, neck is supple. RESPIRATORY respiratory effort normal, speaks in full sentences, no tripod position, no accessory muscle use. Lungs clear to auscultation without rhonchi, wheezes, rales CARDIAC Regular rate and rhythm, no edema. ABDOMINAL Soft, ND/NT. No evidence of fluid wave. No pulsatile masses on exam, rebound tenderness, Luna sign or pain over Mcburney's point. MUSCLES/EXTREMITIES No abnormal range of motion, no swelling. SKIN Warm, pink and dry. No rashes, dermatoses, petechiae or lesions. NEUROLOGICAL Speech is clear and appropriate. Normal level of consciousness. Gait and coordination are normal. 5/5 strength in all extremities. PSYCH Normal mood and affect. Judgement/competence is appropriate Results & Data Results & Data Vital Signs (Past 12 Hours) Vital Signs Temp Pulse Resp BP Pulse Ox O2 Del Method O2 Flow Rate 07/17/25 08:15 36.3 C L 63 16 86/44 L 99 Nasal Cannula 2 PG Care Time/CCT Total # of Minutes Spent Total Time Spent with Patient: Total time spent is greater than 50% in coordination of care (as documented) at patient's floor/unit and/or counseling patient: Coding Level of Care Code 08112 SUB INP/OBS CARE 2/35MIN Diagnoses MDS (myelodysplastic syndrome) D46.9 Elevated troponin R79.89 COPD (chronic obstructive pulmonary disease) J44.9 Bipolar disorder F31.9
[2025-07-17 21:33] LABS: Hematocrit (blood only) 25.0 % (37.0-47.0); Hemoglobin 8.8 g/dl (12.0-16.0)
[2025-07-18 08:09] LABS: Anion Gap 6.0 (3-11); Blood Urea Nitrogen 14.0 mg/dl (6-23); Calcium 8.0 mg/dl (8.6-10.3); Carbon Dioxide 32.0 mmol/L (21-32); Chloride 97.0 mmol/L (98-107); Creatinine Clr Calc Pharmacy 122.4 ml/min; Glucose 92.0 mg/dl (70-99(Fasting)); Potassium 3.3 mmol/L (3.5-5.1); Sodium 135.0 mmol/L (136-145)
[2025-07-18 08:20] LABS: Hematocrit (blood only) 22.6 % (37.0-47.0); Hemoglobin 7.6 g/dl (12.0-16.0); Mean Corpuscular Hemoglobin 28.4 pg (25.0-34.0); Mean Corpuscular Volume 84.3 fL (80.0-100.0); Platelet Count 16 K/uL (130-400); RDW Standard Deviation 46.7 fL (36.4-46.3); Red Blood Count 2.68 M/uL (4.20-5.40); White Blood Count 4.21 K/ul (4.8-10.8)
--- NOTE | 2025-07-18 08:31 | Communication Note ---
Date of Service: July 18, 2025 Discussed plan of care with attending team, multiple discussions have been help with this pt and family. Patient is hopeful for successful treatment to allow her to no longer be transfusion dependent. Discharge planning underway with family and CM for DC home with [facility] and follow up with Dr Leija for treatment options as outpt. We will sign off on this patient as goals of care are clearly established for DNR/DNI but continue all other life prolonging therapies Thank you for including Palliative Care in the management of this patient. Please call with any questions or concerns regarding this consultation.
--- NOTE | 2025-07-18 08:57 | Discharge Summary ---
Discharge Summary Date of Service July 18, 2025 Principal Dx & Hospital Course #1 = Principal Diagnosis (1) MDS (myelodysplastic syndrome): -Transfusions thresholds PRBCs for Hgb <7, Platelets for level <10 -heme globin 8.8 on d/c -continue prophylactic acyclovir 400 mg p.o. twice daily -prophylactic Levofloxacin is only to be given for ANC less than 500 -Follow CBC with differential daily -Appreciate oncology consultation this admission -plan to arrange [facility] outpatient treatment-plan for 3 times a week appts for labs, treatment and possible transfusions-Will wait to schedule oncology appointment until definite discharge date is known -pt and family have gone mosy-dil-jexqf multiple times about SNF versus going home with family to transport to oncology for treatment-final decision on 07/13 is that family will bring the patient home if they can obtain a hospital bed through charitable means as they cannot afford one-they then will use public wheelchair van transportation to get the patient [facility] - Palliative medicine consultation appreciated-s/p family meeting with goals of care on 07/10--> pt gets upset about discussion of hospice and does not want that at this time (2) Elevated troponin: most likely demand in the setting of acute anemia. No events on telemetry, no chest pain, ECG with nonspecific anterior T wave flattening. (3) COPD (chronic obstructive pulmonary disease): - Continue Breo, Albuterol PRN - Supplemental O2 as n (4) Bipolar disorder: - will hold off on resuming Seroquel 200 mg p.o. at bedtime as it seems she has not been on this for some time now Plan This patient is a 70yo female with Myelodyplastic Syndrome, presence of TP53 mutation, 5% blasts per bone marrow biospy performed at [facility] on 05/31/25. Patient with generalized weakness, fatigue, CARMOAN, joint pain, nausea and vomiting. Initially presented to an outside facility and found to be severely anemic with Hgb=5's. She was transfused PRBCs x 1u, discharged and came to [facility]. No blood loss. Patient's diagnosis of MDS is relatively new (January 2025) and she is not yet been able to begin treatment due to logistical reasons and poor social support Disposition-continued stay monitoring for need for transfusions while awaiting arrangements for getting the patient home i.e. hospital bed, Terrell lift-case management working on [facility], [place] to get hospital bed and Terrell lift for carmen ent at home. Plan for d/c once all equipment is delivered. 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 Patient was initially diagnosed in January. She was admitted to [facility] 05/07 - 05/23 and was transfused 5u PRBCs and 1u Platelets (Patient with Anti-D and C Antibodies present on blood). She returned to the ER on 05/29 with complaints of weakness and fatigue and found to have 2% blasts on differential therefore she was transferred to [facility]. She had a bone marrow biopsy performed which revealed 5% blasts consistent with myelodysplastic syndrome. Per review of DC summary - patient is opting for supportive care with transfusions as needed. Patient with Case catheter placed on 06/10/25 - has remained in place. Urinary retention. Family reported to ER attending that they are to have home services but nobody comes to the house. Patient presents today with multiple complaints - ongoing weakness, dizziness, nausea, CARMONA as ell as pain in her joints, vomiting. EMS was called earlier this evening and patient was reportedly taken to [facility] where she was found to have a Hgb in the 5's. She was transfused with 1u PRBCs then discharged. Family brought her here. Family is not at bedside presently. Patient is not able to provide clear details of her medical history. Denies chest pain, fever, chills, diarrhea, abdominal pain ER Course: Tylenol Morphine Zofran Discharge Exam GENERAL APPEARANCE NAD, activity normal for age, well developed/ well nourished, no cyanosis, pallor, or diaphoresis. EYES lids/conjunctiva normal. EARS/NOSE/THROAT Mucous membranes moist, nares normal, lips/teeth normal uvula midline without oral pharyngeal erythema, e xudate or swelling TMs normal bilaterally. No lymphangitis/lymphedema. HEAD/NECK normocephalic atraumatic, no facial trauma, neck is supple. RESPIRATORY respiratory effort normal, speaks in full sentences, no tripod position, no accessory muscle use. Lungs clear to auscultation without rhonchi, wheezes, rales CARDIAC Regular rate and rhythm, no edema. ABDOMINAL Soft, ND/NT. No evidence of fluid wave. No pulsatile masses on exam, rebound tenderness, Luna sign or pain over Mcburney's point. MUSCLES/EXTREMITIES No abnormal range of motion, no swelling. SKIN Warm, pink and dry. No rashes, dermatoses, petechiae or lesions. NEUROLOGICAL Speech is clear and appropriate. Normal level of consciousness. Gait and coordination are normal. 5/5 strength in all extremities. PSYCH Normal mood and affect. Judgement/competence is appropriate Discharge Plan Discharge Items Patient Disposition: Home - Self-Care Reason For Visit: WEAKNESS, JOINT PAIN Discharge Diagnosis: MDS Condition on Discharge: Fair Activity: Resume your previous activity Non-emergency contact: Primary Care Provider Call non-emergency contact if: you have any medication questions Follow-up/Referrals: Damien Gutierrez DO [Primary Care Provider] - Diet: Regular Addtl Attending Provider Instructions: Follow up with Oncology in 1 week Pending Studies at Discharge: No Stand-Alone Forms: [employer], Smoking Cessation Medications and DC Order Prescriptions: New acyclovir 400 mg Tablet 400 mg PO BID Qty: 60 0RF dicyclomine 10 mg Capsule 10 mg PO Q8H PRN (Reason: abdominal pain) Qty: 30 0RF fluticasone furoate-vilanterol [Breo Ellipta] 100-25 mcg/dose Blister With Device 1 inh inhalation DAILY@1400 Qty: 60 0RF Continued albuterol sulfate [Ventolin HFA] 90 mcg/actuation HFA aerosol inhaler 1 puff INHALATION Q4H PRN (Reason: sob) midodrine 5 mg tablet 5 mg PO TID Rx Instructions: THREE TIMES A DAY 0800, 1200, 1700 rosuvastatin 5 mg tablet 5 mg PO HS pantoprazole 40 mg tablet,delayed release (DR/EC) 40 mg PO DAILY PRN (Reason: Unknown) Rx Instructions: L.F 04/13/25 UNABLE TO VERIFY WITH PT metoprolol succinate 25 mg tablet extended release 24 hr 25 mg PO HS hydrocodone-acetaminophen 5-325 mg tablet 1 tab PO Q8H PRN (Reason: Pain) Discharge Orders: Discharge Order (Routine); Ordered 07/18/25 Ordered By: Ralph Higgins Admission Data Admit Date/Time: 07/08/25 10:59 Attending Provider: Ralph Higgins Admit Provider: Alana Servin Primary Care Provider: Damien Gutierrez Other Providers: Alana Servin; [facility],Home Care Fax; Kimber Leija; Yon Alexander at [facility] Stay Data Consultations 07/05/25 05:46 ED Decision to Admit Stat 07/06/25 17:26 Consult Hematology Routine 07/07/25 12:10 Consult Palliative Care Routine Diagnostic Imagining Performed 07/05/25 02:53 US venous doppler LE LT Stat Pending Results Patient Have Any Pending Studies at Discharge: No Discharge Instructions Given to Patient (Per Discharging Provider) Follow up with Oncology in 1 week Total Time Total Time Spent Total Time Spent (In Minutes): 50 Coding Level of Care Code 64593 INP/OBS DISCH >30 MIN Diagnoses MDS (myelodysplastic syndrome) D46.9 Elevated troponin R79.89 COPD (chronic obstructive pulmonary disease) J44.9 Bipolar disorder F31.9
[2025-07-18 23:28] VITALS: RESP 16; TEMP 97.7; O2SAT 97
[2025-07-19 08:05] VITALS: PULSE 80
[2025-07-19 08:47] LABS: Anion Gap 6.0 (3-11); Blood Urea Nitrogen 13.0 mg/dl (6-23); Calcium 8.4 mg/dl (8.6-10.3); Carbon Dioxide 32.0 mmol/L (21-32); Chloride 95.0 mmol/L (98-107); Creatinine Clr Calc Pharmacy 112.7 ml/min; Glucose 103.0 mg/dl (70-99(Fasting)); Sodium 133.0 mmol/L (136-145)
[2025-07-19 08:49] LABS: Potassium 3.8 mmol/L (3.5-5.1)
[2025-07-19 09:01] LABS: Hematocrit (blood only) 26.0 % (37.0-47.0); Hemoglobin 8.7 g/dl (12.0-16.0); Mean Corpuscular Hemoglobin 28.6 pg (25.0-34.0); Mean Corpuscular Volume 85.5 fL (80.0-100.0); Platelet Count 22 K/uL (130-400); RDW Standard Deviation 45.9 fL (36.4-46.3); Red Blood Count 3.04 M/uL (4.20-5.40); White Blood Count 4.25 K/ul (4.8-10.8)
--- NOTE | 2025-07-19 09:08 | Hospitalist Progress Note ---
Date of Service July 19, 2025 Assessment & Plan (1) MDS (myelodysplastic syndrome): Plan: -Transfusions thresholds PRBCs for Hgb <7, Platelets for level <10 -heme globin 8.8 on d/c -continue prophylactic acyclovir 400 mg p.o. twice daily -prophylactic Levofloxacin is only to be given for ANC less than 500 -Follow CBC with differential daily -Appreciate oncology consultation this admission -plan to arrange [facility] outpatient treatment-plan for 3 times a week appts for labs, treatment and possible transfusions-Will wait to schedule oncology appointment until definite discharge date is known -pt and family have gone [id number] multiple times about SNF versus going home with family to transport to oncology for treatment-final decision on 07/13 is that family will bring the patient home if they can obtain a hospital bed through charitable means as they cannot afford one-they then will use public wheelchair van transportation to get the patient [facility] - Palliative medicine consultation appreciated-s/p family meeting with goals of care on 07/10--> pt gets upset about discussion of hospice and does not want that at this time (2) Elevated troponin: Plan: most likely demand in the setting of acute anemia. No events on telemetry, no chest pain, ECG with nonspecific anterior T wave flattening. (3) COPD (chronic obstructive pulmonary disease): Plan: - Continue Breo, Albuterol PRN - Supplemental O2 as n (4) Bipolar disorder: Plan: - will hold off on resuming Seroquel 200 mg p.o. at bedtime as it seems she has not been on this for some time now Plan This patient is a 70yo female with Myelodyplastic Syndrome, presence of TP53 mutation, 5% blasts per bone marrow biospy performed at [facility] on 05/31/25. Patient with generalized weakness, fatigue, CARMONA, joint pain, nausea and vomiting. Initially presented to an outside facility and found to be severely anemic with Hgb=5's. She was transfused PRBCs x 1u, discharged and came to [facility]. No blood loss. Patient's diagnosis of MDS is relatively new (January 2025) and she is not yet been able to begin treatment due to logistical reasons and poor social support Disposition-continued stay monitoring for need for transfusions while awaiting arrangements for getting the patient home i.e. hospital bed, Terrell lift-case management working on [facility] to get hospital bed and Terrell lift for patient at home. Plan for d/c once all equipment is delivered. Admission and Anticipated Discharge Date Admission Date: July 08, 2025 Subjective -No events overnight. Pt resting in bed ready for discharge today. Review of Systems Review of Systems: CONST: Negative for fever, body aches and chills. HENT: Negative for neck pain/stiffness, headache, congestion, sore throat, swelling. EYES: Negative for discharge/pain or vision changes. RESP: Negative for cough/hemoptysis and shortness of breath. CV: Negative chest pain, difficulty breathing, palpitations. ABD: Negative pain, nausea, vomiting. : Negative increase frequency, dysuria, blood in urine or stool. MUSC: Negative for muscle aches, edema. SKIN: Negative rash, lesions/sores. NEURO: Negative headache, dizziness, weakness. Physical Exam Physical Exam: GENERAL APPEARANCE NAD, activity normal for age, well developed/ well nourished, no cyanosis, pallor, or diaphoresis. EYES lids/conjunctiva normal. EARS/NOSE/THROAT Mucous membranes moist, nares normal, lips/teeth normal uvula midline without oral pharyngeal erythema, exudate or swelling TMs normal bilaterally. No lymphangitis/lymphedema. HEAD/NECK normocephalic atraumatic, no facial trauma, neck is supple. RESPIRATORY respiratory effort normal, speaks in full sentences, no tripod position, no accessory muscle use. Lungs clear to auscultation without rhonchi, wheezes, rales CARDIAC Regular rate and rhythm, no edema. ABDOMINAL Soft, ND/NT. No evidence of fluid wave. No pulsatile masses on exam, rebound tenderness, Luna sign or pain over Mcburney's point. MUSCLES/EXTREMITIES No abnormal range of motion, no swelling. SKIN Warm, pink and dry. No rashes, dermatoses, petechiae or lesions. NEUROLOGICAL Speech is clear and appropriate. Normal level of consciousness. Gait and coordination are normal. 5/5 strength in all extremities. PSYCH Normal mood and affect. Judgement/competence is appropriate Results & Data Results & Data Vital Signs (Past 12 Hours) Vital Signs Temp Pulse Resp BP BP Pulse Ox O2 Del Method 07/19/25 07:45 36.5 C 80 16 80/45 L 97 Nasal Cannula 07/18/25 23:41 95/61 L 07/18/25 23:11 36.5 C 61 16 85/56 L 97 Room Air PG Care Time/CCT Total # of Minutes Spent Total Time Spent with Patient: Total time spent is greater than 50% in coordination of care (as documented) at patient's floor/unit and/or counseling patient: Coding Level of Care Code 88596 SUB INP/OBS CARE 2/35MIN Diagnoses MDS (myelodysplastic syndrome) D46.9 Elevated troponin R79.89 COPD (chronic obstructive pulmonary disease) J44.9 Bipolar disorder F31.9
[2025-07-19 14:27] VITALS: BP 95/61
== END 2025-07-19 15:54 | disposition home health service (06) | DRG 835 ==
LOC: SUATTDRO → ED 02:30 → EDINP 02:30 → SUATTDRO 06:16 → 2N 09:12 → SUATTDRO 07-08 10:59 → 3N 07-09 06:34
DX: D61.818 Other pancytopenia; E78.5 Hyperlipidemia, unspecified; R33.9 Retention of urine, unspecified; F31.9 Bipolar disorder, unspecified; K59.03 Drug induced constipation; C92.00 Acute myeloblastic leukemia, not having achieved remission; J44.9 Chronic obstructive pulmonary disease, unspecified; G57.93 Unspecified mononeuropathy of bilateral lower limbs; Y92.009 Unspecified place in unspecified non-institutional (private) residence as the place of occurrence of the external cause; I25.10 Atherosclerotic heart disease of native coronary artery without angina pectoris; T40.2X5A Adverse effect of other opioids, initial encounter; D46.Z Other myelodysplastic syndromes; K21.9 Gastro-esophageal reflux disease without esophagitis; I24.89 Other forms of acute ischemic heart disease; I50.32 Chronic diastolic (congestive) heart failure